=== PATIENT | female | born 1945 | race Caucasian/White ===

== ENCOUNTER 2018-01-26 13:28 | Inpatient (IN) | payer MEDICARE ==
--- NOTE | 2018-01-26 13:49 | ED ---
Fall HPI - General Chief Complaint: Fall Stated Complaint: Fall Time Seen by Provider: 01/26/18 13:46 Source: patient, EMS Mode of arrival: EMS - History of Present Illness Initial Comments: This is a 72-year-old female the ER for evaluation she presents today for evaluation status post fall fall with inability to ambulate, fall landing on her back buttocks and complaining of severe right hip pain. Patient is able to make her way to bed with help of her . 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, recurrent falls Fall Witnessed: yes, by family Place Fall Occurred: home Loss of Consciousness: none Prolonged Down Time?: no Symptoms Prior to Fall: none Location: pelvis Severity: moderate Severity scale (1-10): 3 Quality: aching Context: tripped/slipped Associated Symptoms: denies - Related Data Home Medications Medication Instructions Recorded Confirmed ALPRAZolam [Xanax] 0.25 mg PO BID 01/26/18 01/26/18 Aspirin EC [Ecotrin] 325 mg PO DAILY 01/26/18 01/26/18 Calcium Carbonate [Calcium] 1,200 mg PO TID 01/26/18 01/26/18 Ergocalciferol [Vitamin D2] 50,000 unit PO WE 01/26/18 01/26/18 Ferrous Sulfate [Feosol] 325 mg PO DAILY 01/26/18 01/26/18 Hydroxyurea 500 mg PO DAILY 01/26/18 01/26/18 Lisinopril 40 mg PO DAILY 01/26/18 01/26/18 Metoprolol Succinate [Kapspargo 50 mg PO DAILY 01/26/18 01/26/18 Sprinkle] Omeprazole 20 mg PO BID 01/26/18 01/26/18 Phenytoin Sodium Extended 100 mg PO TID 01/26/18 01/26/18 [Dilantin] Allergies Allergy/AdvReac Type Severity Reaction Status Date / Time No Known Allergies Allergy Verified 01/26/18 14:57 Review of Systems ROS Statement: Those systems with pertinent positive or pertinent negative responses have been documented in the HPI. ROS Other: All systems not noted in ROS Statement are negative. Past Medical History Past Medical History: Hypertension History of Any Multi-Drug Resistant Organisms: None Reported Past Surgical History: No Surgical Hx Reported Past Psychological History: Anxiety Smoking Status: Never smoker Past Alcohol Use History: None Reported Past Drug Use History: None Reported General Exam Limitations: no limitations General appearance: alert, in no apparent distress Head exam: Present: atraumatic, normocephalic, normal inspection Eye exam: Present: normal appearance, PERRL, EOMI. Absent: scleral icterus, conjunctival injection, periorbital swelling ENT exam: Present: normal exam, mucous membranes moist Neck exam: Present: normal inspection. Absent: tenderness, meningismus, lymphadenopathy Respiratory exam: Present: normal lung sounds bilaterally. Absent: respiratory distress, wheezes, rales, rhonchi, stridor Cardiovascular Exam: Present: regular rate, normal rhythm, normal heart sounds. Absent: systolic murmur, diastolic murmur, rubs, gallop, clicks GI/Abdominal exam: Present: soft, normal bowel sounds. Absent: distended, tenderness, guarding, rebound, rigid Extremities exam: Present: normal inspection, full ROM, normal capillary refill , other (Severe pain upon movement and palpation of right hip). Absent: tenderness, pedal edema, joint swelling, calf tenderness Back exam: Present: normal inspection Neurological exam: Present: alert, oriented X3, CN II-XII intact Psychiatric exam: Present: normal affect, normal mood Skin exam: Present: warm, dry, intact, normal color. Absent: rash Course Vital Signs 01/26/18 13:40 Temperature 98.9 F Pulse Rate 102 H Respiratory 17 Rate Blood Pressure 170/92 O2 Sat by Pulse 98 Oximetry - Reevaluation(s) Reevaluation #1: 01/26/18 18:11 Medical record is reviewed Reevaluation #2: 01/26/18 18:11 Patient unable to actively, CT is obtained which did show positive fracture This pain is currently controlled Medical Decision Making - Medical Decision Making 72 female the ER status post fall. Patient did sustain pubic rami Fracture with severe pain and inability to ambulate. Patient be admitted for pain control - Radiology Data Radiology results: report reviewed (X-ray hip is negative, CT right hip does show positive pubic rami fractures), image reviewed Disposition Clinical Impression: Fall, Fracture of pubic ramus Disposition: ADMITTED IP TO [facility] Condition: Fair Instructions: Fall Prevention for Older Adults (ED) Is patient prescribed a controlled substance at d/c from ED?: No Referrals: Cher Todd MD [Primary Care Provider] - 1-2 days
--- NOTE | 2018-01-26 14:38 | XR ---
EXAMINATION TYPE: XR Hip RT and AP Pelvis , 3 VIEWS DATE OF EXAM ORDERED: 01/26/2018 HISTORY: Pain following trauma. COMPARISON: None. FINDINGS: The entire pelvis is not included on this study. Visualized osseous structures about the pelvis are normal. No fracture is seen. There is degenerative change in the L4-5 disc level. No hip fracture is seen. There is a slightly unusual appearance to th e inferior pubic ramus on the left. This may be due to mild angulation. IMPRESSION: 1. NO ACUTE OSSEOUS LESION. 2. A REPEAT PELVIC VIEW TO INCLUDE THE ENTIRE PELVIS AND HAVE A BETTER LOOK AT INFERIOR PUBIC RAMUS O N THE LEFT WOULD BE SUGGESTED.
[2018-01-26] MEDS ORDERED: MORPHINE SULFATE 4 MG/ML SYRINGE IVP STA (16:00)
--- NOTE | 2018-01-26 16:56 | CT ---
EXAMINATION TYPE: CT hip RT wo con DATE OF EXAM: 01/26/2018 COMPARISON: Plain film same date HISTORY: Fall last night, right hip pain. CT DLP: 469 mGycm Automated exposure control for dose reduction was used. Helical acquisition through the right hip. Co miguel and sagittal reconstructions. FINDINGS: Inferior pubic ramus fracture on the right is minimally displaced. Plain film suggests infe rior ramus fracture on the left as well. Bone mineralization is maintained. No dislocation. Osteophytic change noted, there is joint space los s, marginal spurring. Incidental note made of calcified fibroid. Degenerative disc changes are present in the visualized sp ine. 3 cm cystic right ovarian mass is present IMPRESSION: PUBIC RAMI FRACTURES DESCRIBED. Cystic right ovarian mass, follow-up recommended. Osteoarthritis r ight hip.
[2018-01-26] MEDS ORDERED: MORPHINE SULFATE 2 MG/ML SYRINGE IVP STA (18:07)
[2018-01-26] MEDS ORDERED: SODIUM CHLORIDE 0.9% 1,000 ML IV STA ×2 (18:07)
[2018-01-26 19:36] LABS: Basophils % (A) 1 %; Eosinophils # (A) 0.1 k/uL (0-0.7); Eosinophils % (A) 1 %; HGB 12.6 gm/dL (11.4-16.0); Lymphocytes # (A) 0.6 k/uL (1.0-4.8); Lymphocytes % (A) 9 %; MCH 36.6 pg (25.0-35.0); MCHC 34.1 g/dL (31.0-37.0); MCV 107.3 fL (80.0-100.0); Macrocytosis Moderate; Mean Platelet Volume 6.7; Monocytes # (A) 0.3 k/uL (0-1.0); Monocytes % (A) 4 %; Neutrophils # (A) 5.3 k/uL (1.3-7.7); Neutrophils % (A) 84 %; Platelet Count 301 k/uL (150-450); RBC 3.45 m/uL (3.80-5.40); RDW 14.1 % (11.5-15.5); WBC 6.3 k/uL (3.8-10.6)
[2018-01-26 19:46] LABS: INR 1.1 (<1.2); Partial Thromboplastin Time 26.2 sec (22.0-30.0); Prothrombin Time 11.3 sec (9.0-12.0)
[2018-01-26 19:49] LABS: Appearance,Urine Clear (Clear); Bilirubin,Urine Negative (Negative); Blood,Urine Negative (Negative); Color,Urine Light Yellow; Glucose,Urine (UA) Trace (Negative); Ketones,Urine Negative (Negative); Leukocyte Esterase,Urine Negative (Negative); Nitrite,Urine Negative (Negative); PH, Urine 6.5 (5.0-8.0); Protein,Urine Negative (Negative); Specific Gravity,Urine 1.007 (1.001-1.035); Urobilinogen,Urine <2.0 mg/dL (<2.0)
[2018-01-26 19:58] LABS: ALT 32 U/L (9-52); AST 42 U/L (14-36); Albumin 3.4 g/dL (3.5-5.0); Alkaline Phosphatase 101 U/L (38-126); Anion Gap 8 mmol/L; Blood Urea Nitrogen 7 mg/dL (7-17); Calcium 8.9 mg/dL (8.4-10.2); Carbon Dioxide 24 mmol/L (22-30); Chloride 102 mmol/L (98-107); Glucose 133 mg/dL (74-99); Magnesium 1.9 mg/dL (1.6-2.3); Phosphorus 3.1 mg/dL (2.5-4.5); Potassium 4.2 mmol/L (3.5-5.1); Sodium 134 mmol/L (137-145); Total Bilirubin 1.4 mg/dL (0.2-1.3); Total Protein 6.6 g/dL (6.3-8.2)
[2018-01-26 20:09] LABS: Creatine Kinase MB 0.6 ng/mL (0.0-2.4); Troponin I 0.023 ng/mL (0.000-0.034)
[2018-01-26] MEDS: MORPHINE SULFATE 4 MG/ML SYRINGE IV SCH (21:48)
[2018-01-27 00:10] VITALS: BMI 25.7
[2018-01-27] MEDS: MORPHINE SULFATE 4 MG/ML SYRINGE IV SCH ×6 (00:38→20:16)
[2018-01-27] MEDS: ENOXAPARIN 40 MG/0.4 ML SYRINGE SQ SCH (08:08)
[2018-01-27] MEDS ORDERED: HYDROcodone/APAP 10-325MG 1 EACH TAB PO PRN (11:16)
--- NOTE | 2018-01-27 11:30 | P.CNOR ---
History of Present Illness - [facility] Consult date: 01/27/18 Consult reason: fracture (Bilateral inferior pubic rami fractures) History of present illness: The patient is a 72-year-old female that presented to the emergency department at [facility] yesterday. The patient states that she fell on Sunday night and had continued bilateral groin pain and inability to ambulate. X-rays were taken and a CT of the right hip was also ordered. She was found to have bilateral pubic rami fractures and was admitted to the hospital for further evaluation and treatment by orthopedic surgery and for pain management. The patient does live at home with her . Her is unable to take care of the patient if she does return home due to lifting restrictions after an OH. The patient is experiencing bilateral groin pain as expected. She states that she has not been out of bed yet and that is too painful for her to get out of bed at this time. She states that she has taken Jefferson 10 in the past for low back pain and says that works well for her. Review of Systems Constitutional: Denies chills, Denies fatigue, Denies fever Cardiovascular: Denies chest pain, Denies shortness of breath Respiratory: Denies cough Gastrointestinal: Denies diarrhea, Denies nausea, Denies vomiting Musculoskeletal: bilateral: hip pain (Groin pain), hip stiffness Past Medical History Past Medical History: GERD/Reflux, Hypertension, Osteoarthritis (OA), Seizure Disorder Additional Past Medical History / Comment(s): Heart murmur, back pain, "blood clot in brain" in 1975, seizure prior to 1975 History of Any Multi-Drug Resistant Organisms: None Reported Past Surgical History: Tonsillectomy Past Anesthesia/Blood Transfusion Reactions: No Reported Reaction Smoking Status: Never smoker - Past Family History Father Family Medical History: Myocardial Infarction ([place]) Mother History Unknown: Yes Medications and Allergies Home Medications Medication Instructions Recorded Confirmed Type ALPRAZolam [Xanax] 0.25 mg PO BID 01/26/18 01/26/18 History Aspirin EC [Ecotrin] 325 mg PO DAILY 01/26/18 01/26/18 History Calcium Carbonate [Calcium] 1,200 mg PO TID 01/26/18 01/26/18 History Ergocalciferol [Vitamin D2] 50,000 unit PO WE 01/26/18 01/26/18 History Ferrous Sulfate [Feosol] 325 mg PO DAILY 01/26/18 01/26/18 History Hydroxyurea 500 mg PO DAILY 01/26/18 01/26/18 History Lisinopril 40 mg PO DAILY 01/26/18 01/26/18 History Metoprolol Succinate [Kapspargo 50 mg PO DAILY 01/26/18 01/26/18 History Sprinkle] Omeprazole 20 mg PO BID 01/26/18 01/26/18 History Phenytoin Sodium Extended 100 mg PO TID 01/26/18 01/26/18 History [Dilantin] Allergies Allergy/AdvReac Type Severity Reaction Status Date / Time No Known Allergies Allergy Verified 01/26/18 14:57 Physical Examination The patient is a 72 year old female that is no acute distress. She is alert and oriented x3. The patient's head is normocephalic and atraumatic. Exam of the cervical spine reveals no pain upon palpation or range of motion. Exam of the bilateral upper extremities reveal no obvious deformities or pain upon range of motion. Exam of the bilateral lower extremity reveals no pain upon palpation. No pain upon palpation to the lateral hips. SI joints are non- tender. There is groin pain upon logrolling and any range of motion of the legs. Bilateral calves are soft and nontender. Patient has good foot and ankle motion bilaterally. Neurological and circulatory status is intact. Results Right hip and pelvis x-rays reveal slightly unusual appearance of the inferior pubic ramus on the left. Degenerative changes to L4-L5 disc level. No acute fracture seen to the right hip. Right hip CT reveals a inferior pubic ramus fracture on the right it is minimally displaced. Cystic ovarian mass present. - Labs Labs: Abnormal Lab Results - Last 24 Hours (Table) 01/26/18 01/26/18 01/26/18 Range/Units 18:53 18:53 19:02 RBC 3.45 L (3.80-5.40) m/uL MCV 107.3 H (80.0-100.0) fL MCH 36.6 H (25.0-35.0) pg Lymphocytes # 0.6 L (1.0-4.8) k/uL Sodium 134 L (137-145) mmol/L Creatinine 0.49 L (0.52-1.04) mg/dL Glucose 133 H (74-99) mg/dL Total Bilirubin 1.4 H (0.2-1.3) mg/dL AST 42 H (14-36) U/L Albumin 3.4 L (3.5-5.0) g/dL Urine Glucose (UA) Trace H (Negative) Microbiology - Last 24 Hours (Table) 01/26/18 19:02 Urine Culture - Preliminary Urine,Catheterized H & H 01/26/18 Range/Units 18:53 Hgb 12.6 (11.4-16.0) gm/dL Hct 37.0 (34.0-46.0) % Coagulation 01/26/18 Range/Units 18:53 INR 1.1 (<1.2) Result Diagrams: 01/26/18 18:53 01/26/18 18:53 Assessment and Plan (1) Fall Current Visit: Yes Status: Acute Code(s): W19.XXXA - UNSPECIFIED FALL, INITIAL ENCOUNTER SNOMED Code(s): 4092774 (2) Fracture of pubic ramus Current Visit: Yes Status: Acute Code(s): S32.599A - OTH FRACTURE OF UNSP PUBIS, INIT ENCNTR FOR CLOSED FRACTURE SNOMED Code(s): 58270082 Plan: The clinical, x-ray and CT findings were discussed with the patient. The case was also discussed with Dr. Barry Kelley. We are recommending a CT of the entire pelvis to establish stable pelvic ring and to further evaluate the left inferior pubic ramus fracture. Continue pain control, Jefferson has been added. Physical therapy and occupational therapy has been ordered for evaluation for possible rehab placement. Case management and social work has been consulted for discharge planning as well. We will continue to follow patient closely make further recommendations as needed.
[2018-01-27] MEDS: HYDROcodone/APAP 10-325MG 1 EACH TAB PO PRN ×3 (12:05→23:32)
--- NOTE | 2018-01-27 12:06 | CT ---
EXAMINATION TYPE: CT pelvis wo con DATE OF EXAM: 01/27/2018 COMPARISON: Plain films dated earlier today. HISTORY: Pelvic ring fracture CT DLP: 458.5 mGycm Automated exposure control for dose reduction was used. FINDINGS: There is a Ellsworth catheter within the bladder. The uterus is prominent containing innumerabl e calcifications likely reflecting fibroid change. There are minimally displaced fractures of the inferior pubic rami bilaterally. There is slight corti edu irregularity of the anterior aspect of the left acetabulum. There is also a minimally displaced f racture of the superior pubic ramus on the left involving the symphysis pubis. No other definite pelv ic fracture is seen. No right-sided hip fracture is identified. There are mild degenerative changes in the lower lumbar spine. IMPRESSION: 1. MILDLY DISPLACED FRACTURES OF THE INFERIOR PUBIC RAMI BILATERALLY. 2. MINIMALLY DISPLACED FRACTURE OF THE SUPERIOR PUBIC RAMUS ON THE LEFT NEAR THE SYMPHYSIS PUBIS. 3. SLIGHT CORTICAL IRREGULARITY OF THE ANTERIOR ASPECT THE LEFT ACETABULUM. THIS MAY REPRESENT AN UND ISPLACED FRACTURE. 4. FIBROID UTERUS. 5. DEGENERATIVE CHANGES IN THE LUMBAR SPINE.
[2018-01-27] MEDS: PANTOPRAZOLE 40 MG TABLET PO SCH (17:36)
[2018-01-27] MEDS: LISINOPRIL 20 MG TAB PO SCH (17:36)
[2018-01-27] MEDS: METOPROLOL SUCCINATE (ER) 50 MG TAB.ER.24H PO SCH (17:36)
[2018-01-27] MEDS: SODIUM CHLORIDE 0.9% 1,000 ML IV SCH (17:36)
--- NOTE | 2018-01-27 18:12 | P.HPIM ---
History of Present Illness This is a pleasant 72 years old female with past medical history of GERD, hypertension, gastroenteritis, seizure disorder. Patient presents because of fall. Patient states that she slipped in her crest from and fell on the floor when she fell in her bouts. Her came to help her but she couldn't stand up area was scanned to the emergency room patient was found to have pelvic fracture. And now she has fever perianal area and bilateral hip areas more than the right. In the emergency room patient has CT of the pelvis without contrast showing mildly displaced fractures of the anterior pubic rami bilaterally. CBC and BMP were noted. Mildly elevated bilirubin and liver enzymes. Patient has Ellsworth catheter Patient was on hydroxyurea and she was not sure if she is supposed to continue on it. She states that it was originally given to her by her water chaser for high platelets. However her platelets are within normal limits. She has an appointment with Dr. gill this coming Sunday. However now she is presented to the hospital. Review of Systems CONSTITUTIONAL: No fever, no malaise, no fatigue. HEENT: No recent visual problems or hearing problems. Denied any sore throat. CARDIOVASCULAR: No orthopnea, PND, no palpitations, no syncope. PULMONARY: No shortness of breath, no cough, no hemoptysis. GASTROINTESTINAL: No diarrhea, no nausea, no vomiting, no abdominal pain. Normoactive bowel sounds. NEUROLOGICAL: No headaches, no weakness, no numbness. HEMATOLOGICAL: Denies any bleeding or petechiae. GENITOURINARY: Denies any burning micturition, frequency, or urgency. MUSCULOSKELETAL/RHEUMATOLOGICAL: Denies any joint pain, swelling, or any muscle pain. ENDOCRINE: Denies any polyuria or polydipsia. Past Medical History Past Medical History: GERD/Reflux, Hypertension, Osteoarthritis (OA), Seizure Disorder Additional Past Medical History / Comment(s): Heart murmur, back pain, "blood clot in brain" in 1975, seizure prior to 1975 History of Any Multi-Drug Resistant Organisms: None Reported Past Surgical History: Tonsillectomy Past Anesthesia/Blood Transfusion Reactions: No Reported Reaction Smoking Status: Never smoker - Past Family History Father Family Medical History: Myocardial Infarction ([place]) Mother History Unknown: Yes Medications and Allergies Home Medications Medication Instructions Recorded Confirmed Type ALPRAZolam [Xanax] 0.25 mg PO BID 01/26/18 01/26/18 History Aspirin EC [Ecotrin] 325 mg PO DAILY 01/26/18 01/26/18 History Calcium Carbonate [Calcium] 1,200 mg PO TID 01/26/18 01/26/18 History Ergocalciferol [Vitamin D2] 50,000 unit PO WE 01/26/18 01/26/18 History Ferrous Sulfate [Feosol] 325 mg PO DAILY 01/26/18 01/26/18 History Hydroxyurea 500 mg PO DAILY 01/26/18 01/26/18 History Lisinopril 40 mg PO DAILY 01/26/18 01/26/18 History Metoprolol Succinate [Kapspargo 50 mg PO DAILY 01/26/18 01/26/18 History Sprinkle] Omeprazole 20 mg PO BID 01/26/18 01/26/18 History Phenytoin Sodium Extended 100 mg PO TID 01/26/18 01/26/18 History [Dilantin] Allergies Allergy/AdvReac Type Severity Reaction Status Date / Time No Known Allergies Allergy Verified 01/26/18 14:57 Physical Exam Vitals: Vital Signs Temp Pulse Pulse Pulse Resp BP BP 01/27/18 12:06 99.3 F 107 H 18 160/81 01/27/18 05:00 98.7 F 91 16 133/71 01/27/18 00:00 100 18 01/26/18 23:52 98.7 F 102 H 18 162/91 01/26/18 21:53 98.7 F 102 H 18 162/91 01/26/18 20:56 96 16 149/90 01/26/18 19:34 95 16 147/92 Pulse Ox 01/27/18 12:06 96 01/27/18 05:00 93 L 01/27/18 00:00 01/26/18 23:52 97 01/26/18 21:53 97 01/26/18 20:56 97 01/26/18 19:34 94 L Intake and Output 01/27/18 01/27/18 01/27/18 06:59 14:59 22:59 Intake Total 800 Output Total 400 200 Balance 400 -200 Intake: Intake, IV Titration 800 Amount Sodium Chloride 0.9% 1, 800 000 ml @ 100 mls/hr IV . Q10H [facility] Rx#:[id number] Output: Urine 400 200 Other: Voiding Method Indwelling Catheter Indwelling Catheter Indwelling Catheter Weight 70.3 kg GENERAL: The patient is alert and oriented x3, not in any acute distress. Well developed, well nourished. HEENT: Pupils are round and equally reacting to light. EOMI. No scleral icterus. No conjunctival pallor. Normocephalic, atraumatic. No pharyngeal erythema. No thyromegaly. CARDIOVASCULAR: S1 and S2 present. No murmurs, rubs, or gallops. PULMONARY: Chest is clear to auscultation, no wheezing or crackles. ABDOMEN: Soft, nontender, nondistended, normoactive bowel sounds. No palpable organomegaly. -MUSCULOSKELETAL: No joint swelling or deformity. Tenderness in both hip areas more on the right side EXTREMITIES: No cyanosis, clubbing, or pedal edema. NEUROLOGICAL: Gross neurological examination did not reveal any focal deficits. SKIN: No rashes. Results CBC & Chem 7: 01/26/18 18:53 01/26/18 18:53 Labs: Abnormal Lab Results - Last 24 Hours (Table) 01/26/18 01/26/18 01/26/18 Range/Units 18:53 18:53 19:02 RBC 3.45 L (3.80-5.40) m/uL MCV 107.3 H (80.0-100.0) fL MCH 36.6 H (25.0-35.0) pg Lymphocytes # 0.6 L (1.0-4.8) k/uL Sodium 134 L (137-145) mmol/L Creatinine 0.49 L (0.52-1.04) mg/dL Glucose 133 H (74-99) mg/dL Total Bilirubin 1.4 H (0.2-1.3) mg/dL AST 42 H (14-36) U/L Albumin 3.4 L (3.5-5.0) g/dL Urine Glucose (UA) Trace H (Negative) Microbiology - Last 24 Hours (Table) 01/26/18 19:02 Urine Culture - Preliminary Urine,Catheterized Thrombosis Risk Factor Assmnt - Choose All That Apply Any of the Below Risk Factors Present?: Yes Each Factor Represents 1 point: Medical pt on bed rest Other Risk Factors: Yes Each Risk Factor Represents 2 Points: Age 61-74 years Each Risk Factor Represents 5 Points: Hip, pelvis, or leg fracture (< 1 month) Thrombosis Risk Factor Assessment Total Risk Factor Score: 8 Thrombosis Risk Factor Assessment Level: High Risk Assessment and Plan Assessment: Keith Bilateral pelvic rami fracture History of GERD Essential hypertension History of seizure disorder Possible history of blood diseases on hydroxyurea. Plan: This is a pleasant 72 years old female who presents because of fall and pubic ramus fracture. Continue with IV fluids. Orthopedic evaluation in the patient.Labs and medication were reviewed.. Continue same treatment. Continue with symptomatic treatment. Resume home medication. Monitor lytes and vitals. DVT and GI prophylaxis. Further recommendations of the clinical course of the patient DVT prophylaxis: Subcutaneous Lovenox GI Prophylaxis: Pepcid PT/OT: Pending Prognosis is guarded
[2018-01-27] MEDS: ALPRAZolam 0.25 MG TAB PO SCH (21:33)
[2018-01-27] MEDS: PHENYTOIN SODIUM EXTENDED 100 MG CAP PO SCH (21:33)
[2018-01-27] MEDS: CALCIUM CARBONATE 500 MG CHEWABLE PO SCH (21:33)
[2018-01-28] MEDS: SODIUM CHLORIDE 0.9% 1,000 ML IV SCH ×2 (02:22→15:55)
[2018-01-28] MEDS: MORPHINE SULFATE 4 MG/ML SYRINGE IV SCH ×6 (02:22→21:08)
[2018-01-28] MEDS: HYDROcodone/APAP 10-325MG 1 EACH TAB PO PRN ×4 (05:44→23:47)
[2018-01-28] MEDS ORDERED: SENNOSIDES 8.6 MG TAB PO PRN (06:58)
[2018-01-28 07:44] LABS: Basophils % (A) 0 %; Eosinophils # (A) 0.4 k/uL (0-0.7); Eosinophils % (A) 5 %; HCT 38.3 % (34.0-46.0); HGB 12.1 gm/dL (11.4-16.0); Lymphocytes # (A) 0.7 k/uL (1.0-4.8); Lymphocytes % (A) 9 %; MCH 35.4 pg (25.0-35.0); MCHC 31.8 g/dL (31.0-37.0); MCV 111.6 fL (80.0-100.0); Macrocytosis Marked; Mean Platelet Volume 7.5; Monocytes # (A) 0.3 k/uL (0-1.0); Monocytes % (A) 5 %; Neutrophils # (A) 5.7 k/uL (1.3-7.7); Neutrophils % (A) 80 %; Platelet Count 218 k/uL (150-450); RBC 3.43 m/uL (3.80-5.40); WBC 7.2 k/uL (3.8-10.6)
[2018-01-28] MEDS: ENOXAPARIN 40 MG/0.4 ML SYRINGE SQ SCH (07:45)
[2018-01-28] MEDS: CALCIUM CARBONATE 500 MG CHEWABLE PO SCH ×3 (07:45→21:07)
[2018-01-28 07:46] LABS: ALT 20 U/L (9-52); AST 25 U/L (14-36); Albumin 2.9 g/dL (3.5-5.0); Alkaline Phosphatase 79 U/L (38-126); Anion Gap 5 mmol/L; Blood Urea Nitrogen 6 mg/dL (7-17); Calcium 8.4 mg/dL (8.4-10.2); Carbon Dioxide 21 mmol/L (22-30); Chloride 106 mmol/L (98-107); Glucose 89 mg/dL (74-99); Sodium 132 mmol/L (137-145); Total Bilirubin 1.1 mg/dL (0.2-1.3); Total Protein 5.9 g/dL (6.3-8.2)
[2018-01-28] MEDS: PANTOPRAZOLE 40 MG TABLET PO SCH ×2 (07:46→17:06)
[2018-01-28] MEDS: DOCUSATE 100 MG CAP PO SCH ×2 (07:49→21:08)
[2018-01-28] MEDS: ALPRAZolam 0.25 MG TAB PO SCH ×2 (07:49→21:08)
[2018-01-28] MEDS: METOPROLOL SUCCINATE (ER) 50 MG TAB.ER.24H PO SCH (07:50)
[2018-01-28] MEDS: LISINOPRIL 20 MG TAB PO SCH (07:50)
--- NOTE | 2018-01-28 08:44 | P.PN ---
Subjective Progress Note Date: 01/28/18 Principal diagnosis: Bilateral pubic rami fractures This is a 72 year-old female who we've been following for bilateral pubic rami fractures. The patient was evaluated at the bedside today. The patient denies nausea, vomiting, abdominal pain, shortness of breath, and chest pain this morning. She states her pain is not controlled at this time. A CT of the pelvis was ordered yesterday that revealed the known inferior pubic rami fractures bilaterally, a superior pubic ramus fracture on the left and a possible left acetabulum fracture that is nondisplaced. Physical and occupational therapy was ordered yesterday for evaluations today. No new complaints today. Objective - Vital Signs Vital signs: Vital Signs Temp 98 F 01/28/18 05:00 Pulse 95 01/28/18 05:00 Resp 16 01/28/18 05:00 BP 147/80 01/28/18 05:00 Pulse Ox 96 01/28/18 05:00 Intake & Output 01/27/18 01/28/18 01/28/18 18:59 06:59 18:59 Intake Total 1580 Output Total 200 250 Balance -200 1330 Intake: Intake, IV Titration 640 Amount Sodium Chloride 0.9% 1, 640 000 ml @ 75 mls/hr IV . [id number] [facility] Rx#:[id number] Oral 940 Output: Urine 200 250 Uretheral (Ellsworth) 250 Other: Voiding Method Indwelling Catheter Indwelling Catheter - Exam The patient is a 72-year-old female in no acute distress. She is alert and oriented 3. Exam of the bilateral lower extremities reveals no pain upon palpation. No pain to palpation to the lateral hips. SI joints are nontender. There is groin pain upon logrolling in any range of motion of the legs. Bilateral calves are soft and nontender. Patient has good foot and ankle motion bilaterally. Neurological and circulatory status is intact. - Labs CBC & Chem 7: 01/28/18 07:22 01/28/18 07:22 Labs: Abnormal Lab Results - Last 24 Hours (Table) 01/28/18 01/28/18 Range/Units 07:22 07:22 RBC 3.43 L (3.80-5.40) m/uL MCV 111.6 H (80.0-100.0) fL MCH 35.4 H (25.0-35.0) pg Sodium 132 L (137-145) mmol/L Carbon Dioxide 21 L (22-30) mmol/L BUN 6 L (7-17) mg/dL Creatinine 0.49 L (0.52-1.04) mg/dL Total Protein 5.9 L (6.3-8.2) g/dL Albumin 2.9 L (3.5-5.0) g/dL Microbiology - Last 24 Hours (Table) 01/26/18 19:02 Urine Culture - Final Urine,Catheterized Assessment and Plan (1) Fall Current Visit: Yes Status: Acute Code(s): W19.XXXA - UNSPECIFIED FALL, INITIAL ENCOUNTER SNOMED Code(s): 5969314 (2) Fracture of pubic ramus Current Visit: Yes Status: Acute Code(s): S32.599A - OTH FRACTURE OF UNSP PUBIS, INIT ENCNTR FOR CLOSED FRACTURE SNOMED Code(s): 32741300 Plan: The clinical, x-ray and CT findings were discussed with the patient. The case was also discussed with Dr. Barry Kelley. The patient may remain weight- bear as tolerated to the bilateral legs. Continue pain control. Physical therapy and occupational therapy has been ordered for evaluation for possible rehab placement. I encouraged patient to really sit on the side of the bed or in a bedside chair today. The Ellsworth should be removed once patient is more ambulatory. Case management and social work has been consulted for discharge planning as well. We will continue to follow patient closely make further recommendations as needed.
[2018-01-28] MEDS ORDERED: HYDROXYUREA 500 MG CAP PO SCH (09:00)
[2018-01-28 09:28] LABS: Poikilocytosis (M) Present
[2018-01-28] MEDS: PHENYTOIN SODIUM EXTENDED 100 MG CAP PO SCH ×3 (10:19→21:08)
[2018-01-28] MEDS: FERROUS SULFATE 325 MG TAB PO SCH (11:21)
--- NOTE | 2018-01-28 13:47 | P.CONS ---
History of Present Illness - Reason for Consult Consult date: 01/28/18 on hydrea for ET Requesting physician: Paddy E Madelyn - Chief Complaint fall with pain - History of Present Illness Mrs. Sousa is a very pleasant female pt of Dr. Arce 1st seen in July 2017. In 01/05 she was noted, on routine blood draw, to have an elevated platelet count of 855. Hemoglobin, WBC and other CBC indices were normal, chem panel was WNL. On 05/24/17 labs showed a plt count of 683 so, she was referred for further hematological evaluation and recommendations. Additional labs reveled that she was positive for a JAK2 [id number] mutation, confirming Essential Thrombocytosis. She was started on hydrea 500 mg daily in 09/05 with a good response. Dose was decreased to 500 mg 5 days/wk, due to fatigue in 10/06. She was also placed on 325mg/day ASA. She has followed up monthly with good tolerance and no intolerable side effects reported. Pt states she was at home and fell, her legs suddenly became weak, she denies hitting her head, she has had leg pain ever since, denies numbness or tingling in the pelvis or legs, no BM x 3 days, denies blood in the urine, current analgesics are providing fair pain control. No other c/o on a 14 point ROS. Review of Systems 14 point ROS is a stated in HPI Past Medical History Past Medical History: Blood Disorder, GERD/Reflux, Hypertension, Osteoarthritis (OA), Seizure Disorder Additional Past Medical History / Comment(s): Heart murmur, back pain, "blood clot in brain" in 1975, seizure prior to 1975 History of Any Multi-Drug Resistant Organisms: None Reported Past Surgical History: Tonsillectomy Past Anesthesia/Blood Transfusion Reactions: No Reported Reaction Past Psychological History: No Psychological Hx Reported Smoking Status: Never smoker Past Alcohol Use History: None Reported Past Drug Use History: None Reported - Past Family History Father Family Medical History: Myocardial Infarction ([place]) Mother History Unknown: Yes Medications and Allergies Home Medications Medication Instructions Recorded Confirmed Type ALPRAZolam [Xanax] 0.25 mg PO BID 01/26/18 01/26/18 History Aspirin EC [Ecotrin] 325 mg PO DAILY 01/26/18 01/26/18 History Calcium Carbonate [Calcium] 1,200 mg PO TID 01/26/18 01/26/18 History Ergocalciferol [Vitamin D2] 50,000 unit PO WE 01/26/18 01/26/18 History Ferrous Sulfate [Feosol] 325 mg PO DAILY 01/26/18 01/26/18 History Hydroxyurea 500 mg PO DAILY 01/26/18 01/26/18 History Lisinopril 40 mg PO DAILY 01/26/18 01/26/18 History Metoprolol Succinate [[place] 50 mg PO DAILY 01/26/18 01/26/18 History Sprinkle] Omeprazole 20 mg PO BID 01/26/18 01/26/18 History Phenytoin Sodium Extended 100 mg PO TID 01/26/18 01/26/18 History [Dilantin] Allergies Allergy/AdvReac Type Severity Reaction Status Date / Time No Known Allergies Allergy Verified 01/26/18 14:57 Physical Exam Vitals: Vital Signs Temp Pulse Resp BP Pulse Ox 01/28/18 05:00 98 F 95 16 147/80 96 01/27/18 21:00 98.4 F 97 16 127/78 92 L 01/27/18 12:06 99.3 F 107 H 18 160/81 96 Intake and Output 01/27/18 01/28/18 01/28/18 22:59 06:59 14:59 Intake Total 1040 540 Output Total 250 Balance 1040 290 Intake: Intake, IV Titration 640 Amount Sodium Chloride 0.9% 1, 640 000 ml @ 75 mls/hr IV . [id number] [facility] Rx#:[id number] Oral 400 540 Output: Urine 250 Uretheral ([place]) 250 Other: Voiding Method Indwelling Catheter Indwelling Catheter Indwelling Catheter Weight 70.3 kg - Constitutional General appearance: average body habitus, cooperative, no acute distress - EENT Eyes: anicteric sclerae, EOMI, normal appearance ENT: hearing grossly normal - Neck Neck: no lymphadenopathy - Respiratory Respiratory: bilateral: CTA - Cardiovascular Heart sounds: normal: S1, S2 leg Peripheral Edema: bilateral: None - Gastrointestinal General gastrointestinal: no absent bowel sounds, no decreased bowel sounds, no distended, no hepatomegaly, no hyperactive bowel sounds, normal bowel sounds, no organomegaly, no rigid, no scaphoid, soft, no splenomegaly, no tenderness, no umbilical hernia, no ventral hernia - Integumentary Integumentary: normal - Neurologic Neurologic: CNII-XII intact - Musculoskeletal BLE weakness secondary to pain, no sensation deficit in the legs, extremities are warm Musculoskeletal: strength equal bilaterally - Psychiatric Psychiatric: A&O x's 3, appropriate affect, intact judgment & insight Results CBC & Chem 7: 01/28/18 07:22 12 07:22 Labs: Abnormal Lab Results - Last 24 Hours (Table) 01/28/18 01/28/18 Range/Units 07:22 07:22 RBC 3.43 L (3.80-5.40) m/uL MCV 111.6 H (80.0-100.0) fL MCH 35.4 H (25.0-35.0) pg Lymphocytes # 0.7 L (1.0-4.8) k/uL Sodium 132 L (137-145) mmol/L Carbon Dioxide 21 L (22-30) mmol/L BUN 6 L (7-17) mg/dL Creatinine 0.49 L (0.52-1.04) mg/dL Total Protein 5.9 L (6.3-8.2) g/dL Albumin 2.9 L (3.5-5.0) g/dL Microbiology - Last 24 Hours (Table) 01/26/18 19:02 Urine Culture - Final Urine,Catheterized Comments: Orthopedic notes reviewed for surgical plan Assessment and Plan (1) Essential thrombocythemia Narrative/Plan: Pt diagnosed with ET about July of 2017, been treated with hydrea M-F and a full dose aspirin. If no plans for surgery then recommendation is to continue hydrea and asa as prescribed. Rehab at the direction of Orthopedics. If surgical intervention required then recommendation would be to hold hydrea until tigist are removed. Cont full dose aspirin and start orthopedic prophylaxis dose of anticoagulation-xarelto or eliquis. Current Visit: Yes Status: Chronic Priority: Medium Code(s): D47.3 - ESSENTIAL (HEMORRHAGIC) THROMBOCYTHEMIA SNOMED Code(s): 287494448 Plan: F/U Dr. Arce 1 month attests: I have performed H&P and developed impression and plan of patient with dictator. I agree with dictated note, documented as a scribe.
[2018-01-28] MEDS: CYCLOBENZAPRINE 5 MG TAB PO PRN ×2 (17:06→21:07)
--- NOTE | 2018-01-28 21:37 | P.PN ---
Subjective This is a pleasant 72 years old female with past medical history of GERD, hypertension, gastroenteritis, seizure disorder. Patient presents because of fall. Patient states that she slipped in her crest from and fell on the floor when she fell in her bouts. Her came to help her but she couldn't stand up area was scanned to the emergency room patient was found to have pelvic fracture. And now she has fever perianal area and bilateral hip areas more than the right. In the emergency room patient has CT of the pelvis without contrast showing mildly displaced fractures of the anterior pubic rami bilaterally. CBC and BMP were noted. Mildly elevated bilirubin and liver enzymes. Patient has Ellsworth catheter Patient was on hydroxyurea and she was not sure if she is supposed to continue on it. She states that it was originally given to her by her assembly lead person for high platelets. However her platelets are within normal limits. She has an appointment with Dr. gill this coming Sunday. However now she is presented to the hospital. 01/28/2018 pt is still in significant pain , at the fracture site and she is needing both po norco 10 and iv morphine , orthopedic evaluation is appreiciated and recommended subacute rehab, no surgery is indicated for her no, physical therapy to evaluate pt for possible rehab. hematology consult is appreciated , pt to continue with hydroxyureea due to her essential thrombocythemia. Objective - Vital Signs Vital signs: Vital Signs Temp 97.9 F 01/28/18 12:27 Pulse 101 H 01/28/18 15:41 Resp 20 01/28/18 15:41 BP 161/82 01/28/18 12:27 Pulse Ox 97 01/28/18 12:27 Intake & Output 01/28/18 01/28/18 01/29/18 06:59 18:59 06:59 Intake Total 1580 1720 Output Total 250 450 Balance 1330 1270 Weight 70.3 kg Intake: Intake, IV Titration 640 900 Amount Sodium Chloride 0.9% 1, 640 900 000 ml @ 75 mls/hr IV . [id number] [facility] Rx#:[id number] Oral 940 820 Output: Urine 250 450 Uretheral ([place]) 250 Other: Voiding Method Indwelling Catheter Indwelling Catheter # Voids 1 - Exam GENERAL: The patient is alert and oriented x3, not in any acute distress. Well developed, well nourished. HEENT: Pupils are round and equally reacting to light. EOMI. No scleral icterus. No conjunctival pallor. Normocephalic, atraumatic. No pharyngeal erythema. No thyromegaly. CARDIOVASCULAR: S1 and S2 present. No murmurs, rubs, or gallops. PULMONARY: Chest is clear to auscultation, no wheezing or crackles. ABDOMEN: Soft, nontender, nondistended, normoactive bowel sounds. No palpable organomegaly. -MUSCULOSKELETAL: No joint swelling or deformity. Tenderness in both hip areas more on the right side EXTREMITIES: No cyanosis, clubbing, or pedal edema. NEUROLOGICAL: Gross neurological examination did not reveal any focal deficits. SKIN: No rashes. - Labs CBC & Chem 7: 01/28/18 07:22 01/28/18 07:22 Labs: Abnormal Lab Results - Last 24 Hours (Table) 01/28/18 01/28/18 Range/Units 07:22 07:22 RBC 3.43 L (3.80-5.40) m/uL MCV 111.6 H (80.0-100.0) fL MCH 35.4 H (25.0-35.0) pg Lymphocytes # 0.7 L (1.0-4.8) k/uL Sodium 132 L (137-145) mmol/L Carbon Dioxide 21 L (22-30) mmol/L BUN 6 L (7-17) mg/dL Creatinine 0.49 L (0.52-1.04) mg/dL Total Protein 5.9 L (6.3-8.2) g/dL Albumin 2.9 L (3.5-5.0) g/dL Microbiology - Last 24 Hours (Table) 01/26/18 19:02 Urine Culture - Final Urine,Catheterized Assessment and Plan Assessment: Keith Bilateral pelvic rami fracture History of GERD Essential hypertension History of seizure disorder Possible history of blood diseases on hydroxyurea. Plan: This is a pleasant 72 years old female who presents because of fall and pubic ramus fracture. Continue with IV fluids. Orthopedic evaluation in the patient.Labs and medication were reviewed.. Continue same treatment. Continue with symptomatic treatment. Resume home medication. Monitor lytes and vitals. DVT and GI prophylaxis. Further recommendations of the clinical course of the patient DVT prophylaxis: Subcutaneous Lovenox GI Prophylaxis: Pepcid PT/OT: Pending Prognosis is guarded
[2018-01-29] MEDS: MORPHINE SULFATE 4 MG/ML SYRINGE IV SCH ×3 (00:39→06:59)
[2018-01-29] MEDS: HYDROcodone/APAP 10-325MG 1 EACH TAB PO PRN ×3 (05:43→18:22)
[2018-01-29] MEDS: SODIUM CHLORIDE 0.9% 1,000 ML IV SCH ×2 (06:58→17:09)
[2018-01-29 07:57] LABS: Anion Gap 4 mmol/L; Blood Urea Nitrogen 5 mg/dL (7-17); Calcium 8.5 mg/dL (8.4-10.2); Carbon Dioxide 21 mmol/L (22-30); Chloride 109 mmol/L (98-107); Glucose 83 mg/dL (74-99); Sodium 134 mmol/L (137-145)
[2018-01-29 08:32] LABS: Potassium 4.8 mmol/L (3.5-5.1)
[2018-01-29] MEDS ORDERED: MORPHINE SULFATE 4 MG/ML SYRINGE IV PRN (08:39)
--- NOTE | 2018-01-29 08:56 | P.PN ---
Subjective Progress Note Date: 01/29/18 Principal diagnosis: Bilateral pubic rami fractures This is a 72 year-old female who we've been following for bilateral pubic rami fractures. The patient was evaluated at the bedside today. The patient denies nausea, vomiting, abdominal pain, shortness of breath, and chest pain this morning. She states her pain is still controlled at this time. A CT of the pelvis that revealed the known inferior pubic rami fractures bilaterally, a superior pubic ramus fracture on the left and a possible left acetabulum fracture that is nondisplaced. Physical and occupational therapy evaluated the patient yesterday. No new complaints today. Her IV infiltrated last night and now her right elbow is swollen but not painful. Objective - Vital Signs Vital signs: Vital Signs Temp 98.1 F 01/29/18 04:54 Pulse 86 01/29/18 04:54 Resp 16 01/29/18 04:54 BP 138/79 01/29/18 04:54 Pulse Ox 98 01/29/18 08:13 Intake & Output 01/28/18 01/29/18 01/29/18 18:59 06:59 18:59 Intake Total 1720 1830 Output Total 450 1000 Balance 1270 830 Weight 70.3 kg Intake: Intake, IV Titration 900 640 Amount Sodium Chloride 0.9% 1, 900 640 000 ml @ 75 mls/hr IV . [id number] [facility] Rx#:[id number] Oral 820 1190 Output: Urine 450 1000 Other: Voiding Method Indwelling Catheter Indwelling Catheter # Voids 1 - Exam The patient is a 72-year-old female in no acute distress. She is alert and oriented 3. Exam of the bilateral lower extremities reveals no pain upon palpation. No pain to palpation to the lateral hips. SI joints are nontender. There is groin pain upon logrolling in any range of motion of the legs. Bilateral calves are soft and nontender. Patient has good foot and ankle motion bilaterally. Neurological and circulatory status is intact. - Labs CBC & Chem 7: 01/28/18 07:22 01/29/18 06:28 Labs: Abnormal Lab Results - Last 24 Hours (Table) 01/28/18 01/29/18 Range/Units 07:22 06:28 RBC 3.43 L (3.80-5.40) m/uL MCV 111.6 H (80.0-100.0) fL MCH 35.4 H (25.0-35.0) pg Lymphocytes # 0.7 L (1.0-4.8) k/uL Sodium 134 L (137-145) mmol/L Chloride 109 H (98-107) mmol/L Carbon Dioxide 21 L (22-30) mmol/L BUN 5 L (7-17) mg/dL Creatinine 0.49 L (0.52-1.04) mg/dL Assessment and Plan (1) Fall Current Visit: Yes Status: Acute Code(s): W19.XXXA - UNSPECIFIED FALL, INITIAL ENCOUNTER SNOMED Code(s): 9956226 (2) Fracture of pubic ramus Current Visit: Yes Status: Acute Code(s): S32.599A - OTH FRACTURE OF UNSP PUBIS, INIT ENCNTR FOR CLOSED FRACTURE SNOMED Code(s): 79259146 Plan: The clinical, x-ray and CT findings were discussed with the patient. The case was also discussed with Dr. Barry Kelley. The patient may remain weight- bear as tolerated to the bilateral legs. Continue pain control, I have added Ultram to alternate with the [place] and to decrease Morphine use. Physical therapy and occupational therapy has been ordered for evaluation for possible rehab placement. I encouraged patient to really sit on the side of the bed or in a bedside chair today. The Ellsworth should be removed once patient is more ambulatory. Case management and social work has been consulted for discharge planning as well. We will continue to follow patient closely make further recommendations as needed.
[2018-01-29] MEDS ORDERED: MORPHINE SULFATE 2 MG/ML SYRINGE IM STA (09:18)
[2018-01-29] MEDS: ENOXAPARIN 40 MG/0.4 ML SYRINGE SQ SCH (09:19)
[2018-01-29] MEDS: LISINOPRIL 20 MG TAB PO SCH (09:20)
[2018-01-29] MEDS: CALCIUM CARBONATE 500 MG CHEWABLE PO SCH ×3 (09:20→22:12)
[2018-01-29] MEDS: DOCUSATE 100 MG CAP PO SCH ×2 (09:21→22:13)
[2018-01-29] MEDS: FERROUS SULFATE 325 MG TAB PO SCH (09:21)
[2018-01-29] MEDS: ALPRAZolam 0.25 MG TAB PO SCH ×2 (09:21→22:12)
[2018-01-29] MEDS: PANTOPRAZOLE 40 MG TABLET PO SCH ×2 (09:21→17:15)
[2018-01-29] MEDS: PHENYTOIN SODIUM EXTENDED 100 MG CAP PO SCH ×2 (09:22→17:16)
[2018-01-29] MEDS: HYDROXYUREA 500 MG CAP PO SCH (09:23)
[2018-01-29] MEDS: METOPROLOL SUCCINATE (ER) 50 MG TAB.ER.24H PO SCH (09:23)
[2018-01-29] MEDS: CYCLOBENZAPRINE 5 MG TAB PO PRN (12:14)
[2018-01-29 12:57] VITALS: RESP 18
[2018-01-29] MEDS: traMADol 50 MG TAB PO PRN ×2 (17:15→22:12)
--- NOTE | 2018-01-29 17:34 | P.PN ---
Subjective This is a pleasant 72 years old female with past medical history of GERD, hypertension, gastroenteritis, seizure disorder. Patient presents because of fall. Patient states that she slipped in her crest from and fell on the floor when she fell in her bouts. Her came to help her but she couldn't stand up area was scanned to the emergency room patient was found to have pelvic fracture. And now she has fever perianal area and bilateral hip areas more than the right. In the emergency room patient has CT of the pelvis without contrast showing mildly displaced fractures of the anterior pubic rami bilaterally. CBC and BMP were noted. Mildly elevated bilirubin and liver enzymes. Patient has Ellsworth catheter Patient was on hydroxyurea and she was not sure if she is supposed to continue on it. She states that it was originally given to her by her wool hat sanding machine operator for high platelets. However her platelets are within normal limits. She has an appointment with Dr. gill this coming Sunday. However now she is presented to the hospital. 01/28/2018 pt is still in significant pain , at the fracture site and she is needing both po norco 10 and iv morphine , orthopedic evaluation is appreiciated and recommended subacute rehab, no surgery is indicated for her no, physical therapy to evaluate pt for possible rehab. hematology consult is appreciated , pt to continue with hydroxyureea due to her essential thrombocythemia. 01/29/2018 pt is still needing pain medication , parental morphine is provided for the pt today. orthopedic f/u is appreciated . DVT prophylaxis is aspirin 325 mg bid as per ortho team. possible discharge in 24/48 hrs Objective - Vital Signs Vital signs: Vital Signs Temp 97.4 F L 01/29/18 12:29 Pulse 90 01/29/18 12:29 Resp 18 01/29/18 12:29 BP 151/83 01/29/18 12:29 Pulse Ox 99 01/29/18 12:29 Intake & Output 01/28/18 01/29/18 01/29/18 18:59 06:59 18:59 Intake Total 1720 1830 Output Total 450 1000 600 Balance 1270 830 -600 Weight 70.3 kg Intake: Intake, IV Titration 900 640 Amount Sodium Chloride 0.9% 1, 900 640 000 ml @ 75 mls/hr IV . [id number] [facility] Rx#:[id number] Oral 820 1190 Output: Urine 450 1000 600 Other: Voiding Method Indwelling Catheter Indwelling Catheter Indwelling Catheter # Voids 1 - Exam GENERAL: The patient is alert and oriented x3, not in any acute distress. Well developed, well nourished. HEENT: Pupils are round and equally reacting to light. EOMI. No scleral icterus. No conjunctival pallor. Normocephalic, atraumatic. No pharyngeal erythema. No thyromegaly. CARDIOVASCULAR: S1 and S2 present. No murmurs, rubs, or gallops. PULMONARY: Chest is clear to auscultation, no wheezing or crackles. ABDOMEN: Soft, nontender, nondistended, normoactive bowel sounds. No palpable organomegaly. -MUSCULOSKELETAL: No joint swelling or deformity. Tenderness in both hip areas more on the right side EXTREMITIES: No cyanosis, clubbing, or pedal edema. NEUROLOGICAL: Gross neurological examination did not reveal any focal deficits. SKIN: No rashes. - Labs CBC & Chem 7: 01/28/18 07:22 01/29/18 06:28 Labs: Abnormal Lab Results - Last 24 Hours (Table) 01/29/18 Range/Units 06:28 Sodium 134 L (137-145) mmol/L Chloride 109 H (98-107) mmol/L Carbon Dioxide 21 L (22-30) mmol/L BUN 5 L (7-17) mg/dL Creatinine 0.49 L (0.52-1.04) mg/dL Assessment and Plan Assessment: Keith Bilateral pelvic rami fracture History of GERD Essential hypertension History of seizure disorder Possible history of blood diseases on hydroxyurea. Plan: This is a pleasant 72 years old female who presents because of fall and pubic ramus fracture. Continue with IV fluids. Orthopedic evaluation in the patient.Labs and medication were reviewed.. Continue same treatment. Continue with symptomatic treatment. Resume home medication. Monitor lytes and vitals. DVT and GI prophylaxis. Further recommendations of the clinical course of the patient DVT prophylaxis: Subcutaneous Lovenox GI Prophylaxis: Pepcid PT/OT: Pending Prognosis is guarded
[2018-01-29] MEDS ORDERED: ASPIRIN 325 MG TAB PO SCH (21:00)
[2018-01-30] MEDS: HYDROcodone/APAP 10-325MG 1 EACH TAB PO PRN ×3 (00:20→12:16)
[2018-01-30] MEDS: PHENYTOIN SODIUM EXTENDED 100 MG CAP PO SCH ×2 (00:21→09:09)
[2018-01-30] MEDS: CYCLOBENZAPRINE 5 MG TAB PO PRN ×2 (00:21→09:27)
[2018-01-30] MEDS: traMADol 50 MG TAB PO PRN ×2 (02:45→06:34)
[2018-01-30 05:45] VITALS: BP 161/79; PULSE 96; TEMP 97.8
[2018-01-30] MEDS ORDERED: ASPIRIN 325 MG TAB PO SCH ×2 (09:00)
[2018-01-30] MEDS ORDERED: MORPHINE SULFATE 4 MG/ML SYRINGE IM STA (09:01)
[2018-01-30] MEDS: LISINOPRIL 20 MG TAB PO SCH (09:04)
[2018-01-30] MEDS: CALCIUM CARBONATE 500 MG CHEWABLE PO SCH (09:04)
[2018-01-30] MEDS: PANTOPRAZOLE 40 MG TABLET PO SCH (09:05)
[2018-01-30] MEDS: SODIUM CHLORIDE 0.9% 1,000 ML IV SCH (09:05)
[2018-01-30] MEDS: ALPRAZolam 0.25 MG TAB PO SCH (09:05)
[2018-01-30] MEDS: DOCUSATE 100 MG CAP PO SCH (09:05)
[2018-01-30] MEDS: METOPROLOL SUCCINATE (ER) 50 MG TAB.ER.24H PO SCH (09:09)
[2018-01-30] MEDS: HYDROXYUREA 500 MG CAP PO SCH (09:09)
--- NOTE | 2018-01-30 11:47 | P.DS ---
Providers Date of admission: 01/26/18 18:07 Attending physician: Jane Copeland Consults: 01/26/18 18:07 Consult Physician Routine Consulting Provider: Walter Kelley Consult Reason/Comments: pubicRamiFx Do you want consulting provider notified?: Yes 01/27/18 18:12 Consult Physician Routine Consulting Provider: Floyd Arce Consult Reason/Comments: ? blood disorder on hydroxyurea Do you want consulting provider notified?: Yes Primary care physician: Cher Lopez [facility] Course: Diagnoses Bilateral pelvic rami fracture Fall Essential thrombocythemia, on hydroxyurea History of GERD Essential hypertension History of seizure disorder This is a pleasant 72 years old female with past medical history of GERD, hypertension, gastroenteritis, seizure disorder. Patient presents because of fall. Patient states that she slipped in her restroom and fell on the floor on her buttocks. Her came to help her but she couldn't stand up , in the emergency room patient was found to have pelvic fracture. Computed tomography scan of the pelvis showing mildly displaced fractures of the inferior pubic rami bilaterally. Patient has been evaluated by our orthopedic team without the patient is weight-bear as tolerated to bilateral legs. Physical and occupational therapy and rehab placement. Pain management continue with [place] as directed by orthopedic team. As well as aspirin for DVT prophylaxis per their recommendations. Hematology team recommended other oral anticoagulants, however they interact with her Dilantin and they found to be more risks than benefits. Also patient evaluated by hematology team for essential thrombocythemia . Patient is still have some pain at the fracture site, better controlled with pain medication. Lidocaine patch has been added. No chest pain or dyspnea. No abdominal pain or nausea vomiting. No fever. Patient was cleared for discharge by hematology and orthopedic team Problems and management plan discussed with the patient Patient verbalized understanding and acceptance, however she needs follow-up as an outpatient. physical exam Gen.: Patient alert awake and oriented X 3, NOT IN DISTRESS CVS: s1-s2, RRR, no murmur CHEST:bilateral CTA, no wheezing or crepitation Abdomen: Soft, no tenderness, no distention, positive bowel sounds Extremities: No leg edema or induration. Tenderness and both hip areas Time spent more than 35 minutes Patient Condition at Discharge: Fair Plan - Discharge Summary Discharge Rx Participant: No New Discharge Prescriptions: New RX: Cyclobenzaprine [Flexeril] 5 mg PO TID PRN #0 tab PRN Reason: Muscle Spasm RX: Docusate [Colace] 100 mg PO BID cap RX: Pantoprazole [Protonix] 40 mg PO AC-BID #0 tablet.dr RX: Sennosides [Senokot] 8.6 mg PO HS PRN tab PRN Reason: Constipation RX: Aspirin 325 mg PO BID #60 tab HYDROcodone/APAP 10-325MG [[place] 10-325] 1 - 2 tab PO Q4-6H PRN #60 tab PRN Reason: Pain RX: Lidocaine 5% Patch [Lidoderm 5% Patch] 1 patch TOPICAL DAILY #30 patch Continue RX: Omeprazole 20 mg PO BID RX: Lisinopril 40 mg PO DAILY RX: Hydroxyurea 500 mg PO DAILY RX: Ferrous Sulfate [Iron (65 MG Elemental)] 325 mg PO DAILY RX: Aspirin EC [Ecotrin] 325 mg PO DAILY RX: ALPRAZolam [Xanax] 0.25 mg PO BID RX: Phenytoin Sodium Extended [Dilantin] 100 mg PO TID RX: Metoprolol Succinate [[place] Sprinkle] 50 mg PO DAILY RX: Ergocalciferol [Vitamin D2 (DRISDOL)] 50,000 unit PO WE RX: Calcium Carbonate [Calcium] 1,200 mg PO TID Discharge Medication List RX: ALPRAZolam [Xanax] 0.25 mg PO BID 01/26/18 [History] RX: Aspirin EC [Ecotrin] 325 mg PO DAILY 01/26/18 [History] RX: Calcium Carbonate [Calcium] 1,200 mg PO TID 01/26/18 [History] RX: Ergocalciferol [Vitamin D2 (DRISDOL)] 50,000 unit PO WE 01/26/18 [History] RX: Ferrous Sulfate [Iron (65 MG Elemental)] 325 mg PO DAILY 01/26/18 [History] RX: Hydroxyurea 500 mg PO DAILY 01/26/18 [History] RX: Lisinopril 40 mg PO DAILY 01/26/18 [History] RX: Metoprolol Succinate [[place] Sprinkle] 50 mg PO DAILY 01/26/18 [History] RX: Omeprazole 20 mg PO BID 01/26/18 [History] RX: Phenytoin Sodium Extended [Dilantin] 100 mg PO TID 01/26/18 [History] HYDROcodone/APAP 10-325MG [[place] 10-325] 1 - 2 tab PO Q4-6H PRN #60 tab [Rx] RX: Aspirin 325 mg PO BID #60 tab 01/29/18 [Rx] RX: Cyclobenzaprine [Flexeril] 5 mg PO TID PRN #0 tab 01/29/18 [Rx] RX: Docusate [Colace] 100 mg PO BID cap 01/29/18 [Rx] RX: Pantoprazole [Protonix] 40 mg PO AC-BID #0 tablet.dr 01/29/18 [Rx] RX: Sennosides [Senokot] 8.6 mg PO HS PRN tab 01/29/18 [Rx] RX: Lidocaine 5% Patch [Lidoderm 5% Patch] 1 patch TOPICAL DAILY #30 patch 01/30 [Rx] Follow up Appointment(s)/Referral(s): Floyd Arce MD [STAFF PHYSICIAN] - 02/26/18 2:45 pm Cher Todd MD [Primary Care Provider] - 1-2 days (office will call patient to schedule appt.) Barry Kelley DO [Doctor of Osteopathic Medicine] - 02/14/18 1:00 pm Patient Instructions/Handouts: Fall Prevention for Older Adults (ED) Activity/Diet/Wound Care/Special Instructions: [place] Weightbearing as tolerated to the bilateral lower extremities. HYDREA IS TO BE GIVEN SUNDAY-SUNDAY ONLY. NO DOSE ON SAT OR SUN Discharge Disposition: TRANSFER TO SNF/ECF
[2018-01-30] MEDS ORDERED: ERGOCALCIFEROL 50,000 UNIT CAP PO SCH (12:00)
[2018-01-30] MEDS: FERROUS SULFATE 325 MG TAB PO SCH (12:16)
== END 2018-01-30 13:40 | DRG 536 ==
LOC: EC 13:28 → 3NMEDONC 18:07
PROVIDERS: ADMIT Hospitalist; ATTEND Hospitalist
DX: S32.591A Other specified fracture of right pubis, initial encounter for closed fracture (principal); D69.3 Immune thrombocytopenic purpura; S32.592A Other specified fracture of left pubis, initial encounter for closed fracture; W01.0XXA Fall on same level from slipping, tripping and stumbling without subsequent striking against object, initial encounter; K21.9 Gastro-esophageal reflux disease without esophagitis; I10 Essential (primary) hypertension; M19.90 Unspecified osteoarthritis, unspecified site; G40.909 Epilepsy, unspecified, not intractable, without status epilepticus; Y92.009 Unspecified place in unspecified non-institutional (private) residence as the place of occurrence of the external cause; Z82.49 Family history of ischemic heart disease and other diseases of the circulatory system; Z79.82 Long term (current) use of aspirin; Z79.899 Other long term (current) drug therapy; Y92.002 Bathroom of unspecified non-institutional (private) residence as the place of occurrence of the external cause
CPT/HCPCS: 36415; 72192; 73502; 80048; 80053; 81003; 82550; 82553; 83735; 84100; 84484; 85025; 85610; 85730; 87086; 93005; 94760; 96361; 96374; 96376; 99285

== ENCOUNTER 2018-07-20 17:48 | Inpatient (IN) | payer MEDICARE ==
[2018-07-20] MEDS ORDERED: SODIUM CHLORIDE 0.9% 1,000 ML IV STA (17:54)
--- NOTE | 2018-07-20 17:55 | ED ---
Syncope HPI - General Stated Complaint: syncope Source: RN notes reviewed, old records reviewed - History of Present Illness Initial Comments: This is a 73-year-old female the ER for evaluation. This patient presents today for evaluation regarding likely syncopal event by history is poor. Patient presents today by EMS patient states she woke on the ground last and she remembers was around 1 PM. Patient has no headache chest pain shortness breath or abdominal pain. Patient admits remote history of seizures last seizure being in the . I'm no seizure medications currently. She did hit her head but denies headache. Patient is recent medication changes. Denies any pain MD Complaint: loss of consciousness, collapsed -: hour(s) Prodromal Symptoms: none -: minutes(s) Witnessed: no Current Symptoms: back to baseline History: seizure disorder, previous syncopal episode Context: standing up Treatments Prior to Arrival: none - Related Data Home Medications Medication Instructions Recorded Confirmed Aspirin EC [Ecotrin] 325 mg PO DAILY 01/26/18 07/20/18 Ergocalciferol [Vitamin D2 50,000 unit PO WE 01/26/18 07/20/18 (DRISDOL)] Ferrous Sulfate [Iron (65 MG 325 mg PO DAILY 01/26/18 07/20/18 Elemental)] Hydroxyurea 500 mg PO MOTUWETHFR 01/26/18 07/20/18 Lisinopril 40 mg PO DAILY 01/26/18 07/20/18 Metoprolol Succinate [Kapspargo 50 mg PO DAILY 01/26/18 07/20/18 Sprinkle] Omeprazole 20 mg PO BID 01/26/18 07/20/18 Phenytoin Sodium Extended 100 mg PO TID 01/26/18 07/20/18 [Dilantin] Calcium Carbonate/Vitamin D3 1 tab PO DAILY 07/20/18 07/20/18 [Calcium 600-Vit D3 200 Tablet] Cyanocobalamin (Vitamin B-12) 1,000 mcg PO DAILY 07/20/18 07/20/18 [Vitamin B-12] Allergies Allergy/AdvReac Type Severity Reaction Status Date / Time No Known Allergies Allergy Verified 07/20/18 18:25 Review of Systems ROS Statement: Those systems with pertinent positive or pertinent negative responses have been documented in the HPI. ROS Other: All systems not noted in ROS Statement are negative. Past Medical History Past Medical History: Blood Disorder, GERD/Reflux, Hypertension, Osteoarthritis (OA), Seizure Disorder Additional Past Medical History / Comment(s): Heart murmur, back pain, "blood clot in brain" in 1975, seizure prior to 1975 History of Any Multi-Drug Resistant Organisms: None Reported Past Surgical History: Tonsillectomy Past Anesthesia/Blood Transfusion Reactions: No Reported Reaction Past Psychological History: No Psychological Hx Reported Smoking Status: Never smoker Past Alcohol Use History: None Reported Past Drug Use History: None Reported - Past Family History Father Family Medical History: Myocardial Infarction ([place]) Mother History Unknown: Yes General Exam General appearance: alert, in no apparent distress Head exam: Present: normocephalic, normal inspection. Absent: atraumatic (Abrasion to left above left eye) Eye exam: Present: normal appearance, PERRL, EOMI. Absent: scleral icterus, co njunctival injection, periorbital swelling ENT exam: Present: normal exam, mucous membranes moist Neck exam: Present: normal inspection. Absent: tenderness, meningismus, lymphadenopathy Respiratory exam: Present: normal lung sounds bilaterally. Absent: respiratory distress, wheezes, rales, rhonchi, stridor Cardiovascular Exam: Present: regular rate, normal rhythm, normal heart sounds. Absent: systolic murmur, diastolic murmur, rubs, gallop, clicks GI/Abdominal exam: Present: soft, normal bowel sounds. Absent: distended, tenderness, guarding, rebound, rigid Extremities exam: Present: normal inspection, full ROM, normal capillary refill. Absent: tenderness, pedal edema, joint swelling, calf tenderness Back exam: Present: normal inspection Neurological exam: Present: alert, oriented X3, CN II-XII intact Psychiatric exam: Present: normal affect, normal mood Skin exam: Present: warm, dry, intact, normal color. Absent: rash Course Vital Signs 07/20/18 07/20/18 07/20/18 17:49 17:58 19:00 Temperature 98.0 F Pulse Rate 103 H 107 H Pulse Rate [ Pulse Oximetery ] Respiratory 22 Rate Blood Pressure 147/89 161/87 Blood Pressure [Left Arm] O2 Sat by Pulse 94 L 93 L 100 Oximetry 07/20/18 07/20/18 07/20/18 19:30 20:14 20:30 Temperature 98 F Pulse Rate 108 H 101 H Pulse Rate [ 93 Pulse Oximetery ] Respiratory 20 Rate Blood Pressure 163/96 150/88 Blood Pressure 154/85 [Left Arm] O2 Sat by Pulse 100 99 100 Oximetry - Reevaluation(s) Reevaluation #1: 07/20/18 18:15 Medical records reviewed Reevaluation #2: 07/20/18 18:15 Patient is having seizure-like activity. Patient has remote history of seizure greater than 20 years ago, patient was alert and oriented prior to arrival, that had active seizure activity, patient was placed on oxygen oxygen pulse ox remains normal, patient severely postictal. Seizure abated by itself EKG Findings - EKG Comments: EKG Findings:: EKG shows sinus tachycardia rate of 107, CO 176, QRS 88, QTc 474 Medical Decision Making - Medical Decision Making 73 female the ER for evaluation. Patient syncopal event with prolonged downtime. No significant injury sustained. Patient has recurrent seizure here in the ER, suggestion that the patient did have seizure earlier as well. Patient be admitted for neurology evaluation Antiepileptic medication - Lab Data Result diagrams: 07/21/18 05:58 07/21/18 05:58 Lab Results 07/20/18 07/20/18 07/20/18 Range/Units 18:06 18:23 18:23 WBC 11.1 H (3.8-10.6) k/uL RBC 3.53 L (3.80-5.40) m/uL Hgb 12.2 (11.4-16.0) gm/dL Hct 36.9 (34.0-46.0) % MCV 104.7 H (80.0-100.0) fL MCH 34.5 (25.0-35.0) pg MCHC 33.0 (31.0-37.0) g/dL RDW 15.7 H (11.5-15.5) % Plt Count 427 (150-450) k/uL Neutrophils % 81 % Lymphocytes % 9 % Monocytes % 7 % Eosinophils % 1 % Basophils % 0 % Neutrophils # 9.0 H (1.3-7.7) k/uL Lymphocytes # 0.9 L (1.0-4.8) k/uL Monocytes # 0.7 (0-1.0) k/uL Eosinophils # 0.1 (0-0.7) k/uL Basophils # 0.0 (0-0.2) k/uL Macrocytosis Moderate PT (9.0-12.0) sec INR (<1.2) APTT (22.0-30.0) sec D-Dimer (<0.60) mg/L FEU Sodium 128 L (137-145) mmol/L Potassium 4.7 (3.5-5.1) mmol/L Chloride 94 L (98-107) mmol/L Carbon Dioxide 19 L (22-30) mmol/L Anion Gap 15 mmol/L BUN 8 (7-17) mg/dL Creatinine 0.58 (0.52-1.04) mg/dL Est GFR (CKD-EPI)AfAm >90 (>60 ml/min/1.73 sqM) Est GFR (CKD-EPI)NonAf >90 (>60 ml/min/1.73 sqM) Glucose 139 H (74-99) mg/dL POC Glucose (mg/dL) 132 H (75-99) mg/dL POC Glu Distributor Publications ID Rodriguez, Dylan Lactic Ac Sepsis Rflx Plasma Lactic Acid Corona (0.7-2.0) mmol/L Calcium 9.1 (8.4-10.2) mg/dL Phosphorus 3.1 (2.5-4.5) mg/dL Magnesium 2.0 (1.6-2.3) mg/dL Total Bilirubin 0.8 (0.2-1.3) mg/dL AST 38 H (14-36) U/L ALT 10 (9-52) U/L Alkaline Phosphatase 110 (38-126) U/L Creatine Kinase 128 (30-135) U/L Troponin I (0.000-0.034) ng/mL NT-Pro-B Natriuret Pep pg/mL Total Protein 7.9 (6.3-8.2) g/dL Albumin 4.4 (3.5-5.0) g/dL 07/20/18 07/20/18 07/20/18 Range/Units 18:23 18:23 18:23 WBC (3.8-10.6) k/uL RBC (3.80-5.40) m/uL Hgb (11.4-16.0) gm/dL Hct (34.0-46.0) % MCV (80.0-100.0) fL MCH (25.0-35.0) pg MCHC (31.0-37.0) g/dL RDW (11.5-15.5) % Plt Count (150-450) k/uL Neutrophils % % Lymphocytes % % Monocytes % % Eosinophils % % Basophils % % Neutrophils # (1.3-7.7) k/uL Lymphocytes # (1.0-4.8) k/uL Monocytes # (0-1.0) k/uL Eosinophils # (0-0.7) k/uL Basophils # (0-0.2) k/uL Macrocytosis PT 10.1 (9.0-12.0) sec INR 0.9 (<1.2) APTT 21.5 L (22.0-30.0) sec D-Dimer 5.32 H (<0.60) mg/L FEU Sodium (137-145) mmol/L Potassium (3.5-5.1) mmol/L Chloride (98-107) mmol/L Carbon Dioxide (22-30) mmol/L Anion Gap mmol/L BUN (7-17) mg/dL Creatinine (0.52-1.04) mg/dL Est GFR (CKD-EPI)AfAm (>60 ml/min/1.73 sqM) Est GFR (CKD-EPI)NonAf (>60 ml/min/1.73 sqM) Glucose (74-99) mg/dL POC Glucose (mg/dL) (75-99) mg/dL POC Glu Distributor Publications ID Lactic Ac Sepsis Rflx Plasma Lactic Acid Corona 5.5 H* (0.7-2.0) mmol/L Calcium (8.4-10.2) mg/dL Phosphorus (2.5-4.5) mg/dL Magnesium (1.6-2.3) mg/dL Total Bilirubin (0.2-1.3) mg/dL AST (14-36) U/L ALT (9-52) U/L Alkaline Phosphatase (38-126) U/L Creatine Kinase (30-135) U/L Troponin I (0.000-0.034) ng/mL NT-Pro-B Natriuret Pep 791 pg/mL Total Protein (6.3-8.2) g/dL Albumin (3.5-5.0) g/dL 07/20/18 07/20/18 Range/Units 18:23 18:55 WBC (3.8-10.6) k/uL RBC (3.80-5.40) m/uL Hgb (11.4-16.0) gm/dL Hct (34.0-46.0) % MCV (80.0-100.0) fL MCH (25.0-35.0) pg MCHC (31.0-37.0) g/dL RDW (11.5-15.5) % Plt Count (150-450) k/uL Neutrophils % % Lymphocytes % % Monocytes % % Eosinophils % % Basophils % % Neutrophils # (1.3-7.7) k/uL Lymphocytes # (1.0-4.8) k/uL Monocytes # (0-1.0) k/uL Eosinophils # (0-0.7) k/uL Basophils # (0-0.2) k/uL Macrocytosis PT (9.0-12.0) sec INR (<1.2) APTT (22.0-30.0) sec D-Dimer (<0.60) mg/L FEU Sodium (137-145) mmol/L Potassium (3.5-5.1) mmol/L Chloride (98-107) mmol/L Carbon Dioxide (22-30) mmol/L Anion Gap mmol/L BUN (7-17) mg/dL Creatinine (0.52-1.04) mg/dL Est GFR (CKD-EPI)AfAm (>60 ml/min/1.73 sqM) Est GFR (CKD-EPI)NonAf (>60 ml/min/1.73 sqM) Glucose (74-99) mg/dL POC Glucose (mg/dL) (75-99) mg/dL POC Glu Distributor Publications ID Lactic Ac Sepsis Rflx Y Plasma Lactic Acid Corona (0.7-2.0) mmol/L Calcium (8.4-10.2) mg/dL Phosphorus (2.5-4.5) mg/dL Magnesium (1.6-2.3) mg/dL Total Bilirubin (0.2-1.3) mg/dL AST (14-36) U/L ALT (9-52) U/L Alkaline Phosphatase (38-126) U/L Creatine Kinase (30-135) U/L Troponin I <0.012 (0.000-0.034) ng/mL NT-Pro-B Natriuret Pep pg/mL Total Protein (6.3-8.2) g/dL Albumin (3.5-5.0) g/dL - Radiology Data Radiology results: report reviewed (CT brain C-spine x-ray chest and pelvis negative for traumatic injury), image reviewed Critical Care Time Critical Care Time: Yes Total Critical Care Time: 31 Disposition Clinical Impression: Vasovagal syncope, Seizure, Status epilepticus Disposition: ADMITTED IP TO THIS [facility] Condition: Fair Is patient prescribed a controlled substance at d/c from ED?: No
[2018-07-20] MEDS ORDERED: levETIRAcetam IV 1,500 MG in SALINE 1 100ML.BAG IVPB STA (18:12)
[2018-07-20 18:27] LABS: Glucose,Whole Blood 132 mg/dL (75-99)
[2018-07-20 18:37] LABS: Basophils % (A) 0 %; Eosinophils # (A) 0.1 k/uL (0-0.7); Eosinophils % (A) 1 %; HCT 36.9 % (34.0-46.0); HGB 12.2 gm/dL (11.4-16.0); Lymphocytes # (A) 0.9 k/uL (1.0-4.8); Lymphocytes % (A) 9 %; MCH 34.5 pg (25.0-35.0); MCV 104.7 fL (80.0-100.0); Macrocytosis Moderate; Mean Platelet Volume 7.5; Monocytes # (A) 0.7 k/uL (0-1.0); Monocytes % (A) 7 %; Neutrophils % (A) 81 %; Platelet Count 427 k/uL (150-450); RBC 3.53 m/uL (3.80-5.40); RDW 15.7 % (11.5-15.5); WBC 11.1 k/uL (3.8-10.6)
[2018-07-20 18:41] LABS: ALT 10 U/L (9-52); AST 38 U/L (14-36); African American GFR (CKD) >90 (>60 ml/min/1.73 sqM); Albumin 4.4 g/dL (3.5-5.0); Alkaline Phosphatase 110 U/L (38-126); Anion Gap 15 mmol/L; Blood Urea Nitrogen 8 mg/dL (7-17); Calcium 9.1 mg/dL (8.4-10.2); Carbon Dioxide 19 mmol/L (22-30); Chloride 94 mmol/L (98-107); Creatine Kinase 128 U/L (30-135); Glucose 139 mg/dL (74-99); Phosphorus 3.1 mg/dL (2.5-4.5); Sodium 128 mmol/L (137-145); Total Bilirubin 0.8 mg/dL (0.2-1.3); Total Protein 7.9 g/dL (6.3-8.2)
[2018-07-20 18:51] LABS: Potassium 4.7 mmol/L (3.5-5.1)
[2018-07-20 18:56] LABS: INR 0.9 (<1.2); Prothrombin Time 10.1 sec (9.0-12.0)
[2018-07-20 18:59] LABS: D-Dimer 5.32 mg/L FEU (<0.60); Partial Thromboplastin Time 21.5 sec (22.0-30.0)
--- NOTE | 2018-07-20 19:06 | CT ---
EXAMINATION TYPE: CT brain wo con, CT facial bones wo con DATE OF EXAM: 07/20/2018 HISTORY: seizure with fall injury causing headache and facial pain. CT DLP: combined DLP 687 mGycm. Automated Exposure Control for Dose Reduction was Utilized. TECHNIQUE: CT scan of the head and facial bones are performed without contrast. COMPARISON: CT brain 2011.. FINDINGS: Right parietal craniotomy changes are redemonstrated. There is no acute intracranial hemor rhage or midline shift identified. There is diffuse ventricular and sulcal prominence consistent with diffuse age-related cerebral atrophy. There is low-attenuation in the periventricular white matter consistent with chronic small vessel ischemic change. There is small left frontal acute scalp hematom a near axial image 37. Artifact degradation from motion noted, mandible is likely intact. Temporomandibular joints are maint ained. Nasal bones are intact. Orbital floors and mills are intact. Zygomatic arches are intact. Pter ygoid plates are intact. There is absent dentition in the maxilla. Visualized paranasal sinuses are c lear. Nasal septum is redemonstrated deviated to right of midline. Incidental vascular calcification distal internal carotid arteries bilaterally. IMPRESSION: 1. No acute intracranial hemorrhage or midline shift. There is moderate diffuse age-related cerebral atrophy and mild to moderate chronic small vessel ischemic change redemonstrated. Right-sided surgi edu changes again seen. New small left acute frontal scalp hematoma. 2. No acute displaced facial bone fracture.
--- NOTE | 2018-07-20 19:30 | XR ---
EXAMINATION TYPE: XR chest 2V DATE OF EXAM: 07/20/2018 COMPARISON: Chest x-ray June 30, 2011. HISTORY: Weakness. TECHNIQUE: Frontal and lateral views of the chest are obtained. FINDINGS: There is chronic signal changes with diminished inspiration and new bibasilar opacities. The cardiac silhouette size is enlarged and more prominent with atherosclerotic aorta. The osseous structures are demineralized. IMPRESSION: Suspect CHF exacerbation on background chronic parenchymal change as there is increasing cardiomegaly with small bilateral pleural effusions felt present. Correlate clinically.
[2018-07-20 20:02] LABS: Appearance,Urine Cloudy (Clear); Bacteria,Urine Many /hpf; Bilirubin,Urine Negative (Negative); Blood,Urine Small (Negative); Color,Urine Yellow; Glucose,Urine (UA) Negative (Negative); Hyaline Casts,Urine 12 /lpf (0-2); Ketones,Urine Trace (Negative); Leukocyte Esterase,Urine Large (Negative); Mucus,Urine Rare /hpf; Nitrite,Urine Positive (Negative); PH, Urine 5.5 (5.0-8.0); Protein,Urine 1+ (Negative); RBC,Urine 3 /hpf (0-5); Specific Gravity,Urine 1.017 (1.001-1.035); Squamous Epithelial Cell,Urine 21 /hpf (0-4); Urobilinogen,Urine <2.0 mg/dL (<2.0); WBC,Urine 31 /hpf (0-5)
--- NOTE | 2018-07-20 20:33 | CT ---
EXAMINATION TYPE: CT angio chest DATE OF EXAM: 07/20/2018 COMPARISON: NONE HISTORY: posterior chest pain CT DLP: 325.8 mGycm. Automated Exposure Control for Dose Reduction was Utilized. CONTRAST: CTA scan of the thorax is performed with IV Contrast, patient injected with 70cc mL of Isovue 370, pu lmonary embolism protocol. MIP Images are created on CT scanner and reviewed. FINDINGS: Exam noticed suboptimal secondary to patient's large body habitus. LUNGS: Exam noted suboptimal and there is respiratory motion artifact degradation which limits evalua tion particularly for subcentimeter nodules. There is bibasilar consolidation and/or atelectasis. No pleural effusion or pneumothorax is seen. MEDIASTINUM: There is suboptimal bolus with near equal contrast in right and left heart systems but n o convincing CT evidence for acute pulmonary embolism. There are no greater than 1 cm hilar or media stinal lymph nodes. No cardiomegaly or pericardial effusion is seen. Prominence of the intra-arteri al fat consistent with lipomatous hypertrophy is present. OTHER: Liver is low dense relative to spleen consistent with diffuse fatty infiltration. There is mod erate chronic compression fracture at L1 level. There is moderate to advanced chronic compression fra cture at T8 level. There is mild height loss or superior compression fractures involving the superior T4 and T6 endplates. No lucency is present to suggest acute fractures. IMPRESSION: No CT evidence for acute pulmonary embolism. Bibasilar atelectasis and/or consolidation i s present. Note is made of multiple compression type fractures most severe at T8 and L1 levels strong ly favored chronic in age.
[2018-07-20] MEDS: SODIUM CHLORIDE 0.9% 1,000 ML IV SCH (21:06)
[2018-07-20] MEDS ORDERED: KETOROLAC 30 MG/ML 1 ML VIAL IVP STA (21:25)
[2018-07-20 21:27] VITALS: BMI 23.2
--- NOTE | 2018-07-20 22:21 | P.HPIM ---
History of Present Illness H&P Date: 07/20/18 Chief Complaint: Seizure 73-year-old female with remote history of seizure over 20 years ago. Patient brought into the hospital after having a seizure attack. Patient unable to provide any meaningful history she seems to be slightly confused at this time. Family was not available at bedside. History was obtained by reviewing medical records and discussing the case with the ER physician. Seems like patient had a seizure attack at home at 1 PM after she woke up was described as tonic-clonic seizure she is not on any seizure medications but she has remote history of seizures over 20 years ago. In the emergency department she had another witnessed seizure that resolved on its own without any medications. Also was described as tonic-clonic seizure. Patient has brief postictal status however at time of my evaluation patient still seems to be disoriented unable to provide any meaningful history. Seems like when the patient had a seizure home she sustained a fall and hurt her head as she fell on her face. No report of loss of bladder or bowel control Reviewing medical records seems like she was discharged from the Hospital 5 months ago after sustaining a fall resulting in pelvic rami fracture. Patient reports occasional drinking of alcohol yesterday she had 2 beers. She denies any smoking she denies any drugs. She denies any changes in her medications. She has history of hypertension and thrombocythemia. In the ED extensive workup was performed showed mild hyponatremia at 128, lactic acidosis of 5.5, slightly elevated white count 11. Brain CAT scan showed only small left acute frontal scalp hematoma no fractures. EKG showed sinus tachycardia. D-dimer came back elevated for which CT angios the chest performed showed no acute PE, however suggested chronic in nature compression fractures of T8 to L1. Review of Systems ROS unobtainable: due to mental status Past Medical History Past Medical History: Blood Disorder, GERD/Reflux, Hypertension, Osteoarthritis (OA), Seizure Disorder Additional Past Medical History / Comment(s): Heart murmur, back pain, "blood clot in brain" in 1975, seizure prior to 1975 History of Any Multi-Drug Resistant Organisms: None Reported Past Surgical History: Tonsillectomy Past Anesthesia/Blood Transfusion Reactions: No Reported Reaction Past Psychological History: No Psychological Hx Reported Smoking Status: Never smoker Past Alcohol Use History: None Reported Past Drug Use History: None Reported - Past Family History Father Family Medical History: Myocardial Infarction ([place]) Mother History Unknown: Yes Medications and Allergies Home Medications Medication Instructions Recorded Confirmed Type Aspirin EC [Ecotrin] 325 mg PO DAILY 01/26/18 07/20/18 History Ergocalciferol [Vitamin D2 50,000 unit PO WE 01/26/18 07/20/18 History (DRISDOL)] Ferrous Sulfate [Iron (65 MG 325 mg PO DAILY 01/26/18 07/20/18 History Elemental)] Hydroxyurea 500 mg PO MOTUWETHFR 01/26/18 07/20/18 History Lisinopril 40 mg PO DAILY 01/26/18 07/20/18 History Metoprolol Succinate [Kapspargo 50 mg PO DAILY 01/26/18 07/20/18 History Sprinkle] Omeprazole 20 mg PO BID 01/26/18 07/20/18 History Phenytoin Sodium Extended 100 mg PO TID 01/26/18 07/20/18 History [Dilantin] Calcium Carbonate/Vitamin D3 1 tab PO DAILY 07/20/18 07/20/18 History [Calcium 600-Vit D3 200 Tablet] Cyanocobalamin (Vitamin B-12) 1,000 mcg PO DAILY 07/20/18 07/20/18 History [Vitamin B-12] Allergies Allergy/AdvReac Type Severity Reaction Status Date / Time No Known Allergies Allergy Verified 07/20/18 18:25 Physical Exam Vitals: Vital Signs Temp Pulse Resp BP Pulse Ox 07/20/18 17:49 98.0 F 103 H 22 147/89 94 L Intake and Output 07/20/18 07/20/18 07/20/18 06:59 14:59 22:59 Other: Weight 64.864 kg Constitutional: No acute distress, alert, awake and cooperative with exam seems to be slightly confused about what's happening currently on nonrebreather satting at 100% Eyes: Anicteric sclerae, moist conjunctiva, no lid-lag Pupils equal round reactive to light ENMT: NC/patient has hematoma over the left eyebrow no active bleeding Oropharynx clear, no erythema, or exudates Neck: Supple, FROM, no masses, or JVD No carotid bruits No thyromegaly Lungs: Clear to auscultation Clear to percussion Normal respiratory effort, no accessory muscle use Tenderness to palpation of the back over the mid to lower thoracic spine no visible skin changes Cardiovascular: Heart regular in rate and rhythm, No murmurs, gallops, or rubs No peripheral edema Abdominal: Soft Nontender, no guarding, rebound or rigidity Abdomen moving with respiration Normoactive bowel sounds No hepatomegaly, No splenomegaly No palpable mass No abdominal wall hernia noted Skin: Hematoma over the left eyebrow as described above otherwise Normal temperature, tone, texture, turgor No induration No subcutaneous nodules No rash, lesions No ulcers Extremities: No digital cyanosis No clubbing Pedal pulses intact and symmetrical Radial pulses intact and symmetrical No calf tenderness Psychiatric: Alert and oriented to person, place not oriented to time Appropriate affect Neuro Muscles Strength 4/5 in all 4 extremities Sensation to light touch grossly present throughout Cranial nerves II-XII grossly intact No focal sensory deficits Lymphatics: no palpable cervical or supraclavicular , or inguinal lymph nodes Results CBC & Chem 7: 07/20/18 18:23 07/20/18 18:23 Labs: Abnormal Lab Results - Last 24 Hours (Table) 07/20/18 07/20/18 07/20/18 Range/Units 18:06 18:23 18:23 WBC 11.1 H (3.8-10.6) k/uL RBC 3.53 L (3.80-5.40) m/uL MCV 104.7 H (80.0-100.0) fL RDW 15.7 H (11.5-15.5) % Neutrophils # 9.0 H (1.3-7.7) k/uL Lymphocytes # 0.9 L (1.0-4.8) k/uL APTT (22.0-30.0) sec D-Dimer (<0.60) mg/L FEU Sodium 128 L (137-145) mmol/L Chloride 94 L (98-107) mmol/L Carbon Dioxide 19 L (22-30) mmol/L Glucose 139 H (74-99) mg/dL POC Glucose (mg/dL) 132 H (75-99) mg/dL Plasma Lactic Acid Corona (0.7-2.0) mmol/L AST 38 H (14-36) U/L 07/20/18 07/20/18 Range/Units 18:23 18:23 WBC (3.8-10.6) k/uL RBC (3.80-5.40) m/uL MCV (80.0-100.0) fL RDW (11.5-15.5) % Neutrophils # (1.3-7.7) k/uL Lymphocytes # (1.0-4.8) k/uL APTT 21.5 L (22.0-30.0) sec D-Dimer 5.32 H (<0.60) mg/L FEU Sodium (137-145) mmol/L Chloride (98-107) mmol/L Carbon Dioxide (22-30) mmol/L Glucose (74-99) mg/dL POC Glucose (mg/dL) (75-99) mg/dL Plasma Lactic Acid Corona 5.5 H* (0.7-2.0) mmol/L AST (14-36) U/L Assessment and Plan Assessment: 73-year-old female with a month's history of seizures over 20 years ago, hypertension. Patient is an inpatient with anticipated length of stay more than 48 hours for breakthrough seizure she had 2 attacks on at home and one in the ED. Patient was found to have mild hyponatremia, lactic acidosis, positive d-dimer CT angios the chest is pending. Admitted for further evaluation by neurology Plan: Breakthrough seizure with remote history of seizures over 30 years ago Patient loaded with Keppra in the ED Continue with Keppra twice a day Check EEG Neurology consult Seizure precautions Fall precautions Mild hyponatremia Continue patient on normal saline infusion Patient was not given 3% saline in the ED for seizures Lactic acidosis secondary to underlying seizure attack Continue IV fluid hydration Follow-up lactic acid level Left forehead hematoma Local care Continue to monitor Hypertension currently controlled continue home meds Compression 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
[2018-07-20] MEDS ORDERED: ONDANSETRON 4 MG/2 ML VIAL IVP PRN (22:30)
[2018-07-20] MEDS: MORPHINE SULFATE 4 MG/ML SYRINGE IVP PRN (22:45)
[2018-07-20] MEDS: PHENYTOIN SODIUM EXTENDED 100 MG CAP PO SCH (22:54)
[2018-07-20] MEDS: PANTOPRAZOLE 40 MG TABLET PO SCH (22:54)
[2018-07-20] MEDS: METOPROLOL SUCCINATE (ER) 50 MG TAB.ER.24H PO SCH (22:55)
[2018-07-20] MEDS: LIDOCAINE 5% PATCH TOPICAL SCH (23:15)
[2018-07-21] MEDS: KETOROLAC 30 MG/ML 1 ML VIAL IVP SCH ×5 (00:46→23:19)
[2018-07-21] MEDS: MORPHINE SULFATE 4 MG/ML SYRINGE IVP PRN ×2 (02:12→06:50)
[2018-07-21] MEDS: SODIUM CHLORIDE 0.9% 1,000 ML IV SCH ×3 (04:53→18:03)
[2018-07-21] MEDS: levETIRAcetam IV 1,000 MG in SALINE 1 100ML.BAG IVPB SCH ×2 (05:20→17:59)
[2018-07-21 06:22] LABS: Basophils % (A) 1 %; Eosinophils # (A) 0.1 k/uL (0-0.7); Eosinophils % (A) 1 %; HGB 11.1 gm/dL (11.4-16.0); Lymphocytes # (A) 0.6 k/uL (1.0-4.8); Lymphocytes % (A) 13 %; MCH 34.6 pg (25.0-35.0); MCHC 32.7 g/dL (31.0-37.0); Macrocytosis Moderate; Mean Platelet Volume 7.3; Monocytes # (A) 0.4 k/uL (0-1.0); Monocytes % (A) 7 %; Neutrophils # (A) 3.6 k/uL (1.3-7.7); Neutrophils % (A) 76 %; Platelet Count 318 k/uL (150-450); RBC 3.21 m/uL (3.80-5.40); RDW 15.5 % (11.5-15.5); WBC 4.7 k/uL (3.8-10.6)
[2018-07-21 06:41] LABS: ALT 12 U/L (9-52); AST 19 U/L (14-36); African American GFR (CKD) >90 (>60 ml/min/1.73 sqM); Albumin 3.7 g/dL (3.5-5.0); Alkaline Phosphatase 93 U/L (38-126); Anion Gap 7 mmol/L; Blood Urea Nitrogen 7 mg/dL (7-17); Calcium 8.9 mg/dL (8.4-10.2); Carbon Dioxide 26 mmol/L (22-30); Chloride 97 mmol/L (98-107); Cholesterol 153 mg/dL (<200); Glucose 101 mg/dL (74-99); HDL Cholesterol 92 mg/dL (40-60); LDL Cholesterol,Calculated 50 mg/dL (0-99); Potassium 3.4 mmol/L (3.5-5.1); Sodium 130 mmol/L (137-145); Total Bilirubin 0.6 mg/dL (0.2-1.3); Total Protein 6.6 g/dL (6.3-8.2); Triglycerides 55 mg/dL (<150)
[2018-07-21] MEDS ORDERED: Potassium Replacement Protocol 1 EACH MISC MISCELLANE PRN (08:21)
--- NOTE | 2018-07-21 09:06 | P.PN ---
Subjective Progress Note Date: 07/21/18 Principal diagnosis: Breakthrough seizure Patient was seen and examined. No acute events overnight. Patient reports 10 out of 10 bilateral back pain without any radiating features. No bladder or bowel incontinence. No saddle anesthesia. Patient denies any signs or symptoms of UTI. She denies any chest pain, shortness of breath or palpitations. States that she might have had a seizure, does not recall events of her syncope. Objective - Vital Signs Vital signs: Vital Signs Temp 98.2 F 07/21/18 03:53 Pulse 97 07/21/18 03:53 Resp 20 07/21/18 03:53 BP 139/75 07/21/18 06:07 Pulse Ox 98 07/21/18 03:53 Intake & Output 07/20/18 07/21/18 07/21/18 18:59 06:59 18:59 Weight 64.864 kg 65.3 kg Other: # Voids 1 - Exam General: [non toxic], [no distress], [appears at stated age] Derm: [warm], [dry] Head: [atraumatic], [normocephalic], [symmetric] Eyes: [EOMI], [no lid lag], [anicteric sclera] Mouth: [no lip lesion], [mucus membranes moist] Cardiovascular: [S1S2 reg], [no murmur], [positive DP pulse bilateral] Lungs: [CTA bilateral], [no rhonchi, no rales] , [no accessory muscle use] Abdominal: [soft], [ nontender to palpation], [no guarding], [no appreciable organomegaly] Ext: [no gross muscle atrophy], [no edema], [tenderness to palpation over the thoracic back bilaterally] Neuro: [no focal neuro deficits] Psych: [Alert], [oriented], [appropriate affect] - Labs CBC & Chem 7: 07/21/18 05:58 07/21/18 05:58 Labs: Abnormal Lab Results - Last 24 Hours (Table) 07/20/18 07/20/18 07/20/18 Range/Units 18:06 18:23 18:23 WBC 11.1 H (3.8-10.6) k/uL RBC 3.53 L (3.80-5.40) m/uL Hgb (11.4-16.0) gm/dL MCV 104.7 H (80.0-100.0) fL RDW 15.7 H (11.5-15.5) % Neutrophils # 9.0 H (1.3-7.7) k/uL Lymphocytes # 0.9 L (1.0-4.8) k/uL APTT (22.0-30.0) sec D-Dimer (<0.60) mg/L FEU Sodium 128 L (137-145) mmol/L Potassium (3.5-5.1) mmol/L Chloride 94 L (98-107) mmol/L Carbon Dioxide 19 L (22-30) mmol/L Glucose 139 H (74-99) mg/dL POC Glucose (mg/dL) 132 H (75-99) mg/dL Plasma Lactic Acid Corona (0.7-2.0) mmol/L AST 38 H (14-36) U/L HDL Cholesterol (40-60) mg/dL Urine Appearance (Clear) Urine Protein (Negative) Urine Ketones (Negative) Urine Blood (Negative) Urine Nitrite (Negative) Ur Leukocyte Esterase (Negative) Urine WBC (0-5) /hpf Urine WBC Clumps (None) /hpf Ur Squamous Epith Cells (0-4) /hpf Urine Bacteria (None) /hpf Hyaline Casts (0-2) /lpf Urine Mucus (None) /hpf 07/20/18 07/20/18 07/20/18 Range/Units 18:23 18:23 19:34 WBC (3.8-10.6) k/uL RBC (3.80-5.40) m/uL Hgb (11.4-16.0) gm/dL MCV (80.0-100.0) fL RDW (11.5-15.5) % Neutrophils # (1.3-7.7) k/uL Lymphocytes # (1.0-4.8) k/uL APTT 21.5 L (22.0-30.0) sec D-Dimer 5.32 H (<0.60) mg/L FEU Sodium (137-145) mmol/L Potassium (3.5-5.1) mmol/L Chloride (98-107) mmol/L Carbon Dioxide (22-30) mmol/L Glucose (74-99) mg/dL POC Glucose (mg/dL) (75-99) mg/dL Plasma Lactic Acid Corona 5.5 H* (0.7-2.0) mmol/L AST (14-36) U/L HDL Cholesterol (40-60) mg/dL Urine Appearance Cloudy H (Clear) Urine Protein 1+ H (Negative) Urine Ketones Trace H (Negative) Urine Blood Small H (Negative) Urine Nitrite Positive H (Negative) Ur Leukocyte Esterase Large H (Negative) Urine WBC 31 H (0-5) /hpf Urine WBC Clumps Few H (None) /hpf Ur Squamous Epith Cells 21 H (0-4) /hpf Urine Bacteria Many H (None) /hpf Hyaline Casts 12 H (0-2) /lpf Urine Mucus Rare H (None) /hpf 07/20/18 07/21/18 07/21/18 Range/Units 22:25 05:58 05:58 WBC (3.8-10.6) k/uL RBC 3.21 L (3.80-5.40) m/uL Hgb 11.1 L (11.4-16.0) gm/dL MCV 106.0 H (80.0-100.0) fL RDW (11.5-15.5) % Neutrophils # (1.3-7.7) k/uL Lymphocytes # 0.6 L (1.0-4.8) k/uL APTT (22.0-30.0) sec D-Dimer (<0.60) mg/L FEU Sodium 130 L (137-145) mmol/L Potassium 3.4 L (3.5-5.1) mmol/L Chloride 97 L (98-107) mmol/L Carbon Dioxide (22-30) mmol/L Glucose 101 H (74-99) mg/dL POC Glucose (mg/dL) (75-99) mg/dL Plasma Lactic Acid Corona 0.6 L (0.7-2.0) mmol/L AST (14-36) U/L HDL Cholesterol 92 H (40-60) mg/dL Urine Appearance (Clear) Urine Protein (Negative) Urine Ketones (Negative) Urine Blood (Negative) Urine Nitrite (Negative) Ur Leukocyte Esterase (Negative) Urine WBC (0-5) /hpf Urine WBC Clumps (None) /hpf Ur Squamous Epith Cells (0-4) /hpf Urine Bacteria (None) /hpf Hyaline Casts (0-2) /lpf Urine Mucus (None) /hpf Microbiology - Last 24 Hours (Table) 07/20/18 19:34 Urine Culture - Preliminary Urine,Catheterized Assessment and Plan Assessment: Assessment and Plan 1. Breakthrough seizure 2. Hyponatremia 3. Hypokalemia 4. Non-anion gap metabolic acidosis due to Lactic acidosis 5. Abnormal UA 6. Left forehead hematoma 7. Elevated d-dimer 8. Hypertension 9. Compression fracture T8 to L1, chronic 10. Essential thrombocythemia 1. Reports of last seizure greater than 20 years ago. Patient is on Dilantin at home. CT head negative for acute intracranial abnormality. Plans: Loaded with Keppra IV and ED. Continue Keppra 1000 mg IV twice a day. Restart Dilantin. Advanced neurochecks. Telemetry monitoring. Fall and seizure precautions. Follow swallow eval, PT and OT. Follow Dilantin level. Repeat UA with reflex to urine culture. Follow EEG. Follow neurology consultation. 2. Sodium 128 to 130, improving. Possibly related to dehydration. Plans: Continue normal saline at 100 mL per hour. Daily BMP. 3. Potassium 3.4. Plans: Replaced via protocol. 4. Lactic acid 5.5-0.6. Possibly related to seizure. Plans: Resolved. Continue IVF. 5. UA shows positive nitrite and large leukocyte esterase but dirty. Plans: Repeat UA with reflex to culture. 6. As seen on face CT. CT rules out acute intracranial hemorrhage or midline shift. Plans: Adequate pain control. Cold compresses. 7. D-dimer elevated at 5.32. CTA of the chest rules out PE. 8. BP 139/75. Plans: Continue lisinopril. Monitor vitals, adjust medications as necessary. 9. As seen on CTA of the chest. Appears chronic in nature. Plans: Adequate pain control, lidocaine patch, change morphine to Dilaudid. Follow orthopedic consultation. Follow PT and OT recommendations. 10. Review of records show that the patient was diagnosed with essential thrombocythemia in July 2017. Plans: Continue hydroxyurea and aspirin. Follow hematology in the outpatient setting. Patient admitted for possible breakthrough seizure. Loaded with Keppra, continued on Dilantin. EEG ordered. Neurology consultation pending.
[2018-07-21] MEDS: PHENYTOIN SODIUM EXTENDED 100 MG CAP PO SCH ×4 (09:25→21:15)
[2018-07-21] MEDS: PANTOPRAZOLE 40 MG TABLET PO SCH ×2 (09:25→20:26)
[2018-07-21] MEDS: ASPIRIN 325 MG TAB PO SCH (09:25)
[2018-07-21] MEDS: LISINOPRIL 20 MG TAB PO SCH (09:25)
[2018-07-21] MEDS: METOPROLOL SUCCINATE (ER) 50 MG TAB.ER.24H PO SCH (09:25)
[2018-07-21] MEDS: HYDROmorphone 1 MG/ML 1 ML SYRINGE IVP PRN ×2 (09:26→20:26)
[2018-07-21] MEDS: ENOXAPARIN 40 MG/0.4 ML SYRINGE SQ SCH (09:26)
[2018-07-21] MEDS ORDERED: DIAZEPAM 5 MG TAB PO PRN (13:47)
[2018-07-21] MEDS ORDERED: CYCLOBENZAPRINE 10 MG TAB PO PRN (13:47)
[2018-07-21] MEDS: POTASSIUM CHLORIDE ER 20 MEQ TAB.ER PO SCH ×2 (13:57→17:58)
--- NOTE | 2018-07-21 15:42 | P.CNNES ---
History of Present Illness Consult date: 07/21/18 Reason for Consult: Seizure History of Present Illness: Patient is a 73-year-old female, who has history of a solitary seizure about 15 years ago, maintained on Dilantin 100 mg 3 times a day since then, compliant with medication, came to the hospital with a breakthrough seizure. Patient lives with her , but her was in the hospital. Patient states that she woke up in the morning, does not remember what time. She then does not remember what happened, then she remembers making a phone call to her that she probably had a seizure. Patient did not lose control of urine, no tongue bite, although had a left black eye and some frontal scalp hematoma. Patient's was getting ready for discharge from the hospital. When he came home, he called 911 and patient was brought to the hospital. Patient arrived here at 5:48 PM yesterday. Patient's blood pressure was 147/89, pulse rate 103 temperature 90.8 saturation 94% on room air. Computed tomography scan of head showed no acute intracranial hemorrhage or midline shift. There is moderate diffuse age-related cerebral atrophy and mild to moderate chronic small vessel ischemic change or he demonstrated. Right-sided surgical changes again seen. New small left acute frontal scalp hematoma. No acute displaced facial bone fracture. Chest x-ray showed suspected CHF exacerbation on background chronic. Grimace changes. There is increasing cardiomegaly with small bilateral pleural effusion. EKG showed sinus tachycardia with premature atrial complexes. Patient's blood tests showed a BBC 11.1, which has now come down to 4.7. Hemoglobin 12.2 with elevated MCV. PT/PTT is normal. Sodium was 128, potassium 4.7, lactic acid was 5.5. AST mildly elevated 38 but now has come down to 19. Troponin negative. Total cholesterol 153, LDL 92. UA showed nidia udy urine, positive nitrite, large leukocyte Estrace. Few WBCs, many bacteria. Urine cultures negative so far. Her Dilantin level has come back<3.0. Patient denies tobacco use. She says that she drinks alcohol about couple times a week. She drinks 2-3 beers. Denies any drugs. Review of Systems Denies headache, problem with the vision. Denies focal numbness tingling weakness. Denies chest pain, shortness of breath. Past Medical History Past Medical History: Blood Disorder, GERD/Reflux, Hypertension, Osteoarthritis (OA), Seizure Disorder Additional Past Medical History / Comment(s): Heart murmur, back pain, "blood clot in brain" in 1975, seizure prior to 1975 History of Any Multi-Drug Resistant Organisms: None Reported Past Surgical History: Tonsillectomy Past Anesthesia/Blood Transfusion Reactions: No Reported Reaction Past Psychological History: No Psychological Hx Reported Smoking Status: Never smoker Past Alcohol Use History: None Reported Past Drug Use History: None Reported - Past Family History Father Family Medical History: Myocardial Infarction (CO) Mother History Unknown: Yes Medications and Allergies Home Medications Medication Instructions Recorded Confirmed Type Aspirin EC [Ecotrin] 325 mg PO DAILY 01/26/18 07/20/18 History Ergocalciferol [Vitamin D2 50,000 unit PO WE 01/26/18 07/20/18 History (DRISDOL)] Ferrous Sulfate [Iron (65 MG 325 mg PO DAILY 01/26/18 07/20/18 History Elemental)] Hydroxyurea 500 mg PO MOTUWETHFR 01/26/18 07/20/18 History Lisinopril 40 mg PO DAILY 01/26/18 07/20/18 History Metoprolol Succinate [Kapspargo 50 mg PO DAILY 01/26/18 07/20/18 History Sprinkle] Omeprazole 20 mg PO BID 01/26/18 07/20/18 History Phenytoin Sodium Extended 100 mg PO TID 01/26/18 07/20/18 History [Dilantin] Calcium Carbonate/Vitamin D3 1 tab PO DAILY 07/20/18 07/20/18 History [Calcium 600-Vit D3 200 Tablet] Cyanocobalamin (Vitamin B-12) 1,000 mcg PO DAILY 07/20/18 07/20/18 History [Vitamin B-12] Allergies Allergy/AdvReac Type Severity Reaction Status Date / Time No Known Allergies Allergy Verified 07/20/18 18:25 Physical Examination - Vital Signs Vital Signs: Vital Signs Temp Pulse Pulse Resp BP BP Pulse Ox 07/21/18 12:00 97.7 F 80 16 129/77 99 07/21/18 08:00 97.5 F L 82 18 120/63 100 07/21/18 06:07 139/75 07/21/18 04:07 132/72 07/21/18 03:53 98.2 F 97 20 130/72 98 07/21/18 02:07 140/78 07/21/18 00:07 138/80 07/21/18 00:00 93 18 142/80 97 07/20/18 22:07 145/82 07/20/18 20:30 101 H 150/88 100 07/20/18 20:14 98 F 93 20 154/85 99 07/20/18 19:30 108 H 163/96 100 07/20/18 19:00 107 H 161/87 100 07/20/18 17:58 93 L 07/20/18 17:49 98.0 F 103 H 22 147/89 94 L Intake and Output 07/21/18 07/21/18 07/21/18 06:59 14:59 22:59 Other: Voiding Method Bedside Commode # Voids 1 Weight 65.3 kg On examination patient is a elderly female, laying comfortably in the bed. Patient is awake, but has slow mentation. Her memory functions are not the best, possibly from post ictal state. Speech and language functions are normal. On cranial nerve examination pupils are round and reactive to light, visual mullen are full, except muscles are intact with no nystagmus. Face is symmetric, tongue protrudes the midline. Palatal elevation sensation normal. On muscle strength testing there is no pronator drift and the strength is normal in arms and distally and proximally. Results - Laboratory Findings CBC and BMP: 07/21/18 05:58 07/21/18 05:58 Abnormal Lab Findings: Abnormal Labs 07/20/18 07/20/18 07/20/18 18:06 18:23 18:23 WBC 11.1 H RBC 3.53 L Hgb MCV 104.7 H RDW 15.7 H Neutrophils # 9.0 H Lymphocytes # 0.9 L APTT D-Dimer Sodium 128 L Potassium Chloride 94 L Carbon Dioxide 19 L Glucose 139 H POC Glucose (mg/dL) 132 H Plasma Lactic Acid Corona AST 38 H HDL Cholesterol Urine Appearance Urine Protein Urine Ketones Urine Blood Urine Nitrite Ur Leukocyte Esterase Urine WBC Urine WBC Clumps Ur Squamous Epith Cells Urine Bacteria Hyaline Casts Urine Mucus 07/20/18 07/20/18 07/20/18 18:23 18:23 19:34 WBC RBC Hgb MCV RDW Neutrophils # Lymphocytes # APTT 21.5 L D-Dimer 5.32 H Sodium Potassium Chloride Carbon Dioxide Glucose POC Glucose (mg/dL) Plasma Lactic Acid Corona 5.5 H* AST HDL Cholesterol Urine Appearance Cloudy H Urine Protein 1+ H Urine Ketones Trace H Urine Blood Small H Urine Nitrite Positive H Ur Leukocyte Esterase Large H Urine WBC 31 H Urine WBC Clumps Few H Ur Squamous Epith Cells 21 H Urine Bacteria Many H Hyaline Casts 12 H Urine Mucus Rare H 07/20/18 07/21/18 07/21/18 22:25 05:58 05:58 WBC RBC 3.21 L Hgb 11.1 L MCV 106.0 H RDW Neutrophils # Lymphocytes # 0.6 L APTT D-Dimer Sodium 130 L Potassium 3.4 L Chloride 97 L Carbon Dioxide Glucose 101 H POC Glucose (mg/dL) Plasma Lactic Acid Corona 0.6 L AST HDL Cholesterol 92 H Urine Appearance Urine Protein Urine Ketones Urine Blood Urine Nitrite Ur Leukocyte Esterase Urine WBC Urine WBC Clumps Ur Squamous Epith Cells Urine Bacteria Hyaline Casts Urine Mucus Assessment and Plan Assessment: * History of a solitary seizure 15 years ago, maintained on Dilantin therapy since then, came with breakthrough seizure. Patient's Dilantin level was very subtherapeutic. She was also hyponatremic, which could be contributing to the seizure. Plan: * EEG was performed today, which revealed mildly abnormal EEG due to background slowing and some disorganization. This can be seen in relation to various causes of encephalopathy. Focal slowing may suggest a focal cortical neuronal dysfunction. No clearcut epileptiform activity was seen. Suggest a prolonged or a sleep deprived EEG if suspicion for seizures is high. * Patient's Dilantin level is <0.3, although patient states she is compliant with medication. We will wean her off Dilantin. Patient will take Dilantin 100 mg twice a day for 2 weeks, then 100 mg once daily for next 2 weeks and then stop. Patient has been started on Keppra 1000 mg twice a day, which can be continued. Patient has been on Dilantin for a number of years, which can affect bone health. Patient was also recommended to have bone density checked, and if evidence of osteoporosis, should start treatment for it. * We will switch Keppra from IV to oral form. * Treatment of hyponatremia as per internal medicine. * Patient was informed of [place] state law of no driving unless seizure free for 6 months. She should not climb ladders, operate dangerous machineries or unsupervised swimming. * Patient should obtain a neurologist as an outpatient and follow up within 1-2 weeks after discharge.
--- NOTE | 2018-07-21 19:51 | EEG ---
ELECTROENCEPHALOGRAM REPORT DATE OF SERVICE: 07/21/2018. PREAMBLE: This is a 73-year-old female who has past history of seizures 15-20 years ago, has been on Dilantin, was stable, had a breakthrough seizure. This study is performed to assess for any epileptiform activity. CURRENT MEDICATIONS: Dilantin, potassium, Protonix, Zofran, Toprol, lisinopril, Hydrea, Lovenox, aspirin. EEG FINDINGS: A routine 21 channel awake digital EEG recording was accomplished utilizing the 10/20 with bipolar and referential montages. The background consists of well-developed, moderately well regulated, mixed frequencies of alpha and some 7 hertz theta activity seen in the posterior head region. Background seems to be slightly reactive to eye opening and closing. Some movement and myogenic activity was seen frequently through the study. Some dysrhythmic activity was seen in the frontal his temporal region. Photic driving response was not seen. Stage 2 sleep was seen with presence of vertex waves and sleep spindles. No definitive focal or generalized epileptiform activity was seen. IMPRESSION: This is a mildly abnormal EEG due to background slowing and some disorganization. This can be seen in relation to various causes of encephalopathy. Focal slowing may suggest a focal cortical neural dysfunction. No clear-cut epileptiform activity was seen. Suggest a prolonged or sleep-deprived EEG if suspicion for seizures is high. MMODL / IJN: [id number] /
[2018-07-21] MEDS: LIDOCAINE 5% PATCH TOPICAL SCH (20:25)
[2018-07-22] MEDS: HYDROmorphone 1 MG/ML 1 ML SYRINGE IVP PRN ×2 (03:59→15:11)
[2018-07-22] MEDS: SODIUM CHLORIDE 0.9% 1,000 ML IV SCH ×2 (04:01→22:44)
[2018-07-22] MEDS: KETOROLAC 30 MG/ML 1 ML VIAL IVP SCH ×4 (07:16→23:40)
[2018-07-22] MEDS: ENOXAPARIN 40 MG/0.4 ML SYRINGE SQ SCH (07:16)
[2018-07-22] MEDS: ASPIRIN 325 MG TAB PO SCH (07:18)
[2018-07-22] MEDS: HYDROXYUREA 500 MG CAP PO SCH (07:18)
[2018-07-22] MEDS: LISINOPRIL 20 MG TAB PO SCH (07:18)
[2018-07-22] MEDS: PHENYTOIN SODIUM EXTENDED 100 MG CAP PO SCH ×2 (07:18→20:52)
[2018-07-22] MEDS: levETIRAcetam 500 MG TAB PO SCH ×2 (07:18→20:51)
[2018-07-22] MEDS: METOPROLOL SUCCINATE (ER) 50 MG TAB.ER.24H PO SCH (07:19)
[2018-07-22] MEDS: PANTOPRAZOLE 40 MG TABLET PO SCH ×2 (07:19→20:52)
--- NOTE | 2018-07-22 10:21 | P.PN ---
Subjective Progress Note Date: 07/22/18 Principal diagnosis: back pain Patient was seen and examined. No acute events overnight. Patient reports improvement in her bilateral back pain since starting Flexeril and Valium. Denies any dysuria or abdominal pain but states that her urine looks very yellow and thought she had a UTI when she was at home. Objective - Vital Signs Vital signs: Vital Signs Temp 98.4 F 07/22/18 07:00 Pulse 92 07/22/18 07:00 Resp 16 07/22/18 07:00 BP 131/73 07/22/18 07:00 Pulse Ox 97 07/22/18 07:00 Intake & Output 07/21/18 07/22/18 07/22/18 18:59 06:59 18:59 Intake Total 830 Balance 830 Intake: Intake, IV Titration 650 Amount Sodium Chloride 0.9% 1, 600 000 ml @ 100 mls/hr IV . Q10H DAVID Rx#:[id number] cefTRIAXone 1 gm In 50 Sodium Chloride 0.9% 50 ml @ 100 mls/hr IVPB Q24HR DAVID Rx#:[id number] Oral 180 Other: Voiding Method Bedside Commode Toilet Toilet # Voids 1 1 - Exam General: [non toxic], [no distress], [appears at stated age] Derm: [warm], [dry] Head: [atraumatic], [normocephalic], [symmetric] Eyes: [EOMI], [no lid lag], [anicteric sclera] Mouth: [no lip lesion], [mucus membranes moist] Cardiovascular: [S1S2 reg], [no murmur], [positive DP pulse bilateral] Lungs: [CTA bilateral], [no rhonchi, no rales] , [no accessory muscle use] Abdominal: [soft], [ nontender to palpation], [no guarding], [no appreciable organomegaly] Ext: [no gross muscle atrophy], [no edema], [tenderness to palpation over the thoracic back bilaterally] Neuro: [no focal neuro deficits] Psych: [Alert], [oriented], [appropriate affect] - Labs CBC & Chem 7: 07/21/18 05:58 07/22/18 07:25 Labs: Abnormal Lab Results - Last 24 Hours (Table) 07/21/18 Range/Units 05:58 Free Phenytoin <0.8 L (0.8-2.0) ug/mL Microbiology - Last 24 Hours (Table) 07/20/18 19:34 Urine Culture - Preliminary Urine,Catheterized Gram Neg Bacilli Assessment and Plan Assessment: Assessment and Plan 1. Breakthrough seizure 2. Hyponatremia 3. Hypokalemia 4. Non-anion gap metabolic acidosis due to Lactic acidosis 5. UTI 6. Left forehead hematoma 7. Elevated d-dimer 8. Hypertension 9. Compression fracture T8 to L1, chronic 10. Essential thrombocythemia 1. Reports of last seizure greater than 20 years ago. Patient is on Dilantin at home. CT head negative for acute intracranial abnormality. Dilantin level subtherapeutic. EEG shows no epileptic discharges. Plans: Loaded with Keppra IV and ED. Change Keppra 1000 mg IV twice a day to PO. Wean Dilantin as per Neurology recommendations. Advanced neurochecks. Telemetry monitoring. Fall and seizure precautions. Follow swallow eval, PT and OT. Follow neurology consultation. 2. Sodium 128 to 130, improving. Possibly related to dehydration. Plans: Continue normal saline at 100 mL per hour. Daily BMP. 3. Potassium 3.-4.0. Plans: Replaced via protocol. 4. Lactic acid 5.5-0.6. Possibly related to seizure. Plans: Resolved. Continue IVF. 5. UA shows positive nitrite and large leukocyte esterase but dirty. Urine culture shows GNB Plans: Continue Rocephin. Follow urine culture. 6. As seen on face CT. CT rules out acute intracranial hemorrhage or midline shift. Plans: Adequate pain control. Cold compresses. 7. D-dimer elevated at 5.32. CTA of the chest rules out PE. 8. BP 131/73. Plans: Continue lisinopril. Monitor vitals, adjust medications as necessary. 9. As seen on CTA of the chest. Appears chronic in nature. Plans: Adequate pain control, lidocaine patch, change morphine to Dilaudid. Follow orthopedic consultation. Follow PT and OT recommendations. 10. Review of records show that the patient was diagnosed with essential thrombocythemia in July 2017. Plans: Continue hydroxyurea and aspirin. Follow hematology in the outpatient setting. Patient admitted for possible breakthrough seizure. Loaded with Keppra, weaning Dilantin. Pending Orthopedic and PT evaluation for compression fracture. Likely DC today or tomorrow.
[2018-07-22 11:28] LABS: African American GFR (CKD) >90 (>60 ml/min/1.73 sqM); Anion Gap 8 mmol/L; Blood Urea Nitrogen 5 mg/dL (7-17); Calcium 8.6 mg/dL (8.4-10.2); Carbon Dioxide 21 mmol/L (22-30); Chloride 105 mmol/L (98-107); Glucose 89 mg/dL (74-99); Sodium 134 mmol/L (137-145)
[2018-07-22] MEDS: LIDOCAINE 5% PATCH TOPICAL SCH (20:51)
--- NOTE | 2018-07-22 23:15 | P.CNOR ---
History of Present Illness - [facility] Consult date: 07/22/18 Requesting physician: Deepak Orellana Consult reason: fracture, back pain, other History of present illness: Patient is a 73-year-old female who is seen exam of the bedside for further evaluation after consultation was placed in regards to treatment for chronic thoracic compression fracture deformities. Patient sustained an unwitnessed fall at home. She was brought to the emergency department for further evaluation. She had a seizure in the emergency department. They are suspecting she may had a seizure at home as well. She has a history of falls with previous thoracic and lumbar injuries. She does have bruising around her left eye and hematoma following her fall. Patient has a history of seizure disorder which has been well controlled over the past 20-30 years with medication. She is currently on Keppra. She denies any specific lower extremity weakness or radiculopathy bilaterally. She states she is known to have a fracture of her thoracic spine and was treated last year with bracing. She describes a TLSO brace. She is not currently experiencing any significant acute thoracic or lumbar back pain. She does have some pain over the right lateral ribs and currently has a pain patch in place. She is moving comfortably in bed without significant difficulty. She feels her fractures are chronic in nature and does not feel she has a new fracture. Past Medical History Past Medical History: Blood Disorder, GERD/Reflux, Hypertension, Osteoarthritis (OA), Seizure Disorder Additional Past Medical History / Comment(s): Heart murmur, back pain, "blood clot in brain" in 1975, seizure prior to 1975 History of Any Multi-Drug Resistant Organisms: None Reported Past Surgical History: Tonsillectomy Past Anesthesia/Blood Transfusion Reactions: No Reported Reaction Past Psychological History: No Psychological Hx Reported Smoking Status: Never smoker Past Alcohol Use History: None Reported Past Drug Use History: None Reported - Past Family History Father Family Medical History: Myocardial Infarction ([place]) Mother History Unknown: Yes Medications and Allergies Home Medications Medication Instructions Recorded Confirmed Type Aspirin EC [Ecotrin] 325 mg PO DAILY 01/26/18 07/20/18 History Ergocalciferol [Vitamin D2 50,000 unit PO WE 01/26/18 07/20/18 History (DRISDOL)] Ferrous Sulfate [Iron (65 MG 325 mg PO DAILY 01/26/18 07/20/18 History Elemental)] Hydroxyurea 500 mg PO MOTUWETHFR 01/26/18 07/20/18 History Lisinopril 40 mg PO DAILY 01/26/18 07/20/18 History Metoprolol Succinate [Kapspargo 50 mg PO DAILY 01/26/18 07/20/18 History Sprinkle] Omeprazole 20 mg PO BID 01/26/18 07/20/18 History Phenytoin Sodium Extended 100 mg PO TID 01/26/18 07/20/18 History [Dilantin] Calcium Carbonate/Vitamin D3 1 tab PO DAILY 07/20/18 07/20/18 History [Calcium 600-Vit D3 200 Tablet] Cyanocobalamin (Vitamin B-12) 1,000 mcg PO DAILY 07/20/18 07/20/18 History [Vitamin B-12] Allergies Allergy/AdvReac Type Severity Reaction Status Date / Time No Known Allergies Allergy Verified 07/20/18 18:25 Physical Examination Physical exam: Patient is awake, alert, and oriented 3 Vital signs stable Good chest excursion with deep inspiration and expiration Examination of thoracic and lumbar spine reveals skin is intact with no abrasions, lacerations, or bruises; no erythema, purulence or signs of infection Evidence of a pain patch over the right lateral lower thoracic spine No significant pain with palpation of the thoracic spine or lumbar spine along the midline Patient changes postions well in bed Dorsiflexion, plantarflexion, and extensor hallucis longus positive sustained bilaterally Lower extremity strength 5/5 bilaterally No lower extremity hyperreflexia bilaterally No signs or symptoms of DVT; no calf pain No pain with internal and external rotation of the hips bilaterally Neurovascularly intact Results Pertinent studies: CTA of the chest taken on 07/20/2018: Multiple thoracic and lumbar compression fracture deformities; T2 superior endplate compression fracture deformity with approximately 5% height loss; T4 superior endplate compression fracture de formity with approximately 10% height loss; T6 superior endplate compression fracture deformity with approximately 10% height loss; T8 severe wedging compression fracture deformity with approximately 90% height loss; L1 wedging compression fracture deformity with approximately 80% height loss; L2 superior endplate compression fracture deformity with approximately 5% height loss; compression fracture deformities are strongly felt to be chronic in nature - Labs Labs: Abnormal Lab Results - Last 24 Hours (Table) 07/21/18 Range/Units 05:58 Free Phenytoin <0.8 L (0.8-2.0) ug/mL Microbiology - Last 24 Hours (Table) 07/20/18 19:34 Urine Culture - Preliminary Urine,Catheterized Gram Neg Bacilli H & H 07/20/18 07/21/18 Range/Units 18:23 05:58 Hgb 12.2 11.1 L (11.4-16.0) gm/dL Hct 36.9 34.0 (34.0-46.0) % Coagulation 07/20/18 Range/Units 18:23 INR 0.9 (<1.2) Result Diagrams: 07/21/18 05:58 07/22/18 07:25 Assessment and Plan Assessment: Assessment: Chronic thoracic and lumbar compression fracture deformities Multiple compression fracture deformities at T2, T4, T6, T8, L1, and L2 of indeterminate age Status post fall Status post seizure (1) Status post fall Current Visit: Yes Status: Acute Code(s): Z91.81 - HISTORY OF FALLING SNOMED Code(s): 860448420 (2) Status post seizure Current Visit: Yes Status: Acute Code(s): Z86.69 - PERSONAL HISTORY OF DIS OF THE NERVOUS SYS AND SENSE ORGANS SNOMED Code(s): 62077223 (3) T6 vertebral fracture Current Visit: Yes Status: Acute Code(s): S22.059A - UNSP FRACTURE OF T5-T6 VERTEBRA, INIT FOR CLOS FX SNOMED Code(s): 261599474 (4) T4 vertebral fracture Current Visit: Yes Status: Acute Code(s): S22.049A - UNSP FRACTURE OF FOURTH THORACIC VERTEBRA, INIT FOR CLOS FX SNOMED Code(s): 405925215 (5) T2 vertebral fracture Current Visit: Yes Status: Acute Code(s): S22.029A - UNSP FRACTURE OF SECOND THORACIC VERTEBRA, INIT FOR CLOS FX SNOMED Code(s): 567538826 (6) L1 vertebral fracture Current Visit: Yes Status: Acute Code(s): S32.019A - UNSP FRACTURE OF FIRST LUMBAR VERTEBRA, INIT FOR CLOS FX SNOMED Code(s): 443192873 (7) L2 vertebral fracture Current Visit: Yes Status: Acute Code(s): S32.029A - UNSP FRACTURE OF SECOND LUMBAR VERTEBRA, INIT FOR CLOS FX SNOMED Code(s): 192819847 (8) Chronic low back pain Current Visit: Yes Status: Acute Code(s): M54.5 - LOW BACK PAIN; G89.29 - OTHER CHRONIC PAIN SNOMED Code(s): 056747112 Plan: Plan: 1. After further discussion with the patient, physical examination of the patient, and reviewing of imaging, we'll currently plan to continue conservative treatment at this time. Patient does have evidence of multiple thoracic and lumbar compression fracture deformities. She does not appear to have any acute pain at these fracture sites. She does not have increased pain with any palpation of her thoracic or lumbar spine. She is able to move comfortably in bed without significant difficulty. She denies any lower extremity weakness or radiculopathy bilaterally. At this time, we will not plan for bracing or further imaging. We will plan to have her follow-up in the outpatient setting in approximately 2 weeks for further evaluation. If she has an exacerbation of pain at that time, we discussed we may plan for further imaging and the possibility of bracing at that time. She does have a previously prescribed TLSO brace at home. We discussed she may bring this brace to her next appointment and we may adjust this brace accordingly if there are indications for her to resume wearing this brace. At this time, patient is clear for discharge from an orthopedic spine standpoint. Patient may follow up with Brett Nava PA-C or Dr. Stephane Bowman at [facility] in approximately 2 weeks for further evaluation. 2. Patient will continue to be seen and examined by medicine for her other medical diagnoses Time with Patient: Greater than 30 (Including physical exam, reviewing of imaging, dictation, and obtaining history)
[2018-07-23] MEDS: HYDROmorphone 1 MG/ML 1 ML SYRINGE IVP PRN ×3 (03:48→13:10)
[2018-07-23] MEDS: KETOROLAC 30 MG/ML 1 ML VIAL IVP SCH ×2 (05:37→11:08)
[2018-07-23] MEDS: PANTOPRAZOLE 40 MG TABLET PO SCH (06:50)
[2018-07-23] MEDS: ENOXAPARIN 40 MG/0.4 ML SYRINGE SQ SCH (06:50)
[2018-07-23] MEDS: levETIRAcetam 500 MG TAB PO SCH (06:50)
[2018-07-23] MEDS: HYDROXYUREA 500 MG CAP PO SCH (06:50)
[2018-07-23] MEDS: LISINOPRIL 20 MG TAB PO SCH (06:51)
[2018-07-23] MEDS: PHENYTOIN SODIUM EXTENDED 100 MG CAP PO SCH (06:51)
[2018-07-23] MEDS: METOPROLOL SUCCINATE (ER) 50 MG TAB.ER.24H PO SCH (06:51)
[2018-07-23] MEDS: ASPIRIN 325 MG TAB PO SCH (06:51)
[2018-07-23] MEDS: SODIUM CHLORIDE 0.9% 1,000 ML IV SCH ×2 (06:59→09:21)
[2018-07-23 07:30] VITALS: BP 150/79; PULSE 86; RESP 16; TEMP 97.7
--- NOTE | 2018-07-23 11:17 | P.DS ---
Providers Date of admission: 07/20/18 19:07 Expected date of discharge: 07/23/18 Attending physician: Deepak Orellana MD Consults: 07/20/18 19:08 Consult Physician Routine Consulting Provider: Angeli Yuen Consult Reason/Comments: sz Do you want consulting provider notified?: Yes 07/20/18 22:21 Consult Physician Routine Consulting Provider: Lisa Bowman Consult Reason/Comments: compression fracture of thoracic vertebrae, pain Do you want consulting provider notified?: Yes, Notify in am Primary care physician: Cher Lopez [facility] Course: 73-year-old female with remote history of seizure over 20 years ago. Patient brought into the hospital after having a seizure attack. Patient unable to provide any meaningful history she seems to be slightly confused at this time. Family was not available at bedside. History was obtained by reviewing medical records and discussing the case with the ER physician. Seems like patient had a seizure attack at home at 1 PM after she woke up was described as tonic-clonic seizure she is not on any seizure medications but she has remote history of seizures over 20 years ago. In the emergency department she had another witnessed seizure that resolved on its own without any medications. Also was described as tonic-clonic seizure. Patient has brief postictal status however at time of my evaluation patient still seems to be disoriented unable to provide any meaningful history. Seems like when the patient had a seizure home she sustained a fall and hurt her head as she fell on her face. No report of loss of bladder or bowel control Reviewing medical records seems like she was discharged from the Hospital 5 months ago after sustaining a fall resulting in pelvic rami fracture. Patient reports occasional drinking of alcohol yesterday she had 2 beers. She denies any smoking she denies any drugs. She denies any changes in her medications. Regard to her seizure, CT head was negative for acute intracranial abnormality. Dilantin level was subtherapeutic. EEG was performed which showed no epileptic discharges. Patient was loaded with Keppra in the ED and continue on Keppra 1000 mg IV twice a day. Neurology was consulted and recommended weaning Dilantin over the next 2 weeks and continuing Keppra. Patient was placed under advanced neurochecks, fall and seizure precautions. She was evaluated by physi edu therapy who recommended home with home PT. Patient was noted to have hyponatremia on admission. Her sodium was 128 on admission and improved to 130 on discharge. This is thought to be secondary to dehydration. Patient was hypokalemic on admission. Her potassium was 3.5. This was replaced via protocol. Her potassium was within normal limits on discharge. Patient's lactic acid was 5.5 on admission and within normal limits on recheck. This is likely secondary to her seizure episode. Patient was noted to have a urinalysis which showed positive nitrite and large leukocyte esterase. Urine culture grew out E. coli that was sensitive to ciprofloxacin. She was initially on Rocephin IV and was transitioned to ciprofloxacin on discharge. Patient had an elevated d-dimer 5.32 on admission. CTA of the chest ruled out PE. There are some compression fractures of the T8 to L1 which appeared chronic in nature that was seen on CTA of the chest. Orthopedic surgery was consulted and recommended no patient follow-up with TLSO brace. Patient was seen and examined prior to discharge. No acute events overnight. Patient reports improvement in her back pain with current pain medications. General: [non toxic], [no distress], [appears at stated age] Derm: [warm], [dry] Head: [atraumatic], [normocephalic], [symmetric] Eyes: [EOMI], [no lid lag], [anicteric sclera] Mouth: [no lip lesion], [mucus membranes moist] Cardiovascular: [S1S2 reg], [no murmur], [positive DP pulse bilateral] Lungs: [CTA bilateral], [no rhonchi, no rales] , [no accessory muscle use] Abdominal: [soft], [ nontender to palpation], [no guarding], [no appreciable organomegaly] Ext: [no gross muscle atrophy], [no edema], [tenderness to palpation over the thoracic back bilaterally] Neuro: [no focal neuro deficits] Psych: [Alert], [oriented], [appropriate affect] Assessment and Plan 1. Breakthrough seizure 2. Hyponatremia 3. Hypokalemia 4. Non-anion gap metabolic acidosis due to Lactic acidosis 5. UTI 6. Left forehead hematoma 7. Elevated d-dimer 8. Hypertension 9. Compression fracture T8 to L1, chronic 10. Essential thrombocythemia 1. Reports of last seizure greater than 20 years ago. Patient is on Dilantin at home. CT head negative for acute intracranial abnormality. Dilantin level subtherapeutic. EEG shows no epileptic discharges. Plans: Loaded with Keppra IV and ED. Change Keppra 1000 mg IV twice a day to PO. Wean Dilantin as per Neurology recommendations. Advanced neurochecks. Telemetry monitoring. Fall and seizure precautions. PT recommends home with home PT. Follow neurology consultation. 2. Sodium 128 to 130 to 134, improving. Possibly related to dehydration. Plans: Continue normal saline at 100 mL per hour. Daily BMP. 3. Potassium 3.4-4.0. Plans: Replaced via protocol. 4. Lactic acid 5.5-0.6. Possibly related to seizure. Plans: Resolved. Continue IVF. 5. UA shows positive nitrite and large leukocyte esterase but dirty. Urine culture shows E. coli sensitive to ciprofloxacin. Plans: Continue Rocephin. Switch Rocephin to ciprofloxacin on discharge. 6. As seen on face CT. CT rules out acute intracranial hemorrhage or midline shift. Plans: Adequate pain control. Cold compresses. 7. D-dimer elevated at 5.32. CTA of the chest rules out PE. 8. BP 150/79. Plans: Continue lisinopril. Monitor vitals, adjust medications as necessary. 9. As seen on CTA of the chest. Appears chronic in nature. Plans: Adequate pain control, lidocaine patch, change morphine to Dilaudid. Orthopedic surgery recommends follow-up with TLSO brace. PT and OT cleared with home PT. 10. Review of records show that the patient was diagnosed with essential thrombocythemia in July 2017. Plans: Continue hydroxyurea and aspirin. Follow hematology in the outpatient setting. Patient admitted for possible breakthrough seizure. Loaded with Keppra, weaning Dilantin. Pending Orthopedic and PT evaluation for compression fracture. Likely DC today. This complex discharge took greater than 30 minutes. Pertinent Studies: CT brain, chest x-ray, face CT, chest CTA, EEG Patient Condition at Discharge: Fair Plan - Discharge Summary Discharge Rx Participant: No New Discharge Prescriptions: New Phenytoin Sodium Extended [Dilantin] 100 mg PO BID #42 cap Cyclobenzaprine [Flexeril] 10 mg PO TID PRN #14 tab PRN Reason: Muscle Spasm levETIRAcetam [Keppra] 1,000 mg PO Q12HR #60 tab Continue Omeprazole 20 mg PO BID Lisinopril 40 mg PO DAILY Hydroxyurea 500 mg PO MOTUWETHFR Ferrous Sulfate [Iron (65 MG Elemental)] 325 mg PO DAILY Aspirin EC [Ecotrin] 325 mg PO DAILY Metoprolol Succinate [Kapspargo Sprinkle] 50 mg PO DAILY Ergocalciferol [Vitamin D2 (DRISDOL)] 50,000 unit PO WE Cyanocobalamin (Vitamin B-12) [Vitamin B-12] 1,000 mcg PO DAILY Calcium Carbonate/Vitamin D3 [Calcium 600-Vit D3 200 Tablet] 1 tab PO DAILY Discontinued Phenytoin Sodium Extended [Dilantin] 100 mg PO TID Discharge Medication List Aspirin EC [Ecotrin] 325 mg PO DAILY 01/26/18 [History] Ergocalciferol [Vitamin D2 (DRISDOL)] 50,000 unit PO WE 01/26/18 [History] Ferrous Sulfate [Iron (65 MG Elemental)] 325 mg PO DAILY 01/26/18 [History] Hydroxyurea 500 mg PO MOTUWETHFR 01/26/18 [History] Lisinopril 40 mg PO DAILY 01/26/18 [History] Metoprolol Succinate [Kapspargo Sprinkle] 50 mg PO DAILY 01/26/18 [History] Omeprazole 20 mg PO BID 01/26/18 [History] Calcium Carbonate/Vitamin D3 [Calcium 600-Vit D3 200 Tablet] 1 tab PO DAILY 07/20/18 [History] Cyanocobalamin (Vitamin B-12) [Vitamin B-12] 1,000 mcg PO DAILY 07/20/18 [History] Cyclobenzaprine [Flexeril] 10 mg PO TID PRN #14 tab 07/23/18 [Rx] Phenytoin Sodium Extended [Dilantin] 100 mg PO BID #42 cap 07/23/18 [Rx] levETIRAcetam [Keppra] 1,000 mg PO Q12HR #60 tab 07/23/18 [Rx] Follow up Appointment(s)/Referral(s): Brett Nava PAC [PHYSICIAN P[employer]ING [employer] [facility]LOOR[facility]] - 2 Weeks (Patient may follow-up with Brett Nava PA-C or Dr. Stephane Bowman at [facility] in 2 weeks following discharge. ) Cher Todd MD [Primary Care Provider] - 1-2 days Jacqueline Hendrickson MD [Medical Doctor] - 1 Week Activity/Diet/Wound Care/Special Instructions: Diet: Heart healthy Follow-up with PCP within 1-2 days of discharge. Follow-up with orthopedic surgery within 1 week of discharge. Follow-up with neurology within 1 week of discharge. We are weaning off her Dilantin. Please take one tablet twice a day for the next 2 weeks. After that, please take 1 tablet daily for the next 2 weeks. After that, please stop Dilantin. Please do not drive for the next 6 months. Discharge Disposition: HOME SELF-CARE
--- NOTE | 2018-07-25 01:12 | CDI ---
Documentation Clarification Form Date: 07/25/18 From: Clinton Hernandez Phone: call [phone] Admit Date: 07/20/2018 7:07:00 PM Patient Name: Kellen Sousa Visit Number: [id number] Discharge Date: 07/23/2018 2:09:00 PM ATTENTION: The Clinical Documentation Specialists (CDI) and [facility] Coding Staff appreciate your assistance in clarifying documentation. Please respond to the clarification below the line at the bottom and electronically sign. The CDI & [facility] Coding staff will review the response and follow-up if needed. Please note: Queries are made part of the Legal Health Record. If you have any questions, please contact the author of this message via ITS. Dr. Trenton Rosas, Encephalopathy is documented in the 07/21 Consult note "This is a mildly abnormal EEG due to background slowing and some disorganization.This can be seen in relation to various causes of encephalopathy". History/Risk Factors: Seizures Clinical Indicators: Hyponatremia,hypokalemia,acidosis,dehydration. Labs: sodium 134 EEG: This is a mildly abnormal EEG due to background slowing and some disorganization.This can be seen in relation to various causes of encephalopathy. Treatment: IV fluids In your professional opinion, can you please clarify the specific type of Encephalopathy, if known? Metabolic Encephalopathy Encephalopathy, unsepcified. Other, please specify Unable to determine MTDD
== END 2018-07-23 14:09 | disposition home or self-care (01) | DRG 101 ==
LOC: EC 17:48 → 3SCARD 19:07 → 1SOBS 19:19 → UNDOADMOB 19:19 → 3SCARD 20:42 → 4SSUR 07-21 22:43
PROVIDERS: ADMIT Internal Medicine; ATTEND Internal Medicine
DX: G40.901 Epilepsy, unspecified, not intractable, with status epilepticus (principal); E87.1 Hypo-osmolality and hyponatremia; M48.54XA Collapsed vertebra, not elsewhere classified, thoracic region, initial encounter for fracture; E87.2 Acidosis; N39.0 Urinary tract infection, site not specified; M48.56XA Collapsed vertebra, not elsewhere classified, lumbar region, initial encounter for fracture; E87.6 Hypokalemia; S00.03XA Contusion of scalp, initial encounter; E86.0 Dehydration; W18.30XA Fall on same level, unspecified, initial encounter; Y92.019 Unspecified place in single-family (private) house as the place of occurrence of the external cause; I11.9 Hypertensive heart disease without heart failure; G89.29 Other chronic pain; D47.3 Essential (hemorrhagic) thrombocythemia; B96.20 Unspecified Escherichia coli [E. coli] as the cause of diseases classified elsewhere; K21.9 Gastro-esophageal reflux disease without esophagitis; M19.90 Unspecified osteoarthritis, unspecified site; Z79.82 Long term (current) use of aspirin; Z79.899 Other long term (current) drug therapy; Z82.49 Family history of ischemic heart disease and other diseases of the circulatory system; Z91.81 History of falling; Z90.89 Acquired absence of other organs
CPT/HCPCS: 36415; 70450; 70486; 71046; 71275; 80048; 80053; 80061; 80185; 80186; 81001; 82550; 83605; 83735; 83880; 84100; 84484; 85025; 85379; 85610; 85730; 87077; 87086; 87186; 93005; 95819; 96365; 96366; 99291

== ENCOUNTER 2018-09-22 12:26 | Emergency (ER) | payer MEDICARE ==
[2018-09-22] MEDS ORDERED: ONDANSETRON 4 MG/2 ML VIAL IVP STA (12:38)
[2018-09-22] MEDS ORDERED: HYDROmorphone 0.5 MG/0.5 ML SYRINGE IVP STA (12:38)
[2018-09-22 12:39] VITALS: BP 122/84; PULSE 103; RESP 18; TEMP 97.9
--- NOTE | 2018-09-22 12:40 | ED ---
Upper Extremity HPI - General Chief Complaint: Extremity Injury, Upper Stated Complaint: fall Time Seen by Provider: 09/22/18 12:29 Source: patient, RN notes reviewed Mode of arrival: EMS Limitations: no limitations - History of Present Illness Initial Comments: This a 73-year-old female presents emergency department via EMS chief complaint of left shoulder pain. Patient had a trip and fall accident pain on her left shoulder no head injury no loss conscious. Patient states that she has severe pain to left shoulder she was given 75 mcgs of fentanyl with minimal relief of pain. Denies any paresthesias no hip pain. Patient has no other complaints other than her left shoulder pain. - Related Data Home Medications Medication Instructions Recorded Confirmed Aspirin EC [Ecotrin] 325 mg PO DAILY 01/26/18 07/20/18 Ergocalciferol [Vitamin D2 50,000 unit PO WE 01/26/18 07/20/18 (DRISDOL)] Ferrous Sulfate [Iron (65 MG 325 mg PO DAILY 01/26/18 07/20/18 Elemental)] Hydroxyurea 500 mg PO MOTUWETHFR 01/26/18 07/20/18 Lisinopril 40 mg PO DAILY 01/26/18 07/20/18 Metoprolol Succinate [Kapspargo 50 mg PO DAILY 01/26/18 07/20/18 Sprinkle] Omeprazole 20 mg PO BID 01/26/18 07/20/18 Calcium Carbonate/Vitamin D3 1 tab PO DAILY 07/20/18 07/20/18 [Calcium 600-Vit D3 200 Tablet] Cyanocobalamin (Vitamin B-12) 1,000 mcg PO DAILY 07/20/18 07/20/18 [Vitamin B-12] Previous Rx's Medication Instructions Recorded Cyclobenzaprine [Flexeril] 10 mg PO TID PRN #14 tab 07/23/18 Phenytoin Sodium Extended 100 mg PO BID #42 cap 07/23/18 [Dilantin] levETIRAcetam [Keppra] 1,000 mg PO Q12HR #60 tab 07/23/18 Hydrocodone/Acetaminophen [Dakota 1 tab PO Q6HR PRN #12 tab 09/22/18 5-325] Allergies Allergy/AdvReac Type Severity Reaction Status Date / Time No Known Allergies Allergy Verified 09/22/18 12:38 Review of Systems ROS Statement: Those systems with pertinent positive or pertinent negative responses have been documented in the HPI. ROS Other: All systems not noted in ROS Statement are negative. Past Medical History Past Medical History: Blood Disorder, GERD/Reflux, Hypertension, Osteoarthritis (OA), Seizure Disorder Additional Past Medical History / Comment(s): Heart murmur, back pain, "blood clot in brain" in 1975, seizure prior to 1975 History of Any Multi-Drug Resistant Organisms: None Reported Past Surgical History: Tonsillectomy Past Anesthesia/Blood Transfusion Reactions: No Reported Reaction Past Psychological History: No Psychological Hx Reported Smoking Status: Never smoker Past Alcohol Use History: None Reported Past Drug Use History: None Reported - Past Family History Father Family Medical History: Myocardial Infarction ([place]) Mother History Unknown: Yes General Exam Limitations: no limitations General appearance: alert, in no apparent distress Head exam: Present: atraumatic, normocephalic, normal inspection Neck exam: Present: normal inspection, full ROM. Absent: tenderness, meningismus, lymphadenopathy Respiratory exam: Present: normal lung sounds bilaterally. Absent: respiratory distress, wheezes, rales, rhonchi, stridor Cardiovascular Exam: Present: regular rate, normal rhythm, normal heart sounds. Absent: systolic murmur, diastolic murmur, rubs, gallop, clicks Extremities exam: Present: other (Left shoulder there is obvious deformity, swelling, tenderness with palpation neurovascular intact left upper extremity there is no tenderness below her left shoulder there is no clavicle tenderness) Back exam: Present: full ROM. Absent: tenderness, paraspinal tenderness, vertebral tenderness Neurological exam: Present: alert, oriented X3, CN II-XII intact, reflexes normal. Absent: motor sensory deficit Course Vital Signs 09/22/18 12:34 Temperature 97.9 F Pulse Rate 103 H Respiratory 18 Rate Blood Pressure 122/84 O2 Sat by Pulse 100 Oximetry Medical Decision Making - Medical Decision Making 73-year-old female presented emergency from with chief complaint of left shoulder pain after a fall. X-rays shows impacted fracture. Patient will be placed in a sling will follow-up with orthopedics. Patient we discharged with pain meds. Disposition Clinical Impression: Fall, Left humeral fracture Disposition: HOME SELF-CARE Condition: Stable Instructions (If sedation given, give patient instructions): Proximal Humerus Fracture (ED) Additional Instructions: Please return to the Emergency Department if symptoms worsen or any other concerns. Prescriptions: Hydrocodone/Acetaminophen [Dakota 5-325] 1 tab PO Q6HR PRN #12 tab PRN Reason: Pain Is patient prescribed a controlled substance at d/c from ED?: Yes When asked, does pt state using other controlled substances?: No If prescribed controlled substance>3 days was MAPS reviewed?: Prescribed <3 Days If opioid is for acute pain is fill amount 7 days or less?: Yes If Rx opioid, was Start Talking consent form obtained?: Yes Referrals: Cher Todd MD [Primary Care Provider] - 1-2 days Walter Kelley DO [Doctor of Osteopathic Medicine] - 1-2 days Time of Disposition: 13:03
--- NOTE | 2018-09-22 14:29 | XR ---
EXAMINATION TYPE: XR shoulder complete LT , 3 VIEWS DATE OF EXAM ORDERED: 09/22/2018 HISTORY: Pain. COMPARISON: None. FINDINGS: Nonstandard views abdomen submitted. There is a fracture of the lateral aspect of the juany ral head, likely the greater tuberosity. No dislocation is seen. IMPRESSION: NONSTANDARD VIEWS DEMONSTRATE A FRACTURE OF WHAT IS PROBABLY GREATER TUBEROSITY. CODE A: INITIAL ENCOUNTER FOR CLOSED FRACTURE.
== END 2018-09-22 13:25 | disposition home or self-care (01) ==
LOC: EC 12:26
DX: S42.302A Unspecified fracture of shaft of humerus, left arm, initial encounter for closed fracture (principal); K21.9 Gastro-esophageal reflux disease without esophagitis; I10 Essential (primary) hypertension; Z79.82 Long term (current) use of aspirin; Z79.899 Other long term (current) drug therapy; W01.0XXA Fall on same level from slipping, tripping and stumbling without subsequent striking against object, initial encounter; Y93.01 Activity, walking, marching and hiking
CPT/HCPCS: 73030; 99284; 96374; 96375; J2405; J1170

== ENCOUNTER 2019-02-20 08:27 | Observation (INO) | payer MEDICARE ==
[2019-02-20] MEDS ORDERED: SODIUM CHLORIDE 0.9% 1,000 ML IV STA (09:25)
--- NOTE | 2019-02-20 09:29 | ED ---
General Adult HPI - General Chief complaint: Fall Stated complaint: FALL Time Seen by Provider: 02/20/19 08:37 Source: patient, EMS Mode of arrival: EMS Limitations: no limitations - History of Present Illness Initial comments: Dictation was produced using [employer] dictation software. please excuse any grammatical, word or spelling errors. Chief Complaint: 73-year-old feel presents as episode of syncope. History of Present Illness: 73-year-old female she has past medical history of hypertension, chronic back pain seizure disorder. She was at home at approximately 3 AM when she was walking to get herself one of her nutrition supplements drinks with she became unsteady on her feet and fell to the ground. Patient states she is unsure whether she lost consciousness. She has no pain complaints after the fall. She was very weak and needed a crawl back to her bedroom into bed. She called family members at approximately 5:30 AM. She was then brought into the emergency department by ambulance. Patient is a pain complaints at this time. She denies any urinary symptoms. Cough but she has had mild runny nose. The ROS documented in this emergency department record has been reviewed and confirmed by me. Those systems with pertinent positive or negative responses have been documented in the HPI. All other systems are other negative and/or noncontributory. PHYSICAL EXAM: General Impression: Alert and oriented x3, not in acute distress HEENT: Normocephalic atraumatic, extra-ocular movements intact, pupils equal and reactive to light bilaterally, dry mucous membranes Cardiovascular: Tachycardia Chest: Lungs clear to auscultation bilaterally, no rhonchi, no wheeze, no rales Abdomen: Bowel sounds present, abdomen soft, non-tender, non-distended, no organomegaly Musculoskeletal: Pulses present and equal in all extremities, no peripheral edema Motor: no focal deficits noted Neurological: CN II-XII grossly intact, no focal motor or sensory deficits noted Skin: Intact with no visualized rashes Psych: Normal affect and mood ED course: 73-year-old female presents after episode of syncope. Patient does not give history to suggest mechanical fall. Patient tolerated his high upon arrival with a rate of 121, respiratory signs within acceptable limits. Laboratory evaluation obtained. CBC unremarkable., Coag panel unremarkable. Metabolic panel shows sodium 131. No gap acidosis. Glucose 123. Rest of labs are unremarkable. Chest x-ray shows no acute processes. Computed tomography scan of the head and C-spine also does not reveal any acute processes. Patient denies any back pain at this time. Patient's tachycardia improved however still elevated. We will plan to have patient admitted for tachycardia. Consultation made to cardiology. This point highly doubt pulmonary emboli at this time given that patient not complaining of any shortness of breath. She is evaluated in July 2018 without any evidence of PE on CT angios the chest. Patient has no history of blood clots and no symptoms to suggest DVT. Patient understandable and agreeable to plan. Discussed patient case with Dr. Kelly who is willing to accept patients care. EKG interpretation: Ventricular rate 118, sinus tachycardia,. 142 cultures 82, QTc 454. No CA prolongation, no QTC prolongation, no ST or T-wave changes noted. EKG compared to 07/20/2018 showing no changes. Overall, this EKG is unremarkable - Related Data Home Medications Medication Instructions Recorded Confirmed Ergocalciferol [Vitamin D2 50,000 unit PO WE 01/26/18 02/20/19 (DRISDOL)] Ferrous Sulfate [Iron (65 MG 325 mg PO DAILY 01/26/18 02/20/19 Elemental)] Hydroxyurea 500 mg PO MOTUWETHFR 01/26/18 02/20/19 Lisinopril 40 mg PO DAILY 01/26/18 02/20/19 ALPRAZolam [Xanax] 0.25 mg PO BID 02/20/19 02/20/19 Aspirin 81 mg PO DAILY 02/20/19 02/20/19 Cyclobenzaprine [Flexeril] 10 mg PO DAILY 02/20/19 02/20/19 Esomeprazole Magnesium [NexIUM] 20 mg PO DAILY 02/20/19 02/20/19 Previous Rx's Medication Instructions Recorded levETIRAcetam [Keppra] 1,000 mg PO Q12HR #60 tab 07/23/18 Allergies Allergy/AdvReac Type Severity Reaction Status Date / Time No Known Allergies Allergy Verified 02/20/19 09:43 Review of Systems ROS Statement: Those systems with pertinent positive or pertinent negative responses have been documented in the HPI. ROS Other: All systems not noted in ROS Statement are negative. Past Medical History Past Medical History: Blood Disorder, GERD/Reflux, Hypertension, Osteoarthritis (OA), Seizure Disorder Additional Past Medical History / Comment(s): Heart murmur, back pain, "blood clot in brain" in 1975, seizure prior to 1975 History of Any Multi-Drug Resistant Organisms: None Reported Past Surgical History: Tonsillectomy Past Anesthesia/Blood Transfusion Reactions: No Reported Reaction Past Psychological History: No Psychological Hx Reported Smoking Status: Never smoker Past Alcohol Use History: None Reported Past Drug Use History: None Reported - Past Family History Father Family Medical History: Myocardial Infarction ([place]) Mother History Unknown: Yes General Exam Limitations: no limitations Course Vital Signs 02/20/19 08:29 Temperature 98.1 F Pulse Rate 121 H Respiratory 20 Rate Blood Pressure 159/95 O2 Sat by Pulse 96 Oximetry Medical Decision Making - Lab Data Result diagrams: 02/20/19 08:50 02/20/19 08:50 Lab Results 02/20/19 02/20/19 02/20/19 Range/Units 08:50 08:50 08:50 WBC 7.8 (3.8-10.6) k/uL RBC 4.06 (3.80-5.40) m/uL Hgb 13.6 (11.4-16.0) gm/dL Hct 39.2 (34.0-46.0) % MCV 96.5 (80.0-100.0) fL MCH 33.4 (25.0-35.0) pg MCHC 34.6 (31.0-37.0) g/dL RDW 12.7 (11.5-15.5) % Plt Count 551 H (150-450) k/uL Neutrophils % 84 % Lymphocytes % 7 % Monocytes % 6 % Eosinophils % 1 % Basophils % 1 % Neutrophils # 6.5 (1.3-7.7) k/uL Lymphocytes # 0.5 L (1.0-4.8) k/uL Monocytes # 0.5 (0-1.0) k/uL Eosinophils # 0.1 (0-0.7) k/uL Basophils # 0.0 (0-0.2) k/uL PT (9.0-12.0) sec INR (<1.2) APTT (22.0-30.0) sec Sodium 131 L (137-145) mmol/L Potassium 4.7 (3.5-5.1) mmol/L Chloride 91 L (98-107) mmol/L Carbon Dioxide 28 (22-30) mmol/L Anion Gap 12 mmol/L BUN 14 (7-17) mg/dL Creatinine 0.60 (0.52-1.04) mg/dL Est GFR (CKD-EPI)AfAm >90 (>60 ml/min/1.73 sqM) Est GFR (CKD-EPI)NonAf >90 (>60 ml/min/1.73 sqM) Glucose 123 H (74-99) mg/dL POC Glucose (mg/dL) (75-99) mg/dL POC Glu Reimbursement Rep ID Plasma Lactic Acid Corona 1.0 (0.7-2.0) mmol/L Calcium 10.0 (8.4-10.2) mg/dL Magnesium 1.7 (1.6-2.3) mg/dL Total Bilirubin 0.8 (0.2-1.3) mg/dL AST 28 (14-36) U/L ALT 14 (4-34) U/L Alkaline Phosphatase 105 (38-126) U/L Troponin I (0.000-0.034) ng/mL Total Protein 7.9 (6.3-8.2) g/dL Albumin 4.6 (3.5-5.0) g/dL Serum Alcohol <10 mg/dL 02/20/19 02/20/19 02/20/19 Range/Units 08:50 08:50 09:48 WBC (3.8-10.6) k/uL RBC (3.80-5.40) m/uL Hgb (11.4-16.0) gm/dL Hct (34.0-46.0) % MCV (80.0-100.0) fL MCH (25.0-35.0) pg MCHC (31.0-37.0) g/dL RDW (11.5-15.5) % Plt Count (150-450) k/uL Neutrophils % % Lymphocytes % % Monocytes % % Eosinophils % % Basophils % % Neutrophils # (1.3-7.7) k/uL Lymphocytes # (1.0-4.8) k/uL Monocytes # (0-1.0) k/uL Eosinophils # (0-0.7) k/uL Basophils # (0-0.2) k/uL PT 10.2 (9.0-12.0) sec INR 0.9 (<1.2) APTT 26.1 (22.0-30.0) sec Sodium (137-145) mmol/L Potassium (3.5-5.1) mmol/L Chloride (98-107) mmol/L Carbon Dioxide (22-30) mmol/L Anion Gap mmol/L BUN (7-17) mg/dL Creatinine (0.52-1.04) mg/dL Est GFR (CKD-EPI)AfAm (>60 ml/min/1.73 sqM) Est GFR (CKD-EPI)NonAf (>60 ml/min/1.73 sqM) Glucose (74-99) mg/dL POC Glucose (mg/dL) 133 H (75-99) mg/dL POC Glu Reimbursement Rep ID Jinny Sorenson Plasma Lactic Acid Corona (0.7-2.0) mmol/L Calcium (8.4-10.2) mg/dL Magnesium (1.6-2.3) mg/dL Total Bilirubin (0.2-1.3) mg/dL AST (14-36) U/L ALT (4-34) U/L Alkaline Phosphatase (38-126) U/L Troponin I <0.012 (0.000-0.034) ng/mL Total Protein (6.3-8.2) g/dL Albumin (3.5-5.0) g/dL Serum Alcohol mg/dL Disposition Clinical Impression: Syncope, Tachycardia Disposition: ADMITTED IP TO THIS [facility] Condition: Fair Referrals: Cher Todd MD [Primary Care Provider] - 1-2 days Decision Time: 10:42
[2019-02-20 09:48] LABS: Basophils % (A) 1 %; Eosinophils # (A) 0.1 k/uL (0-0.7); Eosinophils % (A) 1 %; HCT 39.2 % (34.0-46.0); HGB 13.6 gm/dL (11.4-16.0); Lymphocytes # (A) 0.5 k/uL (1.0-4.8); Lymphocytes % (A) 7 %; MCH 33.4 pg (25.0-35.0); MCHC 34.6 g/dL (31.0-37.0); MCV 96.5 fL (80.0-100.0); Mean Platelet Volume 7.1; Monocytes # (A) 0.5 k/uL (0-1.0); Monocytes % (A) 6 %; Neutrophils # (A) 6.5 k/uL (1.3-7.7); Neutrophils % (A) 84 %; Platelet Count 551 k/uL (150-450); RBC 4.06 m/uL (3.80-5.40); RDW 12.7 % (11.5-15.5); WBC 7.8 k/uL (3.8-10.6)
[2019-02-20 09:50] LABS: Glucose,Whole Blood 133 mg/dL (75-99)
[2019-02-20 09:56] LABS: INR 0.9 (<1.2); Partial Thromboplastin Time 26.1 sec (22.0-30.0); Prothrombin Time 10.2 sec (9.0-12.0)
[2019-02-20 09:57] LABS: ALT 14 U/L (4-34); AST 28 U/L (14-36); African American GFR (CKD) >90 (>60 ml/min/1.73 sqM); Albumin 4.6 g/dL (3.5-5.0); Alcohol <10 mg/dL; Alkaline Phosphatase 105 U/L (38-126); Anion Gap 12 mmol/L; Blood Urea Nitrogen 14 mg/dL (7-17); Carbon Dioxide 28 mmol/L (22-30); Chloride 91 mmol/L (98-107); Glucose 123 mg/dL (74-99); Magnesium 1.7 mg/dL (1.6-2.3); Non-African American GFR(CKD) >90 (>60 ml/min/1.73 sqM); Potassium 4.7 mmol/L (3.5-5.1); Sodium 131 mmol/L (137-145); Total Bilirubin 0.8 mg/dL (0.2-1.3); Total Protein 7.9 g/dL (6.3-8.2)
--- NOTE | 2019-02-20 10:10 | XR ---
EXAMINATION TYPE: XR chest 2V DATE OF EXAM: 02/20/2019 COMPARISON: 07/20/2018 HISTORY: Syncope and tachycardia. Chest pain. TECHNIQUE: Frontal and lateral views of the chest are obtained. FINDINGS: Multifocal bibasilar subsegmental linear atelectasis. Slightly low lung volumes as seen on the prior. Cardiomediastinal silhouette is stable and upper limits normal size. Diffuse osseous cristela neralization is seen. Upper thoracic compression deformity appears stable. IMPRESSION: Chronic bibasilar subsegmental atelectasis. Chronic upper thoracic compression deformity and diffuse osseous demineralization.
--- NOTE | 2019-02-20 10:19 | CT ---
EXAMINATION TYPE: CT brain cspine wo con DATE OF EXAM: 02/20/2019 COMPARISON: Brain 07/20/2018. Cervical spine 06/30/2011 HISTORY: 73-year-old female syncope, tachycardia with fall CT DLP: 1211.5 mGycm Automated exposure control for dose reduction was used. Technique: Examination of the head was done in axial plane without intravenous contrast. Coronal and sagittal reconstructions performed. CT of the cervical spine was obtained in axial plane without intravenous injection of contrast mater ial. Coronal and sagittal reformatted images were obtained from the axial views for evaluation of f ractures, spinal alignment and canal. FINDINGS: Head: There is no evidence of acute intracranial hemorrhage, acute ischemic changes, mass, mass-effect, or extra-axial fluid collection. There is no effacement of cerebral sulci or basal subarachnoid cister ns. There is no hydrocephalus. There is no midline shift. [place]-white matter distinction is preserv ed. Craniotomy flap along the right lateral convexity. Surgical clips underlying the flap. Moderate bifrontal atrophy. Old basal ganglionic lacunar infarcts. At the scattered calcifications wi thin the carotid siphons. Rightward nasal septal deviation. Left mastoid air cells hypoplastic. Right mastoid air cells are ashlyn ar. Mild to moderate mucosal thickening floor of the left maxillary sinus. Orbits and globes appear i ntact. Cervical spine: This is to be a 1.1 cm exophytic nodule posteriorly from the left lobe of thyroid gland. Dedicated th yroid ultrasound could further evaluate. No craniocervical junction of the body, predental space widening, or prevertebral soft tissue swellin g. Reversal of the normal cervical lordosis. There is trace grade 1 retrolisthesis at C4-C5 and grade 1 anterolisthesis at C7-T1. Minimal superior endplate deformity of T2 appears new from 2011 but is susp ected chronic as no acute fracture line or surrounding paravertebral soft tissue abnormality is seen. Old healed right posterior rib fracture deformity. Moderate multilevel degenerative disc disease. Disc osteophyte complex at C3-C4 mildly narrows the sp inal canal. Facet and uncovertebral joint arthropathy changes result in very minimal moderate foraminal stenoses particularly at C4-C5 and C5-C6. Sagittal and coronal reformatted images confirm above findings. COMBINED IMPRESSION: 1. Redemonstrated moderate atrophy and prior craniotomy flap along the right lateral convexity. No ac [place] intracranial abnormality seen. 2. Mild superior endplate deformity of T2 is new from 06/30/2011 but still suspected chronic as no acu te fracture line is seen and there is no surrounding paravertebral swelling. Correlate for any point tenderness at this level. Otherwise, no acute fracture. Stable degenerative grade 1 spondylolistheses at C4-C5 and C7-T1.
[2019-02-20] MEDS ORDERED: NALOXONE 0.4 MG/ML 1 ML VIAL IV PRN (10:38)
[2019-02-20] MEDS ORDERED: INFLUENZA VACCINE (6 MOS+) 60 MCG/0.5 ML SYRINGE IM ONE (12:03)
[2019-02-20 12:56] LABS: Appearance,Urine Clear (Clear); Bilirubin,Urine Negative (Negative); Blood,Urine Negative (Negative); Color,Urine Light Yellow; Glucose,Urine (UA) Negative (Negative); Ketones,Urine Negative (Negative); Leukocyte Esterase,Urine Negative (Negative); Nitrite,Urine Negative (Negative); Protein,Urine Negative (Negative); Specific Gravity,Urine 1.007 (1.001-1.035); Urobilinogen,Urine <2.0 mg/dL (<2.0)
--- NOTE | 2019-02-20 13:11 | P.CRDCN ---
History of Present Illness History of present illness: HISTORY OF PRESENTING ILLNESS This is a pleasant 73-year-old female past medical history significant for hypertension, CVA, brain hemorrhage s/p craniotomy, seizure disorder and da tyra alcohol use. She denies prior history of coronary artery disease, diabetes mellitus or dyslpidemia. She does not follow in the office with a table filler. We have been asked to see in consultation for near syncope. She states she woke up in the middle of the night to get something to drink. When she was walking back to her bed she fell. She doesn't entirely recall the events leading up to her falling however she is quite sure that she did not pass out. She does not recall feeling dizzy or light headed. She had no chest pain, shortness of breath, nausea, vomiting, palpitations or diaphoresis. She is seen and examined laying flat resting comfortably on the stretcher in the ED with family at the bedside. DIAGNOSTICS EKG reveals sinus tachycardia heart rate 118, no ST or T-wave changes. Chest xray chronic basilar atelectasis and upper thoracic deformity and osseous demineralization. CT head and spine negative for acute process, prior craniotomy flap along right lateral convexity. Laboratory reviewed, platelets 551, hgb 13.6, sodium 131, potassium 4.7, creatinine 0.6, troponin negative x1, TSH 0.561. Current cardiac medications include lisinopril 40 mg daily and aspirin 81 mg daily. REVIEW OF SYSTEMS At the time of my exam: CONSTITUTIONAL: Denies fever or chills. CARDIOVASCULAR: Denies chest pain, shortness of breath, orthopnea, PND or palpitations. RESPIRATORY: Denies cough. GASTROINTESTINAL: Denies abdominal pain, diarrhea, constipation, nausea or vomiting. MUSCULOSKELETAL: Denies myalgias. NEUROLOGIC: Denies numbness, tingling or weakness. ENDOCRINE: Denies fatigue, weight change, polydipsia or polyurina. GENITOURINARY: Denies burning, hematuria or urgency with micturation. HEMATOLOGIC: Denies history of anemia or bleeding. PHYSICAL EXAMINATION Blood pressure 178/98 heart rate 118 afebrile and maintaining oxygen saturation on room air. CONSTITUTIONAL: No apparent distress. HEENT: Head is normocephalic. Pupils are equal, round. Sclerae anicteric. Mucous membranes of the mouth are moist. No JVD. No carotid bruit. CHEST EXAMINATION: Lungs are clear to auscultation. No chest wall tenderness is noted on palpation or with deep breathing. HEART EXAMINATION: Regular rate and rhythm, tachycardic. S1, S2 heard. Faint systolic ejection murmur at the left sternal border, no gallops or rub. ABDOMEN: Soft, nontender. Positive bowel sounds. EXTREMITIES: 2+ peripheral pulses, no lower extremity edema and no calf tenderness. NEUROLOGIC EXAMINATION: Patient is awake, alert and oriented x3. ASSESSMENT Fall, likely mechanical. No LOC, dizziness or shortness of breath associated with fall. Sinus tachycardia Hyponatremia Hypertension Seizure disorder. Denies loss of bowel or bladder control, no convulsions that she can recall. History of brain hemorrhage s/p craniotomy Daily alcohol intake, admits to drinking 2 beer yesterday PLAN Obtain 2D echocardiogram and doppler study to assess cardiac structure and function. TSH checked and unremarkable. Monitor on telemetry for arrhythmia. Resume lisinopril 40 mg daily, first dose now. Ongoing medical management and evaluation. Thank you kindly for this consultation. Nurse Practitioner note has been reviewed, I agree with a documented findings and plan of care. Patient was seen and examined. Past Medical History Past Medical History: Blood Disorder, CVA/TIA, GERD/Reflux, Hypertension, Osteoarthritis (OA), Seizure Disorder Additional Past Medical History / Comment(s): "Blood clot in the brain" in 1975, last seizure 07/20/18, back pain, falls, compression fracture T8-S1, L shoulder injury/pain and limited ROM, past pelvic rami fracture, cardiac murmur, UTI, elevated platelets History of Any Multi-Drug Resistant Organisms: None Reported Past Surgical History: Tonsillectomy Additional Past Surgical History / Comment(s): Colonoscopy Past Anesthesia/Blood Transfusion Reactions: No Reported Reaction Smoking Status: Never smoker - Past Family History Father Family Medical History: Myocardial Infarction ([place]) Additional Family Medical History / Comment(s): Father of a OK at the age of 73 yrs. Mother History Unknown: Yes Additional Family Medical History / Comment(s): Mother at the age of 84 yrs. She had a murmur and her heart would "skip a beat". Medications and Allergies Home Medications Medication Instructions Recorded Confirmed Type Ergocalciferol [Vitamin D2 50,000 unit PO WE 01/26/18 02/20/19 History (DRISDOL)] Ferrous Sulfate [Iron (65 MG 325 mg PO DAILY 01/26/18 02/20/19 History Elemental)] Hydroxyurea 500 mg PO MOTUWETHFR 01/26/18 02/20/19 History Lisinopril 40 mg PO DAILY 01/26/18 02/20/19 History levETIRAcetam [Keppra] 1,000 mg PO Q12HR #60 tab 07/23/18 02/20/19 Rx ALPRAZolam [Xanax] 0.25 mg PO BID 02/20/19 02/20/19 History Aspirin 81 mg PO DAILY 02/20/19 02/20/19 History Cyclobenzaprine [Flexeril] 10 mg PO DAILY 02/20/19 02/20/19 History Esomeprazole Magnesium [NexIUM] 20 mg PO DAILY 02/20/19 02/20/19 History Allergies Allergy/AdvReac Type Severity Reaction Status Date / Time No Known Allergies Allergy Verified 02/20/19 09:43 Physical Exam Vitals: Vital Signs Temp Pulse Pulse Resp BP BP Pulse Ox 02/20/19 12:39 98.1 F 118 H 17 178/98 96 02/20/19 11:51 147/88 02/20/19 11:10 98.1 F 116 H 18 166/96 96 02/20/19 08:29 98.1 F 121 H 20 159/95 96 Intake and Output 02/19/19 02/20/19 02/20/19 22:59 06:59 14:59 Other: Weight 65.771 kg Results 02/20/19 08:50 02/20/19 08:50 Cardiac Enzymes 02/20/19 02/20/19 Range/Units 08:50 08:50 AST 28 (14-36) U/L Troponin I <0.012 (0.000-0.034) ng/mL Coagulation 02/20/19 Range/Units 08:50 PT 10.2 (9.0-12.0) sec APTT 26.1 (22.0-30.0) sec CBC 02/20/19 Range/Units 08:50 WBC 7.8 (3.8-10.6) k/uL RBC 4.06 (3.80-5.40) m/uL Hgb 13.6 (11.4-16.0) gm/dL Hct 39.2 (34.0-46.0) % Plt Count 551 H (150-450) k/uL Comprehensive Metabolic Panel 02/20/19 Range/Units 08:50 Sodium 131 L (137-145) mmol/L Potassium 4.7 (3.5-5.1) mmol/L Chloride 91 L (98-107) mmol/L Carbon Dioxide 28 (22-30) mmol/L BUN 14 (7-17) mg/dL Creatinine 0.60 (0.52-1.04) mg/dL Glucose 123 H (74-99) mg/dL Calcium 10.0 (8.4-10.2) mg/dL AST 28 (14-36) U/L ALT 14 (4-34) U/L Alkaline Phosphatase 105 (38-126) U/L Total Protein 7.9 (6.3-8.2) g/dL Albumin 4.6 (3.5-5.0) g/dL Current Medications Generic Name Dose Route Start Last Admin Trade Name Freq PRN Reason Stop Dose Admin Sodium Chloride 1,000 mls @ 20 mls/hr 02/20/19 10:45 Saline 0.9% IV .Q24H DAVID Levetiracetam 1,000 mg 02/20/19 21:00 Keppra PO Q12HR [facility] Lisinopril 40 mg 02/20/19 11:15 Zestril PO DAILY DAVID Naloxone HCl 0.2 mg 02/20/19 10:38 Narcan IV Q2M PRN Opioid Reversal Pantoprazole Sodium 40 mg 02/20/19 12:30 Protonix PO -BRKFST DAVID Intake and Output 02/19/19 02/20/19 02/20/19 22:59 06:59 14:59 Other: Weight 65.771 kg Patient Weight 02/21/19 06:59 Weight 65.771 kg 02/20/19 08:50 02/20/19 08:50
[2019-02-20] MEDS: LISINOPRIL 20 MG TAB PO SCH (13:12)
[2019-02-20] MEDS: HYDROcodone/APAP 5-325MG 1 EACH TAB PO PRN ×3 (13:12→23:56)
[2019-02-20] MEDS: SODIUM CHLORIDE 0.9% 1,000 ML IV SCH (13:13)
[2019-02-20] MEDS: PANTOPRAZOLE 40 MG TABLET PO SCH (13:14)
--- NOTE | 2019-02-20 16:44 | CT ---
EXAMINATION TYPE: CT angio chest DATE OF EXAM: 02/20/2019 COMPARISON: 07/20/2018 HISTORY: 73-year-old female shortness of breath, increased d-dimer TECHNIQUE: Contiguous axial scanning of the chest performed with IV Contrast, patient injected with 1 00 mL of Isovue 370. Coronal/sagittal MIP reconstructions performed. CT DLP: 446.9 mGycm Automated exposure control for dose reduction was used. FINDINGS: The heart is mildly enlarged with prominent epicardial fat pad. Coronary vessel calcifications are pr esent. Aorta normal caliber with mild atherosclerotic arch calcifications and conventional arch vessel branc ady anatomy. Satisfactory opacification of the pulmonary arterial system. Mild motion artifacts are present partic ularly at the lung bases. No definite pulmonary embolus. No thoracic lymphadenopathy by CT size criteria. Evaluation of the lungs shows prominent bands of atelectasis and/or scarring particularly in the lung bases the previous partial left lower lobe collapse shows improvement from prior exam. Area of possi ble 1.5 cm nodularity medial left lower lobe, axial image 80. Tiny hiatal hernia. Visualized upper abdomen shows a couple tiny hilar splenule is. Bones: Chronic T8 vertebral compression collapse with mild retropulsion into the ventral spinal canal , unchanged from 07/20/2018. Interval progressive superior endplate height loss of T6 now with 60% over all anterior height loss. No significant retropulsion into the spinal canal. IMPRESSION: 1. SOME MILD BREATHING MOTION AT THE LUNG BASES. NO DEFINITE PULMONARY EMBOLUS. 2. PROMINENT BANDS OF ATELECTASIS AND SCARRING THROUGHOUT THE LUNGS ESPECIALLY AT THE LUNG BASES. THE RE HAS BEEN SOME IMPROVEMENT IN AERATION AT THE LEFT BASE. HOWEVER, THERE IS A POSSIBLE 1.5 CM NODULE MEDIAL LEFT LOWER LOBE VERSUS ATELECTASIS. [address] MONTH FOLLOW-UP CT RECOMMENDED TO REASSESS. 3. STABLE APPEARANCE TO THE CHRONIC T8 VERTEBRAL COMPRESSION COLLAPSE. MILD RETROPULSION INTO THE JACY TRAL SPINAL CANAL AT THIS LEVEL IS UNCHANGED. 4. PROGRESSIVE COLLAPSE OF THE T6 VERTEBRAL BODY COMPARED TO 07/20/2018, NOW WITH 60% OVERALL ANTERI OR HEIGHT LOSS.
[2019-02-20] MEDS: DILTIAZEM ORAL 30 MG TAB PO SCH ×2 (18:20→21:52)
[2019-02-20 19:23] VITALS: RESP 18
[2019-02-20] MEDS: levETIRAcetam 500 MG TAB PO SCH (21:53)
--- NOTE | 2019-02-20 23:06 | P.HPIM ---
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 Patient says that he fell down and her head and back. Patient says that she was walking and turning to get something and lost balance and fell on the kitchen floor. Denied any complaints of dizziness or lightheadedness. Patient says that her passed about 4 months ago and has been doing depressive since then. Patient did have last seizure episode in July. She denied any complaints of chest pain or shortness of breath. No palpitations. No headache or dizziness or lightheadedness yessica phoresis. Patient says that she has been having leg swelling about a week ago on and off. Currently denied any leg swelling or pain. EKG showed sinus tachycardia. No ST-T elevation. Chest x-ray showed chronic bibasilar atelectasis and upper thoracic deformity and osseous demineralization. CT head and C-spine negative for an acute process. Prior craniotomy flap along the right lateral convexity. TSH within normal limits. D-dimer is 2.28. CT angiogram is negative for any pulmonary embolism. Troponin 1 negative. Patient's blood pressure is elevated with SBP greater than 180s. Review of Systems Constitutional: Patient denies any fever or chills . No generalized weakness or weight loss. Abdomen: Patient denied nausea vomiting and diarrhea and abdominal pain. Cardiovascular: Patient denies any chest pain or short of breath no palpitation s. Respiratory: patient denied any cough is from production. No shortness of breath Neurologic: Patient denied any numbness or tingling headache. Musculoskeletal: Patient denies any complaints of joint swelling or deformity. Skin: Negative Psychiatric: Negative Endocrine: No heat or cold intolerance. No recent weight gain. Genitourinary: No dysuria or hematuria. All other 14 point ROS negative except the above Past Medical History Past Medical History: Blood Disorder, CVA/TIA, GERD/Reflux, Hypertension, Osteoarthritis (OA), Seizure Disorder Additional Past Medical History / Comment(s): "Blood clot in the brain" in 1975, last seizure 07/20/18, back pain, falls, compression fracture T8-S1, L shoulder injury/pain and limited ROM, past pelvic rami fracture, cardiac murmur, UTI, elevated platelets History of Any Multi-Drug Resistant Organisms: None Reported Past Surgical History: Tonsillectomy Additional Past Surgical History / Comment(s): Colonoscopy Past Anesthesia/Blood Transfusion Reactions: No Reported Reaction Smoking Status: Never smoker - Past Family History Father Family Medical History: Myocardial Infarction (NC) Additional Family Medical History / Comment(s): Father of a NC at the age of 73 yrs. Mother History Unknown: Yes Additional Family Medical History / Comment(s): Mother at the age of 84 yrs. She had a murmur and her heart would "skip a beat". Medications and Allergies Home Medications Medication Instructions Recorded Confirmed Type Ergocalciferol [Vitamin D2 50,000 unit PO WE 01/26/18 02/20/19 History (DRISDOL)] Ferrous Sulfate [Iron (65 MG 325 mg PO DAILY 01/26/18 02/20/19 History Elemental)] Hydroxyurea 500 mg PO MOTUWETHFR 01/26/18 02/20/19 History Lisinopril 40 mg PO DAILY 01/26/18 02/20/19 History levETIRAcetam [Keppra] 1,000 mg PO Q12HR #60 tab 07/23/18 02/20/19 Rx ALPRAZolam [Xanax] 0.25 mg PO BID 02/20/19 02/20/19 History Aspirin 81 mg PO DAILY 02/20/19 02/20/19 History Cyclobenzaprine [Flexeril] 10 mg PO DAILY 02/20/19 02/20/19 History Esomeprazole Magnesium [NexIUM] 20 mg PO DAILY 02/20/19 02/20/19 History Allergies Allergy/AdvReac Type Severity Reaction Status Date / Time No Known Allergies Allergy Verified 02/20/19 09:43 Physical Exam Vitals: Vital Signs Temp Pulse Resp BP Pulse Ox 02/20/19 11:51 147/88 02/20/19 11:10 98.1 F 116 H 18 166/96 96 02/20/19 08:29 98.1 F 121 H 20 159/95 96 Intake and Output 02/19/19 02/20/19 02/20/19 22:59 06:59 14:59 Other: Weight 65.771 kg PHYSICAL EXAMINATION: Patient is lying in the bed comfortably, no acute distress, awake alert and oriented.. HEENT: Normocephalic. Neck is supple. Pupils reactive. Nostrils clear. Oral cavity is moist. Ears reveal no drainage. Neck reveals no JVD, carotid bruits, or thyromegaly. CHEST EXAMINATION: Trachea is central. Symmetrical expansion. Bibasilar diminished air entry. Lung mullen clear to auscultation and percussion. CARDIAC: Normal S1, S2 with no gallops. No murmurs ABDOMEN: Soft. Bowel sounds normal. No organomegaly. No abdominal bruits. Extremities: reveal no edema. No clubbing or cyanosis Neurologically awake, alert, oriented x3 with well-coordinated movements. No focal deficits noted Skin: No rash or skin lesions. Psychiatric: Coperative. Nonsuicidal Musculoskeletal: No joint swelling or deformity. Normal range of motion. Results CBC & Chem 7: 02/20/19 08:50 02/20/19 08:50 Labs: Abnormal Lab Results - Last 24 Hours (Table) 02/20/19 02/20/19 02/20/19 Range/Units 08:50 08:50 09:48 Plt Count 551 H (150-450) k/uL Lymphocytes # 0.5 L (1.0-4.8) k/uL Sodium 131 L (137-145) mmol/L Chloride 91 L (98-107) mmol/L Glucose 123 H (74-99) mg/dL POC Glucose (mg/dL) 133 H (75-99) mg/dL Thrombosis Risk Factor Assmnt - DVT/VTE Prophylaxis DVT/VTE Prophylaxis: Pharmacologic Prophylaxis ordered - Choose All That Apply Any of the Below Risk Factors Present?: Yes Each Risk Factor Represents 2 Points: Age 61-74 years Other congenital or acquired thrombophilia - If yes, enter type in comment: No Thrombosis Risk Factor Assessment Total Risk Factor Score: 2 Thrombosis Risk Factor Assessment Level: Low Risk Assessment and Plan Assessment: Possible mechanical fall. Patient was turning to get something and fell on the kitchen floor. CT head and neck showed no acute process. Sinus tachycardia Uncontrolled hypertension Hyponatremia possible hypovolemic Elevated d-dimer. CT angiogram is negative for pulmonary embolism. Daily alcohol use History of seizure disorder Osteoarthritis neck history of CVA/TIA with no residual weakness History of craniotomy due to blood clot in the brain. In 1975 Compression fracture T8 to S1 History of cardiac murmur Thrombocytosis DVT prophylaxis with heparin subcu Plan: Patient will be continued on telemetry monitoring. Monitor for alcohol w ithdrawal symptoms. Continue with lisinopril 40 mg daily and added Cardizem by mouth. Blood pressure is uncontrolled currently. Cardiology was consulted. Continue with home medications and further recommendations based on the clinical course. Gentle hydration. Monitor BMP tomorrow. Time with Patient: Greater than 30
[2019-02-21] MEDS: HYDROcodone/APAP 5-325MG 1 EACH TAB PO PRN ×2 (04:56→11:18)
[2019-02-21 06:41] LABS: African American GFR (CKD) >90 (>60 ml/min/1.73 sqM); Anion Gap 6 mmol/L; Blood Urea Nitrogen 6 mg/dL (7-17); Calcium 9.3 mg/dL (8.4-10.2); Carbon Dioxide 23 mmol/L (22-30); Chloride 100 mmol/L (98-107); Glucose 106 mg/dL (74-99); Non-African American GFR(CKD) >90 (>60 ml/min/1.73 sqM); Potassium 4.4 mmol/L (3.5-5.1); Sodium 129 mmol/L (137-145)
--- NOTE | 2019-02-21 08:21 | P.PN ---
Subjective HISTORY OF PRESENTING ILLNESS This is a pleasant 73-year-old female past medical history significant for hypertension, CVA, brain hemorrhage s/p craniotomy, seizure disorder and daily alcohol use. She denies prior history of coronary artery disease, diabetes mellitus or dyslpidemia. She does not follow in the office with a guest services attendant. She is seen and examined resting comfortably in bed in no acute distress. She has had no further falls. She denies chest pain, shortness of breath, dizziness or palpitations. Telemetry tracings have been unremarkable. Primary team initiated diltiazem yesterday. Blood pressure this morning 110/68 heart rate 93 afebrile and maintaining oxygen saturation on room air. Laboratory data reviewed, d-dimer 2.28, sodium 129, potassium 4.4, creatinine 0.49. CTA negative for PE. PHYSICAL EXAMINATION CONSTITUTIONAL: No apparent distress. HEENT: Head is normocephalic. Pupils are equal, round. Sclerae anicteric. Mucous membranes of the mouth are moist. No JVD. No carotid bruit. CHEST EXAMINATION: Lungs are clear to auscultation. No chest wall tenderness is noted on palpation or with deep breathing. HEART EXAMINATION: Regular rate and rhythm, tachycardic. S1, S2 heard. Faint systolic ejection murmur at the left sternal border, no gallops or rub. EXTREMITIES: 2+ peripheral pulses, no lower extremity edema and no calf tenderness. ASSESSMENT Fall, likely mechanical. No LOC, dizziness or shortness of breath associated with fall. Sinus tachycardia Hyponatremia Hypertension Seizure disorder. Denies loss of bowel or bladder control, no convulsions that she can recall. History of brain hemorrhage s/p craniotomy Daily alcohol intake, admits to drinking 2 beer yesterday PLAN Recommend discontinuation of diltiazem as her blood pressure is low this morning before medications. Echo has been obtained and will be reviewed. Complete alcohol cessation recommended, this will likely improve her sodium level as well as her sinus tachycardia. Stable for discharge from a cardiac perspective. Follow up with Dr. Zuleta in 2 weeks. Nurse Practitioner note has been reviewed, I agree with a documented findings and plan of care. Patient was seen and examined. Objective - Vital Signs Vital signs: Vital Signs Temp 97.6 F 02/21/19 07:10 Pulse 93 02/21/19 07:10 Resp 18 02/21/19 07:10 BP 110/68 02/21/19 07:10 Pulse Ox 92 L 02/21/19 07:10 Intake & Output 02/20/19 02/21/19 02/21/19 18:59 06:59 18:59 Weight 65.771 kg Other: Voiding Method Toilet Toilet # Voids 2 - Labs CBC & Chem 7: 02/20/19 08:50 02/21/19 05:51 Labs: Abnormal Lab Results - Last 24 Hours (Table) 02/20/19 02/20/19 02/20/19 Range/Units 08:50 08:50 09:48 Plt Count 551 H (150-450) k/uL Lymphocytes # 0.5 L (1.0-4.8) k/uL D-Dimer (<0.60) mg/L FEU Sodium 131 L (137-145) mmol/L Chloride 91 L (98-107) mmol/L BUN (7-17) mg/dL Creatinine (0.52-1.04) mg/dL Glucose 123 H (74-99) mg/dL POC Glucose (mg/dL) 133 H (75-99) mg/dL 02/20/19 02/21/19 Range/Units 13:52 05:51 Plt Count (150-450) k/uL Lymphocytes # (1.0-4.8) k/uL D-Dimer 2.28 H (<0.60) mg/L FEU Sodium 129 L (137-145) mmol/L Chloride (98-107) mmol/L BUN 6 L (7-17) mg/dL Creatinine 0.49 L (0.52-1.04) mg/dL Glucose 106 H (74-99) mg/dL POC Glucose (mg/dL) (75-99) mg/dL
[2019-02-21] MEDS: PANTOPRAZOLE 40 MG TABLET PO SCH (08:47)
[2019-02-21] MEDS: LISINOPRIL 20 MG TAB PO SCH (08:47)
[2019-02-21] MEDS: levETIRAcetam 500 MG TAB PO SCH (08:47)
[2019-02-21] MEDS: DILTIAZEM ORAL 30 MG TAB PO SCH ×2 (09:44→15:15)
--- NOTE | 2019-02-21 10:28 | ECHOF ---
Referral Reason:near syncope MEASUREMENTS -------- HEIGHT: 165.1 cm WEIGHT: 65.8 kg BP: 147/88 RVIDd: 3.0 cm (< 3.3) IVSd: 1.2 cm (0.6 - 1.1) LVIDd: 3.9 cm (3.9 - 5.3) LVPWd: 1.1 cm (0.6 - 1.1) IVSs: 1.5 cm LVIDs: 2.5 cm LVPWs: 1.5 cm LA Diam: 3.3 cm (2.7 - 3.8) LAESV Index (A-L): 19.00 ml/m Ao Diam: 2.5 cm (2.0 - 3.7) AV Cusp: 1.9 cm (1.5 - 2.6) MV EXCURSION: 18.270 mm (> 18.000) MV EF SLOPE: 197 mm/s (70 - 150) EPSS: 0.5 cm MV E Gabriel: 0.59 m/s MV DecT: 97 ms MV A Gabriel: 0.95 m/s MV E/A Ratio: 0.62 RAP: 5.00 mmHg RVSP: 41.10 mmHg FINDINGS -------- Sinus rhythm. Resting tachycardia (HR>100bpm). This was a technically adequate study. The left ventricular size is normal. There is borderline concentric left ventricular hypertrophy. Overall left ventricular systolic function is normal with, an EF between 55 - 60 %. The diastolic filling pattern is normal for the age of the patient 7.91. The right ventricle is normal in size. Normal LA size by volume 22+/-6 ml/m2. The right atrial size is normal. Interatrial and interventricular septum intact. There is mild aortic valve sclerosis. The mitral valve leaflets are mildly thickened. Moderate mitral regurgitation is present. Mild tricuspid regurgitation present. There is mild pulmonary hypertension. The right ventricular systolic pressure, as measured by Doppler, is 41.10mmHg. The pulmonic valve was not well visualized. There is no pulmonic regurgitation present. The aortic root size is normal. IVC Not well visulized. There is no pericardial effusion. CONCLUSIONS -------- 1. Sinus rhythm. 2. Resting tachycardia (HR>100bpm). 3. The left ventricular size is normal. 4. There is borderline concentric left ventricular hypertrophy. 5. Overall left ventricular systolic function is normal with, an EF between 55 - 60 %. 6. The diastolic filling pattern is normal for the age of the patient 7.91 7. Normal LA size by volume 22+/-6 ml/m2. 8. There is mild aortic valve sclerosis. 9. The mitral valve leaflets are mildly thickened. 10. Moderate mitral regurgitation is present. 11. Mild tricuspid regurgitation present. 12. There is mild pulmonary hypertension. 13. The pulmonic valve was not well visualized. 14. There is no pericardial effusion. ISSUE CLERK: BJ Nolasco
[2019-02-21] MEDS ORDERED: METOPROLOL TARTRATE 25 MG TAB PO SCH (14:50)
[2019-02-21] MEDS: SODIUM CHLORIDE 0.9% 1,000 ML IV SCH (15:15)
[2019-02-21 16:28] VITALS: BP 145/85; TEMP 98.1
[2019-02-21 18:53] VITALS: PULSE 100
--- NOTE | 2019-03-09 21:27 | P.DS ---
Providers Date of admission: 02/20/19 10:40 Expected date of discharge: 02/21/19 Attending physician: Braulio Kelly Consults: 02/20/19 10:39 Consult Physician Routine Consulting Provider: Deana Zuleta Consult Reason/Comments: tachycardia Do you want consulting provider notified?: Yes Primary care physician: Cher Lopez [facility] Course: Discharge diagnosis Possible mechanical fall. Patient was turning to get something and fell on the kitchen floor. CT head and neck showed no acute process. Sinus tachycardia Uncontrolled hypertension Hyponatremia possible hypovolemic Elevated d-dimer. CT angiogram is negative for pulmonary embolism. Daily alcohol use History of seizure disorder Osteoarthritis neck history of CVA/TIA with no residual weakness History of craniotomy due to blood clot in the brain. In 1975 Compression fracture T8 to S1 History of cardiac murmur Thrombocytosis DVT prophylaxis with heparin subcu Hospital course Patient is a 73-year-old female with a known history of hypertension, osteoarthritis, seizure disorder, GERD, history of CVA/TIA and history of blood clot in the brain 1975, compression fractures at T8 S1 and history of pelvic ramus fracture and thrombocytosis and other multiple medical problems came to ER with the complaints of fall in the kitchen. Patient says that he fell down and her head and back. Patient says that she was walking and turning to get something and lost balance and fell on the kitchen floor. Denied any complaints of dizziness or lightheadedness. Patient says that her passed about 4 months ago and has been doing depressive since then. Patient did have last seizure episode in July. She denied any complaints of chest pain or shortness of breath. No palpitations. No headache or dizziness or lightheadedness diaphoresis. Patient says that she has been having leg swelling about a week ago on and off. Currently denied any leg swelling or pain. EKG showed sinus tachycardia. No ST-T elevation. Chest x-ray showed chronic bibasilar atelectasis and upper thoracic deformity and osseous demineralization. CT head and C-spine negative for an acute process. Prior craniotomy flap along the right lateral convexity. TSH within normal limits. D-dimer is 2.28. CT angiogram is negative for any pulmonary embolism. Troponin 1 negative. Patient's blood pressure is elevated with SBP greater than 180s. PHYSICAL EXAMINATION: Patient is lying in the bed comfortably, no acute distress, awake alert and oriented.. HEENT: Normocephalic. Neck is supple. Pupils reactive. Nostrils clear. Oral cavity is moist. Ears reveal no drainage. Neck reveals no JVD, carotid bruits, or thyromegaly. CHEST EXAMINATION: Trachea is central. Symmetrical expansion. Bibasilar diminished air entry. Lung mullen clear to auscultation and percussion. CARDIAC: Normal S1, S2 with no gallops. No murmurs ABDOMEN: Soft. Bowel sounds normal. No organomegaly. No abdominal bruits. Extremities: reveal no edema. No clubbing or cyanosis Neurologically awake, alert, oriented x3 with well-coordinated movements. No focal deficits noted Skin: No rash or skin lesions. Psychiatric: Coperative. Nonsuicidal Musculoskeletal: No joint swelling or deformity. Normal range of motion. Vital Signs Temp 97.6 F 02/21/19 07:10 Pulse 93 02/21/19 07:10 Resp 18 02/21/19 07:10 BP 110/68 02/21/19 07:10 Pulse Ox 92 L 02/21/19 07:10 Intake & Output 02/20/19 02/21/19 02/21/19 18:59 06:59 18:59 Weight 65.771 kg Other: Voiding Method Toilet Toilet # Voids 2 Patient Condition at Discharge: Fair Plan - Discharge Summary Discharge Rx Participant: No New Discharge Prescriptions: New HYDROcodone/APAP 5-325MG [Ophiem 5-325] 1 each PO Q6HR PRN 3 Days #12 tab PRN Reason: Pain Metoprolol Tartrate [Lopressor] 25 mg PO BID #60 tab Continue Lisinopril 40 mg PO DAILY Hydroxyurea 500 mg PO MOTUWETHFR Ferrous Sulfate [Iron (65 MG Elemental)] 325 mg PO DAILY Ergocalciferol [Vitamin D2 (DRISDOL)] 50,000 unit PO WE levETIRAcetam [Keppra] 1,000 mg PO Q12HR #60 tab Esomeprazole Magnesium [NexIUM] 20 mg PO DAILY Aspirin 81 mg PO DAILY ALPRAZolam [Xanax] 0.25 mg PO BID Cyclobenzaprine [Flexeril] 10 mg PO DAILY Discharge Medication List Ergocalciferol [Vitamin D2 (DRISDOL)] 50,000 unit PO WE 01/26/18 [History] Ferrous Sulfate [Iron (65 MG Elemental)] 325 mg PO DAILY 01/26/18 [History] Hydroxyurea 500 mg PO MOTUWETHFR 01/26/18 [History] Lisinopril 40 mg PO DAILY 01/26/18 [History] levETIRAcetam [Keppra] 1,000 mg PO Q12HR #60 tab 07/23/18 [Rx] ALPRAZolam [Xanax] 0.25 mg PO BID 02/20/19 [History] Aspirin 81 mg PO DAILY 02/20/19 [History] Cyclobenzaprine [Flexeril] 10 mg PO DAILY 02/20/19 [History] Esomeprazole Magnesium [NexIUM] 20 mg PO DAILY 02/20/19 [History] HYDROcodone/APAP 5-325MG [Ophiem 5-325] 1 each PO Q6HR PRN 3 Days #12 tab 02/21/19 [Rx] Metoprolol Tartrate [Lopressor] 25 mg PO BID #60 tab 02/21/19 [Rx] Follow up Appointment(s)/Referral(s): Deana Zuleta MD [STAFF PHYSICIAN] - 03/07/19 9:00 am Cher Todd MD [Primary Care Provider] - 1-2 days Patient Instructions/Handouts: Chest Pain (DC) Activity/Diet/Wound Care/Special Instructions[facility]. They can be contacted at [phone]. Patient is to take Metoprolol 25 PO twice daily, for controlling the heart rate. Patient needs to follow up with Dr. Zuleta, with cardiology associates, to further assess medications. Discharge Disposition: HOME SELF-CARE
== END 2019-02-21 19:55 | disposition home or self-care (01) ==
LOC: EC 08:27 → 1SOBS 10:40
PROVIDERS: ADMIT Internal Medicine; ATTEND Internal Medicine
DX: R55 Syncope and collapse (principal); R00.0 Tachycardia, unspecified; I10 Essential (primary) hypertension; M54.9 Dorsalgia, unspecified; G40.909 Epilepsy, unspecified, not intractable, without status epilepticus; K21.9 Gastro-esophageal reflux disease without esophagitis; M19.90 Unspecified osteoarthritis, unspecified site; E87.1 Hypo-osmolality and hyponatremia; D47.3 Essential (hemorrhagic) thrombocythemia; R77.8 Other specified abnormalities of plasma proteins; Z79.82 Long term (current) use of aspirin; Z79.899 Other long term (current) drug therapy; Z82.49 Family history of ischemic heart disease and other diseases of the circulatory system; Z86.73 Personal history of transient ischemic attack (TIA), and cerebral infarction without residual deficits; Z91.81 History of falling; Z87.440 Personal history of urinary (tract) infections; W18.30XA Fall on same level, unspecified, initial encounter; Y92.010 Kitchen of single-family (private) house as the place of occurrence of the external cause; Z23 Encounter for immunization
CPT/HCPCS: 99285; 36415; 93005; 93306; 85379; 80053; 80048; 80177; 84443; 83605; 83735; 84484; 85025; 85610; 85730; 81003; 71046; 72125; 70450; 71275; 90686; G0378 ×2; G0480; G0008; Q9967; 80320

== ENCOUNTER → 2019-04-29 | Day surgery (SDC) | payer MEDICARE ==
[2019-04-23 15:13] VITALS: BMI 24.1
[~2019-04-29] MED LIST: ALPRAZolam 0.25 MG TAB PO PRN; ALPRAZolam 0.25 MG TAB PO SCH; ALPRAZolam 0.5 MG TAB PO PRN; ASPIRIN 325 MG TAB PO STA; ASPIRIN 81 MG PO SCH; ATORVASTATIN 40 MG TAB PO SCH; Acetaminophen-Codeine 300-30mg TAB PO PRN; CYCLOBENZAPRINE 10 MG TAB PO SCH; ERGOCALCIFEROL 50,000 UNIT CAP PO SCH; FERROUS SULFATE 325 MG TAB PO SCH; HEPARIN SODIUM 1,000 UN/ML (10ML VL) ONE; HYDROXYUREA 500 MG CAP PO SCH; IOPAMIDOL-370 125ML BTL INJ ONE; LIDOCAINE 1% INJ 10MG/ML (20 ML MDV) ONE; LIDOCAINE 1% INJ 10MG/ML (20 ML MDV) SQ ONE; LISINOPRIL 20 MG TAB PO SCH; METOPROLOL SUCCINATE (ER) 25 MG TAB.ER.24H PO SCH; NITROGLYCERIN SL TABS 0.4 MG TAB SUBLINGUAL PRN; NON FORMULARY DRUG (Omeprazole [Omeprazole] 20 MG) PO SCH; RX INFO: IV CONTRAST WAS GIVEN 1 EACH MISC MISCELLANE PRN; SODIUM CHLORIDE 0.9% 1,000 ML IV SCH; SODIUM CHLORIDE 0.9% 1,000 ML in EMPTY BAG 1 BAG IV ONE; VERAPAMIL 2.5 MG/ML 2 ML AMP ONE; VERAPAMIL SYRINGE (5 MG/10 ML) INTRAARTER ONE; fentaNYL (PF) 50 MCG/ML 2 ML AMP IV ONE; fentaNYL (PF) 50 MCG/ML 2 ML AMP ONE; levETIRAcetam 500 MG TAB PO SCH
[2019-04-29 07:06] VITALS: RESP 18; TEMP 98.2
--- NOTE | 2019-04-29 08:53 | CC ---
CARDIAC CATHETERIZATION REPORT Mrs. Sousa is a 73-year-old female with known history of hypertension, hyperlipidemia, who recently underwent a myocardial perfusion imaging that revealed evidence of inducible ischemia involving the inferior wall. In view of that, recommendation made regarding cardiac catheterization the procedures risks and complications were discussed with the patient who is in full understanding and agreement. PROCEDURE: Patient was brought to computer laboratory technician in a fasting state after receiving fentanyl and Benadryl and achieving moderate conscious sedated state. Using Xylocaine anesthesia and Seldinger technique, a 6-Tanzanian sheath was introduced in the right radial artery. Selective right and left coronary angiography performed using 5-Tanzanian, 3.5 right and left Sharon catheter, multiple views of the coronary artery including hemiaxial views were obtained. Following that 5-Tanzanian tight pigtail catheter was introduced in the left ventricle and a 30-degree DAVEY view of the left ventricle was obtained. Following that, catheter and sheath were removed. Hemostasis was obtained with deployment of a TR band. There was no immediate complication. Patient is returned to her room in stable condition. Of note, the patient received 3500 units of intravenous heparin as well as intra-arterial verapamil. FINDINGS: FLUOROSCOPY: There was calcification involving the coronary arteries, predominantly the LAD. LEFT MAIN: This is a short size vessel bifurcating into left circumflex, left anterior descending artery, left main coronary artery has no evidence of high-grade stenosis. LEFT ANTERIOR DESCENDING ARTERY: This is a large-sized vessel reaching toward the apex, giving rise to a very proximal large diagonal branch and in the proximal mid segment of the LAD, there is an eccentric 30%-40% plaque. The rest of the vessel has no high-grade stenosis. LEFT CIRCUMFLEX: This is a nondominant vessel, large in caliber, giving rise to 2 large obtuse marginal branch. The left circumflex as well as branches have no evidence of obstructive coronary artery disease. RIGHT CORONARY ARTERY: This is a moderately dominant vessel, bifurcating distally into PDA and posterolateral segment and branches. The right coronary artery as well as branches have no evidence of obstructive coronary artery disease. LEFT VENTRICULOGRAM: Left ventriculogram is performed in 30-degree DAVEY view and revealed normal left ventricular size and systolic function, ejection fraction is 60%. There was no significant mitral regurgitation. HEMODYNAMICS: There was no gradient across the aortic valve the left ventricle end- diastolic pressure was 8-12 mmHg. CONCLUSION: 1. Calcified LAD. 2. Mild disease in the proximal to mid LAD. 3. Normal left ventricular size and systolic function. RECOMMENDATION: 1. In view of finding anatomy, recommend continue medical therapy with aggressive risk modifications being initiated. Those findings and recommendation were discussed with the patient and her family who are in full understanding and agreement. 2. Duration of the procedure is 17 minutes. BETTIE / GRISEL: [id number] /
--- NOTE | 2019-04-29 08:53 | LTR ---
DATE OF SERVICE: 04/29/2019 RE: Hesham Sousaen Dear Dr. Todd; I had the pleasure to perform cardiac catheterization on Mrs. Sousa at [facility] on April 29, 2019 and a full copy of the procedure note will be forwarded to you. In brief, she was found to have calcified left anterior descending artery with mild disease in the proximal to mid segment of the LAD and based on those findings, I recommend continue medical therapy with aggressive risk modification being initiated and thank you again for allowing me to participate in this patient's personal care. Please feel free to call for any questions. Sincerely yours, MD BETTIE Mike / KEEGANN: [id number] /
[2019-04-29 13:12] VITALS: BP 133/66; PULSE 105
== END | disposition home or self-care (01) ==
LOC: CATHCVL 06:10
PROVIDERS: ATTEND Internal Medicine Interventional Cardiology
DX: I25.10 Atherosclerotic heart disease of native coronary artery without angina pectoris (principal); I34.0 Nonrheumatic mitral (valve) insufficiency; I10 Essential (primary) hypertension; R55 Syncope and collapse; E78.2 Mixed hyperlipidemia; Z79.82 Long term (current) use of aspirin; Z79.899 Other long term (current) drug therapy
CPT/HCPCS: 93458; C1769; C1894; J2001; J3010; J1644; Q9967

== ENCOUNTER 2020-02-20 10:25 | Inpatient (IN) | payer MEDICARE ==
[2020-02-20 11:01] LABS: Anisocytosis Slight; Basophils % (A) 0 %; Eosinophils % (A) 1 %; HCT 27.8 % (34.0-46.0); HGB 9.5 gm/dL (11.4-16.0); Lymphocytes # (A) 0.4 k/uL (1.0-4.8); Lymphocytes % (A) 14 %; MCH 39.1 pg (25.0-35.0); MCHC 34.2 g/dL (31.0-37.0); MCV 114.4 fL (80.0-100.0); Macrocytosis Marked; Monocytes # (A) 0.1 k/uL (0-1.0); Monocytes % (A) 5 %; Neutrophils % (A) 77 %; RBC 2.43 m/uL (3.80-5.40); RDW 17.2 % (11.5-15.5); WBC 2.6 k/uL (3.8-10.6)
[2020-02-20 11:05] LABS: INR 1.3 (<1.2); Partial Thromboplastin Time 22.7 sec (22.0-30.0); Prothrombin Time 12.7 sec (9.0-12.0)
[2020-02-20 11:22] LABS: Platelet Count 80 k/uL (150-450)
[2020-02-20 11:23] LABS: Poikilocytosis (M) Present
--- NOTE | 2020-02-20 11:37 | XR ---
EXAMINATION TYPE: XR chest 2V DATE OF EXAM: 02/20/2020 COMPARISON: Chest x-ray CTA chest February 20, 2019 HISTORY: Weakness. TECHNIQUE: Frontal and lateral views of the chest are obtained. FINDINGS: There is chronic emphysematous change with new small right pleural effusion. The cardiac silhouette size remains enlarged with atherosclerotic and ectatic aorta. The osseous structures are demineralized. Degenerative change bilateral shoulders redemonstrated. IMPRESSION: Chronic changes and cardiomegaly with new small to moderate-sized right pleural effusion .
[2020-02-20 11:50] LABS: ALT 13 U/L (4-34); AST 40 U/L (14-36); African American GFR (CKD) >90 (>60 ml/min/1.73 sqM); Albumin 3.1 g/dL (3.5-5.0); Alcohol 35 mg/dL; Alkaline Phosphatase 161 U/L (38-126); Anion Gap 11 mmol/L; Blood Urea Nitrogen 6 mg/dL (7-17); Calcium 8.5 mg/dL (8.4-10.2); Carbon Dioxide 16 mmol/L (22-30); Chloride 100 mmol/L (98-107); Creatine Kinase 40 U/L (30-135); Glucose 99 mg/dL (74-99); Non-African American GFR(CKD) 86 (>60 ml/min/1.73 sqM); Potassium 4.8 mmol/L (3.5-5.1); Sodium 127 mmol/L (137-145); Total Bilirubin 0.9 mg/dL (0.2-1.3); Total Protein 6.3 g/dL (6.3-8.2)
[2020-02-20] MEDS ORDERED: SODIUM CHLORIDE 0.9% 1,000 ML IV STA ×2 (12:04)
--- NOTE | 2020-02-20 12:10 | ED ---
Weakness HPI - General Chief complaint: Weakness Stated complaint: Neck and back pain Time Seen by Provider: 02/20/20 10:25 Source: patient Mode of arrival: ambulatory Limitations: no limitations - History of Present Illness Initial comments: Patient is a 74-year-old female with past history of seizure disorder, daily alcohol abuse, CVA who presents to the emergency department with reported weakness. EMS states that the patient had been on the toilet for a prolonged period of time. EMS is the nephew of the patient states that she has a history of daily alcohol abuse and will occasionally become so intoxicated that she will follow sleep on the toilet. Patient is unsure how long she was on the toilet that the state that it was greater than 30 minutes. She attempted to get up but was too weak. She was found in a slumped over position, unable to peanut picker her head and was complaining of neck pain. As soon as EMS got to the house and was able to move her to the stretcher, she reports that her neck pain improved. She denies any recent falls. She does live alone. Uses a wheelchair for mobility. She has a history of chronic back pain. Nephew was concerned about the patient's living status. States that she called EMS 3 times per week for lift assist. Patients brother is her DPOA and was not present during initial evaluation. Patient denies history of recent seizure. No fevers or chills. Denies chest pain or shortness of breath. Denies abdominal pain. Reports a good by mouth intake. No alleviating, precipitating or modifying factors - Related Data Home Medications Medication Instructions Recorded Confirmed Ergocalciferol [Vitamin D2 50,000 unit PO WE 01/26/18 02/20/20 (DRISDOL)] Hydroxyurea 500 mg PO MOTUWETH 01/26/18 02/20/20 Cyclobenzaprine [Flexeril] 5 mg PO DAILY PRN 02/20/19 02/20/20 Atorvastatin [Lipitor] 40 mg PO DAILY 04/23/19 02/20/20 Metoprolol Succinate (ER) [Toprol 25 mg PO BID 04/23/19 02/20/20 Xl] levETIRAcetam [Keppra] 1,000 mg PO Q12HR 02/20/20 02/20/20 lisinopriL 40 mg PO DAILY 02/20/20 02/20/20 Allergies Allergy/AdvReac Type Severity Reaction Status Date / Time No Known Allergies Allergy Verified 02/20/20 11:47 Review of Systems ROS Statement: Those systems with pertinent positive or pertinent negative responses have been documented in the HPI. ROS Other: All systems not noted in ROS Statement are negative. Past Medical History Past Medical History: Blood Disorder, CVA/TIA, GERD/Reflux, Hyperlipidemia, Hypertension, Osteoarthritis (OA), Seizure Disorder Additional Past Medical History / Comment(s): "Blood clot in the brain" in 1975, last seizure 07/20/18, back pain, falls, compression fracture T8-S1, L shoulder injury/pain and limited ROM, past pelvic rami fracture, cardiac murmur, elevated platelets. , See Cardiology H & P. History of Any Multi-Drug Resistant Organisms: None Reported Past Surgical History: Tonsillectomy Additional Past Surgical History / Comment(s): Colonoscopy, EGD WITH DILATION, SURGERY FOR BLOOD CLOT IN BRAIN. Past Anesthesia/Blood Transfusion Reactions: No Reported Reaction Past Psychological History: Anxiety Smoking Status: Never smoker Past Alcohol Use History: Daily Past Drug Use History: None Reported - Past Family History Father Family Medical History: Myocardial Infarction (VA) Additional Family Medical History / Comment(s): Father of a VA at the age of 73 yrs. Mother History Unknown: Yes Additional Family Medical History / Comment(s): Mother at the age of 84 yrs. She had a murmur and her heart would "skip a beat". General Exam Limitations: no limitations General appearance: alert, in no apparent distress Head exam: Present: atraumatic, normocephalic, normal inspection ENT exam: Present: mucous membranes dry Neck exam: Present: tenderness Respiratory exam: Present: rales (r>l). Absent: respiratory distress, wheezes, rhonchi, stridor Cardiovascular Exam: Present: regular rate, normal rhythm, normal heart sounds. Absent: systolic murmur, diastolic murmur, rubs, gallop, clicks GI/Abdominal exam: Present: soft, normal bowel sounds. Absent: distended, tenderness, guarding, rebound, rigid Back exam: Present: tenderness (lumbar) Neurological exam: Present: alert, oriented X3, CN II-XII intact Psychiatric exam: Present: normal affect, normal mood Skin exam: Present: pallor Course Vital Signs 02/20/20 02/20/20 02/20/20 10:26 12:02 13:10 Temperature 97.8 F 97.7 F 98.1 F Pulse Rate 94 98 104 H Respiratory 18 16 16 Rate Blood Pressure 110/66 97/74 126/74 O2 Sat by Pulse 98 99 97 Oximetry 02/20/20 13:14 Temperature 98.1 F Pulse Rate 104 H Respiratory 16 Rate Blood Pressure 126/74 O2 Sat by Pulse 97 Oximetry EKG Findings - EKG Comments: EKG Findings:: EKG demonstrates normal sinus rhythm with a ventricular rate of 98. VA interval 146. QRS 66. QTC 426. ST depression V2 through V6. No acute ST segment elevations. EKG changes appear new Procedures - [facility] Protocol (Time Out) Nurse: Ariella Fajardo Medical Decision Making - Medical Decision Making Upon arrival patient is placed in room 10. A thorough history and physical exam is performed. Peripheral IV was established the patient is given a liter bolus of normal saline. Blood pressures are marginal. Laboratory studies were conducted which demonstrated pancytopenia worsened from previous lab values. Sodium low at 127, likely secondary to beer potomania. Lactic acid 2.7. Serum alcohol is 35. Patient sent over for a chest x-ray which demonstrates a moderate sized right pleural effusion. Results are discussed the patient. Her DPOA is now present in the room. States that he felt the patient was doing well over the patient 2 weeks until today. I did recommend hospitalization for which the patient and DPOA agreed. Spoke with Dr. Copleand who agreed to admit the patient. Patient may require rehab placement. Will consult hematology. - Lab Data Result diagrams: 02/21/20 05:55 02/21/20 10:34 Lab Results 02/20/20 02/20/20 02/20/20 Range/Units 10:47 10:47 10:47 WBC 2.6 L (3.8-10.6) k/uL RBC 2.43 L (3.80-5.40) m/uL Hgb 9.5 L (11.4-16.0) gm/dL Hct 27.8 L (34.0-46.0) % MCV 114.4 H (80.0-100.0) fL MCH 39.1 H (25.0-35.0) pg MCHC 34.2 (31.0-37.0) g/dL RDW 17.2 H (11.5-15.5) % Plt Count 80 L (150-450) k/uL MPV 8.0 Neutrophils % 77 % Lymphocytes % 14 % Monocytes % 5 % Eosinophils % 1 % Basophils % 0 % Neutrophils # 2.0 (1.3-7.7) k/uL Lymphocytes # 0.4 L (1.0-4.8) k/uL Monocytes # 0.1 (0-1.0) k/uL Eosinophils # 0.0 (0-0.7) k/uL Basophils # 0.0 (0-0.2) k/uL Manual Slide Review Performed Poikilocytosis (manual Present Anisocytosis Slight Macrocytosis Marked A PT 12.7 H (9.0-12.0) sec INR 1.3 H (<1.2) APTT 22.7 (22.0-30.0) sec D-Dimer (<0.60) mg/L FEU Sodium 127 L (137-145) mmol/L Potassium 4.8 (3.5-5.1) mmol/L Chloride 100 (98-107) mmol/L Carbon Dioxide 16 L (22-30) mmol/L Anion Gap 11 mmol/L BUN 6 L (7-17) mg/dL Creatinine 0.68 (0.52-1.04) mg/dL Est GFR (CKD-EPI)AfAm >90 (>60 ml/min/1.73 sqM) Est GFR (CKD-EPI)NonAf 86 (>60 ml/min/1.73 sqM) Glucose 99 (74-99) mg/dL Lactic Ac Sepsis Rflx Plasma Lactic Acid Corona (0.7-2.0) mmol/L Calcium 8.5 (8.4-10.2) mg/dL Total Bilirubin 0.9 (0.2-1.3) mg/dL AST 40 H (14-36) U/L ALT 13 (4-34) U/L Alkaline Phosphatase 161 H (38-126) U/L Lactate Dehydrogenase (313-618) U/L Creatine Kinase 40 (30-135) U/L Troponin I (0.000-0.034) ng/mL Total Protein 6.3 (6.3-8.2) g/dL Albumin 3.1 L (3.5-5.0) g/dL TSH 1.310 (0.465-4.680) mIU/L Serum Alcohol 35 mg/dL 02/20/20 02/20/20 02/20/20 Range/Units 10:47 10:47 10:47 WBC (3.8-10.6) k/uL RBC (3.80-5.40) m/uL Hgb (11.4-16.0) gm/dL Hct (34.0-46.0) % MCV (80.0-100.0) fL MCH (25.0-35.0) pg MCHC (31.0-37.0) g/dL RDW (11.5-15.5) % Plt Count (150-450) k/uL MPV Neutrophils % % Lymphocytes % % Monocytes % % Eosinophils % % Basophils % % Neutrophils # (1.3-7.7) k/uL Lymphocytes # (1.0-4.8) k/uL Monocytes # (0-1.0) k/uL Eosinophils # (0-0.7) k/uL Basophils # (0-0.2) k/uL Manual Slide Review Poikilocytosis (manual Anisocytosis Macrocytosis PT (9.0-12.0) sec INR (<1.2) APTT (22.0-30.0) sec D-Dimer (<0.60) mg/L FEU Sodium (137-145) mmol/L Potassium (3.5-5.1) mmol/L Chloride (98-107) mmol/L Carbon Dioxide (22-30) mmol/L Anion Gap mmol/L BUN (7-17) mg/dL Creatinine (0.52-1.04) mg/dL Est GFR (CKD-EPI)AfAm (>60 ml/min/1.73 sqM) Est GFR (CKD-EPI)NonAf (>60 ml/min/1.73 sqM) Glucose (74-99) mg/dL Lactic Ac Sepsis Rflx Plasma Lactic Acid Corona 2.7 H* (0.7-2.0) mmol/L Calcium (8.4-10.2) mg/dL Total Bilirubin (0.2-1.3) mg/dL AST (14-36) U/L ALT (4-34) U/L Alkaline Phosphatase (38-126) U/L Lactate Dehydrogenase 704 H (313-618) U/L Creatine Kinase (30-135) U/L Troponin I <0.012 (0.000-0.034) ng/mL Total Protein (6.3-8.2) g/dL Albumin (3.5-5.0) g/dL TSH (0.465-4.680) mIU/L Serum Alcohol mg/dL 02/20/20 02/20/20 Range/Units 11:20 12:00 WBC (3.8-10.6) k/uL RBC (3.80-5.40) m/uL Hgb (11.4-16.0) gm/dL Hct (34.0-46.0) % MCV (80.0-100.0) fL MCH (25.0-35.0) pg MCHC (31.0-37.0) g/dL RDW (11.5-15.5) % Plt Count (150-450) k/uL MPV Neutrophils % % Lymphocytes % % Monocytes % % Eosinophils % % Basophils % % Neutrophils # (1.3-7.7) k/uL Lymphocytes # (1.0-4.8) k/uL Monocytes # (0-1.0) k/uL Eosinophils # (0-0.7) k/uL Basophils # (0-0.2) k/uL Manual Slide Review Poikilocytosis (manual Anisocytosis Macrocytosis PT (9.0-12.0) sec INR (<1.2) APTT (22.0-30.0) sec D-Dimer 0.82 H (<0.60) mg/L FEU Sodium (137-145) mmol/L Potassium (3.5-5.1) mmol/L Chloride (98-107) mmol/L Carbon Dioxide (22-30) mmol/L Anion Gap mmol/L BUN (7-17) mg/dL Creatinine (0.52-1.04) mg/dL Est GFR (CKD-EPI)AfAm (>60 ml/min/1.73 sqM) Est GFR (CKD-EPI)NonAf (>60 ml/min/1.73 sqM) Glucose (74-99) mg/dL Lactic Ac Sepsis Rflx Y Plasma Lactic Acid Corona (0.7-2.0) mmol/L Calcium (8.4-10.2) mg/dL Total Bilirubin (0.2-1.3) mg/dL AST (14-36) U/L ALT (4-34) U/L Alkaline Phosphatase (38-126) U/L Lactate Dehydrogenase (313-618) U/L Creatine Kinase (30-135) U/L Troponin I (0.000-0.034) ng/mL Total Protein (6.3-8.2) g/dL Albumin (3.5-5.0) g/dL TSH (0.465-4.680) mIU/L Serum Alcohol mg/dL Disposition Clinical Impression: Hyponatremia, Alcohol abuse, Pancytopenia Disposition: ADMITTED IP TO THIS HOSP Condition: Stable Is patient prescribed a controlled substance at d/c from ED?: No Decision to Admit Reason: Admit from EC Decision Date: 02/20/20 Decision Time: 12:12
[2020-02-20] MEDS ORDERED: NALOXONE 0.4 MG/ML 1 ML VIAL IV PRN (12:12)
[2020-02-20] MEDS: SODIUM CHLORIDE 0.9% 1,000 ML IV SCH (12:18)
[2020-02-20] MEDS ORDERED: LORazepam 2 MG/ML INJ IV PRN ×2 (14:34)
[2020-02-20] MEDS ORDERED: THIAMINE 100 MG/ML 2 ML VIAL IM STA (14:34)
[2020-02-20] MEDS ORDERED: HYDROmorphone 0.5 MG/0.5 ML SYRINGE IVP PRN (14:34)
[2020-02-20] MEDS: PANTOPRAZOLE 40 MG/10 ML VIAL IVP SCH (15:07)
[2020-02-20] MEDS: AZITHROMYCIN 500 MG in SODIUM CHLORIDE 0.9% 250 ML IVPB SCH (15:07)
[2020-02-20] MEDS: THIAMINE 100 MG TAB PO SCH (15:57)
--- NOTE | 2020-02-20 16:15 | HP ---
HISTORY AND PHYSICAL DATE OF SERVICE: 02/20/2020. CHIEF COMPLAINTS: Weakness and as well as neck and back pain. HISTORY OF PRESENT ILLNESS: This 74-year-old woman with a past medical history of multiple medical problems including history of essential thrombocythemia, history of CVA, TIA, history of GERD, hypertension, hyperlipidemia, history of DJD, history of seizure disorder, history of blood clot in brain, history of compression fracture, history of shoulder injury, history of tonsillectomy, history of anxiety, being followed by Dr. Cher Todd in the outpatient setting was living by herself. The patient apparently was drinking alcohol in significant amounts. The patient was drinking actually more than 6 beers according to her. This morning, the patient is complaining of neck and back pain and shoulder pain. The patient was taken by the EMS to the [facility] and was admitted for evaluation and treatment. On evaluation, the patient's lab showed several abnormalities including apparent pancytopenia with platelets now 80. Sodium was 126, indicating hyponatremia and some acidosis with CO2 16, lactic acid was 2.7, and chest x- ray showed possible infiltrates in both lobes, the right more than the left. The patient admitted for further evaluation and treatment. There is no history of any fever, rigors or chills. No history of headache, loss of consciousness, seizures. The patient is complaining of a chilly feeling at this time. PAST MEDICAL HISTORY: History of essential thrombocythemia, history of CVA, TIA, GERD, hypertension, hyperlipidemia, DJD, seizure disorder, blood clot in the brain, anxiety. MEDICATIONS: Prior to admission home medications are: 1. Lisinopril 40 mg p.o. daily. 2. Keppra 1000 mg p.o. b.i.d. 3. Toprol-XL 25 mg b.i.d. 4. Hydroxyurea 500 mg Sunday, Sunday, . 5. Drisdol [id number] p.o. Sunday. 6. Flexeril 5 mg daily p.r.n. 7. Lipitor 40 mg p.o. daily. ALLERGIES: None. FAMILY HISTORY: History of myocardial infarction in the family. SOCIAL HISTORY: 1. Alcohol intake as mentioned earlier. 2. No history of smoking. REVIEW OF SYSTEMS: ENT diminished vision. Diminished hearing. CARDIOVASCULAR: As mentioned earlier. GI: As mentioned earlier. no dysuria. Nervous System as mentioned earlier. ALLERGY/IMMUNOLOGY: No asthma or hayfever. MUSCULOSKELETAL as mentioned earlier. HEMATOLOGY/ONCOLOGY: As mentioned earlier. ENDOCRINE mentioned earlier. CONSTITUTIONAL: As mentioned earlier. DERMATOLOGY: Negative. RHEUMATOLOGY: Negative. PSYCHIATRY as mentioned earlier. PHYSICAL EXAMINATION: Alert and oriented x3. Pulse is 104. Blood pressure 126/74, respiration 16, temperature 98.1, pulse ox 97% on room air. HEENT: Conjunctivae normal. NECK: No JVD. CARDIOVASCULAR: S1, S2 muffled. RESPIRATORY: Breath sounds diminished in the bases. A few scattered rhonchi and crackles. ABDOMEN: Soft, nontender. No mass palpable. LEGS no edema. No swelling. Nervous system: Higher functions as mentioned earlier. Moves all 4 limbs. No focal motor or sensory deficits. Lymphatics: No lymph nodes palpable in the neck, axillae or groin. SKIN: No ulcer, rashes or bleeding. JOINTS: No active deforming arthropathy. LABS: At this time shows WBC 2.2, hemoglobin 9.5, platelets 80. INR 1.3. Sodium 127. Other labs are reviewed. Chest x-ray reviewed personally. ASSESSMENT: 1. Possible bilateral pneumonia right on the left possibly aspiration with sepsis present on admission. 2. Possible alcohol withdrawal syndrome. 3. Acute DTs early. 4. History of alcohol dependence. 5. Hyponatremia, hypovolemic. 6. Metabolic acidosis. 7. Elevated lactic acid and possible lactic acidosis, multifactorial. 8. Pancytopenia, undetermined etiology. 9. History of essential thrombocythemia. 10.Mild coagulopathy possibly secondary to liver disease. 11.History of cerebrovascular accident, transient ischemic attack. 12.Gastroesophageal reflux disease. 13.Hypertension. 14.Hyperlipidemia. 15.History of degenerative joint disease. 16.History of seizure disorder. 17.Blood clot in the brain. 18.History of compression fracture of T8-S1. 19.History of degenerative joint disease. 20.History of tonsillectomy. 21.History of anxiety. 22.FULL CODE. RECOMMENDATIONS AND DISCUSSION: In this 74-year-old woman who presented with multiple complex medical issues, we will monitor the patient closely. Continue the current medications, management and symptomatic treatment. We will initiate broad-spectrum IV antibiotics. Obtain cultures. I would also recommend pulmonary and infectious disease consultation. Otherwise, I would also recommend Covid-19 testing and testing for inflammatory markers for Covid 19. The patient is apparently being quarantined at home according to the family. However, we will obtain a D-dimer and if the D-dimer is high, obtain a CT angio to rule out the possibility of pulmonary embolism. Otherwise, [facility] protocol. Supplement vitamins. Resume the home medications. Empiric antibiotics. Prognosis guarded because of multiple complex medical issues. I would also recommend the serum mycoplasma as well as urine Legionella antigen testing also to complete the workup. Overall prognosis guarded and alcohol cessation and rehab is also recommended. A copy of this forwarded to Dr. Cher Todd who is the primary physician. MMODL / IJN: [id number] /
[2020-02-20] MEDS: levETIRAcetam 500 MG TAB PO SCH ×2 (16:19→21:15)
[2020-02-20 16:30] LABS: Appearance,Urine Cloudy (Clear); Bacteria,Urine Few /hpf; Bilirubin,Urine Negative (Negative); Blood,Urine Trace (Negative); Color,Urine Light Yellow; Glucose,Urine (UA) Negative (Negative); Ketones,Urine Negative (Negative); Leukocyte Esterase,Urine Large (Negative); Nitrite,Urine Negative (Negative); Protein,Urine Negative (Negative); RBC,Urine 25 /hpf (0-5); Specific Gravity,Urine 1.005 (1.001-1.035); Squamous Epithelial Cell,Urine <1 /hpf (0-4); Urobilinogen,Urine <2.0 mg/dL (<2.0); WBC,Urine >182 /hpf (0-5)
--- NOTE | 2020-02-20 17:48 | CT ---
EXAMINATION TYPE: CT angio chest DATE OF EXAM: 02/20/2020 COMPARISON: February 20, 2019 HISTORY: Elevated d-dimer. CT DLP: 341.2 mGycm Automated exposure control for dose reduction was used. CONTRAST: Performed with IV Contrast, patient injected with 51ml mL of Isovue 370. Images were obtained from the thoracic inlet to the diaphragm with IV contrast and 3-D post processed images. There is moderate-sized right pleural effusion. There is small left pleural effusion. Heart is border line enlarged. There is no pericardial effusion. There is some consolidation and atelectasis in the r ight lower lobe adjacent to the pleural fluid. Heart is enlarged. Thoracic aorta is intact. There is no aneurysm or dissection. The ascending aorta measures 3 cm. There is normal contrast opacification of the pulmonary arteries. There are no filling defects. There is mild thoracic kyphosis with T8 and T6 and T5 compression fractures that are probably old. Th ere is compression deformity up to 60%. IMPRESSION: No evidence of pulmonary embolism. Pleural effusions with right lower lobe atelectasis and infiltrate . This could relate to congestive heart failure. There is progression of the T5 compression fracture compared to old exam. Pleural effusions significantly increased compared to old exam.
[2020-02-20] MEDS: HYDROcodone/APAP 5-325MG 1 EACH TAB PO PRN (18:08)
[2020-02-20] MEDS: TEMAZEPAM 15 MG CAP PO PRN (21:15)
[2020-02-20] MEDS: METOPROLOL SUCCINATE (ER) 25 MG TAB.ER.24H PO SCH (21:15)
[2020-02-20 23:06] LABS: Folate, Serum 3.8 ng/mL
[2020-02-20 23:10] LABS: % Iron Saturation 32.39 (12.00-45.00); Ferritin 1147.3 ng/mL (10.0-291.0)
--- NOTE | 2020-02-21 00:27 | CONS ---
CONSULTATION DATE OF SERVICE: 02/20/2020. REASON FOR CONSULTATION: Sepsis. HISTORY OF PRESENT ILLNESS: The patient is a 74 -year-old female with a past medical history significant for seizure disorder in this patient who did have a history of CVA also with alcohol abuse. The patient has been brought into the ER by EMS for evaluation of weakness. EMS was called to the home by the nephew in this patient who apparently was noticed to be sitting on the toilet and was not sure for how long she was sitting there. Patient said she was trying to get up, but she was too weak to get up off the toilet and slumped over the position, unable to scrap picker. Had been complaining of leg pain. EMS was called in who subsequently brought the patient to [facility] ER for further evaluation. On arrival to the ER, the patient was afebrile. The patient did have a mild leukopenia and lymphopenia. She did have elevated D-dimer and elevated lactic acid. Creatinine was normal. AST was 40. Urine has been positive. Alcohol level was 35. Gagnon PCR came back negative. Patient did have a chest x-ray which shows bilateral pleural effusion with chronic changes. Subsequently the patient did have a CT angiogram that was negative for PE and did show evidence of bilateral pleural effusion and some evidence of consolidation right lower lobe. The patient has been admitted to the hospital. Infectious Disease was consulted with concern for possible sepsis. At the time of my evaluation, the patient denies having any fever or any chills. The patient denies having any chest pain. She did have very minimal cough. No sputum production. No nausea, vomiting or diarrhea. REVIEW OF SYSTEMS: Positive points have been mentioned in HPI. Rest of systems are negative. PAST MEDICAL HISTORY: Her past medical history significant for seizure disorder, CVA, alcoholism, hypertension, hyperlipidemia, osteoarthritis. PAST SURGICAL HISTORY: Colonoscopy, EGD with dilatation and the patient did have a surgery for blood clot in the brain. SOCIAL HISTORY: History of smoking. Daily drinks. No drug use. FAMILY HISTORY: Father history of [place]. ALLERGIES: No known drug allergies. MEDICATIONS: Were the patient is currently on [place], clindamycin, Rocephin, Dilaudid, lisinopril, Ativan Toprol-XL, Narcan, Protonix, IV fluids, Restoril and vitamin B1. EXAMINATION: Blood pressure 103/71 with a pulse of 114. Temperature is 97.6. She is 93% on room air. General description is an elderly female lying in bed in no distress. No tachypnea or accessory muscles of respiration use. HEENT: Shows slight pallor. No scleral icterus. Oral mucous membranes dry. No pharyngeal erythema or thrush. Neck: Trachea central. No thyromegaly. Lungs unlabored breathing, decreased breath sounds in the base, with no wheeze or crackles. Heart S1, S2. Regular rate and rhythm. ABDOMEN: Soft, no tenderness. No guarding or rigidity. Extremities: No edema of the feet. Skin examination: No rash or mass palpable. Neurological: Patient is awake, alert, oriented. Mood and affect normal. LABS: Hemoglobin 9.5, white count 1.6. D-dimer was elevated. BUN of 7. Creatinine 0.8. Electrolytes: Sodium 127. Lactic acid 2.7. AST was 40. Urine is positive. CT report mentioned above. DIAGNOSTIC IMPRESSION AND PLAN: Patient admitted to hospital with generalized weakness which is likely multifactorial in this patient with possible component of urinary tract infection. Underlying pneumonia less likely but not entirely excluded. Possible community-acquired. The patient did have negative Covid test. PLAN: 1. We will try to obtain sputum for Gram stain and culture. 2. Check a CRP and procalcitonin level. 3. Continue the patient on Rocephin 1 g daily and Zithromax. 4. We will follow on clinical condition and culture to further adjust medication if needed. Thank you for this consultation. We will follow this patient along with you. MMODL / IJN: [id number] /
[2020-02-21] MEDS: HYDROcodone/APAP 5-325MG 1 EACH TAB PO PRN ×3 (01:15→17:49)
[2020-02-21 06:36] LABS: INR 1.5 (<1.2); Partial Thromboplastin Time 30.9 sec (22.0-30.0); Prothrombin Time 14.6 sec (9.0-12.0)
[2020-02-21 06:55] LABS: Anisocytosis Slight; Basophils % (A) 0 %; Eosinophils % (A) 0 %; Lymphocytes # (A) 0.4 k/uL (1.0-4.8); Lymphocytes % (A) 23 %; MCH 37.8 pg (25.0-35.0); MCHC 31.8 g/dL (31.0-37.0); MCV 118.6 fL (80.0-100.0); Macrocytosis Marked; Mean Platelet Volume 9.7; Monocytes # (A) 0.1 k/uL (0-1.0); Monocytes % (A) 8 %; RBC 1.53 m/uL (3.80-5.40); RDW 17.7 % (11.5-15.5); Reticulocyte % 1.2 % (0.5-2.0); WBC 1.5 k/uL (3.8-10.6)
[2020-02-21 07:15] LABS: HCT 18.2 % (34.0-46.0); HGB 5.8 gm/dL (11.4-16.0)
[2020-02-21 07:19] LABS: Platelet Count 59 k/uL (150-450)
[2020-02-21] MEDS: SODIUM CHLORIDE 0.9% 1,000 ML IV SCH ×3 (07:30→16:36)
[2020-02-21 07:55] LABS: Poikilocytosis (M) Present
[2020-02-21 09:25] LABS: Procalcitonin 17.59 ng/mL (0.02-0.09)
[2020-02-21 09:30] LABS: Protein, Total 4.2 g/dL (6.2-8.2)
[2020-02-21] MEDS: lisinopriL 20 MG TAB PO SCH (09:43)
[2020-02-21] MEDS: THIAMINE 100 MG TAB PO SCH ×2 (09:43→16:35)
[2020-02-21] MEDS: levETIRAcetam 500 MG TAB PO SCH ×2 (09:43→20:09)
[2020-02-21] MEDS: METOPROLOL SUCCINATE (ER) 25 MG TAB.ER.24H PO SCH ×2 (09:43→20:09)
[2020-02-21] MEDS: PANTOPRAZOLE 40 MG/10 ML VIAL IVP SCH (09:48)
[2020-02-21 09:57] LABS: African American GFR (CKD) 104.1 (60.0-200.0); Albumin 2.3 g/dL (3.80-4.90); Albumin/Globulin Ratio 1.15 (1.60-3.17); Anion Gap 7.5 mmol/L (4.00-12.00); BUN/Creat Ratio 11.67 Ratio (12.00-20.00); Bilirubin, Conjugated 0.3 mg/dL (0.20-0.40); C Reactive Protein 2.2 mg/dL (0.0-0.8); Calcium 6.8 mg/dL (8.7-10.3); Carbon Dioxide 22.5 mmol/L (21.6-31.8); Non-African American GFR(CKD) 89.8 (60.0-200.0); Potassium 4.3 mmol/L (3.5-5.5); Total Bilirubin 0.3 mg/dL (0.3-1.2); Total Protein 4.3 g/dL (6.2-8.2)
[2020-02-21] MEDS: AZITHROMYCIN 500 MG in SODIUM CHLORIDE 0.9% 250 ML IVPB SCH (10:24)
[2020-02-21 11:02] LABS: African American GFR (CKD) >90 (>60 ml/min/1.73 sqM); Anion Gap 5 mmol/L; Blood Urea Nitrogen 6 mg/dL (7-17); Calcium 7.2 mg/dL (8.4-10.2); Carbon Dioxide 20 mmol/L (22-30); Chloride 106 mmol/L (98-107); Glucose 119 mg/dL (74-99); Non-African American GFR(CKD) >90 (>60 ml/min/1.73 sqM); Potassium 3.9 mmol/L (3.5-5.1); Sodium 131 mmol/L (137-145)
--- NOTE | 2020-02-21 11:22 | US ---
EXAMINATION TYPE: US chest DATE OF EXAM: 02/21/2020 COMPARISON: CTA chest from yesterday CLINICAL HISTORY: Right side effusion. Shortness of breath. TECHNIQUE: Targeted ultrasound of the posterior right EXAM MEASUREMENTS: Right Pleural Effusion pocket size: 8.4 cm A/P with lung floating within fluid pocket Right skin surface to fluid distance: 1.9 cm A/P Left Pleural Effusion pocket size: 0.5cm A/P longitudinal view and was assessed for comparison. Right side was marked for possible thoracentesis outside the dept. Pulmonologists are able to review the images in the patient?s EMR. [id number] size right pleural effusion on images saved correlates with CTA chest from yesterda y. No significant left-sided effusion. IMPRESSIONS: As above.
[2020-02-21] MEDS ORDERED: LIDOCAINE 1% INJ 10MG/ML (20 ML MDV) ONE (12:26)
--- NOTE | 2020-02-21 12:56 | P.CNPUL ---
History of Present Illness Consult date: 02/21/20 Requesting physician: Jane Copeland Reason for consult: pleural effusion, abnormal CXR/CT Chief complaint: Generalized weakness History of present illness: This is a 74-year-old female patient who follows with Dr. Todd as her primary care provider. She has a history of seizure disorder, chronic back pain due to compression fractures, hyperlipidemia, hypertension, CVA/TIA, anxiety. She also admits to drinking 6-7 beers a day for approximately 54 years. She is and has been drinking a bit more she states. Yesterday she denied having been drinking but was sitting in the bathroom and on oral to get herself up off the toilet. She is not sure as to how long she had been sitting there prior to activating her [facility] to call for EMS. Chest x-ray revealed chronic changes and cardiomegaly along with a new small to moderate-sized right pleural effusion. We are consulted for the same. She is seen today on the regular medical floor. She is presently resting in bed. Awake and alert in no acute distress. On room air and maintaining O2 saturation in the 90s. CT angiogram revealed no evidence of pulmonary embolism. There is pleural effusions with right lower lobe atelectasis and infiltrate. There is noted progression of the T5 compression fracture. She was found to be quite anemic today initial hemoglobin 9.5 currently 5.8. No active GI bleeding noted. White count 1.5. Platelet count 59,000. INR 1.5. D-dimer 0.82. Sodium 131. Potassium 3.9. BUN 6. Creatinine 0.56. Glucose 119. Troponins are negative. LDH 704. AST 21. ALT 9. ProBNP 5620. Urinalysis is cloudy with trace blood and large nuchal sites and many WBCs in clumps. Few bacteria. Gagnon virus not detected. Serum alcohol 35. She has been initiated on ceftriaxone and azithromycin. 0.9, satting at 100 ML's per hour. IV Protonix. Thiamine. CIWA protocol in place. Review of Systems REVIEW OF SYSTEMS: CONSTITUTIONAL: Positive for generalized weakness, fatigue. Denies any recent significant weight loss or weight gain. EYES: Denies change in vision. EARS, NOSE, MOUTH, THROAT: Denies headaches, denies sore throat. CARDIOVASCULAR: Denies chest pain, palpitations or syncopal episodes. RESPIRATORY: Denies shortness of breath, cough, congestion or hemoptysis. GASTROINTESTINAL: Denies change in appetite, denies abdominal pain GENITOURINARY: Denies hematuria, denies infections. MUSKULOSKELETAL: Denies pain, denies swelling. INTEGUMENTARY: Denies rash, denies eczema. NEUROLOGICAL: Denies recent memory loss, no recent seizure activity. PSYCHIATRIC: Denies anxiety, denies depression. HEMATOLOGIC/LYMPHATIC: Denies anemia, denies enlarged lymph nodes. 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 History of Any Multi-Drug Resistant Organisms: None Reported Past Surgical History: Tonsillectomy Additional Past Surgical History / Comment(s): Colonoscopy, EGD WITH DILATION, SURGERY FOR BLOOD CLOT IN BRAIN. Past Anesthesia/Blood Transfusion Reactions: No Reported Reaction Past Psychological History: Anxiety Additional Psychological History / Comment(s): STATES HER SPOUSE PASSED 1 YEAR AGO Smoking Status: Never smoker Past Alcohol Use History: Daily Additional Past Alcohol Use History / Comment(s): STATES 6 BEERS DAILY Past Drug Use History: None Reported - Past Family History Father Family Medical History: Myocardial Infarction (MO) Additional Family Medical History / Comment(s): Father of a MO at the age of 73 yrs. Mother History Unknown: Yes Additional Family Medical History / Comment(s): Mother at the age of 84 yrs. She had a murmur and her heart would "skip a beat". Medications and Allergies Home Medications Medication Instructions Recorded Confirmed Type Ergocalciferol [Vitamin D2 50,000 unit PO WE 01/26/18 02/20/20 History (DRISDOL)] Hydroxyurea 500 mg PO MOTUWETH 01/26/18 02/20/20 History Cyclobenzaprine [Flexeril] 5 mg PO DAILY PRN 02/20/19 02/20/20 History Atorvastatin [Lipitor] 40 mg PO DAILY 04/23/19 02/20/20 History Metoprolol Succinate (ER) [Toprol 25 mg PO BID 04/23/19 02/20/20 History Xl] levETIRAcetam [Keppra] 1,000 mg PO Q12HR 02/20/20 02/20/20 History lisinopriL 40 mg PO DAILY 02/20/20 02/20/20 History Allergies Allergy/AdvReac Type Severity Reaction Status Date / Time No Known Allergies Allergy Verified 02/20/20 11:47 Physical Exam Vitals: Vital Signs Temp Pulse Pulse Resp BP BP Pulse Ox 02/21/20 08:00 98.0 F 97 18 112/75 97 02/21/20 01:30 97.6 F 101 H 20 103/68 95 02/20/20 19:50 16 02/20/20 19:45 97.6 F 114 H 20 103/71 96 02/20/20 14:00 97.6 F 109 H 16 118/79 100 02/20/20 13:14 98.1 F 104 H 16 126/74 97 02/20/20 13:10 98.1 F 104 H 16 126/74 97 Intake and Output 02/20/20 02/21/20 02/21/20 22:59 06:59 14:59 Intake Total 100 100 Output Total 1700 Balance -1600 100 Intake: Oral 100 100 Output: Urine 1700 Straight 850 Other: # Voids 0 GENERAL EXAM: Alert, pleasant 74-year-old female patient, on room air comfortable in no apparent distress. HEAD: Normocephalic. EYES: Normal reaction of pupils, equal size. NOSE: Clear with pink turbinates. THROAT: No erythema or exudates. NECK: No masses, no JVD. CHEST: No chest wall deformity. LUNGS: Equal air entry with basilar crackles right greater than left, diminished in the right base CVS: S1 and S2 normal with no audible murmur, regular rhythm. ABDOMEN: No hepatosplenomegaly, normal bowel sounds, no guarding or rigidity. SPINE: No scoliosis or deformity SKIN: No rashes CENTRAL NERVOUS SYSTEM: No focal deficits, tone is normal in all 4 extremities. EXTREMITIES: There is no peripheral edema. No clubbing, no cyanosis. Peripheral pulses are intact. Results - Laboratory Findings CBC and BMP: 02/21/20 05:55 02/21/20 10:34 PT/INR, D-dimer PT 14.6 sec (9.0-12.0) H 02/21/20 05:55 INR 1.5 (<1.2) H 02/21/20 05:55 D-Dimer 0.82 mg/L FEU (<0.60) H 02/20/20 12:00 Abnormal lab findings: Abnormal Labs 02/20/20 02/20/20 02/20/20 10:47 10:47 10:47 WBC 2.6 L RBC 2.43 L Hgb 9.5 L Hct 27.8 L MCV 114.4 H MCH 39.1 H RDW 17.2 H Plt Count 80 L Neutrophils # Lymphocytes # 0.4 L Macrocytosis Marked A PT 12.7 H INR 1.3 H APTT D-Dimer Sodium 127 L Carbon Dioxide 16 L BUN 6 L BUN/Creatinine Ratio Glucose Plasma Lactic Acid Corona Calcium Iron TIBC Ferritin AST 40 H Alkaline Phosphatase 161 H Lactate Dehydrogenase C-Reactive Protein Total Protein Total Protein (PEP) Albumin 3.1 L Albumin/Globulin Ratio Procalcitonin Urine Appearance Urine Blood Ur Leukocyte Esterase Urine RBC Urine WBC Urine WBC Clumps Urine Bacteria Crossmatch 02/20/20 02/20/20 02/20/20 10:47 10:47 12:00 WBC RBC Hgb Hct MCV MCH RDW Plt Count Neutrophils # Lymphocytes # Macrocytosis PT INR APTT D-Dimer 0.82 H Sodium Carbon Dioxide BUN BUN/Creatinine Ratio Glucose Plasma Lactic Acid [place]ona 2.7 H* Calcium Iron TIBC Ferritin AST Alkaline Phosphatase Lactate Dehydrogenase 704 H C-Reactive Protein Total Protein Total Protein (PEP) Albumin Albumin/Globulin Ratio Procalcitonin Urine Appearance Urine Blood Ur Leukocyte Esterase Urine RBC Urine WBC Urine WBC Clumps Urine Bacteria Crossmatch 02/20/20 02/20/20 02/21/20 16:13 18:15 05:55 WBC 1.5 L RBC 1.53 L Hgb 5.8 L* D Hct 18.2 L* MCV 118.6 H MCH 37.8 H RDW 17.7 H Plt Count 59 L Neutrophils # 1.0 L Lymphocytes # 0.4 L Macrocytosis Marked A PT INR APTT D-Dimer Sodium Carbon Dioxide BUN BUN/Creatinine Ratio Glucose Plasma Lactic Acid Corona Calcium Iron 46 L TIBC 142 L Ferritin 1147.3 H AST Alkaline Phosphatase Lactate Dehydrogenase C-Reactive Protein Total Protein Total Protein (PEP) Albumin Albumin/Globulin Ratio Procalcitonin Urine Appearance Cloudy H Urine Blood Trace H Ur Leukocyte Esterase Large H Urine RBC 25 H Urine WBC >182 H Urine WBC Clumps Many H Urine Bacteria Few H Crossmatch 02/21/20 02/21/20 02/21/20 05:55 05:55 05:55 WBC RBC Hgb Hct MCV MCH RDW Plt Count Neutrophils # Lymphocytes # Macrocytosis PT 14.6 H INR 1.5 H APTT 30.9 H D-Dimer Sodium 134 L Carbon Dioxide BUN 7.0 L BUN/Creatinine Ratio 11.67 L Glucose Plasma Lactic Acid Corona Calcium 6.8 L Iron TIBC Ferritin AST Alkaline Phosphatase Lactate Dehydrogenase C-Reactive Protein 2.2 H Total Protein 4.3 L Total Protein (PEP) 4.2 L Albumin 2.30 L Albumin/Globulin Ratio 1.15 L Procalcitonin 17.59 H Urine Appearance Urine Blood Ur Leukocyte Esterase Urine RBC Urine WBC Urine WBC Clumps Urine Bacteria Crossmatch 02/21/20 02/21/20 09:19 10:34 WBC RBC Hgb Hct MCV MCH RDW Plt Count Neutrophils # Lymphocytes # Macrocytosis PT INR APTT D-Dimer Sodium 131 L Carbon Dioxide 20 L BUN 6 L BUN/Creatinine Ratio Glucose 119 H Plasma Lactic Acid Corona Calcium 7.2 L Iron TIBC Ferritin AST Alkaline Phosphatase Lactate Dehydrogenase C-Reactive Protein Total Protein Total Protein (PEP) Albumin Albumin/Globulin Ratio Procalcitonin Urine Appearance Urine Blood Ur Leukocyte Esterase Urine RBC Urine WBC Urine WBC Clumps Urine Bacteria Crossmatch See Detail - Diagnostic Findings Chest x-ray: image reviewed CT scan - chest: image reviewed Assessment and Plan Assessment: 1 Generalized weakness and fatigue suspect secondary to hyponatremia, anemia with a drop in hemoglobin to 5.8 today 2 Chronic alcoholism 3 Pancytopenia secondary to above, 2 units of packed red blood cells in order 4 Coagulopathy secondary to above 5 Wrxrl-uj-xnsffema size right pleural effusion, measuring 8.4 cm however there is lung floating within the fluid pocket 6 Urinary tract infection 7 Chronic back pain secondary to compression fractures Plan: The patient was seen and evaluated by Dr. Steinberg Chest x-ray, CAT scan and ultrasound of the chest reviewed No plans for thoracentesis at this time as there is lung tissue noted within the pocket Maintaining good O2 saturations in the 90s on room air Continue antibiotics in the form of ceftriaxone and azithromycin To be transfused with 2 units of packed red blood cells Continue to monitor hemoglobin Remains in the CINY protocol Educated regarding the importance of alcohol cessation We'll continue to follow and make further recommendations based on her clinical status I, the cosigning physician, performed a history & physical examination of the patient. Lungs sounds is crackles right greater than left, diminished in the right base. Maintaining good O2 saturations in the 90s on room air. I discussed the assessment and plan of care with my nurse practitioner, Carolina Smith. I attest to the above consultation as dictated by her. Time with Patient: Greater than 30
[2020-02-21] MEDS: LORazepam 1 MG TAB PO PRN (14:23)
[2020-02-21] MEDS ORDERED: IOPAMIDOL CONTRAST (ORAL USE) VIAL PO PRN (14:45)
--- NOTE | 2020-02-21 16:06 | CT ---
EXAMINATION TYPE: CT abdomen pelvis w con DATE OF EXAM: 02/21/2020 COMPARISON: None HISTORY: Abdominal pain CT DLP: 706 mGycm Automated exposure control for dose reduction was used. CONTRAST: Performed with IV Contrast, patient injected with 100 mL of Isovue 300. Images were obtained from the diaphragm to the floor the pelvis with IV contrast. FINDINGS: There is moderate size right pleural effusion. Heart is slightly enlarged. There is no pericardial ef fusion. There is some infiltrate and atelectasis at both lung bases and more on the right side. The s tomach is intact. Spleen is intact. I see no discrete liver mass. Gallbladder is large and measures 3 .7 cm in diameter. The bile ducts are not dilated. There is no sign of pancreatic mass. Liver is rela tively small and measures 12 cm in length. There is no adrenal mass. Kidneys show satisfactory contrast opacification. There is no hydronephrosi s. Delayed images show normal renal excretion. There is no retroperitoneal adenopathy. Bladder disten ds smoothly with contrast. There is 7 cm calcified uterine fibroid in the lower uterine segment. Ther e is no inguinal hernia. There is no free fluid in the pelvis. There is 3.3 cm right adnexal cyst con sistent with ovarian cyst. Appendix is small and appears normal. The lumbar vertebra have normal alignment. There is osteopenia with compression deformity seen at L1 and L2 and L3 up to 50% loss of height. The bony pelvis is intact. IMPRESSION: Right ovarian cyst slightly increased in size compared to pelvis CT scan of 01/27/2018. Previous exam measures 2.8 cm. Cyst now measures 3.3 cm. Small liver that could relate to cirrhosis. Pleural effusions and basilar pulmonary infiltrate and atelectasis. There is significant progression of the lumbar compression fractures compared to old CT scan of 012.
--- NOTE | 2020-02-21 16:10 | PN ---
PROGRESS NOTE DATE OF SERVICE: 02/21/2020 INTERVAL HISTORY: This is a 74-year-old woman with a past history of multiple medical problems being followed by Dr. Cher Todd in the outpatient setting who was admitted with possible bilateral pneumonia, extensive pleural effusion on the right side. The patient also had anemia which has been also evaluated in the outpatient setting, but currently the hemoglobin has fallen to 5.8. No active bleeding was noted. The patient also has some pancytopenia as well and 2 units transfusion has been arranged. Dr. Mcdaniel is following the patient. Patient on empiric antibiotics. Possible UTI was also suspected. Dr. Steinberg is following the patient closely. Ultrasound has been done. The patient is slated for ultrasound-guided aspiration also. INR is 1.5. A CT scan of the abdomen and pelvis was ordered to rule out the possibly of intraabdominal pathology. PAST MEDICAL HISTORY: Reviewed. REVIEW OF SYSTEMS: CARDIOVASCULAR: No angina or palpitations. RESPIRATORY: As mentioned earlier. GI: As mentioned earlier. : No dysuria. NERVOUS SYSTEM: No numbness or weakness. CURRENT MEDICATIONS: Reviewed and include [place], Zithromax, Rocephin, Ativan, Narcan Protonix. Doses reviewed. PHYSICAL EXAM: GENERAL: Patient is alert and oriented times three. VITAL SIGNS: Pulse 102, blood pressure 120/72, respirations 16, temperature 97.5, pulse ox 97% on room air. HEENT: Conjunctivae pale. NECK: No jugular venous distention. No carotid bruits. No lymph node enlargement. RESPIRATORY: Breath sounds diminished at the bases. A few scattered rhonchi. HEART: S1 and S2, muffled. ABDOMEN: Soft. Mild diffuse distention. No masses palpable. EXTREMITIES: No edema. NERVOUS: No focal deficits. LAB STUDIES: WBC 1.4, hemoglobin 5.8, platelets of . Other labs are noted. ASSESSMENT: 1. Possible bilateral pneumonia, right more the left with possibly aspiration with sepsis present on admission. 2. Large right pleural effusion. 3. Anemia, rule out acute blood loss anemia. 4. Possible alcohol withdrawal syndrome. 5. Acute DTs, early. 6. History of alcohol dependence. 7. Hyponatremia. 8. Hypovolemic. 9. Metabolic acidosis. 10.Elevated lactic acid, possible lactic acidosis, multifactorial. 11.Pancytopenia, undetermined etiology. 12.History of essential thrombocythemia. 13.History of mild coagulopathy possibly secondary to liver disease. 14.History of cerebrovascular accident, transient ischemic attack. 15.Gastroesophageal reflux disease. 16.Hypertension. 17.Hyperlipidemia. 18.History of degenerative joint disease. 19.History of seizure disorder. 20.History of blood clot in the brain. 21.History of compression fractures of T8-S1. 22.History of tonsillectomy. 23.History of anxiety. 24.FULL CODE. RECOMMENDATIONS AND DISCUSSION: In this 74-year-old woman who presented with multiple complex medical issues, we will monitor the patient closely. Continue the current management,continue symptomatic treatment. I recommend to continue the broad-spectrum IV antibiotics and follow the cultures, which are negative so far. Otherwise, I would also recommend a pleural fluid aspiration per Dr. Steinberg and the fluid studies including cultures. CT scan of the abdomen pelvis ordered to rule out the possibility of any intraabdominal pathology including cirrhosis of the liver. Otherwise infectious Disease input appreciated. Prognosis guarded because of multiple complex medical issues. Further recommendations to follow. MMODL / IJN: [id number] / MTDD
[2020-02-21] MEDS ORDERED: Magnesium Replacement Protocol 1 EACH MISC MISCELLANE PRN (16:51)
[2020-02-21] MEDS: MAGNESIUM SULFATE-D5W PMX 1 GM in DEXTROSE/WATER 1 100ML.BAG IVPB SCH ×3 (19:25→22:06)
[2020-02-21] MEDS: TEMAZEPAM 15 MG CAP PO PRN (20:09)
[2020-02-21] MEDS: LORazepam 2 MG/ML INJ IV PRN ×2 (22:06→23:47)
--- NOTE | 2020-02-21 23:26 | PN ---
PROGRESS NOTE DATE OF SERVICE: 02/21/2020 REASON FOR FOLLOWUP: Urinary tract infection and question of pneumonia. INTERVAL HISTORY: The patient is currently afebrile. Patient is breathing comfortably. Complaining of feeling weak and tired. Denies any chest pain. Minimal cough. No abdominal pain. No diarrhea. PHYSICAL EXAMINATION: Blood pressure 146/88, pulse of 115. Temperature is 97.4. She is 93% on 2 L nasal cannula. General description is an elderly female in the bed in no distress. Respiratory system: Unlabored breathing, decreased breath sounds in the bases. No wheeze. Heart S1, S2. Regular rate and rhythm. ABDOMEN: Soft. No tenderness. LABS: BUN of 6, creatinine 0.56, hemoglobin is 10. DIAGNOSTIC IMPRESSION AND PLAN: Patient admitted to the hospital with generalized weakness, which is multifactorial in this patient with possible complete UTI. Urine showing gram-negative and a question of pneumonia. The patient is currently covered with Rocephin and Zithromax to continue and monitor clinical course closely while waiting for the culture to finalize. MMODL / IJN: [id number] / MTDD
--- NOTE | 2020-02-22 01:28 | P.CONS ---
History of Present Illness - Reason for Consult Consult date: 02/20/20 Pancytopenia Requesting physician: Cira Martinez - History of Present Illness Ms Sousa is a pleasant white female with overall well-controlled and minor medical problems. She was originally seen in 2016 and was confirmed with a diagnosis of essential thrombocytosis, in which her bloodwork remained stable on hydrea 3x a week. Hematological History: positive for a JAK2 V617F mutation, confirming Essential Thrombocytosis. She was started on hydrea 500 mg Po/d in 09/05 with a good response. Dose was decreased to 500 mg 5 days/wk, due to fatigue in 10/06. She did not f/u in the office from 05/07 to 08/08 . She has known history of ETOH abuse and non-adherence. Last follow-up was October of this year and her platelet count at that time was over 400K. She now presents with severe pancytopenia, hydrea has been held. Review of Systems All systems: negative Constitutional: Reports as per HPI Past Medical History Past Medical History: Blood Disorder, CVA/TIA, GERD/Reflux, Hyperlipidemia, Hypertension, Osteoarthritis (OA), Seizure Disorder Additional Past Medical History / Comment(s): "Blood clot in the brain" in 1975, last seizure 07/20/2018, back pain, falls, compression fracture T8-S1, L shoulder injury/pain and limited ROM, past pelvic rami fracture, cardiac murmur, elevated platelets. History of Any Multi-Drug Resistant Organisms: None Reported Past Surgical History: Tonsillectomy Additional Past Surgical History / Comment(s): Colonoscopy, EGD WITH DILATION, SURGERY FOR BLOOD CLOT IN BRAIN. Past Anesthesia/Blood Transfusion Reactions: No Reported Reaction Past Psychological History: Anxiety Additional Psychological History / Comment(s): STATES HER SPOUSE PASSED 1 YEAR AGO Smoking Status: Never smoker Past Alcohol Use History: Daily Additional Past Alcohol Use History / Comment(s): STATES 6 BEERS DAILY Past Drug Use History: None Reported - Past Family History Father Family Medical History: Myocardial Infarction (SC) Additional Family Medical History / Comment(s): Father of a SC at the age of 73 yrs. Mother History Unknown: Yes Additional Family Medical History / Comment(s): Mother at the age of 84 yrs. She had a murmur and her heart would "skip a beat". Medications and Allergies Home Medications Medication Instructions Recorded Confirmed Type Ergocalciferol [Vitamin D2 50,000 unit PO WE 01/26/18 02/20/20 History (DRISDOL)] Hydroxyurea 500 mg PO MOTUWETH 01/26/18 02/20/20 History Cyclobenzaprine [Flexeril] 5 mg PO DAILY PRN 02/20/19 02/20/20 History Atorvastatin [Lipitor] 40 mg PO DAILY 04/23/19 02/20/20 History Metoprolol Succinate (ER) [Toprol 25 mg PO BID 04/23/19 02/20/20 History Xl] levETIRAcetam [Keppra] 1,000 mg PO Q12HR 02/20/20 02/20/20 History lisinopriL 40 mg PO DAILY 02/20/20 02/20/20 History Allergies Allergy/AdvReac Type Severity Reaction Status Date / Time No Known Allergies Allergy Verified 02/20/20 11:47 Physical Exam Vitals: Vital Signs Temp Pulse Pulse Resp BP BP Pulse Ox 02/20/20 14:00 97.6 F 109 H 16 118/79 100 02/20/20 13:14 98.1 F 104 H 16 126/74 97 02/20/20 13:10 98.1 F 104 H 16 126/74 97 02/20/20 12:02 97.7 F 98 16 97/74 99 02/20/20 10:26 97.8 F 94 18 110/66 98 Intake and Output 02/20/20 02/20/20 02/20/20 06:59 14:59 22:59 Output Total 1700 Balance -1700 Output: Urine 1700 Straight 850 Other: Weight 68.039 kg - Constitutional General appearance: cooperative, mild distress - EENT Eyes: EOMI ENT: NA/AT - Respiratory Respiratory: bilateral: diminished (increased effort (also anxious)) - Cardiovascular Abnormal Heart Sounds: click - Gastrointestinal General gastrointestinal: soft, tenderness - Integumentary Integumentary: pale - Neurologic non focal - Musculoskeletal Musculoskeletal: generalized weakness - Psychiatric Anxious Psychiatric: A&O x's 3 Results CBC & Chem 7: 02/21/20 05:55 02/21/20 10:34 Labs: Abnormal Lab Results - Last 24 Hours (Table) 02/20/20 02/20/20 02/20/20 Range/Units 10:47 10:47 10:47 WBC 2.6 L (3.8-10.6) k/uL RBC 2.43 L (3.80-5.40) m/uL Hgb 9.5 L (11.4-16.0) gm/dL Hct 27.8 L (34.0-46.0) % MCV 114.4 H (80.0-100.0) fL MCH 39.1 H (25.0-35.0) pg RDW 17.2 H (11.5-15.5) % Plt Count 80 L (150-450) k/uL Lymphocytes # 0.4 L (1.0-4.8) k/uL Macrocytosis Marked A PT 12.7 H (9.0-12.0) sec INR 1.3 H (<1.2) D-Dimer (<0.60) mg/L FEU Sodium 127 L (137-145) mmol/L Carbon Dioxide 16 L (22-30) mmol/L BUN 6 L (7-17) mg/dL Plasma Lactic Acid Corona (0.7-2.0) mmol/L AST 40 H (14-36) U/L Alkaline Phosphatase 161 H (38-126) U/L Lactate Dehydrogenase (313-618) U/L Albumin 3.1 L (3.5-5.0) g/dL Urine Appearance (Clear) Urine Blood (Negative) Ur Leukocyte Esterase (Negative) Urine RBC (0-5) /hpf Urine WBC (0-5) /hpf Urine WBC Clumps (None) /hpf Urine Bacteria (None) /hpf 02/20/20 02/20/20 02/20/20 Range/Units 10:47 10:47 12:00 WBC (3.8-10.6) k/uL RBC (3.80-5.40) m/uL Hgb (11.4-16.0) gm/dL Hct (34.0-46.0) % MCV (80.0-100.0) fL MCH (25.0-35.0) pg RDW (11.5-15.5) % Plt Count (150-450) k/uL Lymphocytes # (1.0-4.8) k/uL Macrocytosis PT (9.0-12.0) sec INR (<1.2) D-Dimer 0.82 H (<0.60) mg/L FEU Sodium (137-145) mmol/L Carbon Dioxide (22-30) mmol/L BUN (7-17) mg/dL Plasma Lactic Acid [place]ona 2.7 H* (0.7-2.0) mmol/L AST (14-36) U/L Alkaline Phosphatase (38-126) U/L Lactate Dehydrogenase 704 H (313-618) U/L Albumin (3.5-5.0) g/dL Urine Appearance (Clear) Urine Blood (Negative) Ur Leukocyte Esterase (Negative) Urine RBC (0-5) /hpf Urine WBC (0-5) /hpf Urine WBC Clumps (None) /hpf Urine Bacteria (None) /hpf 02/20/20 Range/Units 16:13 WBC (3.8-10.6) k/uL RBC (3.80-5.40) m/uL Hgb (11.4-16.0) gm/dL Hct (34.0-46.0) % MCV (80.0-100.0) fL MCH (25.0-35.0) pg RDW (11.5-15.5) % Plt Count (150-450) k/uL Lymphocytes # (1.0-4.8) k/uL Macrocytosis PT (9.0-12.0) sec INR (<1.2) D-Dimer (<0.60) mg/L FEU Sodium (137-145) mmol/L Carbon Dioxide (22-30) mmol/L BUN (7-17) mg/dL Plasma Lactic Acid Corona (0.7-2.0) mmol/L AST (14-36) U/L Alkaline Phosphatase (38-126) U/L Lactate Dehydrogenase (313-618) U/L Albumin (3.5-5.0) g/dL Urine Appearance Cloudy H (Clear) Urine Blood Trace H (Negative) Ur Leukocyte Esterase Large H (Negative) Urine RBC 25 H (0-5) /hpf Urine WBC >182 H (0-5) /hpf Urine WBC Clumps Many H (None) /hpf Urine Bacteria Few H (None) /hpf CT scan - chest: report reviewed Assessment and Plan (1) Alcohol abuse Current Visit: Yes Status: Acute Code(s): F10.10 - ALCOHOL ABUSE, UNCOMPLICATED SNOMED Code(s): 71631476 (2) Pancytopenia Current Visit: Yes Status: Acute Code(s): D61.818 - OTHER PANCYTOPENIA SNOMED Code(s): 711163743 (3) Fall Current Visit: No Status: Acute Code(s): W19.XXXA - UNSPECIFIED FALL, INITIAL ENCOUNTER SNOMED Code(s): 0411538 Plan: Further work up is needed given her new presentation of Pancytopenia. Hydrea to remain on hold. Await further work-up, but will likely need a bone marrow biopsy to further evaluate bone marrow function this week. Transfuse Hemoglobin les than 7, platelet less than 10K. Hold NSAIDS, ASA, Anti-coagulation for platelet count less than 50K CT abdomen assess spleen/liver
--- NOTE | 2020-02-22 01:30 | P.PN ---
Subjective Progress Note Date: 02/21/20 Principal diagnosis: Pancytopenia Hemoglobin 5.8 today, awaiting pancytopenia work-up Objective - Vital Signs Vital signs: Vital Signs Temp 97.4 F L 02/21/20 19:16 Pulse 115 H 02/21/20 20:00 Resp 18 02/21/20 20:00 BP 133/82 02/21/20 19:16 Pulse Ox 97 02/21/20 19:16 Intake & Output 02/21/20 02/21/20 02/22/20 06:59 18:59 06:59 Intake Total 200 310 310 Output Total 800 Balance 200 -490 310 Intake: Oral 200 Blood Product 310 310 Rc As-1 Unit 0 310 [id number] Rc Irr As1 Unit 310 [id number] Output: Urine 800 Straight 800 Other: # Voids 0 0 - Exam - Constitutional General appearance: cooperative, mild distress - EENT Eyes: EOMI ENT: NA/AT - Respiratory Respiratory: bilateral: diminished (increased effort (also anxious)) - Cardiovascular Abnormal Heart Sounds: click - Gastrointestinal General gastrointestinal: soft, tenderness - Integumentary Integumentary: pale - Neurologic non focal - Musculoskeletal Musculoskeletal: generalized weakness - Psychiatric Anxious Psychiatric: A&O x's 3 - Labs CBC & Chem 7: 02/23/20 06:18 02/22/20 05:36 Labs: Abnormal Lab Results - Last 24 Hours (Table) 02/21/20 02/21/20 02/21/20 Range/Units 05:55 05:55 05:55 WBC 1.5 L (3.8-10.6) k/uL RBC 1.53 L (3.80-5.40) m/uL Hgb 5.8 L* D (11.4-16.0) gm/dL Hct 18.2 L* (34.0-46.0) % MCV 118.6 H (80.0-100.0) fL MCH 37.8 H (25.0-35.0) pg RDW 17.7 H (11.5-15.5) % Plt Count 59 L (150-450) k/uL Neutrophils # 1.0 L (1.3-7.7) k/uL Lymphocytes # 0.4 L (1.0-4.8) k/uL Macrocytosis Marked A PT (9.0-12.0) sec INR (<1.2) APTT (22.0-30.0) sec Sodium 134 L (135-145) mmol/L Carbon Dioxide (22-30) mmol/L BUN 7.0 L (9.0-27.0) mg/dL BUN/Creatinine Ratio 11.67 L (12.00-20.00) Ratio Glucose (74-99) mg/dL Calcium 6.8 L (8.7-10.3) mg/dL Magnesium (1.6-2.3) mg/dL C-Reactive Protein 2.2 H (0.0-0.8) mg/dL Total Protein 4.3 L (6.2-8.2) g/dL Total Protein (PEP) 4.2 L (6.2-8.2) g/dL Albumin 2.30 L (3.80-4.90) g/dL Albumin/Globulin Ratio 1.15 L (1.60-3.17) g/dL Procalcitonin 17.59 H (0.02-0.09) ng/mL Crossmatch 02/21/20 02/21/20 02/21/20 Range/Units 05:55 09:19 10:34 WBC (3.8-10.6) k/uL RBC (3.80-5.40) m/uL Hgb (11.4-16.0) gm/dL Hct (34.0-46.0) % MCV (80.0-100.0) fL MCH (25.0-35.0) pg RDW (11.5-15.5) % Plt Count (150-450) k/uL Neutrophils # (1.3-7.7) k/uL Lymphocytes # (1.0-4.8) k/uL Macrocytosis PT 14.6 H (9.0-12.0) sec INR 1.5 H (<1.2) APTT 30.9 H (22.0-30.0) sec Sodium 131 L (135-145) mmol/L Carbon Dioxide 20 L (22-30) mmol/L BUN 6 L (9.0-27.0) mg/dL BUN/Creatinine Ratio (12.00-20.00) Ratio Glucose 119 H (74-99) mg/dL Calcium 7.2 L (8.7-10.3) mg/dL Magnesium (1.6-2.3) mg/dL C-Reactive Protein (0.0-0.8) mg/dL Total Protein (6.2-8.2) g/dL Total Protein (PEP) (6.2-8.2) g/dL Albumin (3.80-4.90) g/dL Albumin/Globulin Ratio (1.60-3.17) g/dL Procalcitonin (0.02-0.09) ng/mL Crossmatch See Detail 02/21/20 Range/Units 10:34 WBC (3.8-10.6) k/uL RBC (3.80-5.40) m/uL Hgb (11.4-16.0) gm/dL Hct (34.0-46.0) % MCV (80.0-100.0) fL MCH (25.0-35.0) pg RDW (11.5-15.5) % Plt Count (150-450) k/uL Neutrophils # (1.3-7.7) k/uL Lymphocytes # (1.0-4.8) k/uL Macrocytosis PT (9.0-12.0) sec INR (<1.2) APTT (22.0-30.0) sec Sodium (135-145) mmol/L Carbon Dioxide (22-30) mmol/L BUN (9.0-27.0) mg/dL BUN/Creatinine Ratio (12.00-20.00) Ratio Glucose (74-99) mg/dL Calcium (8.7-10.3) mg/dL Magnesium 1.3 L (1.6-2.3) mg/dL C-Reactive Protein (0.0-0.8) mg/dL Total Protein (6.2-8.2) g/dL Total Protein (PEP) (6.2-8.2) g/dL Albumin (3.80-4.90) g/dL Albumin/Globulin Ratio (1.60-3.17) g/dL Procalcitonin (0.02-0.09) ng/mL Crossmatch Microbiology - Last 24 Hours (Table) 02/20/20 16:13 Urine Culture - Preliminary Urine,Voided Gram Neg Bacilli 02/20/20 14:37 Blood Culture - Preliminary Blood No Growth after 24 hours Assessment and Plan (1) Alcohol abuse Current Visit: Yes Status: Acute Code(s): F10.10 - ALCOHOL ABUSE, UNCOMPLICATED SNOMED Code(s): 65367555 (2) Pancytopenia Current Visit: Yes Status: Acute Code(s): D61.818 - OTHER PANCYTOPENIA SNOMED Code(s): 798082331 (3) Fall Current Visit: No Status: Acute Code(s): W19.XXXA - UNSPECIFIED FALL, INITIAL ENCOUNTER SNOMED Code(s): 1582739 Plan: Transfuse one unit PRBC today Hydrea to remain on hold. Await further work-up, but will likely need a bone marrow biopsy to further evaluate bone marrow function this week. Transfuse Hemoglobin les than 7, platelet less than 10K. Hold NSAIDS, ASA, Anti-coagulation for platelet count less than 50K Pulm following.
[2020-02-22 06:29] LABS: Anisocytosis Moderate; Basophils % (A) 0 %; Eosinophils % (A) 0 %; Lymphocytes # (A) 0.2 k/uL (1.0-4.8); Lymphocytes % (A) 4 %; MCH 34.3 pg (25.0-35.0); MCHC 32.5 g/dL (31.0-37.0); Macrocytosis Marked; Mean Platelet Volume 8.3; Monocytes # (A) 0.2 k/uL (0-1.0); Monocytes % (A) 3 %; Neutrophils # (A) 5.7 k/uL (1.3-7.7); Neutrophils % (A) 93 %; Poikilocytosis Slight; RBC 2.94 m/uL (3.80-5.40); RDW 21.8 % (11.5-15.5); WBC 6.1 k/uL (3.8-10.6)
[2020-02-22 06:36] LABS: HGB 10.1 gm/dL (11.4-16.0); MCV 105.4 fL (80.0-100.0); Platelet Count 71 k/uL (150-450)
--- NOTE | 2020-02-22 06:57 | XR ---
EXAMINATION TYPE: XR chest 1V portable DATE OF EXAM: 02/22/2020 CLINICAL HISTORY: Difficulty breathing and right-sided pleural effusion progress study. TECHNIQUE: Single AP portable upright view of the chest is obtained. COMPARISON: Chest x-ray and CTA chest from 2 days earlier FINDINGS: There is chronic emphysematous change with small to moderate-sized right pleural effusion increased in size from prior. The cardiac silhouette size remains enlarged with atherosclerotic and ectatic aorta. New left basilar opacity. The osseous structures are demineralized. Old displaced fr acture left proximal humerus is noted. IMPRESSION: Chronic changes and cardiomegaly with fairly moderate-sized right pleural effusion incre ased in size from prior studies. Associated right basilar atelectasis is present. New left basilar ac [place] atelectasis and/or infiltrate is seen.
[2020-02-22] MEDS: levETIRAcetam 500 MG TAB PO SCH ×2 (07:44→19:54)
[2020-02-22] MEDS: METOPROLOL SUCCINATE (ER) 25 MG TAB.ER.24H PO SCH ×2 (07:44→19:55)
[2020-02-22] MEDS: lisinopriL 20 MG TAB PO SCH (07:44)
[2020-02-22] MEDS: THIAMINE 100 MG TAB PO SCH ×2 (07:44→16:40)
[2020-02-22] MEDS: PANTOPRAZOLE 40 MG/10 ML VIAL IVP SCH (07:45)
[2020-02-22] MEDS: SODIUM CHLORIDE 0.9% 1,000 ML IV SCH ×2 (08:00→16:40)
[2020-02-22] MEDS: AZITHROMYCIN 500 MG in SODIUM CHLORIDE 0.9% 250 ML IVPB SCH (08:47)
[2020-02-22 09:10] LABS: Free Kappa Lt Chain Qnt, Serum 2.52 mg/dL (0.33-1.94)
[2020-02-22] MEDS ORDERED: FUROSEMIDE 10 MG/ML 4 ML VIAL IV STA (10:02)
[2020-02-22 10:21] LABS: African American GFR (CKD) 104.1 (60.0-200.0); Anion Gap 8.9 mmol/L (4.00-12.00); Calcium 7.8 mg/dL (8.7-10.3); Carbon Dioxide 23.1 mmol/L (21.6-31.8); Magnesium 2.2 mg/dL (1.5-2.4); Non-African American GFR(CKD) 89.8 (60.0-200.0); Potassium 3.6 mmol/L (3.5-5.5)
--- NOTE | 2020-02-22 12:04 | P.PN ---
Subjective Progress Note Date: 02/22/20 Principal diagnosis: Generalized weakness and fatigue, hyponatremia This is a 74-year-old female patient who follows with Dr. Todd as her primary care provider. She has a history of seizure disorder, chronic back pain due to compression fractures, hyperlipidemia, hypertension, CVA/TIA, anxiety. She also admits to drinking 6-7 beers a day for approximately 54 years. She is and has been drinking a bit more she states. Yesterday she denied having been drinking but was sitting in the bathroom and on oral to get herself up off the toilet. She is not sure as to how long she had been sitting there prior to activating her [facility] to call for EMS. Chest x-ray revealed chronic changes and cardiomegaly along with a new small to moderate-sized right pleural effusio n. We are consulted for the same. She is seen today on the regular medical floor. She is presently resting in bed. Awake and alert in no acute distress. On room air and maintaining O2 saturation in the 90s. CT angiogram revealed no evidence of pulmonary embolism. There is pleural effusions with right lower lobe atelectasis and infiltrate. There is noted progression of the T5 compression fracture. She was found to be quite anemic today initial hemoglobin 9.5 currently 5.8. No active GI bleeding noted. White count 1.5. Platelet count 59,000. INR 1.5. D-dimer 0.82. Sodium 131. Potassium 3.9. BUN 6. Creatinine 0.56. Glucose 119. Troponins are negative. LDH 704. AST 21. ALT 9. ProBNP 5620. Urinalysis is cloudy with trace blood and large nuchal sites and many WBCs in clumps. Few bacteria. Gagnon virus not detected. Serum alcohol 35. She has been initiated on ceftriaxone and azithromycin. 0.9, satting at 100 ML's per hour. IV Protonix. Thiamine. CIWA protocol in place. The patient is seen today 02/22/2020 in follow-up on the regular medical floor. She is awake and alert. Her speech is still somewhat garbled. Slow to respond. He is maintaining good O2 saturations in the mid 90s on room air. She's afebrile. Hemodynamically stable. Chest x-ray continues to show chronic changes and cardiomegaly with fairly moderate right-sided neural effusion. Asso ciated right basilar atelectasis. Basilar atelectasis/infiltrate is noted. She did receive 2 units of packed red blood cells yesterday. Today's hemoglobin is 10.1. Urine culture positive for gram-negative bacilli. Blood culture revealing no growth to date. White count 6.1. Platelet count 71,000. Sodium 136. Potassium 3.6. Creatinine 0.6. She is continued on ceftriaxone and azithromycin. See well protocol is in place. She did receive Ativan last evening. 0.9 normal saline at 100 ML's per hour. Objective - Vital Signs Vital signs: Vital Signs Temp 97.4 F L 02/22/20 08:00 Pulse 81 02/22/20 08:00 Resp 20 02/22/20 08:00 BP 134/88 02/22/20 08:00 Pulse Ox 95 02/22/20 08:00 Intake & Output 02/21/20 02/22/20 02/22/20 18:59 06:59 18:59 Intake Total 310 310 Output Total 800 Balance -490 310 Intake: Blood Product 310 310 Rc As-1 Unit 0 310 [id number] Rc Irr As1 Unit 310 [id number] Output: Urine 800 Straight 800 Other: # Voids 0 0 - Exam GENERAL EXAM: Alert, pleasant 74-year-old female patient, on room air comfortable in no apparent distress. HEAD: Normocephalic. EYES: Normal reaction of pupils, equal size. NOSE: Clear with pink turbinates. THROAT: No erythema or exudates. NECK: No masses, no JVD. CHEST: No chest wall deformity. LUNGS: Equal air entry with basilar crackles right greater than left, diminished in the right base CVS: S1 and S2 normal with no audible murmur, regular rhythm. ABDOMEN: No hepatosplenomegaly, normal bowel sounds, no guarding or rigidity. SPINE: No scoliosis or deformity SKIN: No rashes CENTRAL NERVOUS SYSTEM: No focal deficits, tone is normal in all 4 extremities. EXTREMITIES: There is no peripheral edema. No clubbing, no cyanosis. Peripheral pulses are intact. - Labs CBC & Chem 7: 02/22/20 05:36 02/22/20 05:36 Labs: Abnormal Lab Results - Last 24 Hours (Table) 02/21/20 02/21/20 02/21/20 Range/Units 05:55 09:19 10:34 RBC (3.80-5.40) m/uL Hgb (11.4-16.0) gm/dL Hct (34.0-46.0) % MCV (80.0-100.0) fL RDW (11.5-15.5) % Plt Count (150-450) k/uL Lymphocytes # (1.0-4.8) k/uL Macrocytosis BUN (9.0-27.0) mg/dL BUN/Creatinine Ratio (12.00-20.00) Ratio Glucose (70-110) mg/dL Calcium (8.7-10.3) mg/dL Magnesium 1.3 L (1.6-2.3) mg/dL Free [place] LC, Quant 2.52 H (0.33-1.94) mg/dL Free [place] LC, Quant 3.72 H (0.57-2.63) mg/dL Crossmatch See Detail 02/22/20 02/22/20 Range/Units 05:36 05:36 RBC 2.94 L (3.80-5.40) m/uL Hgb 10.1 L D (11.4-16.0) gm/dL Hct 31.0 L (34.0-46.0) % MCV 105.4 H D (80.0-100.0) fL RDW 21.8 H (11.5-15.5) % Plt Count 71 L (150-450) k/uL Lymphocytes # 0.2 L (1.0-4.8) k/uL Macrocytosis Marked A BUN 6.0 L (9.0-27.0) mg/dL BUN/Creatinine Ratio 10.00 L (12.00-20.00) Ratio Glucose 133 H (70-110) mg/dL Calcium 7.8 L (8.7-10.3) mg/dL Magnesium (1.6-2.3) mg/dL Free [place] LC, Quant (0.33-1.94) mg/dL Free [place] LC, Quant (0.57-2.63) mg/dL Crossmatch Microbiology - Last 24 Hours (Table) 02/20/20 16:13 Urine Culture - Preliminary Urine,Voided Gram Neg Bacilli 02/20/20 14:37 Blood Culture - Preliminary Blood No Growth after 24 hours Assessment and Plan Assessment: 1 Generalized weakness and fatigue suspect secondary to hyponatremia, anemia with a drop in hemoglobin to 5.8 today 2 Chronic alcoholism 3 Pancytopenia secondary to above, 2 units of packed red blood cells in order 4 Coagulopathy secondary to above 5 [id number] size right pleural effusion, measuring 8.4 cm however there is lung floating within the fluid pocket 6 Urinary tract infection secondary to gram-negative bacilli 7 Chronic back pain secondary to compression fractures Plan: The patient was seen and evaluated by Dr. Steinberg Chest x-ray and labs reviewed Lasix 40 mg IVP 1, IV fluids to KVO No plans for thoracentesis at this time as there is lung tissue noted within the pocket Maintaining good O2 saturations in the 90s on room air Continue antibiotics in the form of ceftriaxone and azithromycin Received 2 units of packed red blood cells Continue to monitor hemoglobin Remains in the CIIA protocol Educated regarding the importance of alcohol cessation We'll continue to follow and make further recommendations based on her clinical status I, the cosigning physician, performed a history & physical examination of the patient. Lungs sounds is crackles right greater than left, diminished in the right base. Maintaining good O2 saturations in the 90s on room air. I discussed the assessment and plan of care with my nurse practitioner, Carolina Smith. I attest to the above note as dictated by her.
--- NOTE | 2020-02-22 17:08 | PN ---
PROGRESS NOTE DATE OF SERVICE: 02/22/2020 This 74-year-old woman was admitted with bilateral pneumonia also had significant large pleural effusion. Dr. Steinberg is following the patient closely. Lasix has been given. Thoracocentesis has been on hold because the lung tissue has been noted in the pocket. The patient is confused, continued to be confused at this time. The urine culture showed gram-negative bacilli. Past medical history reviewed. REVIEW OF SYSTEMS: Review of systems could not be taken. The patient is confused. CURRENT MEDICATIONS: Reviewed and include: current medications are [place],.Zithromax Rocephin. Dilaudid, Keppra, Zestril, Ativan, Narcan, Restoril, vitamin B1. PHYSICAL EXAM: Patient is conscious confused. Pulse 81, blood pressure is 130/80, respirations 20. Temperature 97.4, pulse ox 94% on room air. HEENT: Conjunctivae normal. NECK: No JVD. CARDIOVASCULAR: S1, S2 muffled. RESPIRATORY: Breath sounds diminished in the bases. Bilateral scattered rhonchi and crackles. ABDOMEN: Soft. Nontender. NERVOUS SYSTEM: No focal deficits. LABS: WBC 6.2, hemoglobin 10.1. Covid 19 is negative. ASSESSMENT: 1. Bilateral pneumonia, right more the left with possibly aspiration with sepsis present on admission. 2. Right pleural effusion, possibly parapneumonic. 3. Anemia, rule out acute blood loss anemia. 4. Possible alcohol withdrawal syndrome. 5. Acute DTs early. 6. History of alcohol dependence. 7. Hyponatremia. 8. Hypovolemia. 9. Metabolic acidosis, elevated lactic acid, possible lactic acidosis, multifactorial. 10.Pancytopenia, undetermined etiology. 11.History of essential thrombocythemia previously. 12.Acute urinary tract infection with gram-negative bacilli, present on admission. 13.History of mild coagulopathy possibly secondary to liver disease. 14.History of cerebrovascular accident, transient ischemic attack. 15.Gastroesophageal reflux disease. 16.Hypertension. 17.Hyperlipidemia. 18.History of degenerative joint disease. 19.History of seizure disorder. 20.History of blood clot in the brain. 21.History of compression fractures of T8-S1. 22.History of tonsillectomy. 23.History of anxiety. 24.FULL CODE. RECOMMENDATIONS AND DISCUSSION: Recommend to continue current medications, management and continue with broad-spectrum IV antibiotics. Follow the cultures. Otherwise Lasix 40 mg IV has been given today. Continue to monitor. Prognosis guarded. Multivitamin supplements. Protonix. DVT prophylaxis. Guarded prognosis. Further recommendations to follow. MMODL / IJN: [id number] /
[2020-02-22] MEDS: LORazepam 1 MG TAB PO PRN (19:55)
[2020-02-22] MEDS: TEMAZEPAM 15 MG CAP PO PRN (22:10)
--- NOTE | 2020-02-22 22:41 | PN ---
PROGRESS NOTE DATE OF SERVICE: 02/22/2020 REASON FOR FOLLOWUP: UTI and pneumonia. INTERVAL HISTORY: Patient is currently afebrile. The patient has been slightly more awake and alert. She is breathing comfortably. Denies having any chest pain. Minimal cough. No abdominal pain or diarrhea. PHYSICAL EXAMINATION: Blood pressure 131/83 with a pulse of 110. Temperature 97.5. She is 94% on 2 L nasal cannula. General description is an elderly female lying in bed in no distress. Respiratory system: Unlabored breathing, decreased breath sounds in the base. No wheeze. Heart S1, S2. Regular rate and rhythm. ABDOMEN: Soft. EXTREMITIES: No edema of the feet. LABS: Hemoglobin is 10.1, hematocrit 6.1. BUN of 6, creatinine 0.7. DIAGNOSTIC IMPRESSION AND PLAN: Patient with weakness, multifactorial with a component of Klebsiella urinary tract infection plus-minus pneumonia. Patient is covered with Rocephin and Zithromax to continue and monitor clinical course closely. MMODL / IJN: [id number] /
[2020-02-22] MEDS: LORazepam 2 MG/ML INJ IV PRN (23:56)
[2020-02-23] MEDS: LORazepam 2 MG/ML INJ IV PRN ×2 (02:20→05:59)
[2020-02-23 06:37] LABS: Anisocytosis Moderate; Basophils % (A) 0 %; Eosinophils % (A) 1 %; HCT 26.5 % (34.0-46.0); HGB 9.5 gm/dL (11.4-16.0); Lymphocytes # (A) 0.4 k/uL (1.0-4.8); Lymphocytes % (A) 9 %; MCH 36.5 pg (25.0-35.0); MCHC 35.6 g/dL (31.0-37.0); MCV 102.6 fL (80.0-100.0); Mean Platelet Volume 8.3; Monocytes # (A) 0.4 k/uL (0-1.0); Monocytes % (A) 8 %; Neutrophils # (A) 4.1 k/uL (1.3-7.7); Neutrophils % (A) 81 %; Poikilocytosis Slight; RBC 2.59 m/uL (3.80-5.40); RDW 20.9 % (11.5-15.5); WBC 5.1 k/uL (3.8-10.6)
[2020-02-23 06:38] LABS: Platelet Count 75 k/uL (150-450)
[2020-02-23 06:39] LABS: Macrocytosis Marked
[2020-02-23] MEDS: POTASSIUM CHLORIDE ER 20 MEQ TAB.ER PO STA ×2 (08:58→09:00)
[2020-02-23] MEDS: AZITHROMYCIN 500 MG in SODIUM CHLORIDE 0.9% 250 ML IVPB SCH (08:58)
[2020-02-23] MEDS: lisinopriL 20 MG TAB PO SCH (09:00)
[2020-02-23] MEDS: METOPROLOL SUCCINATE (ER) 25 MG TAB.ER.24H PO SCH (09:00)
[2020-02-23] MEDS: levETIRAcetam 500 MG TAB PO SCH ×2 (09:00→22:15)
[2020-02-23] MEDS: THIAMINE 100 MG TAB PO SCH ×2 (09:00→17:16)
[2020-02-23] MEDS: MULTIVITAMINS, THERA 1 EACH TAB PO SCH (09:01)
[2020-02-23] MEDS: PANTOPRAZOLE 40 MG/10 ML VIAL IVP SCH (09:01)
[2020-02-23] MEDS: FOLIC ACID 1 MG TAB PO SCH (09:01)
--- NOTE | 2020-02-23 09:48 | P.CRDCN ---
History of Present Illness Consult date: 02/23/20 History of present illness: CHIEF COMPLAINT: V. tach HISTORY OF PRESENT ILLNESS: This is a 74-year-old female with a past medical history significant for hypertension, hemorrhagic CVA with craniotomy, seizure disorder, and alcoholism. Patient follows in the office with Dr. Zuleta. We have been asked to see the patient in consultation for v-tach. Patient is admitted to the hospital due to weakness, fatigue, hyponatremia, and urinary tract infection. Patient is currently going through alcohol withdrawal per the nurse and is receiving Ativan as needed. Patient is confused and unable to provide any history. Patient had a run of nonsustained ventricular tachycardia on 02/21/2020 hence cardiology was consulted for further evaluation. Patients magnesium was found to be 1.3 at that time. She received supplementation and most recent magnesium level is 2.2. Patient denies any chest pain or pressure. Denies shortness of breath. Echocardiogram completed on 02/20/2019 revealed ejection fraction 55-60% with moderate mitral regurgitation. Patient underwent cardiac catheterization with Dr. Zuleta in April 2019 revealing mild disease in the proximal to mid LAD. Medical management was advised. DIAGNOSTICS: EKG reveals sinus tachycardia with diffuse T-wave inversions Chest xray chronic changes and cardiomegaly with fairly moderate size right pleural effusion. New left basilar acute atelectasis and/or infiltrate is seen. Laboratory data: WBC 5.1. Hemoglobin 9.5. Platelet count 75. Sodium 136. Potassium 3.6. BUN 6. Creatinine 0.6. Magnesium 2.2. Current home cardiac medications include lisinopril 40 mg daily, Lipitor 40 mg daily, and Toprol-XL 25 mg twice a day REVIEW OF SYSTEMS: Unable to obtain thorough review of systems secondary to altered mental status PHYSICAL EXAM: VITAL SIGNS: Reviewed. GENERAL: Well-developed in no acute distress. HEENT: Head is normocephalic. Pupils are equal, round. Sclerae anicteric. Mucous membranes of the mouth are moist. Neck supple. No JVD or thyromegaly LUNGS: Respirations even and unlabored. Lungs diminished bilaterally. HEART: Regular rate and rhythm. S1 and S2 heard. Systolic murmur noted. ABDOMEN: Soft. Nondistended. Nontender. EXTREMITIES: Normal range of motion. No clubbing or cyanosis. Peripheral pulses intact. No lower extremity edema NEUROLOGIC: Awake. Oriented 1. ASSESSMENT: Weakness and fatigue Hyponatremia Nonsustained ventricular tachycardia Hypomagnesemia Right-sided pleural effusion, pulmonary following, no plans for thoracentesis at this time Pancytopenia Urinary tract infection Alcohol withdrawal Anemia, s/p RBC transfusion PLAN: Obtain 2D echo to assess cardiac structure and function Continue current cardiac medications Increase Metoprolol Continue to monitor electrolytes and supplement as needed Pulmonary following for right sided pleural effusion Oncology following for anemia Further recommendations pending patient course Nurse practitioner note has been reviewed by physician. Signing provider agrees with the documented findings, assessment, and plan of care. 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 History of Any Multi-Drug Resistant Organisms: None Reported Past Surgical History: Tonsillectomy Additional Past Surgical History / Comment(s): Colonoscopy, EGD WITH DILATION, SURGERY FOR BLOOD CLOT IN BRAIN. Past Anesthesia/Blood Transfusion Reactions: No Reported Reaction Past Psychological History: Anxiety Additional Psychological History / Comment(s): STATES HER SPOUSE PASSED 1 YEAR AGO Smoking Status: Never smoker Past Alcohol Use History: Daily Additional Past Alcohol Use History / Comment(s): STATES 6 BEERS DAILY Past Drug Use History: None Reported - Past Family History Father Family Medical History: Myocardial Infarction (CO) Additional Family Medical History / Comment(s): Father of a CO at the age of 73 yrs. Mother History Unknown: Yes Additional Family Medical History / Comment(s): Mother at the age of 84 yrs. She had a murmur and her heart would "skip a beat". Medications and Allergies Home Medications Medication Instructions Recorded Confirmed Type Ergocalciferol [Vitamin D2 50,000 unit PO WE 01/26/18 02/20/20 History (DRISDOL)] Hydroxyurea 500 mg PO MOTUWETH 01/26/18 02/20/20 History Cyclobenzaprine [Flexeril] 5 mg PO DAILY PRN 02/20/19 02/20/20 History Atorvastatin [Lipitor] 40 mg PO DAILY 04/23/19 02/20/20 History Metoprolol Succinate (ER) [Toprol 25 mg PO BID 04/23/19 02/20/20 History Xl] levETIRAcetam [Keppra] 1,000 mg PO Q12HR 02/20/20 02/20/20 History lisinopriL 40 mg PO DAILY 02/20/20 02/20/20 History Allergies Allergy/AdvReac Type Severity Reaction Status Date / Time No Known Allergies Allergy Verified 02/20/20 11:47 Physical Exam Vitals: Vital Signs Temp Pulse Resp BP Pulse Ox 02/23/20 07:37 98.6 F 117 H 20 138/93 93 L 02/23/20 01:51 97.5 F L 102 H 19 110/77 95 02/22/20 20:00 110 H 18 02/22/20 19:01 97.5 F L 110 H 18 131/83 94 L 02/22/20 14:00 97.3 F L 98 18 122/83 94 L Intake and Output 02/22/20 02/23/20 02/23/20 22:59 06:59 14:59 Intake Total 20 Output Total 700 250 Balance -680 -250 Intake: Intake, IV Titration 20 Amount Sodium Chloride 0.9% 1, 20 000 ml @ 20 mls/hr IV . Q24H [facility] Rx#:[id number] Output: Urine 700 250 Other: Voiding Method Bedside Commode Results 02/23/20 06:18 02/22/20 05:36 CBC 02/23/20 Range/Units 06:18 WBC 5.1 (3.8-10.6) k/uL RBC 2.59 L (3.80-5.40) m/uL Hgb 9.5 L (11.4-16.0) gm/dL Hct 26.5 L (34.0-46.0) % Plt Count 75 L (150-450) k/uL Comprehensive Metabolic Panel 02/22/20 Range/Units 05:36 Sodium 136 (135-145) mmol/L Potassium 3.6 (3.5-5.5) mmol/L Chloride 104 (96-109) mmol/L Carbon Dioxide 23.1 (21.6-31.8) mmol/L BUN 6.0 L (9.0-27.0) mg/dL Creatinine 0.6 (0.6-1.5) mg/dL Glucose 133 H (70-110) mg/dL Calcium 7.8 L (8.7-10.3) mg/dL Current Medications Generic Name Dose Route Start Last Admin Trade Name Freq PRN Reason Stop Dose Admin Hydrocodone Bitart/Acetaminophen 1 each 02/20/20 14:34 02/21/20 17:49 Hydrocodone/Apap 5-325mg 1 Each Tab PO 1 each Q6HR PRN Administration Pain Folic Acid 1 mg 02/23/20 12:00 02/23/20 09:01 Folic Acid 1 Mg Tab PO 1 mg DAILY@1200 [facility] Administration Hydromorphone HCl 0.5 mg 02/20/20 14:34 Hydromorphone 0.5 Mg/0.5 Ml Syringe IVP Q6HR PRN Severe Pain Sodium Chloride 1,000 mls @ 20 mls/hr 02/20/20 12:15 02/22/20 16:40 Saline 0.9% IV 20 mls/hr .Q24H [facility] Administration Azithromycin 500 mg/ Sodium 250 mls @ 250 mls/hr 02/20/20 13:15 02/23/20 08:58 Chloride IVPB 250 mls/hr DAILY [facility]ID Administration Ceftriaxone Sodium 1 gm/ 50 mls @ 100 mls/hr 02/21/20 09:00 02/23/20 08:59 Sodium Chloride IVPB 100 mls/hr Q24HR [facility] Administration Levetiracetam 1,000 mg 02/20/20 15:00 02/23/20 09:00 Levetiracetam 500 Mg Tab PO 1,000 mg Q12HR [facility] Administration Lisinopril 40 mg 02/21/20 09:00 02/23/20 09:00 Lisinopril 20 Mg Tab PO 40 mg DAILY [facility] Administration Lorazepam 1 mg 02/20/20 14:34 02/23/20 05:59 Lorazepam 2 Mg/Ml Inj IV 1 mg Q2HR PRN Administration CIWA 8 or 9 Lorazepam 1 mg 02/20/20 14:34 Lorazepam 2 Mg/Ml Inj IV Q1HR PRN CIWA 10 to 15 Lorazepam 1 mg 02/21/20 14:02 02/22/20 19:55 Lorazepam 1 Mg Tab PO 1 mg Q4HR PRN Administration Anxiety Metoprolol Succinate 25 mg 02/20/20 21:00 02/23/20 09:00 Metoprolol Succinate (Er) 25 Mg Tab.Er.24h PO 25 mg BID DAVID Administration Miscellaneous Information 1 each 02/21/20 16:51 Magnesium Replacement Protocol 1 Each Misc MISCELLANE DAILY PRN Per Protocol Protocol Multivitamins 1 each 02/23/20 12:00 02/23/20 09:01 Multivitamins, Thera 1 Each Tab PO 1 each DAILY@1200 [facility] Administration Naloxone HCl 0.2 mg 02/20/20 12:12 Naloxone 0.4 Mg/Ml 1 Ml Vial IV Q2M PRN Opioid Reversal Pantoprazole Sodium 40 mg 02/20/20 14:45 02/23/20 09:01 Pantoprazole 40 Mg/10 Ml Vial IVP 40 mg DAILY DAVID Administration Temazepam 15 mg 02/20/20 14:34 02/22/20 22:10 Temazepam 15 Mg Cap PO 15 mg HS PRN Administration Insomnia Thiamine HCl 100 mg 02/20/20 17:30 02/23/20 09:00 Thiamine 100 Mg Tab PO 100 mg BID-W/MEALS DAVID Administration Intake and Output 02/22/20 02/23/20 02/23/20 22:59 06:59 14:59 Intake Total 20 Output Total 700 250 Balance -680 -250 Intake: Intake, IV Titration 20 Amount Sodium Chloride 0.9% 1, 20 000 ml @ 20 mls/hr IV . Q24H [facility] Rx#:[id number] Output: Urine 700 250 Other: Voiding Method Bedside Commode 02/23/20 06:18 02/22/20 05:36
[2020-02-23 10:07] LABS: African American GFR (CKD) 110.5 (60.0-200.0); Anion Gap 9.2 mmol/L (4.00-12.00); Calcium 7.7 mg/dL (8.7-10.3); Carbon Dioxide 24.8 mmol/L (21.6-31.8); Non-African American GFR(CKD) 95.3 (60.0-200.0); Potassium 3.4 mmol/L (3.5-5.5)
--- NOTE | 2020-02-23 11:13 | US ---
EXAMINATION TYPE: US chest DATE OF EXAM: 02/23/2020 COMPARISON: US 2 days ago. Chest x-ray one day ago. CLINICAL HISTORY: effusion. TECHNIQUE: Targeted ultrasound of the posterior lower bilateral hemithoraces EXAM MEASUREMENTS: Right Pleural Effusion pocket size: 9.1 cm Right skin surface to fluid distance: 1.9 cm Left Pleural Effusion pocket size: 2.2 cm Left skin surface to fluid distance: 2.8 cm Right side marked for possible thoracentesis outside the dept. Left side not marked for possible thoracentesis outside the dept. Pulmonologists are able to review the images in the patient?s EMR. Stable tiny left pleural effusion. Small to moderate-sized right pleural effusion slightly larger fro m recent ultrasound. Findings correlate with x-ray one day earlier. IMPRESSIONS: As above.
[2020-02-23 11:46] LABS: ABG Base Excess 1.2 mmol/L; ABG HCO3 24 mmol/L (21-25); ABG PCO2 30 mmHg (35-45); ABG PH 7.51 (7.35-7.45); ABG PO2 142 mmHg (83-108); ABG TCO2 25 mmol/L (19-24); Allen Test Performed? Yes
--- NOTE | 2020-02-23 12:41 | P.PN ---
Subjective Progress Note Date: 02/23/20 Principal diagnosis: Pancytopenia No transfusion support needed today Objective - Vital Signs Vital signs: Vital Signs Temp 98.6 F 02/23/20 07:37 Pulse 117 H 02/23/20 07:37 Resp 20 02/23/20 08:00 BP 138/93 02/23/20 07:37 Pulse Ox 93 L 02/23/20 07:37 Intake & Output 02/22/20 02/23/20 02/23/20 18:59 06:59 18:59 Intake Total 20 Output Total 1600 250 Balance -1580 -250 Intake: Intake, IV Titration 20 Amount Sodium Chloride 0.9% 1, 20 000 ml @ 20 mls/hr IV . Q24H [facility] Rx#:[id number] Output: Urine 1600 250 Other: Voiding Method Bedside Commode Bedside Commode - Exam - Constitutional General appearance: cooperative, mild distress - EENT Eyes: EOMI ENT: NA/AT - Respiratory Respiratory: bilateral: diminished (increased effort (also anxious)) - Cardiovascular Abnormal Heart Sounds: click - Gastrointestinal General gastrointestinal: soft, tenderness - Integumentary Integumentary: pale - Neurologic non focal - Musculoskeletal Musculoskeletal: generalized weakness - Psychiatric Anxious Psychiatric: A&O x's 3 - Labs CBC & Chem 7: 02/23/20 06:18 02/23/20 06:18 Labs: Abnormal Lab Results - Last 24 Hours (Table) 02/23/20 02/23/20 02/23/20 Range/Units 06:18 06:18 06:18 RBC 2.59 L (3.80-5.40) m/uL Hgb 9.5 L (11.4-16.0) gm/dL Hct 26.5 L (34.0-46.0) % MCV 102.6 H (80.0-100.0) fL MCH 36.5 H (25.0-35.0) pg RDW 20.9 H (11.5-15.5) % Plt Count 75 L (150-450) k/uL Lymphocytes # 0.4 L (1.0-4.8) k/uL Macrocytosis Marked A ABG pH (7.35-7.45) ABG pCO2 (35-45) mmHg ABG pO2 (83-108) mmHg ABG Total CO2 (19-24) mmol/L ABG O2 Saturation (94-97) % Potassium 3.4 L (3.5-5.5) mmol/L BUN 5.0 L (9.0-27.0) mg/dL Creatinine 0.5 L (0.6-1.5) mg/dL BUN/Creatinine Ratio 10.00 L (12.00-20.00) Ratio Calcium 7.7 L (8.7-10.3) mg/dL Procalcitonin 5.02 H (0.02-0.09) ng/mL 02/23/20 Range/Units 11:36 RBC (3.80-5.40) m/uL Hgb (11.4-16.0) gm/dL Hct (34.0-46.0) % MCV (80.0-100.0) fL MCH (25.0-35.0) pg RDW (11.5-15.5) % Plt Count (150-450) k/uL Lymphocytes # (1.0-4.8) k/uL Macrocytosis ABG pH 7.51 H (7.35-7.45) ABG pCO2 30 L (35-45) mmHg ABG pO2 142 H (83-108) mmHg ABG Total CO2 25 H (19-24) mmol/L ABG O2 Saturation 100.0 H (94-97) % Potassium (3.5-5.5) mmol/L BUN (9.0-27.0) mg/dL Creatinine (0.6-1.5) mg/dL BUN/Creatinine Ratio (12.00-20.00) Ratio Calcium (8.7-10.3) mg/dL Procalcitonin (0.02-0.09) ng/mL Microbiology - Last 24 Hours (Table) 02/20/20 14:37 Blood Culture - Preliminary Blood No Growth after 48 hours 02/20/20 16:13 Urine Culture - Final Urine,Voided Klebsiella pneumoniae 02/21/20 12:49 Blood Culture - Preliminary Blood No Growth after 24 hours Assessment and Plan (1) Alcohol abuse Current Visit: Yes Status: Acute Code(s): F10.10 - ALCOHOL ABUSE, UNCOMPLICATED SNOMED Code(s): 66757449 (2) Pancytopenia Current Visit: Yes Status: Acute Code(s): D61.818 - OTHER PANCYTOPENIA SNOMED Code(s): 710181439 (3) Fall Current Visit: No Status: Acute Code(s): W19.XXXA - UNSPECIFIED FALL, INITIAL ENCOUNTER SNOMED Code(s): 3530524 Plan: Transfuse one unit PRBC today Hydrea to remain on hold. worsening CBC although stable. will hold off on further testing, such as bone marrow biopsy Transfuse Hemoglobin les than 7, platelet less than 10K. Hold NSAIDS, ASA, Anti-coagulation for platelet count less than 50K Pulm following.
[2020-02-23] MEDS: PIPERACILLIN-TAZOBACTAM 3.375 GM in SODIUM CHLORIDE 0.9% 100 ML IVPB SCH (12:57)
[2020-02-23] MEDS: SODIUM CHLORIDE 0.9% 1,000 ML IV SCH (12:57)
--- NOTE | 2020-02-23 13:27 | P.PN ---
Subjective Progress Note Date: 02/23/20 HISTORY OF PRESENT ILLNESS This is a 74-year-old female undergoing treatment for UTI and pneumon ia with Rocephin and Zithromax. Patient denies having any chest pain, no shortness of breath she denies any cough. No abdominal pain or diarrhea. She has been afebrile, heart rate 117, blood pressure 138/93, pulse ox 93% on room air. WBC 5.1, hemoglobin 9.5, platelet count 75. Pro-calcitonin 5.02. Creatinine 0.5. Urine culture finalized with Klebsiella pneumoniae. Blood cultures are showing no growth. PHYSICAL EXAMINATION Gen: This is a 74-year-old female. Patient is resting in bed and appears to be comfortable and in no acute distress. HEENT: Head is atraumatic, normocephalic. Pupils equal, round. Sclerae is anicteric. NECK: Supple. No JVD. No lymphadenopathy. LUNGS: Clear to auscultation. No wheezes or rhonchi. No intercostal retractions. HEART: Regular rate and rhythm. No murmur. ABDOMEN: Soft. Bowel sounds are present. No masses. No tenderness. EXTREMITIES: No pedal edema. No calf tenderness. NEUROLOGICAL: Patient is awake, alert and oriented x3. ASSESSMENT UTI Pneumonia Klebsiella PLAN Continue ceftriaxone and azithromycin Sputum cultures uncollected Further recommendations based upon clinical course. The above dictated assessment and findings were discussed with Dr. Mcdaniel. The impression and plan of care have been directed as dictated. Indigo Rajput nurse practitioner acting as scribe for Dr. Mcdaniel. Objective - Vital Signs Vital signs: Vital Signs Temp 98.6 F 02/23/20 07:37 Pulse 117 H 02/23/20 07:37 Resp 20 02/23/20 07:37 BP 138/93 02/23/20 07:37 Pulse Ox 93 L 02/23/20 07:37 Intake & Output 02/22/20 02/23/20 02/23/20 18:59 06:59 18:59 Intake Total 20 Output Total 1600 250 Balance -1580 -250 Intake: Intake, IV Titration 20 Amount Sodium Chloride 0.9% 1, 20 000 ml @ 20 mls/hr IV . Q24H [facility] Rx#:[id number] Output: Urine 1600 250 Other: Voiding Method Bedside Commode - Labs CBC & Chem 7: 02/23/20 06:18 02/23/20 06:18 Labs: Abnormal Lab Results - Last 24 Hours (Table) 02/23/20 02/23/20 Range/Units 06:18 06:18 RBC 2.59 L (3.80-5.40) m/uL Hgb 9.5 L (11.4-16.0) gm/dL Hct 26.5 L (34.0-46.0) % MCV 102.6 H (80.0-100.0) fL MCH 36.5 H (25.0-35.0) pg RDW 20.9 H (11.5-15.5) % Plt Count 75 L (150-450) k/uL Lymphocytes # 0.4 L (1.0-4.8) k/uL Macrocytosis Marked A Potassium 3.4 L (3.5-5.5) mmol/L BUN 5.0 L (9.0-27.0) mg/dL Creatinine 0.5 L (0.6-1.5) mg/dL BUN/Creatinine Ratio 10.00 L (12.00-20.00) Ratio Calcium 7.7 L (8.7-10.3) mg/dL Microbiology - Last 24 Hours (Table) 02/20/20 14:37 Blood Culture - Preliminary Blood No Growth after 48 hours 02/20/20 16:13 Urine Culture - Final Urine,Voided Klebsiella pneumoniae 02/21/20 12:49 Blood Culture - Preliminary Blood No Growth after 24 hours
--- NOTE | 2020-02-23 14:45 | P.PN ---
Subjective Progress Note Date: 02/23/20 Principal diagnosis: Generalized weakness, fatigue, hyponatremia, altered mental status This is a 74-year-old female patient who follows with Dr. Todd as her primary care provider. She has a history of seizure disorder, chronic back pain due to compression fractures, hyperlipidemia, hypertension, CVA/TIA, anxiety. She also admits to drinking 6-7 beers a day for approximately 54 years. She is and has been drinking a bit more she states. Yesterday she denied having been drinking but was sitting in the bathroom and on oral to get herself up off the toilet. She is not sure as to how long she had been sitting there prior to activating her [facility] to call for EMS. Chest x-ray revealed chronic changes and cardiomegaly along with a new small to moderate-sized right pleural effusion. We are consulted for the same. She is seen today on the regular medical floor. She is presently resting in bed. Awake and alert in no acute distress. On room air and maintaining O2 saturation in the 90s. CT angiogram revealed no evidence of pulmonary embolism. There is pleural effusions with right lower lobe atelectasis and infiltrate. There is noted progression of the T5 compression fracture. She was found to be quite anemic today initial hemoglobin 9.5 currently 5.8. No active GI bleeding noted. White count 1.5. Platelet count 59,000. INR 1.5. D-dimer 0.82. Sodium 131. Potassium 3.9. BUN 6. Creatinine 0.56. Glucose 119. Troponins are negative. LDH 704. AST 21. ALT 9. ProBNP 5620. Urinalysis is cloudy with trace blood and large nuchal sites and many WBCs in clumps. Few bacteria. Gagnon virus not detected. Serum alcohol 35. She has been initiated on ceftriaxone and azithromycin. 0.9, satting at 100 ML's per hour. IV Protonix. Thiamine. CIWA protocol in place. The patient is seen today 02/22/2020 in follow-up on the regular medical floor. She is awake and alert. Her speech is still somewhat garbled. Slow to respond. He is maintaining good O2 saturations in the mid 90s on room air. She's afebrile. Hemodynamically stable. Chest x-ray continues to show chronic changes and cardiomegaly with fairly moderate right-sided neural effusion. Associated right basilar atelectasis. Basilar atelectasis/infiltrate is noted. She did receive 2 units of packed red blood cells yesterday. Today's hemoglobin is 10.1. Urine culture positive for gram-negative bacilli. Blood culture revealing no growth to date. White count 6.1. Platelet count 71,000. Sodium 136. Potassium 3.6. Creatinine 0.6. She is continued on ceftriaxone and azithromycin. See well protocol is in place. She did receive Ativan last evening. 0.9 normal saline at 100 ML's per hour. On 02/23/2020 patient seen in follow-up on medical floor, she is quite lethargic on today's exam, reportedly patient has received quite a few doses of Ativan through the night for possibility of acute alcohol withdrawal, however at the CIWA scale only reports a CIWA score of 9. With the vigorous tactile stimulation patient does open her eyes however she falls back asleep, she doesn't follow command, and she is restless at times. Her pulse ox currently is 85% on 4 L blood gas was obtained, however her fingers are cold, and possibly the pulse ox is not working very well on her. Patient breathing comfortably, her blood gas showed pO2 of 142, pCO2 of 30, pH of 7.51, this was done and FiO2 of 44%. Her urine culture was found to be positive for Klebsiella pneumonia, her blood cultures have shown no growth, her pro-calcitonin level is still elevated at 5.02, however is down from 17.5 on admission. She has been afebrile, and hemodynamically she is been stable. Patient's chest x-ray showed chronic changes cardiomegaly with fairly moderate size right pleural effusion which had increased in size from prior studies with associated right basilar atelectasis, and new left basilar atelectasis. Patient is on antibiotics leading azithromycin and Rocephin, he seemed a dose of IV Lasix yesterday." She appears to be dry and today's exam. Laboratory data showed a white blood cell count of 5.1, hemoglobin of 9.5, white count is 75, potassium is 3.4, the rest of electrolytes were within normal limits BUN of 5 and creatinine of 0.5. Objective - Vital Signs Vital signs: Vital Signs Temp 98.6 F 02/23/20 07:37 Pulse 117 H 02/23/20 07:37 Resp 20 02/23/20 08:00 BP 138/93 02/23/20 07:37 Pulse Ox 93 L 02/23/20 07:37 Intake & Output 02/22/20 02/23/20 02/23/20 18:59 06:59 18:59 Intake Total 20 Output Total 1600 250 Balance -1580 -250 Intake: Intake, IV Titration 20 Amount Sodium Chloride 0.9% 1, 20 000 ml @ 20 mls/hr IV . Q24H [facility] Rx#:[id number] Output: Urine 1600 250 Other: Voiding Method Bedside Commode Bedside Commode - Exam GENERAL EXAM: Very lethargic 74-year-old white female on 4 L of oxygen, with a pulse ox of 85%, pulse oximetry is 91 consistent reading, and a blood gas was obtained and reviewed comfortable in no apparent distress. HEAD: Normocephalic/atraumatic. EYES: Normal reaction of pupils, equal size. Conjunctiva pink, sclera white. NOSE: Clear with pink turbinates. THROAT: No erythema or exudates. NECK: No masses, no JVD, no thyroid enlargement, no adenopathy. CHEST: No chest wall deformity. Symmetrical expansion. LUNGS: Equal air entry with no crackles, wheeze, rhonchi or dullness. CVS: Regular rate and rhythm, normal S1 and S2, no gallops, no murmurs, no rubs ABDOMEN: Soft, nontender. No hepatosplenomegaly, normal bowel sounds, no guarding or rigidity. EXTREMITIES: No clubbing, no edema, no cyanosis, 2+ pulses and upper and lower extremities. MUSCULOSKELETAL: Muscle strength and tone normal. SPINE: No scoliosis or deformity SKIN: No rashes CENTRAL NERVOUS SYSTEM: Lethargic, arousable to touch, and vigorous stimulation No focal deficits, tone is normal in all 4 extremities. - Labs CBC & Chem 7: 02/23/20 06:18 02/23/20 06:18 Labs: Abnormal Lab Results - Last 24 Hours (Table) 02/23/20 02/23/20 02/23/20 Range/Units 06:18 06:18 06:18 RBC 2.59 L (3.80-5.40) m/uL Hgb 9.5 L (11.4-16.0) gm/dL Hct 26.5 L (34.0-46.0) % MCV 102.6 H (80.0-100.0) fL MCH 36.5 H (25.0-35.0) pg RDW 20.9 H (11.5-15.5) % Plt Count 75 L (150-450) k/uL Lymphocytes # 0.4 L (1.0-4.8) k/uL Macrocytosis Marked A ABG pH (7.35-7.45) ABG pCO2 (35-45) mmHg ABG pO2 (83-108) mmHg ABG Total CO2 (19-24) mmol/L ABG O2 Saturation (94-97) % Potassium 3.4 L (3.5-5.5) mmol/L BUN 5.0 L (9.0-27.0) mg/dL Creatinine 0.5 L (0.6-1.5) mg/dL BUN/Creatinine Ratio 10.00 L (12.00-20.00) Ratio Calcium 7.7 L (8.7-10.3) mg/dL Procalcitonin 5.02 H (0.02-0.09) ng/mL 02/23/20 Range/Units 11:36 RBC (3.80-5.40) m/uL Hgb (11.4-16.0) gm/dL Hct (34.0-46.0) % MCV (80.0-100.0) fL MCH (25.0-35.0) pg RDW (11.5-15.5) % Plt Count (150-450) k/uL Lymphocytes # (1.0-4.8) k/uL Macrocytosis ABG pH 7.51 H (7.35-7.45) ABG pCO2 30 L (35-45) mmHg ABG pO2 142 H (83-108) mmHg ABG Total CO2 25 H (19-24) mmol/L ABG O2 Saturation 100.0 H (94-97) % Potassium (3.5-5.5) mmol/L BUN (9.0-27.0) mg/dL Creatinine (0.6-1.5) mg/dL BUN/Creatinine Ratio (12.00-20.00) Ratio Calcium (8.7-10.3) mg/dL Procalcitonin (0.02-0.09) ng/mL Microbiology - Last 24 Hours (Table) 02/20/20 14:37 Blood Culture - Preliminary Blood No Growth after 48 hours 02/20/20 16:13 Urine Culture - Final Urine,Voided Klebsiella pneumoniae 02/21/20 12:49 Blood Culture - Preliminary Blood No Growth after 24 hours Assessment and Plan Plan: Assessment: #1. Srvkt-[id number] right-sided pleural effusion, slightly enlarged from previous ultrasound, we will plan on thoracentesis tomorrow on 02/24/2020 for diagnostic purposes #2. Acute urinary tract infection with urine cultures positive for Klebsiella pneumonia #3. Altered mental status, with the possibility of acute alcohol withdrawal, and possibly related to underlying urinary tract infection and possibility of right lower lobe pneumonia is not completely excluded #4. Pancytopenia related to stress of alcoholism, and acute infection and sepsis, patient is status post 2 units of pack red blood cells #5. History of chronic alcoholism #6. Seizure disorder #7. Previous history of CVA/TIA #8. Chronic back pain due to compression fractures #9. Hyperlipidemia #10. Hypertension #11. Anxiety Plan: Continue current antibiotic coverage, maintain aspiration precautions, avoid oversedation with narcotics and benzodiazepines, chest x-ray cultures on the chest has been reviewed with Dr. Jimenes, when we will plan on right-sided thoracentesis tomorrow for diagnostic purposes. Obtain consent for the same right-sided thoracentesis by Dr. Jimenes on 02/24/2020 I performed a history & physical examination of the patient and discussed their management with my nurse practitioner, Cherise Richardson. I reviewed the nurse practitioner's note and agree with the documented findings and plan of care. Lung sounds are positive for diminished breath sounds at the right lower base. The findings and the impression was discussed with the patient. I attest to the documentation by the nurse practitioner. Time with Patient: Greater than 30
[2020-02-23 15:07] LABS: Albumin 1.98 g/dL (3.80-4.90); Gamma Globulin 1.02 g/dL (0.70-1.50)
--- NOTE | 2020-02-23 17:00 | ECHOF ---
Referral Reason:had run of [place]. possible cirrohosis MEASUREMENTS -------- HEIGHT: 165.1 cm WEIGHT: 68.0 kg BP: 110/77 RVIDd: 3.0 cm (< 3.3) IVSd: 1.2 cm (0.6 - 1.1) LVIDd: 3.4 cm (3.9 - 5.3) LVPWd: 1.2 cm (0.6 - 1.1) IVSs: 1.2 cm LVIDs: 2.6 cm LVPWs: 1.7 cm LA Diam: 4.3 cm (2.7 - 3.8) LAESV Index (A-L): 29.98 ml/m Ao Diam: 2.7 cm (2.0 - 3.7) AV Cusp: 1.8 cm (1.5 - 2.6) MV EXCURSION: 18.919 mm (> 18.000) MV EF SLOPE: 83 mm/s (70 - 150) EPSS: 0.8 cm AR PHT: 341 ms RAP: 5.00 mmHg RVSP: 89.85 mmHg FINDINGS -------- This was a technically adequate study. The left ventricular size is normal. There is mild concentric left ventricular hypertrophy. There is mild global hypokinesis of LV . Overall left ventricular systolic function is mildly impaired w ith, an EF between 45 - 50 %. The right ventricle is mildly enlarged. LA is midly dilated 29-33ml/m2. The right atrial size is normal. Interatrial and interventricular septum intact. The aortic valve is trileaflet and appears structurally normal. Trace to mild aortic regurgitation. There is no evidence of aortic stenosis. Moderate mitral regurgitation is present. Moderate to severe tricuspid regurgitation present. There is severe pulmonary hypertension. The r ight ventricular systolic pressure, as measured by Doppler, is 89.85mmHg. There is no pulmonic regurgitation present. The aortic root size is normal. There is no pericardial effusion. CONCLUSIONS -------- 1. The left ventricular size is normal. 2. There is mild concentric left ventricular hypertrophy. 3. There is mild global hypokinesis of LV . 4. Overall left ventricular systolic function is mildly impaired with, an EF between 45 - 50 %. 5. The right ventricle is mildly enlarged. 6. LA is midly dilated 29-33ml/m2. 7. The right atrial size is normal. 8. Trace to mild aortic regurgitation. 9. Moderate mitral regurgitation is present. 10. Moderate to severe tricuspid regurgitation present. 11. There is severe pulmonary hypertension. 12. The right ventricular systolic pressure, as measured by Doppler, is 89.85mmHg. ARMATURE WINDER REPAIR: Olinda Cheney RDCS
--- NOTE | 2020-02-23 17:26 | PN ---
PROGRESS NOTE DATE OF SERVICE: 02/23/2020. This 74-year-old woman was admitted with bilateral pneumonia also had significant large pleural effusion on the right side. Dr. Montes is following the patient closely and planning thoracocentesis. Patient also confused at this time. The patient being closely monitored. Patient is on broad-spectrum IV antibiotics. The patient also had respiratory alkalosis. Potassium 3.5. Underlying pneumonia. Procalcitonin high. The underlying pneumonia is also not completely ruled out and COVID-19 testing with rapid testing was negative. Past medical reviewed. Urine culture showed Klebsiella pneumonia which is poly sensitive. REVIEW OF SYSTEMS: Review of systems could not be taken, the patient is confused. CURRENT MEDICATIONS: [place]. Zithromax, ceftriaxone, folic acid, Dilaudid, , Zestril. Ativan. Toprol-XL, multivitamins. PHYSICAL EXAM: Patient is conscious, confused. Pulse 96. Blood pressure 139/88, respirations 22. Temperature 97.6. Pulse ox 100 percent on 6 L. HEENT: Conjunctivae normal. Neck: No JVD. CARDIOVASCULAR: S1, S2 muffled. Respirations: Breath sounds diminished in the bases. Bilateral scattered rhonchi and crackles. ABDOMEN: Soft, nontender. LEGS are no edema. No swelling. NERVOUS SYSTEM: No focal deficits. LABS: WBC 5.2, hemoglobin 9.5, platelets 75. ABGs noted. Sodium 130, potassium 3.4. ASSESSMENT: 1. Bilateral pneumonia, right more the left with possibly aspiration with sepsis present on admission. 2. Right pleural effusion, possibly parapneumonic. 3. Anemia, rule out acute blood loss anemia. 4. Change in mental status acute metabolic encephalopathy. 5. Possible alcohol withdrawal syndrome. 6. Acute DTs. 7. History of alcohol dependence. 8. Hyponatremia. 9. Klebsiella pneumoniae, urinary tract infection. 10.Hypovolemia. 11.Metabolic acidosis and elevated lactic acid possible lactic acidosis, multifactorial, present on admission. 12.Respiratory alkalosis, currently. 13.Pancytopenia, undetermined etiology. 14.History of essential thrombocythemia previously. 15.History of mild coagulopathy, possibly secondary to chronic liver disease. 16.History of cerebrovascular accident, transient ischemic attack. 17.Gastroesophageal reflux disease. 18.Hypertension. 19.Hyperlipidemia. 20.History of degenerative joint disease. 21.History of seizure disorder. 22.History of blood clot in the brain. 23.History of compressive fractures T8-S1. 24.History of tonsillectomy. 25.History of anxiety. 26.FULL CODE. RECOMMENDATIONS AND DISCUSSION: I recommend to continue current medications, continue to monitor. Symptomatic treatment. Otherwise at this time I recommend continue the broad-spectrum IV antibiotics. Follow the cultures. Otherwise, supplement vitamins. Closely follow with Pulmonary. Thoracocenteses per Dr. Montes. Guarded prognosis because of multiple complex medical issues and further recommendations to follow. MMODL / IJN: [id number] /
[2020-02-23] MEDS: MAGNESIUM SULFATE-D5W PMX 1 GM in DEXTROSE/WATER 1 100ML.BAG IVPB SCH (18:24)
[2020-02-23] MEDS: METOPROLOL SUCCINATE (ER) 50 MG TAB.ER.24H PO SCH (22:14)
[2020-02-24] MEDS ORDERED: MAGNESIUM SULFATE-D5W PMX 1 GM in DEXTROSE/WATER 1 100ML.BAG IVPB ONE (03:10)
[2020-02-24] MEDS: MAGNESIUM SULFATE-D5W PMX 1 GM in DEXTROSE/WATER 1 100ML.BAG IVPB SCH (03:12)
[2020-02-24] MEDS: PIPERACILLIN-TAZOBACTAM 3.375 GM in SODIUM CHLORIDE 0.9% 100 ML IVPB SCH ×4 (04:21→23:03)
[2020-02-24 07:16] LABS: Anisocytosis Moderate; Basophils % (A) 0 %; Eosinophils % (A) 1 %; HCT 31.7 % (34.0-46.0); HGB 10.7 gm/dL (11.4-16.0); Lymphocytes # (A) 0.8 k/uL (1.0-4.8); Lymphocytes % (A) 18 %; MCH 36.2 pg (25.0-35.0); MCHC 33.7 g/dL (31.0-37.0); MCV 107.4 fL (80.0-100.0); Macrocytosis Marked; Mean Platelet Volume 8.2; Monocytes # (A) 0.3 k/uL (0-1.0); Monocytes % (A) 5 %; Neutrophils # (A) 3.3 k/uL (1.3-7.7); Neutrophils % (A) 73 %; Platelet Count 100 k/uL (150-450); Poikilocytosis Slight; RBC 2.95 m/uL (3.80-5.40); RDW 21.3 % (11.5-15.5); WBC 4.5 k/uL (3.8-10.6)
--- NOTE | 2020-02-24 08:16 | XR ---
EXAMINATION TYPE: XR chest 1V portable DATE OF EXAM: 02/24/2020 Comparison: 02/22/2020 Clinical History: 74-year-old female right lower lobe pneumonia Findings: Right margin partially obscured by adjacent pleural parenchymal opacity. Continued small to moderate right effusion with prominent right mid and lower lung opacity. Patchy opacity at the left base also remains. Old healed left-sided rib fracture deformities. Displaced fracture deformity at the left pro ximal humeral surgical neck. Impression: Continued small to moderate right effusion with adjacent atelectasis and/or consolidation. Additional patchy infiltrate remains at the left base as well.
[2020-02-24] MEDS: lisinopriL 20 MG TAB PO SCH (08:54)
[2020-02-24] MEDS: METOPROLOL SUCCINATE (ER) 50 MG TAB.ER.24H PO SCH ×2 (08:54→22:32)
[2020-02-24] MEDS: levETIRAcetam 500 MG TAB PO SCH ×2 (08:54→22:32)
[2020-02-24] MEDS: PANTOPRAZOLE 40 MG/10 ML VIAL IVP SCH (08:54)
[2020-02-24] MEDS: THIAMINE 100 MG TAB PO SCH ×2 (08:54→15:42)
--- NOTE | 2020-02-24 11:02 | XR ---
EXAMINATION TYPE: XR chest 1V portable DATE OF EXAM: 02/24/2020 Comparison: Earlier today Clinical History: 74-year-old female status post right thoracentesis FINDINGS: Small effusions remain with bibasilar opacities, right greater than left. Effusion on the right shows some improvement. No appreciable pneumothorax. Heart remains enlarged. Displaced surgical neck fract ure of the proximal left humerus. Impression: Small bilateral pleural effusions, improved on the right. Adjacent patchy atelectasis/infiltrates rem ain. Mild cardiomegaly unchanged.
[2020-02-24] MEDS: FOLIC ACID 1 MG TAB PO SCH (12:55)
[2020-02-24] MEDS: MULTIVITAMINS, THERA 1 EACH TAB PO SCH (12:55)
[2020-02-24] MEDS: AZITHROMYCIN 500 MG in SODIUM CHLORIDE 0.9% 250 ML IVPB SCH (12:55)
--- NOTE | 2020-02-24 12:59 | P.PN ---
Subjective Progress Note Date: 02/24/20 Principal diagnosis: Pancytopenia Blood counts continue to improve and today remain in safe range without intervention. Objective - Vital Signs Vital signs: Vital Signs Temp 98.7 F 02/24/20 07:41 Pulse 112 H 02/24/20 08:00 Resp 20 02/24/20 08:00 BP 129/86 02/24/20 07:41 Pulse Ox 91 L 02/24/20 07:41 Intake & Output 02/23/20 02/24/20 02/24/20 18:59 06:59 18:59 Intake Total 60 Output Total 0 450 Balance 60 -450 Intake: Oral 60 Output: Urine 0 450 Uretheral ([place]) 450 Other: Voiding Method Bedside Commode Indwelling Catheter # Voids 2 # Bowel Movements 0 - Exam - Constitutional General appearance: cooperative, mild distress - EENT Eyes: EOMI ENT: NA/AT - Respiratory Respiratory: bilateral: diminished (increased effort (also anxious)) - Cardiovascular Abnormal Heart Sounds: click - Gastrointestinal General gastrointestinal: soft, tenderness - Integumentary Integumentary: pale - Neurologic non focal - Musculoskeletal Musculoskeletal: generalized weakness - Psychiatric Anxious Psychiatric: A&O x's 3 - Labs CBC & Chem 7: 02/24/20 07:10 02/24/20 07:10 Labs: Abnormal Lab Results - Last 24 Hours (Table) 02/21/20 02/24/20 Range/Units 05:55 07:10 RBC 2.95 L (3.80-5.40) m/uL Hgb 10.7 L (11.4-16.0) gm/dL Hct 31.7 L (34.0-46.0) % MCV 107.4 H (80.0-100.0) fL MCH 36.2 H (25.0-35.0) pg RDW 21.3 H (11.5-15.5) % Plt Count 100 L (150-450) k/uL Lymphocytes # 0.8 L (1.0-4.8) k/uL Macrocytosis Marked A Albumin (PEP) 1.98 L (3.80-4.90) g/dL Mlucf-6-Mwszvbwnr 0.50 H (0.10-0.40) g/dL Fmnsx-0-Dgcymeebt 0.42 L (0.60-1.00) g/dL Beta Globulins 0.28 L (0.60-1.30) g/dL Microbiology - Last 24 Hours (Table) 02/20/20 14:37 Blood Culture - Preliminary Blood No Growth after 72 hours 02/21/20 12:49 Blood Culture - Preliminary Blood No Growth after 48 hours Assessment and Plan (1) Alcohol abuse Current Visit: Yes Status: Acute Code(s): F10.10 - ALCOHOL ABUSE, UNCOMPLICATED SNOMED Code(s): 85462413 (2) Pancytopenia Current Visit: Yes Status: Acute Code(s): D61.818 - OTHER PANCYTOPENIA SNOMED Code(s): 963213901 (3) Fall Current Visit: No Status: Acute Code(s): W19.XXXA - UNSPECIFIED FALL, INITIAL ENCOUNTER SNOMED Code(s): 6586425 Plan: No transfusion needed today Hydrea to remain on hold at this time as cbc is recovering although low. Transfuse Hemoglobin les than 7, platelet less than 10K. Hold NSAIDS, ASA, Anti-coagulation for platelet count less than 50K Pulm following.
[2020-02-24 13:02] LABS: African American GFR (CKD) 110.5 (60.0-200.0); Anion Gap 9.7 mmol/L (4.00-12.00); Calcium 8.4 mg/dL (8.7-10.3); Carbon Dioxide 25.3 mmol/L (21.6-31.8); Non-African American GFR(CKD) 95.3 (60.0-200.0); Potassium 3.6 mmol/L (3.5-5.5)
[2020-02-24] MEDS ORDERED: POTASSIUM CHLORIDE ER 20 MEQ TAB.ER PO STA (13:47)
--- NOTE | 2020-02-24 13:53 | P.PN ---
Subjective Progress Note Date: 02/24/20 CHIEF COMPLAINT: V. tach HISTORY OF PRESENT ILLNESS: 02/23/2020 This is a 74-year-old female with a past medical history significant for hypertension, hemorrhagic CVA with craniotomy, seizure disorder, and alcoholism. Patient follows in the office with Dr. Zuleta. We have been asked to see the patient in consultation for v-tach. Patient is admitted to the hospital due to weakness, fatigue, hyponatremia, and urinary tract infection. Patient is currently going through alcohol withdrawal per the nurse and is receiving Ativan as needed. Patient is confused and unable to provide any history. Patient had a run of nonsustained ventricular tachycardia on 02/21/2020 hence cardiology was consulted for further evaluation. Patients magnesium was found to be 1.3 at that time. She received supplementation and most recent magnesium level is 2.2. Patient denies any chest pain or pressure. Denies shortness of breath. Echocardiogram completed on 02/20/2019 revealed ejection fraction 55-60% with moderate mitral regurgitation. Patient underwent cardiac catheterization with Dr. Zuleta in April 2019 revealing mild disease in the proximal to mid LAD. Medical management was advised. EKG reveals sinus tachycardia with diffuse T- wave inversions Chest xray chronic changes and cardiomegaly with fairly moderate size right pleural effusion. New left basilar acute atelectasis and/or infiltrate is seen. Current home cardiac medications include lisinopril 40 mg daily, Lipitor 40 mg daily, and Toprol-XL 25 mg twice a day 02/24/2020 Patient examined at the bedside. She underwent right thoracentesis today with pulmonary. Patient remains lethargic. No further runs of ventricular tachycardia noted. Echocardiogram completed revealed ejection fraction 45-50%, trace to mild aortic regurgitation, moderate mitral regurgitation, moderate to severe tricuspid regurgitation, and severe pulmonary hypertension. PHYSICAL EXAM: VITAL SIGNS: Reviewed. GENERAL: Well-developed in no acute distress. HEENT: Head is normocephalic. Pupils are equal, round. Sclerae anicteric. Mucous membranes of the mouth are moist. Neck supple. No JVD or thyromegaly LUNGS: Respirations even and unlabored. Lungs diminished bilaterally. HEART: Regular rate and rhythm. S1 and S2 heard. Systolic murmur noted. ABDOMEN: Soft. Nondistended. Nontender. EXTREMITIES: Normal range of motion. No clubbing or cyanosis. Peripheral pulses intact. No lower extremity edema NEUROLOGIC: Lethargic. Oriented 1. ASSESSMENT: Weakness and fatigue Hyponatremia Nonsustained ventricular tachycardia Hypomagnesemia Right-sided pleural effusion, s/p thoracentesis Pancytopenia Urinary tract infection Alcohol withdrawal Anemia, s/p RBC transfusion Nonischemic cardiomyopathy, EF 45% PLAN: Continue current cardiac medications Continue telemetry monitoring Continue to monitor electrolytes and supplement as needed Pulmonary following Oncology following for anemia We will follow on an as-needed basis. Please call with questions or concerns. Nurse practitioner note has been reviewed by physician. Signing provider agrees with the documented findings, assessment, and plan of care. Objective - Vital Signs Vital signs: Vital Signs Temp 98.7 F 02/24/20 07:41 Pulse 112 H 02/24/20 08:00 Resp 20 02/24/20 08:00 BP 129/86 02/24/20 07:41 Pulse Ox 91 L 02/24/20 07:41 Intake & Output 02/23/20 02/24/20 02/24/20 18:59 06:59 18:59 Intake Total 60 Output Total 0 450 Balance 60 -450 Intake: Oral 60 Output: Urine 0 450 Uretheral ([place]) 450 Other: Voiding Method Bedside Commode Indwelling Catheter # Voids 2 # Bowel Movements 0 - Labs CBC & Chem 7: 02/24/20 07:10 02/24/20 07:10 Labs: Abnormal Lab Results - Last 24 Hours (Table) 02/21/20 02/24/20 02/24/20 Range/Units 05:55 07:10 07:10 RBC 2.95 L (3.80-5.40) m/uL Hgb 10.7 L (11.4-16.0) gm/dL Hct 31.7 L (34.0-46.0) % MCV 107.4 H (80.0-100.0) fL MCH 36.2 H (25.0-35.0) pg RDW 21.3 H (11.5-15.5) % Plt Count 100 L (150-450) k/uL Lymphocytes # 0.8 L (1.0-4.8) k/uL Macrocytosis Marked A BUN 5.0 L (9.0-27.0) mg/dL Creatinine 0.5 L (0.6-1.5) mg/dL BUN/Creatinine Ratio 10.00 L (12.00-20.00) Ratio Calcium 8.4 L (8.7-10.3) mg/dL Albumin (PEP) 1.98 L (3.80-4.90) g/dL Aahvm-2-Pqpbucmzm 0.50 H (0.10-0.40) g/dL Yrign-3-Ehobvhzrh 0.42 L (0.60-1.00) g/dL Beta Globulins 0.28 L (0.60-1.30) g/dL Microbiology - Last 24 Hours (Table) 02/20/20 14:37 Blood Culture - Preliminary Blood No Growth after 72 hours 02/21/20 12:49 Blood Culture - Preliminary Blood No Growth after 48 hours
[2020-02-24 14:31] LABS: Appearance,BF Bloody; Nucleated Cells, Body Fluid 1000 /uL
[2020-02-24 14:34] LABS: RBC, Body Fluid 1230000 /uL
[2020-02-24 14:44] LABS: Mononuclear WBC,Body Fluid 26 %; Polynuclear WBC,Body Fluid 72 %; Total Cells Counted,Body Fluid 100
--- NOTE | 2020-02-24 14:44 | P.PN ---
Subjective Progress Note Date: 02/24/20 Principal diagnosis: Generalized weakness, fatigue, hyponatremia, altered mental status This is a 74-year-old female patient who follows with Dr. Todd as her primary care provider. She has a history of seizure disorder, chronic back pain due to compression fractures, hyperlipidemia, hypertension, CVA/TIA, anxiety. She also admits to drinking 6-7 beers a day for approximately 54 years. She is and has been drinking a bit more she states. Yesterday she denied having been drinking but was sitting in the bathroom and on oral to get herself up off the toilet. She is not sure as to how long she had been sitting there prior to activating her [facility] to call for EMS. Chest x-ray revealed chronic changes and cardiomegaly along with a new small to moderate-sized right pleural effusion. We are consulted for the same. She is seen today on the regular medical floor. She is presently resting in bed. Awake and alert in no acute distress. On room air and maintaining O2 saturation in the 90s. CT angiogram revealed no evidence of pulmonary embolism. There is pleural effusions with right lower lobe atelectasis and infiltrate. There is noted progression of the T5 compression fracture. She was found to be quite anemic today initial hemoglobin 9.5 currently 5.8. No active GI bleeding noted. White count 1.5. Platelet count 59,000. INR 1.5. D-dimer 0.82. Sodium 131. Potassium 3.9. BUN 6. Creatinine 0.56. Glucose 119. Troponins are negative. LDH 704. AST 21. ALT 9. ProBNP 5620. Urinalysis is cloudy with trace blood and large nuchal sites and many WBCs in clumps. Few bacteria. Gagnon virus not detected. Serum alcohol 35. She has been initiated on ceftriaxone and azithromycin. 0.9, satting at 100 ML's per hour. IV Protonix. Thiamine. CIWA protocol in place. The patient is seen today 02/22/2020 in follow-up on the regular medical floor. She is awake and alert. Her speech is still somewhat garbled. Slow to respond. He is maintaining good O2 saturations in the mid 90s on room air. She's afebrile. Hemodynamically stable. Chest x-ray continues to show chronic changes and cardiomegaly with fairly moderate right-sided neural effusion. Associated right basilar atelectasis. Basilar atelectasis/infiltrate is noted. She did receive 2 units of packed red blood cells yesterday. Today's hemoglobin is 10.1. Urine culture positive for gram-negative bacilli. Blood culture revealing no growth to date. White count 6.1. Platelet count 71,000. Sodium 136. Potassium 3.6. Creatinine 0.6. She is continued on ceftriaxone and azithromycin. See well protocol is in place. She did receive Ativan last evening. 0.9 normal saline at 100 ML's per hour. On 02/23/2020 patient seen in follow-up on medical floor, she is quite lethargic on today's exam, reportedly patient has received quite a few doses of Ativan through the night for possibility of acute alcohol withdrawal, however at the CIWA scale only reports a CIWA score of 9. With the vigorous tactile stimulation patient does open her eyes however she falls back asleep, she doesn't follow command, and she is restless at times. Her pulse ox currently is 85% on 4 L blood gas was obtained, however her fingers are cold, and possibly the pulse ox is not working very well on her. Patient breathing comfortably, her blood gas showed pO2 of 142, pCO2 of 30, pH of 7.51, this was done and FiO2 of 44%. Her urine culture was found to be positive for Klebsiella pneumonia, her blood cultures have shown no growth, her pro-calcitonin level is still elevated at 5.02, however is down from 17.5 on admission. She has been afebrile, and hemodynamically she is been stable. Patient's chest x-ray showed chronic changes cardiomegaly with fairly moderate size right pleural effusion which had increased in size from prior studies with associated right basilar atelectasis, and new left basilar atelectasis. Patient is on antibiotics leading azithromycin and Rocephin, he seemed a dose of IV Lasix yesterday." She appears to be dry and today's exam. Laboratory data showed a white blood cell count of 5.1, hemoglobin of 9.5, white count is 75, potassium is 3.4, the rest of electrolytes were within normal limits BUN of 5 and creatinine of 0.5. On February 24, 2020 patient seen in follow-up on medical floor, she is more awake today, she is currently on oxygen and her pulse ox is 91-96%, hemodynamically she is stable, she's been afebrile, breathing seems to be and nonlabored, repeat chest x-ray was completed today showing continue [id number] right pleural effusion with adjacent atelectasis and/or consolidation and additional patchy infiltrate at the left base as well, ultrasound of the chest was completed and showed creasing moderately sized right-sided pleural effusion, patient had recent history of falls at home and there is a possibility that patient may have a traumatic hemothorax as the patient has been treated with antibiotics and diuretics and the appearance of the right pleural effusion has not improved in response to treatment. Mentation was patient is doing better, she is much more awake, she is answering simple questions, she is cooperative, although still somewhat disoriented, no agitation, no tremors, no hallucinations. Bedside ri ght-sided thoracentesis was performed in 950 mL of bloody effusion was evacuated, and tolerated procedure well Objective - Vital Signs Vital signs: Vital Signs Temp 98.7 F 02/24/20 07:41 Pulse 112 H 02/24/20 08:00 Resp 20 02/24/20 08:00 BP 129/86 02/24/20 07:41 Pulse Ox 91 L 02/24/20 07:41 Intake & Output 02/23/20 02/24/20 02/24/20 18:59 06:59 18:59 Intake Total 60 Output Total 0 450 Balance 60 -450 Intake: Oral 60 Output: Urine 0 450 Uretheral ([place]) 450 Other: Voiding Method Bedside Commode Indwelling Catheter # Voids 2 # Bowel Movements 0 - Exam GENERAL EXAM: Awake on today's exam, 74-year-old white female on 6 L of oxygen, follows simple commands, giving basic answers, denies any acute distress, no tremors, no hallucinations, no headaches, with a pulse ox of 85%, pulse oximetry is 91 consistent reading, and a blood gas was obtained and reviewed comfortable in no apparent distress. HEAD: Normocephalic/atraumatic. EYES: Normal reaction of pupils, equal size. Conjunctiva pink, sclera white. NOSE: Clear with pink turbinates. THROAT: No erythema or exudates. NECK: No masses, no JVD, no thyroid enlargement, no adenopathy. CHEST: No chest wall deformity. Symmetrical expansion. LUNGS: Equal air entry with no crackles, wheeze, rhonchi or dullness. CVS: Regular rate and rhythm, normal S1 and S2, no gallops, no murmurs, no rubs ABDOMEN: Soft, nontender. No hepatosplenomegaly, normal bowel sounds, no guarding or rigidity. EXTREMITIES: No clubbing, no edema, no cyanosis, 2+ pulses and upper and lower extremities. MUSCULOSKELETAL: Muscle strength and tone normal. SPINE: No scoliosis or deformity SKIN: No rashes CENTRAL NERVOUS SYSTEM: Lethargic, arousable to touch, and vigorous stimulation No focal deficits, tone is normal in all 4 extremities. - Labs CBC & Chem 7: 02/24/20 07:10 02/24/20 07:10 Labs: Abnormal Lab Results - Last 24 Hours (Table) 02/21/20 02/21/20 02/24/20 Range/Units 05:55 05:55 07:10 RBC 2.95 L (3.80-5.40) m/uL Hgb 10.7 L (11.4-16.0) gm/dL Hct 31.7 L (34.0-46.0) % MCV 107.4 H (80.0-100.0) fL MCH 36.2 H (25.0-35.0) pg RDW 21.3 H (11.5-15.5) % Plt Count 100 L (150-450) k/uL Lymphocytes # 0.8 L (1.0-4.8) k/uL Macrocytosis Marked A BUN (9.0-27.0) mg/dL Creatinine (0.6-1.5) mg/dL BUN/Creatinine Ratio (12.00-20.00) Ratio Calcium (8.7-10.3) mg/dL Albumin (PEP) 1.98 L (3.80-4.90) g/dL Unpls-1-Mjeiwdjum 0.50 H (0.10-0.40) g/dL Gamjq-7-Avfdbfibr 0.42 L (0.60-1.00) g/dL Beta Globulins 0.28 L (0.60-1.30) g/dL Vitamin B1 12 L (38-122) ug/L 02/24/20 Range/Units 07:10 RBC (3.80-5.40) m/uL Hgb (11.4-16.0) gm/dL Hct (34.0-46.0) % MCV (80.0-100.0) fL MCH (25.0-35.0) pg RDW (11.5-15.5) % Plt Count (150-450) k/uL Lymphocytes # (1.0-4.8) k/uL Macrocytosis BUN 5.0 L (9.0-27.0) mg/dL Creatinine 0.5 L (0.6-1.5) mg/dL BUN/Creatinine Ratio 10.00 L (12.00-20.00) Ratio Calcium 8.4 L (8.7-10.3) mg/dL Albumin (PEP) (3.80-4.90) g/dL Dclxo-0-Gkadvnekm (0.10-0.40) g/dL Aqtps-3-Fwzahhbpg (0.60-1.00) g/dL Beta Globulins (0.60-1.30) g/dL Vitamin B1 (38-122) ug/L Microbiology - Last 24 Hours (Table) 02/20/20 14:37 Blood Culture - Preliminary Blood No Growth after 72 hours 02/21/20 12:49 Blood Culture - Preliminary Blood No Growth after 48 hours Assessment and Plan Plan: Assessment: #1. Asisa-ef-gdbcrnub right-sided pleural effusion, slightly enlarged from previous ultrasound, we will plan on thoracentesis tomorrow on 02/24/2020 for diagnostic purposes. Patient is status post right-sided thoracentesis today on 02/24/2020 with evacuation of 950 mL of bloody pleural effusion which was sent for analysis and cytology this is possibly related to recent history of falls and possibility of traumatic hemothorax #2. Acute urinary tract infection with urine cultures positive for Klebsiella pneumonia #3. Altered mental status, with the possibility of acute alcohol withdrawal, and possibly related to underlying urinary tract infection and possibility of right lower lobe pneumonia is not completely excluded #4. Pancytopenia related to stress of alcoholism, and acute infection and sepsis, patient is status post 2 units of pack red blood cells #5. History of chronic alcoholism #6. Seizure disorder #7. Previous history of CVA/TIA #8. Chronic back pain due to compression fractures #9. Hyperlipidemia #10. Hypertension #11. Anxiety Plan: Patient tolerated right-sided thoracentesis very well, postprocedure chest x-ray has been reviewed, still showing small bilateral pleural effusions, with improvement on the right. Encourage deep breathing and coughing, incentive spirometry use, weaning FiO2, likely patient suffered traumatic hemothorax relat ed to recent history of falls and thrombocytopenia related to chronic alcoholism. Will await results of the cytology and pleural fluid analysis, but the fluid was quite bloody. Continue supportive medical treatment, continue empiric antibiotics for now I performed a history & physical examination of the patient and discussed their management with my nurse practitioner, Cherise Richardson. I reviewed the nurse practitioner's note and agree with the documented findings and plan of care. Lung sounds are positive for diminished breath sounds at the right lower base. The findings and the impression was discussed with the patient. I attest to the documentation by the nurse practitioner. Time with Patient: Less than 30
[2020-02-24] MEDS: FUROSEMIDE 10 MG/ML 2 ML VIAL IV SCH (15:42)
--- NOTE | 2020-02-24 16:09 | PN ---
PROGRESS NOTE DATE OF SERVICE: 02/24/2020 This 74-year-old woman was admitted with bilateral pneumonia also had significant pleural effusion. Patient also confused. Dr. Montes performed a pleural tap at this time, which showed almost hemorrhagic fluid. A 2D echo with Doppler read by Cardiology showed ejection fraction about 40% to 45% and LA was dilated, also moderate mitral regurgitation also noted. The patient was closely monitored. Patient continues to be confused as mentioned. PAST MEDICAL HISTORY: Reviewed. REVIEW OF SYSTEMS: CARDIOVASCULAR SYSTEM: No angina. RESPIRATORY SYSTEM: As mentioned earlier. GI: As mentioned earlier. : No dysuria. NERVOUS SYSTEM: Diffusely weak. CURRENT MEDICATIONS: Current medications are reviewed and include: Crouse, Zithromax, Rocephin, Dilaudid, Zestril, Ativan, Toprol XL, multivitamins. PHYSICAL EXAMINATION: The patient is alert and oriented x2. Pulse is 112, blood pressure 129/86, respiration 20, temperature 98.7, pulse ox 91% on 6 L. HEENT: Conjunctivae normal. NECK: No jugular venous distention. CARDIOVASCULAR: S1, S2 muffled. RESPIRATORY: Breath sounds diminished at the bases. A few scattered rhonchi and crackles. ABDOMEN: Soft, nontender. LEGS: No edema. No swelling. NERVOUS SYSTEM: No focal deficits. LABS: WBC 4.5, hemoglobin 10.7, sodium 142, potassium 3.6. Pleural fluid is noted significant RBCs. ASSESSMENT: 1. Bilateral pneumonia, right more than the left with possibly aspiration with sepsis, present on admission. 2. Right pleural effusion hemorrhagic, possibly parapneumonic, status post thoracocentesis. 3. Anemia, rule out acute blood loss anemia. 4. Change in mental status, acute metabolic encephalopathy. 5. Congestive heart failure with chronic systolic dysfunction, ejection fraction 45% to 50%. 6. Moderate mitral regurgitation and moderate severe tricuspid regurgitation and severe pulmonary hypertension. 7. Change in mental status, acute metabolic encephalopathy multifactorial. 8. Possible alcohol withdrawal syndrome. 9. Acute delirium tremens. 10.History of alcohol dependence. 11.Hyponatremia. 12.Klebsiella pneumoniae acute urinary tract infection, present on admission. 13.Hypovolemia. 14.Metabolic acidosis and elevated lactic acid with possible lactic acidosis, multifactorial, present on admission. 15.Respiratory alkalosis, currently. 16.Pancytopenia, undetermined etiology. 17.History of essential thrombocythemia previously. 18.History of mild coagulopathy possibly secondary to chronic liver disease. 19.History of cerebrovascular accident, transient ischemic attack. 20.Gastroesophageal reflux disease. 21.Hypertension. 22.Hyperlipidemia. 23.History of degenerative joint disease. 24.History of seizure disorder. 25.History of blood clot in the brain. 26.History of compression fractures of T8 to S1. 27.History of tonsillectomy. 28.History of anxiety. 29.FULL CODE. RECOMMENDATIONS AND DISCUSSION: Recommend to continue current medications, continue symptomatic treatment. Continue with antibiotics. Continue with symptomatic treatment. The patient underwent thoracocentesis. Chest x-ray post thoracocentesis showed significant improvement. I would add a small dose of Lasix to the current regimen and continue to monitor. Guarded prognosis because of multiple complex medical issues. Further recommendations to follow. Continue with empiric antibiotics. MMODL / IJN: [id number] /
[2020-02-24 20:50] LABS: Glucose, BF Source Pleural Fluid; Glucose, Body Fluid 86 mg/dL; LDH, Body Fluid Source Pleural Fluid; Total Protein, Body Fluid 2600 mg/dL
[2020-02-24] MEDS: TEMAZEPAM 15 MG CAP PO PRN (22:00)
[2020-02-24] MEDS: LORazepam 1 MG TAB PO PRN (22:00)
[2020-02-24] MEDS: SODIUM CHLORIDE 0.9% 1,000 ML IV SCH (22:44)
--- NOTE | 2020-02-24 23:18 | PN ---
PROGRESS NOTE DATE OF SERVICE: 02/24/2020 REASON FOR FOLLOWUP: UTI and question of pneumonia. INTERVAL HISTORY: The patient is currently afebrile. The patient is breathing comfortably, complaining of weakness though. No chest pain. No shortness of breath. Minimal cough. No abdominal pain or diarrhea. PHYSICAL EXAMINATION: Blood pressure 115/79 with a pulse of 90, temperature 97.4. She is 98% on room air. General description is an elderly female lying in bed in no distress. Respiratory system: Unlabored breathing, decreased breath sounds at bases. No wheeze. Heart S1, S2. Regular rate and rhythm. ABDOMEN: Soft, no tenderness. LABS: Urine with Klebsiella sensitive pathogen. Hemoglobin is 10.7, white count 4.5. Patient is status post thoracocentesis which was mostly bloody. DIAGNOSTIC IMPRESSION AND PLAN: Patient admitted to hospital with weakness, which is multifactorial in this patient who did have a component of urinary tract infection plus-minus pneumonia covered with Rocephin to continue while monitoring clinical course closely. Continue supportive care. MMODL / IJN: [id number] /
--- NOTE | 2020-02-24 23:21 | PCN ---
PROCEDURE NOTE PROCEDURE PERFORMED: Right-sided thoracentesis. PREOPERATIVE DIAGNOSIS: Right pleural effusion. POSTOPERATIVE DIAGNOSIS: Right-sided bloody pleural effusion/hemothorax. ANESTHESIA USED: 2 mL of 1% lidocaine. PROCEDURE DETAILS: The patient was placed in a sitting upright position, the area below the right scapula was prepared in a sterile fashion and drapes were applied. The area of the markings by ultrasound was noted, and the area was locally anesthetized. Then using a 26-gauge needle, the area of the needle was inserted all the way into the pleural space. The fluid was obtained and the fluid was noted to be grossly bloody. Then a small tiny incision was made, and a standard thoracentesis catheter and needle were used and vented at the same site into the pleural space. Fluid was obtained and it was grossly bloody. Roughly 900 mL of grossly bloody pleural effusion was removed from the right pleural space. The procedure was well tolerated, no evidence of any immediate complications, and the chest x-ray was adequate postoperatively. The fluid was sent for different diagnostic studies. MMODL / IJN: [id number] /
[2020-02-25] MEDS: PIPERACILLIN-TAZOBACTAM 3.375 GM in SODIUM CHLORIDE 0.9% 100 ML IVPB SCH ×3 (03:09→21:16)
[2020-02-25] MEDS: lisinopriL 20 MG TAB PO SCH (08:41)
[2020-02-25] MEDS: METOPROLOL SUCCINATE (ER) 50 MG TAB.ER.24H PO SCH ×2 (08:42→21:16)
[2020-02-25] MEDS: THIAMINE 100 MG TAB PO SCH ×2 (08:42→18:16)
[2020-02-25] MEDS: AZITHROMYCIN 500 MG TAB PO SCH (08:42)
[2020-02-25] MEDS: levETIRAcetam 500 MG TAB PO SCH ×2 (08:42→21:16)
--- NOTE | 2020-02-25 11:10 | XR ---
EXAMINATION TYPE: XR chest 1V portable DATE OF EXAM: 02/25/2020 COMPARISON: 02/24/2020 INDICATION: Short of breath TECHNIQUE: Single frontal view of the chest is obtained. FINDINGS: The heart size is probably prominent. The pulmonary vasculature is normal. There is a right upper lobe infiltrate. Some platelike atelectasis within the right midlung. Left low er lobe consolidation is present which may be worsening. Right costophrenic angle infiltrate is prese nt. Minimal effusions are not excluded. IMPRESSION: 1. Worsening right upper lobe and left lower lobe consolidations with additional scattered infiltrate s and possible small effusions.
[2020-02-25] MEDS: LORazepam 1 MG TAB PO PRN (13:46)
--- NOTE | 2020-02-25 14:15 | P.PN ---
Subjective Progress Note Date: 02/25/20 Principal diagnosis: Generalized weakness, fatigue, hyponatremia, altered mental status This is a 74-year-old female patient who follows with Dr. Todd as her primary care provider. She has a history of seizure disorder, chronic back pain due to compression fractures, hyperlipidemia, hypertension, CVA/TIA, anxiety. She also admits to drinking 6-7 beers a day for approximately 54 years. She is and has been drinking a bit more she states. Yesterday she denied having been drinking but was sitting in the bathroom and on oral to get herself up off the toilet. She is not sure as to how long she had been sitting there prior to activating her [facility] to call for EMS. Chest x-ray revealed chronic changes and cardiomegaly along with a new small to moderate-sized right pleural effusion. We are consulted for the same. She is seen today on the regular medical floor. She is presently resting in bed. Awake and alert in no acute distress. On room air and maintaining O2 saturation in the 90s. CT angiogram revealed no evidence of pulmonary embolism. There is pleural effusions with right lower lobe atelectasis and infiltrate. There is noted progression of the T5 compression fracture. She was found to be quite anemic today initial hemoglobin 9.5 currently 5.8. No active GI bleeding noted. White count 1.5. Platelet count 59,000. INR 1.5. D-dimer 0.82. Sodium 131. Potassium 3.9. BUN 6. Creatinine 0.56. Glucose 119. Troponins are negative. LDH 704. AST 21. ALT 9. ProBNP 5620. Urinalysis is cloudy with trace blood and large nuchal sites and many WBCs in clumps. Few bacteria. Gagnon virus not detected. Serum alcohol 35. She has been initiated on ceftriaxone and azithromycin. 0.9, satting at 100 ML's per hour. IV Protonix. Thiamine. CIWA protocol in place. The patient is seen today 02/22/2020 in follow-up on the regular medical floor. She is awake and alert. Her speech is still somewhat garbled. Slow to respond. He is maintaining good O2 saturations in the mid 90s on room air. She's afebrile. Hemodynamically stable. Chest x-ray continues to show chronic changes and cardiomegaly with fairly moderate right-sided neural effusion. Associated right basilar atelectasis. Basilar atelectasis/infiltrate is noted. She did receive 2 units of packed red blood cells yesterday. Today's hemoglobin is 10.1. Urine culture positive for gram-negative bacilli. Blood culture revealing no growth to date. White count 6.1. Platelet count 71,000. Sodium 136. Potassium 3.6. Creatinine 0.6. She is continued on ceftriaxone and azithromycin. See well protocol is in place. She did receive Ativan last evening. 0.9 normal saline at 100 ML's per hour. On 02/23/2020 patient seen in follow-up on medical floor, she is quite lethargic on today's exam, reportedly patient has received quite a few doses of Ativan through the night for possibility of acute alcohol withdrawal, however at the CIWA scale only reports a CIWA score of 9. With the vigorous tactile stimulation patient does open her eyes however she falls back asleep, she doesn't follow command, and she is restless at times. Her pulse ox currently is 85% on 4 L blood gas was obtained, however her fingers are cold, and possibly the pulse ox is not working very well on her. Patient breathing comfortably, her blood gas showed pO2 of 142, pCO2 of 30, pH of 7.51, this was done and FiO2 of 44%. Her urine culture was found to be positive for Klebsiella pneumonia, her blood cultures have shown no growth, her pro-calcitonin level is still elevated at 5.02, however is down from 17.5 on admission. She has been afebrile, and hemodynamically she is been stable. Patient's chest x-ray showed chronic changes cardiomegaly with fairly moderate size right pleural effusion which had increased in size from prior studies with associated right basilar atelectasis, and new left basilar atelectasis. Patient is on antibiotics leading azithromycin and Rocephin, he seemed a dose of IV Lasix yesterday." She appears to be dry and today's exam. Laboratory data showed a white blood cell count of 5.1, hemoglobin of 9.5, white count is 75, potassium is 3.4, the rest of electrolytes were within normal limits BUN of 5 and creatinine of 0.5. On February 24, 2020 patient seen in follow-up on medical floor, she is more awake today, she is currently on oxygen and her pulse ox is 91-96%, hemodynamically she is stable, she's been afebrile, breathing seems to be and nonlabored, repeat chest x-ray was completed today showing continue [id number] right pleural effusion with adjacent atelectasis and/or consolidation and additional patchy infiltrate at the left base as well, ultrasound of the chest was completed and showed creasing moderately sized right-sided pleural effusion, patient had recent history of falls at home and there is a possibility that patient may have a traumatic hemothorax as the patient has been treated with antibiotics and diuretics and the appearance of the right pleural effusion has not improved in response to treatment. Mentation was patient is doing better, she is much more awake, she is answering simple questions, she is cooperative, although still somewhat disoriented, no agitation, no tremors, no hallucinations. Bedside ri ght-sided thoracentesis was performed in 950 mL of bloody effusion was evacuated, and tolerated procedure well 02/25/2020, patient seen in follow-up on general medical floor. S/P right-sided thoracentesis yesterday with evacuation with just under a liter of bloody effusion, cytology of the fluid is pending, pleural fluid analysis showed transudative fluid although it was extremely bloody. Fluid cultures are pending. The FiO2 is down to 4 L and a pulse ox is 9200%, she is breathing comfortably, she remains on antibiotics. She is on azithromycin and Rocephin. Follow-up chest x-ray was completed and reviewed showing worsening right upper lobe and left lower lobe consolidation with additional scattered infiltrates and possible small effusions. Clinically patient is requiring FiO2, his labs have been reviewed showing white blood cell count of 4.5, platelet count of 100 Objective - Vital Signs Vital signs: Vital Signs Temp 98.2 F 02/25/20 08:00 Pulse 100 02/25/20 08:00 Resp 18 02/25/20 08:00 BP 118/79 02/25/20 08:00 Pulse Ox 98 02/25/20 08:00 Intake & Output 02/24/20 02/25/20 02/25/20 18:59 06:59 18:59 Output Total 1350 850 Balance -1350 -850 Output: Urine 1350 850 Uretheral ([place]) 450 100 Other: Voiding Method Indwelling Catheter Indwelling Catheter Indwelling Catheter - Exam GENERAL EXAM: Awake on today's exam, 74-year-old white female on 4 L of oxygen, follows simple commands, giving basic answers, denies any acute distress, no tremors, no hallucinations, no headaches, with a pulse ox of 85%, pulse oximetry is 91 consistent reading, and a blood gas was obtained and reviewed comfortable in no apparent distress. HEAD: Normocephalic/atraumatic. EYES: Normal reaction of pupils, equal size. Conjunctiva pink, sclera white. NOSE: Clear with pink turbinates. THROAT: No erythema or exudates. NECK: No masses, no JVD, no thyroid enlargement, no adenopathy. CHEST: No chest wall deformity. Symmetrical expansion. LUNGS: Equal air entry with no crackles, wheeze, rhonchi or dullness. CVS: Regular rate and rhythm, normal S1 and S2, no gallops, no murmurs, no rubs ABDOMEN: Soft, nontender. No hepatosplenomegaly, normal bowel sounds, no guarding or rigidity. EXTREMITIES: No clubbing, no edema, no cyanosis, 2+ pulses and upper and lower extremities. MUSCULOSKELETAL: Muscle strength and tone normal. SPINE: No scoliosis or deformity SKIN: No rashes CENTRAL NERVOUS SYSTEM: Lethargic, arousable to touch, and vigorous stimulation No focal deficits, tone is normal in all 4 extremities. - Labs CBC & Chem 7: 02/24/20 07:10 02/24/20 07:10 Labs: Microbiology - Last 24 Hours (Table) 02/24/20 10:30 Gram Stain - Preliminary Pleural Fluid Body Fluid Culture - Preliminary 02/24/20 10:30 Acid Fast Bacilli Smear - Final Pleural Fluid Acid Fast Bacilli Culture - Preliminary 02/24/20 10:30 Fungal Culture - Preliminary Pleural Fluid 02/24/20 10:30 Anaerobic Culture - Preliminary Pleural Fluid 02/20/20 14:37 Blood Culture - Preliminary Blood No Growth after 96 hours 02/21/20 12:49 Blood Culture - Preliminary Blood No Growth after 72 hours Assessment and Plan Plan: Assessment: #1. [id number] right-sided pleural effusion, slightly enlarged from previous ultrasound, we will plan on thoracentesis tomorrow on 02/24/2020 for diagnostic purposes. Patient is status post right-sided thoracentesis today on 02/24/2020 with evacuation of 950 mL of bloody pleural effusion which was sent for analysis and cytology this is possibly related to recent history of falls and possibility of traumatic hemothorax #2. Acute urinary tract infection with urine cultures positive for Klebsiella pneumonia #3. Altered mental status, with the possibility of acute alcohol withdrawal, and possibly related to underlying urinary tract infection and possibility of right lower lobe pneumonia is not completely excluded #4. Pancytopenia related to stress of alcoholism, and acute infection and sepsis, patient is status post 2 units of pack red blood cells #5. History of chronic alcoholism #6. Seizure disorder #7. Previous history of CVA/TIA #8. Chronic back pain due to compression fractures #9. Hyperlipidemia #10. Hypertension #11. Anxiety Plan: Continue current medical treatment, encourage incentive spirometry use, increase activity as tolerated, encourage the patient is up in the chair, pleural fluid cytology results and cultures, patient is afebrile, continue weaning FiO2. Any antibiotics per ID service recommendations. We'll follow I performed a history & physical examination of the patient and discussed their management with my nurse practitioner, Cherise Richardson. I reviewed the nurse practitioner's note and agree with the documented findings and plan of care. Lung sounds are positive for diminished breath sounds at the right lower base. The findings and the impression was discussed with the patient. I attest to the documentation by the nurse practitioner. Time with Patient: Less than 30
[2020-02-25] MEDS: MULTIVITAMINS, THERA 1 EACH TAB PO SCH (14:42)
[2020-02-25] MEDS: FUROSEMIDE 10 MG/ML 2 ML VIAL IV SCH (14:42)
[2020-02-25] MEDS: FOLIC ACID 1 MG TAB PO SCH (14:42)
[2020-02-25] MEDS: SODIUM CHLORIDE 0.9% 1,000 ML IV SCH (14:43)
[2020-02-25] MEDS: PANTOPRAZOLE 40 MG/10 ML VIAL IVP SCH (16:53)
--- NOTE | 2020-02-25 17:47 | PN ---
PROGRESS NOTE DATE OF SERVICE: 02/25/2020 This 74-year-old woman who was admitted with a significant pleural effusion had thoracocentesis. The patient had about 900 mL of grossly bloody pleural effusion from the right pleural space. The cytology is available at this time, which showed only a minimally cellular specimen. The most recent chest x-ray after the tap, which was reviewed personally by me, showed some persistent parenchymal opacities as well as some fluid. Past medical history reviewed. REVIEW OF SYSTEMS: CARDIOVASCULAR SYSTEM: No angina, palpitations. RESPIRATORY SYSTEM: As mentioned earlier. GI: No nausea, vomiting. : No dysuria or retention. NERVOUS SYSTEM: No numbness, weakness. CURRENT MEDICATIONS: Reviewed. They include [place], Zithromax, Rocephin, folic acid, Lasix, Dilaudid, Keppra. Doses are reviewed. PHYSICAL EXAMINATION: Patient is alert, oriented x3. Pulse is 75, blood pressure 130/75, respiration 22, temperature 97.6, pulse ox 100% on 4 L. HEENT: Conjunctivae normal. NECK: No jugular venous distention. CARDIOVASCULAR SYSTEM: S1, S2 muffled. RESPIRATORY SYSTEM: Breath sounds diminished at the bases. No rhonchi. No crackles. ABDOMEN: Soft, non-tender. No mass palpable. LEGS: No edema. No swelling. NERVOUS SYSTEM: No focal deficit. LABS: Labs at this time show WBC 4.2, hemoglobin 10.7. ASSESSMENT: 1. Bilateral pneumonia, right more than left, with possibly aspiration and sepsis, present on admission. 2. Right pleural effusion, possibly hemorrhagic, possibly parapneumonic, status post thoracocentesis. 3. Anemia. Rule out acute blood loss anemia. 4. Change in mental status, acute metabolic encephalopathy. 5. Congestive heart failure with chronic systolic dysfunction, ejection fraction 40% to 50%. 6. Moderate mitral regurgitation, moderate to severe tricuspid regurgitation, and severe pulmonary hypertension on the 2D echo. 7. Change in mental status, acute metabolic encephalopathy, multifactorial. 8. Possible acute alcohol withdrawal syndrome. 9. Acute delirium tremens. 10.History of alcohol dependence. 11.Hyponatremia. 12.Klebsiella pneumoniae acute urinary tract infection, present on admission. 13.Hypovolemia. 14.Metabolic acidosis and elevated lactic acid with possible lactic acidosis, multifactorial, present on admission. 15.Respiratory alkalosis currently. 16.Pancytopenia, undetermined etiology. 17.History of essential thrombocythemia previously. 18.History of mild coagulopathy, possibly secondary to chronic liver disease. 19.History of cerebrovascular accident, transient ischemic attack. 20.Gastroesophageal reflux disease. 21.Hypertension. 22.Hyperlipidemia. 23.History of degenerative joint disease. 24.Seizure disorder. 25.History of blood clot in the brain. 26.History of compression fracture, T8-S1. 27.History of tonsillectomy. 28.History of anxiety. 29.FULL CODE. RECOMMENDATIONS AND DISCUSSION: I recommend to continue current medications, continue with symptomatic treatment, continue with broad-spectrum IV antibiotics. Most recent chest x-ray was reviewed. Otherwise, cytology as noted. Closely follow with multiple consultants, including Infectious Disease and Pulmonary. PT/OT evaluation and possible ECF rehab. Alcohol cessation. Alcohol rehab as an outpatient. The etiology of hemothorax could be trauma also. The chest CTA showed no evidence of any fractures. Guarded prognosis. Further recommendations to follow. MMODL / IJN: [id number] / ISIAH
[2020-02-26] MEDS: HYDROcodone/APAP 5-325MG 1 EACH TAB PO PRN (02:56)
[2020-02-26] MEDS: PIPERACILLIN-TAZOBACTAM 3.375 GM in SODIUM CHLORIDE 0.9% 100 ML IVPB SCH ×3 (02:57→21:56)
--- NOTE | 2020-02-26 04:04 | PN ---
PROGRESS NOTE DATE OF SERVICE: 02/25/2020 REASON FOR FOLLOWUP: Question of pneumonia. INTERVAL HISTORY: Patient is currently afebrile, has been complaining of feeling weak and tired. No energy. Denies having any chest pain or shortness of breath. Did have some cough, not bringing up any sputum. No abdominal pain or diarrhea. PHYSICAL EXAMINATION: Her blood pressure is 113/74, pulse of 95, temperature of 98.6. He is 100% on 4 L nasal cannula. General description is an elderly female lying in bed in no distress. Respiratory system: Unlabored breathing. Clear to auscultation anteriorly. Heart S1, S2. Regular rate and rhythm. Abdomen soft, no tenderness. LABS: Hemoglobin is 10.3, white count 4.5, creatinine 0.5. Chest x-ray worsening right upper lobe pneumonia. DIAGNOSTIC IMPRESSION AND PLAN: Patient admitted to the hospital with weakness, multifactorial in this patient who did have Klebsiella UTI now with evidence of right upper lobe pneumonia. Antibiotic has been switched to Zosyn. Discontinue Rocephin. Swallow evaluation and aspiration precautions and try to obtain a sputum. Continue supportive care. MMODL / IJN: [id number] /
[2020-02-26 06:58] LABS: Anisocytosis Moderate; Basophils % (A) 0 %; Eosinophils # (A) 0.1 k/uL (0-0.7); Eosinophils % (A) 3 %; Lymphocytes # (A) 0.6 k/uL (1.0-4.8); Lymphocytes % (A) 25 %; MCH 36.7 pg (25.0-35.0); MCHC 34.8 g/dL (31.0-37.0); Macrocytosis Marked; Monocytes # (A) 0.4 k/uL (0-1.0); Monocytes % (A) 14 %; Neutrophils # (A) 1.4 k/uL (1.3-7.7); Neutrophils % (A) 54 %; RBC 2.37 m/uL (3.80-5.40); RDW 20.4 % (11.5-15.5); WBC 2.5 k/uL (3.8-10.6)
[2020-02-26 06:59] LABS: HGB 8.7 gm/dL (11.4-16.0); MCV 105.5 fL (80.0-100.0); Platelet Count 89 k/uL (150-450)
[2020-02-26 07:10] LABS: ALT 15 U/L (4-34); AST 25 U/L (14-36); African American GFR (CKD) >90 (>60 ml/min/1.73 sqM); Albumin 2.3 g/dL (3.5-5.0); Albumin/Globulin Ratio 0.9; Alkaline Phosphatase 77 U/L (38-126); Anion Gap 0 mmol/L; Blood Urea Nitrogen 4 mg/dL (7-17); Calcium 7.7 mg/dL (8.4-10.2); Carbon Dioxide 35 mmol/L (22-30); Chloride 102 mmol/L (98-107); Globulin 2.7 g/dL; Glucose 84 mg/dL (74-99); Non-African American GFR(CKD) >90 (>60 ml/min/1.73 sqM); Potassium 2.8 mmol/L (3.5-5.1); Sodium 137 mmol/L (137-145); Total Bilirubin 0.8 mg/dL (0.2-1.3)
[2020-02-26] MEDS: FUROSEMIDE 10 MG/ML 2 ML VIAL IV SCH (07:55)
[2020-02-26] MEDS: FOLIC ACID 1 MG TAB PO SCH (07:56)
[2020-02-26] MEDS: AZITHROMYCIN 500 MG TAB PO SCH (07:56)
[2020-02-26] MEDS: lisinopriL 20 MG TAB PO SCH (07:56)
[2020-02-26] MEDS: METOPROLOL SUCCINATE (ER) 50 MG TAB.ER.24H PO SCH ×2 (07:56→21:57)
[2020-02-26] MEDS: PANTOPRAZOLE 40 MG TABLET PO SCH (07:56)
[2020-02-26] MEDS: THIAMINE 100 MG TAB PO SCH ×2 (07:56→18:23)
[2020-02-26] MEDS: levETIRAcetam 500 MG TAB PO SCH ×2 (07:57→21:57)
[2020-02-26 12:14] LABS: Reticulocyte % 1.9 % (0.5-2.0)
--- NOTE | 2020-02-26 12:35 | XR ---
EXAMINATION TYPE: XR chest 1V portable DATE OF EXAM: 02/26/2020 COMPARISON: 02/25/2020 INDICATION: Cough short of breath TECHNIQUE: Single frontal view of the chest is obtained. FINDINGS: The heart size is dominant. The pulmonary vasculature is normal. Mild infiltrate is through the right suprahilar region. Right lower lobe and left lower lobe infiltra ruma are present. Small pleural effusions may be present. IMPRESSION: 1. Basilar infiltrates with adjacent small pleural effusions. 2. Right upper lobe infiltrate appears improved from comparison
[2020-02-26] MEDS: MULTIVITAMINS, THERA 1 EACH TAB PO SCH (13:04)
[2020-02-26] MEDS ORDERED: Potassium Replacement Protocol 1 EACH MISC MISCELLANE PRN (13:39)
[2020-02-26] MEDS ORDERED: POTASSIUM CHLORIDE ER 20 MEQ TAB.ER PO STA (13:39)
--- NOTE | 2020-02-26 14:38 | PN ---
PROGRESS NOTE DATE OF SERVICE: 02/26/2020 This 74-year-old woman was admitted with significant pleural effusion also had thoracocentesis which showed hemothorax actually mostly the patient still has shortness of breath. Sensorium has slightly improved. Patient continues to be confused. Patient has anemia. Patient was transfused. Exact etiology of anemia is unknown at this time. The most recent chest x-ray showed bilateral pleural effusion, right more than the left and some atelectasis and pneumonic process also. Patient also had multiple consultations. Urine culture showed Klebsiella pneumoniae which is poly sensitive. PAST MEDICAL HISTORY: Reviewed. REVIEW OF SYSTEMS: Could not be taken, the patient is still confused. CURRENT MEDICATIONS: Current medications are [place], Zithromax, folic acid, Lasix, Dilaudid, Keppra, Zestril, Ativan. Doses are reviewed. PHYSICAL EXAMINATION: The patient is conscious, confused. Pulse 86, blood pressure 110/76, respiration 17, temperature 97.4, 100% on 4 L. HEENT: Conjunctivae pale. Oral mucosa moist. NECK: No jugular venous distention. No carotid bruit. No lymph node enlargement. CARDIOVASCULAR: S1, S2 muffled. RESPIRATORY: Breath sounds diminished at the bases. A few scattered rhonchi and crackles. ABDOMEN: Soft, nontender. No mass palpable. LEGS: No edema. No swelling. NERVOUS SYSTEM: Diffusely weak. LABS: WBC 2.5, hemoglobin is 8.7, platelets 89. Sodium 137, potassium 2.8. ASSESSMENT: 1. Bilateral pneumonia, right more than the left with possibly aspiration, sepsis, present on admission. 2. Right pleural effusion possibly hemorrhagic, possibly parapneumonic, status post thoracocentesis. 3. Anemia. Rule out acute blood loss anemia, exact etiology undetermined. 4. Change in mental status, acute metabolic encephalopathy. 5. Congestive heart failure with chronic systolic dysfunction, ejection fraction 40% to 50%. 6. Severe hypokalemia. 7. Moderate mitral regurgitation, moderate to severe tricuspid regurgitation and severe pulmonary hypertension on the 2D echo. 8. Change in mental status, acute metabolic encephalopathy, multifactorial. 9. Possible acute alcoholic withdrawal syndrome, present on admission. 10.Acute delirium tremens, present on admission. 11.History of alcohol dependence. 12.Hyponatremia. 13.Klebsiella acute urinary tract infection, present on admission. 14.Hypovolemia. 15.Metabolic acidosis, elevated lactic acid with possible lactic acidosis, multifactorial, present on admission. 16.Respiratory alkalosis, currently. 17.Pancytopenia undetermined etiology. 18.History of essential thrombocythemia previously. 19.History of mild coagulopathy, possibly secondary to chronic liver disease. 20.History of cerebrovascular accident, transient ischemic attack. 21.Gastroesophageal reflux disease. 22.Hypertension. 23.Hyperlipidemia. 24.History of degenerative joint disease. 25.History of seizure disorder. 26.History of blood clot in the 27.History of compression fracture of T8-S1. 28.History of tonsillectomy. 29.History of anxiety. 30.FULL CODE. RECOMMENDATIONS AND DISCUSSION: Recommend to continue current medications, continue to monitor, continue symptomatic treatment. Otherwise at this time, repeat hemoglobin. Chest x-ray noted. Potassium supplementation for potassium correction. PT, OT evaluation, possible ECF rehab. Guarded prognosis because of multiple complex medical issues as mentioned early. The exact etiology of anemia is unknown at this time. I would hold off the anticoagulants and antiplatelet agents and continue to monitor. The prognosis is again extremely guarded. Further recommendations to follow. MMODL / IJN: [id number] / ISIAH
--- NOTE | 2020-02-26 15:28 | P.PN ---
Subjective Progress Note Date: 02/26/20 Principal diagnosis: Generalized weakness, fatigue, hyponatremia, altered mental status This is a 74-year-old female patient who follows with Dr. Todd as her primary care provider. She has a history of seizure disorder, chronic back pain due to compression fractures, hyperlipidemia, hypertension, CVA/TIA, anxiety. She also admits to drinking 6-7 beers a day for approximately 54 years. She is and has been drinking a bit more she states. Yesterday she denied having been drinking but was sitting in the bathroom and on oral to get herself up off the toilet. She is not sure as to how long she had been sitting there prior to activating her [facility] to call for EMS. Chest x-ray revealed chronic changes and cardiomegaly along with a new small to moderate-sized right pleural effusion. We are consulted for the same. She is seen today on the regular medical floor. She is presently resting in bed. Awake and alert in no acute distress. On room air and maintaining O2 saturation in the 90s. CT angiogram revealed no evidence of pulmonary embolism. There is pleural effusions with right lower lobe atelectasis and infiltrate. There is noted progression of the T5 compression fracture. She was found to be quite anemic today initial hemoglobin 9.5 currently 5.8. No active GI bleeding noted. White count 1.5. Platelet count 59,000. INR 1.5. D-dimer 0.82. Sodium 131. Potassium 3.9. BUN 6. Creatinine 0.56. Glucose 119. Troponins are negative. LDH 704. AST 21. ALT 9. ProBNP 5620. Urinalysis is cloudy with trace blood and large nuchal sites and many WBCs in clumps. Few bacteria. Gagnon virus not detected. Serum alcohol 35. She has been initiated on ceftriaxone and azithromycin. 0.9, satting at 100 ML's per hour. IV Protonix. Thiamine. CIWA protocol in place. The patient is seen today 02/22/2020 in follow-up on the regular medical floor. She is awake and alert. Her speech is still somewhat garbled. Slow to respond. He is maintaining good O2 saturations in the mid 90s on room air. She's afebrile. Hemodynamically stable. Chest x-ray continues to show chronic changes and cardiomegaly with fairly moderate right-sided neural effusion. Associated right basilar atelectasis. Basilar atelectasis/infiltrate is noted. She did receive 2 units of packed red blood cells yesterday. Today's hemoglobin is 10.1. Urine culture positive for gram-negative bacilli. Blood culture revealing no growth to date. White count 6.1. Platelet count 71,000. Sodium 136. Potassium 3.6. Creatinine 0.6. She is continued on ceftriaxone and azithromycin. See well protocol is in place. She did receive Ativan last evening. 0.9 normal saline at 100 ML's per hour. On 02/23/2020 patient seen in follow-up on medical floor, she is quite lethargic on today's exam, reportedly patient has received quite a few doses of Ativan through the night for possibility of acute alcohol withdrawal, however at the CIWA scale only reports a CIWA score of 9. With the vigorous tactile stimulation patient does open her eyes however she falls back asleep, she doesn't follow command, and she is restless at times. Her pulse ox currently is 85% on 4 L blood gas was obtained, however her fingers are cold, and possibly the pulse ox is not working very well on her. Patient breathing comfortably, her blood gas showed pO2 of 142, pCO2 of 30, pH of 7.51, this was done and FiO2 of 44%. Her urine culture was found to be positive for Klebsiella pneumonia, her blood cultures have shown no growth, her pro-calcitonin level is still elevated at 5.02, however is down from 17.5 on admission. She has been afebrile, and hemodynamically she is been stable. Patient's chest x-ray showed chronic changes cardiomegaly with fairly moderate size right pleural effusion which had increased in size from prior studies with associated right basilar atelectasis, and new left basilar atelectasis. Patient is on antibiotics leading azithromycin and Rocephin, he seemed a dose of IV Lasix yesterday." She appears to be dry and today's exam. Laboratory data showed a white blood cell count of 5.1, hemoglobin of 9.5, white count is 75, potassium is 3.4, the rest of electrolytes were within normal limits BUN of 5 and creatinine of 0.5. On February 24, 2020 patient seen in follow-up on medical floor, she is more awake today, she is currently on oxygen and her pulse ox is 91-96%, hemodynamically she is stable, she's been afebrile, breathing seems to be and nonlabored, repeat chest x-ray was completed today showing continue [id number] right pleural effusion with adjacent atelectasis and/or consolidation and additional patchy infiltrate at the left base as well, ultrasound of the chest was completed and showed creasing moderately sized right-sided pleural effusion, patient had recent history of falls at home and there is a possibility that patient may have a traumatic hemothorax as the patient has been treated with antibiotics and diuretics and the appearance of the right pleural effusion has not improved in response to treatment. Mentation was patient is doing better, she is much more awake, she is answering simple questions, she is cooperative, although still somewhat disoriented, no agitation, no tremors, no hallucinations. Bedside ri ght-sided thoracentesis was performed in 950 mL of bloody effusion was evacuated, and tolerated procedure well 02/25/2020, patient seen in follow-up on general medical floor. S/P right-sided thoracentesis yesterday with evacuation with just under a liter of bloody effusion, cytology of the fluid is pending, pleural fluid analysis showed transudative fluid although it was extremely bloody. Fluid cultures are pending. The FiO2 is down to 4 L and a pulse ox is 9200%, she is breathing comfortably, she remains on antibiotics. She is on azithromycin and Rocephin. Follow-up chest x-ray was completed and reviewed showing worsening right upper lobe and left lower lobe consolidation with additional scattered infiltrates and possible small effusions. Clinically patient is requiring FiO2, his labs have been reviewed showing white blood cell count of 4.5, platelet count of 100 On 02/26/2020 patient seen in follow-up on medical floor, she is very sleepy today, however she is breathing comfortably, appears to be in no acute distress. Follow-up chest x-ray was reviewed showing basilar infiltrates with adjacent small pleural effusions, and improvement in the appearance of a right upper lobe infiltrate. Is currently on 4 L of oxygen a pulse ox of 95%, she's been afebrile, hemodynamically she is stable, today's labs have been reviewed, showing white blood cell, 2.5, hemoglobin is 8.7, platelet count is 89, potassium is 2.8, CO2 was 35, BUN was 4 creatinine was 0.58. Pleural fluid cyto logy showed no cytologically malignant cells. Pleural fluid was exudative in nature with low LDH and low protein level, pleural fluid cultures are negative, viral cultures are negative. Patient was found to have a urinary tract infection related to Klebsiella pneumonia according to the urine culture, and she is on Zosyn. Objective - Vital Signs Vital signs: Vital Signs Temp 97.9 F 02/26/20 14:00 Pulse 50 L 02/26/20 14:00 Resp 17 02/26/20 14:00 BP 104/72 02/26/20 14:00 Pulse Ox 95 02/26/20 14:00 Intake & Output 02/25/20 02/26/20 02/26/20 18:59 06:59 18:59 Output Total 6219 608 7748 Balance -1000 -500 -1000 Output: Urine 0092 896 7347 Other: Voiding Method Indwelling Catheter Indwelling Catheter Indwelling Catheter # Bowel Movements 1 2 - Exam GENERAL EXAM: Drowsy on today's exam, 74-year-old white female on 4 L of oxygen, follows simple commands, giving basic answers, denies any acute distress, no tremors, no hallucinations, no headaches, with a pulse ox of 85%, pulse oximetry is 91 consistent reading, and a blood gas was obtained and reviewed comfortable in no apparent distress. HEAD: Normocephalic/atraumatic. EYES: Normal reaction of pupils, equal size. Conjunctiva pink, sclera white. NOSE: Clear with pink turbinates. THROAT: No erythema or exudates. NECK: No masses, no JVD, no thyroid enlargement, no adenopathy. CHEST: No chest wall deformity. Symmetrical expansion. LUNGS: Equal air entry with no crackles, wheeze, rhonchi or dullness. CVS: Regular rate and rhythm, normal S1 and S2, no gallops, no murmurs, no rubs ABDOMEN: Soft, nontender. No hepatosplenomegaly, normal bowel sounds, no guarding or rigidity. EXTREMITIES: No clubbing, no edema, no cyanosis, 2+ pulses and upper and lower extremities. MUSCULOSKELETAL: Muscle strength and tone normal. SPINE: No scoliosis or deformity SKIN: No rashes CENTRAL NERVOUS SYSTEM: Lethargic, arousable to touch, and vigorous stimulation No focal deficits, tone is normal in all 4 extremities. - Labs CBC & Chem 7: 02/26/20 06:08 02/26/20 06:08 Labs: Abnormal Lab Results - Last 24 Hours (Table) 02/26/20 02/26/20 02/26/20 Range/Units 06:08 06:08 12:02 WBC 2.5 L (3.8-10.6) k/uL RBC 2.37 L (3.80-5.40) m/uL Hgb 8.7 L D (11.4-16.0) gm/dL Hct 25.0 L (34.0-46.0) % MCV 105.5 H (80.0-100.0) fL MCH 36.7 H (25.0-35.0) pg RDW 20.4 H (11.5-15.5) % Plt Count 89 L (150-450) k/uL Lymphocytes # 0.6 L (1.0-4.8) k/uL Macrocytosis Marked A Potassium 2.8 L (3.5-5.1) mmol/L Carbon Dioxide 35 H (22-30) mmol/L BUN 4 L (7-17) mg/dL Calcium 7.7 L (8.4-10.2) mg/dL Lactate Dehydrogenase 756 H (313-618) U/L Total Protein 5.0 L (6.3-8.2) g/dL Albumin 2.3 L (3.5-5.0) g/dL Microbiology - Last 24 Hours (Table) 02/21/20 12:49 Blood Culture - Preliminary Blood No Growth after 120 hours 02/24/20 10:30 Anaerobic Culture - Preliminary Pleural Fluid 02/24/20 10:30 Gram Stain - Preliminary Pleural Fluid Body Fluid Culture - Preliminary 02/20/20 14:37 Blood Culture - Preliminary Blood No Growth after 120 hours Assessment and Plan Plan: Assessment: #1. [id number] right-sided pleural effusion, slightly enlarged from previous ultrasound, we will plan on thoracentesis tomorrow on 02/24/2020 for diagnostic purposes. Patient is status post right-sided thoracentesis today on 02/24/2020 with evacuation of 950 mL of bloody pleural effusion which was sent for analysis and cytology this is possibly related to recent history of falls and possibility of traumatic hemothorax. Total fluid cytology was negative, fluid was exudative in nature based on low LDH and low protein, but it was bloody, cytology was negative, pleural fluid cultures were negative #2. Acute urinary tract infection with urine cultures positive for Klebsiella pneumonia, on Zosyn #3. Altered mental status, with the possibility of acute alcohol withdrawal, and possibly related to underlying urinary tract infection and possibility of right lower lobe pneumonia is not completely excluded #4. Pancytopenia related to stress of alcoholism, and acute infection and sepsis, patient is status post 2 units of pack red blood cells #5. History of chronic alcoholism #6. Seizure disorder #7. Previous history of CVA/TIA #8. Chronic back pain due to compression fractures #9. Hyperlipidemia #10. Hypertension #11. Anxiety Plan: Weaning FiO2, encourage deep breathing and coughing, and vital stable, patient has been afebrile, all culture data remains negative, cytology of pleural fluid was negative. Recommend stopping the IV Lasix as the patient is becoming prerenal and developing volume contraction alkalosis. Maintain aspiration precaution, maintained safety precautions. I performed a history & physical examination of the patient and discussed their management with my nurse practitioner, Cherise Richardson. I reviewed the nurse practitioner's note and agree with the documented findings and plan of care. Lung sounds are positive for diminished breath sounds at the right lower base. The findings and the impression was discussed with the patient. I attest to the documentation by the nurse practitioner. Time with Patient: Less than 30
[2020-02-26] MEDS: SODIUM CHLORIDE 0.9% 1,000 ML IV SCH (16:06)
--- NOTE | 2020-02-26 17:44 | P.PN ---
Subjective Progress Note Date: 02/26/20 Principal diagnosis: Pancytopenia Hemoglobin dropped today to 8.4, additional work up has been ordered. Her initial work-up revealed a haptoglobin of 79, elevated LDH, which ultimately was stable. Her platelets remain in safe/stable range. I question Dilutional specimen as her potassium was abnormally low as well and have ordered a stat cbc redraw Objective - Vital Signs Vital signs: Vital Signs Temp 97.9 F 02/26/20 14:00 Pulse 50 L 02/26/20 14:00 Resp 17 02/26/20 14:00 BP 104/72 02/26/20 14:00 Pulse Ox 95 02/26/20 14:00 Intake & Output 02/25/20 02/26/20 02/26/20 18:59 06:59 18:59 Output Total 2569 507 4990 Balance -1000 -500 -1200 Output: Urine 5941 775 1922 Other: Voiding Method Indwelling Catheter Indwelling Catheter Indwelling Catheter # Bowel Movements 1 2 - Exam - Constitutional General appearance: cooperative, mild distress - EENT Eyes: EOMI ENT: NA/AT - Respiratory Respiratory: bilateral: diminished (increased effort (also anxious)) - Cardiovascular Abnormal Heart Sounds: click - Gastrointestinal General gastrointestinal: soft, tenderness - Integumentary Integumentary: pale - Neurologic non focal - Musculoskeletal Musculoskeletal: generalized weakness - Psychiatric Anxious Psychiatric: A&O x's 3 - Labs CBC & Chem 7: 02/26/20 06:08 02/26/20 06:08 Labs: Abnormal Lab Results - Last 24 Hours (Table) 02/26/20 02/26/20 02/26/20 Range/Units 06:08 06:08 12:02 WBC 2.5 L (3.8-10.6) k/uL RBC 2.37 L (3.80-5.40) m/uL Hgb 8.7 L D (11.4-16.0) gm/dL Hct 25.0 L (34.0-46.0) % MCV 105.5 H (80.0-100.0) fL MCH 36.7 H (25.0-35.0) pg RDW 20.4 H (11.5-15.5) % Plt Count 89 L (150-450) k/uL Lymphocytes # 0.6 L (1.0-4.8) k/uL Macrocytosis Marked A Potassium 2.8 L (3.5-5.1) mmol/L Carbon Dioxide 35 H (22-30) mmol/L BUN 4 L (7-17) mg/dL Calcium 7.7 L (8.4-10.2) mg/dL Lactate Dehydrogenase 756 H (313-618) U/L Total Protein 5.0 L (6.3-8.2) g/dL Albumin 2.3 L (3.5-5.0) g/dL Microbiology - Last 24 Hours (Table) 02/20/20 14:37 Blood Culture - Final Blood No Growth after 144 hours 02/21/20 12:49 Blood Culture - Preliminary Blood No Growth after 120 hours 02/24/20 10:30 Anaerobic Culture - Preliminary Pleural Fluid 02/24/20 10:30 Gram Stain - Preliminary Pleural Fluid Body Fluid Culture - Preliminary Assessment and Plan (1) Alcohol abuse Current Visit: Yes Status: Acute Code(s): F10.10 - ALCOHOL ABUSE, UNCOMPLICATED SNOMED Code(s): 19376942 (2) Pancytopenia Current Visit: Yes Status: Acute Code(s): D61.818 - OTHER PANCYTOPENIA SNOMED Code(s): 378076596 (3) Fall Current Visit: No Status: Acute Code(s): W19.XXXA - UNSPECIFIED FALL, INITIAL ENCOUNTER SNOMED Code(s): 2881931 Plan: Recheck CBC/CMP today for question dilutional sample. Recheck hemolysis work-uup Hydrea to remain on hold at this time as cbc is recovering although low. Transfuse Hemoglobin les than 7, platelet less than 10K. Hold NSAIDS, ASA, Anti-coagulation for platelet count less than 50K Pulm following.
[2020-02-26 18:12] LABS: ALT 17 U/L (4-34); AST 27 U/L (14-36); African American GFR (CKD) >90 (>60 ml/min/1.73 sqM); Albumin 2.7 g/dL (3.5-5.0); Albumin/Globulin Ratio 0.9; Alkaline Phosphatase 91 U/L (38-126); Anion Gap 3 mmol/L; Blood Urea Nitrogen 4 mg/dL (7-17); Calcium 7.9 mg/dL (8.4-10.2); Carbon Dioxide 33 mmol/L (22-30); Chloride 97 mmol/L (98-107); Glucose 99 mg/dL (74-99); Non-African American GFR(CKD) >90 (>60 ml/min/1.73 sqM); Potassium 2.8 mmol/L (3.5-5.1); Sodium 133 mmol/L (137-145); Total Bilirubin 0.7 mg/dL (0.2-1.3); Total Protein 5.7 g/dL (6.3-8.2)
[2020-02-26 18:33] LABS: Anisocytosis Moderate; HCT 30.9 % (34.0-46.0); HGB 10.3 gm/dL (11.4-16.0); MCH 35.4 pg (25.0-35.0); MCHC 33.3 g/dL (31.0-37.0); MCV 106.2 fL (80.0-100.0); Macrocytosis Marked; Mean Platelet Volume 8.5; Platelet Count 118 k/uL (150-450); RBC 2.91 m/uL (3.80-5.40); RDW 20.5 % (11.5-15.5)
[2020-02-26 18:52] LABS: Eosinophils # (M) 0.88 k/uL (0-0.7); Lymphocytes # (M) 4.18 k/uL (1.0-4.8); Neutrophils # (M) 12.54 k/uL (1.3-7.7); Neutrophils % (M) 57 %; Nucleated Red Blood Cells 0 /100 WBC (0-0); Total Cells Counted 100
[2020-02-26 18:55] LABS: Poikilocytosis (M) Present
[2020-02-26] MEDS: POTASSIUM CHLORIDE ER 20 MEQ TAB.ER PO SCH (21:57)
--- NOTE | 2020-02-26 23:02 | PN ---
PROGRESS NOTE DATE OF SERVICE: 02/26/2020 REASON FOR FOLLOWUP: UTI and aspiration pneumonia. INTERVAL HISTORY: The patient is currently afebrile. The patient remains to be lethargic, has been hypoxic on 4 L nasal cannula oxygen. No vomiting, diarrhea or any other changes reported by nursing staff. PHYSICAL EXAMINATION: Blood pressure is 95/63 with pulse of 63, temperature is 97.8. She is 91% on 4 L nasal cannula. General description is an elderly female lying in bed in no distress. Respiratory system: Unlabored breathing, decreased breath sounds at the base. No wheeze. HEART: S1, S2. Regular rate and rhythm. Abdomen soft, no tenderness. LABS: Hemoglobin is 10.1, white count 22,000, BUN of 4, creatinine 0.56. IMPRESSION/PLAN: Patient with Klebsiella pneumoniae urinary tract infection now with a component of pneumonia status post thoracocentesis. Those cultures currently pending. Patient is covered with Zosyn to continue and monitor clinical course closely. MMODL / IJN: [id number] /
[2020-02-27] MEDS: TEMAZEPAM 15 MG CAP PO PRN ×2 (02:15→20:05)
[2020-02-27] MEDS: PIPERACILLIN-TAZOBACTAM 3.375 GM in SODIUM CHLORIDE 0.9% 100 ML IVPB SCH ×3 (04:07→20:07)
[2020-02-27] MEDS: AZITHROMYCIN 500 MG TAB PO SCH (08:35)
[2020-02-27] MEDS: POTASSIUM CHLORIDE ER 20 MEQ TAB.ER PO SCH ×2 (08:35→20:06)
[2020-02-27] MEDS: THIAMINE 100 MG TAB PO SCH ×2 (08:35→17:11)
[2020-02-27] MEDS: levETIRAcetam 500 MG TAB PO SCH ×2 (08:35→20:05)
[2020-02-27] MEDS: FOLIC ACID 1 MG TAB PO SCH (08:35)
[2020-02-27] MEDS: PANTOPRAZOLE 40 MG TABLET PO SCH (08:35)
[2020-02-27] MEDS: lisinopriL 20 MG TAB PO SCH (08:35)
[2020-02-27] MEDS: MULTIVITAMINS, THERA 1 EACH TAB PO SCH (08:35)
[2020-02-27] MEDS: METOPROLOL SUCCINATE (ER) 50 MG TAB.ER.24H PO SCH ×2 (08:35→20:05)
[2020-02-27 10:51] LABS: ALT 19 U/L (4-34); AST 32 U/L (14-36); African American GFR (CKD) >90 (>60 ml/min/1.73 sqM); Albumin 2.9 g/dL (3.5-5.0); Albumin/Globulin Ratio 0.9; Alkaline Phosphatase 80 U/L (38-126); Anion Gap 1 mmol/L; Blood Urea Nitrogen 3 mg/dL (7-17); Calcium 8.2 mg/dL (8.4-10.2); Carbon Dioxide 34 mmol/L (22-30); Chloride 101 mmol/L (98-107); Globulin 3.2 g/dL; Glucose 107 mg/dL (74-99); Magnesium 1.3 mg/dL (1.6-2.3); Non-African American GFR(CKD) >90 (>60 ml/min/1.73 sqM); Sodium 136 mmol/L (137-145); Total Bilirubin 0.8 mg/dL (0.2-1.3); Total Protein 6.1 g/dL (6.3-8.2)
[2020-02-27] MEDS: SODIUM CHLORIDE 0.9% 1,000 ML IV SCH (11:50)
[2020-02-27 12:26] LABS: Anisocytosis Moderate; HCT 28.6 % (34.0-46.0); HGB 9.7 gm/dL (11.4-16.0); MCH 35.6 pg (25.0-35.0); MCHC 33.8 g/dL (31.0-37.0); MCV 105.1 fL (80.0-100.0); Macrocytosis Marked; Mean Platelet Volume 9.8; Platelet Count 152 k/uL (150-450); RBC 2.72 m/uL (3.80-5.40); RDW 21.2 % (11.5-15.5); WBC 3.9 k/uL (3.8-10.6)
[2020-02-27 12:46] LABS: Monocytes # (M) 0.51 k/uL (0-1.0); Neutrophils % (M) 64 %; Nucleated Red Blood Cells 0 /100 WBC (0-0); Poikilocytosis (M) Present; Total Cells Counted 100
[2020-02-27 13:47] VITALS: BMI 25.0
--- NOTE | 2020-02-27 14:29 | P.PN ---
Subjective Progress Note Date: 02/27/20 Principal diagnosis: Pancytopenia CBC and CMP redraws yesterday resulted in safe range without need of intervention. Objective - Vital Signs Vital signs: Vital Signs Temp 98.0 F 02/27/20 07:45 Pulse 88 02/27/20 07:45 Resp 16 02/27/20 07:45 BP 96/63 02/27/20 07:45 Pulse Ox 100 02/27/20 07:45 Intake & Output 02/26/20 02/27/20 02/27/20 18:59 06:59 18:59 Intake Total 100 Output Total 1200 200 Balance -1200 -100 Weight 68.039 kg Intake: Oral 100 Output: Urine 1200 200 Other: Voiding Method Indwelling Catheter Indwelling Catheter Indwelling Catheter # Bowel Movements 1 - Exam - Constitutional General appearance: cooperative, mild distress - EENT Eyes: EOMI ENT: NA/AT - Respiratory Respiratory: bilateral: diminished (increased effort (also anxious)) - Cardiovascular Abnormal Heart Sounds: click - Gastrointestinal General gastrointestinal: soft, tenderness - Integumentary Integumentary: pale - Neurologic non focal - Musculoskeletal Musculoskeletal: generalized weakness - Psychiatric Anxious Psychiatric: A&O x's 3 - Labs CBC & Chem 7: 02/27/20 11:23 02/27/20 10:03 Labs: Abnormal Lab Results - Last 24 Hours (Table) 02/26/20 02/26/20 02/27/20 Range/Units 17:48 17:48 10:03 WBC 22.0 H (3.8-10.6) k/uL RBC 2.91 L (3.80-5.40) m/uL Hgb 10.3 L (11.4-16.0) gm/dL Hct 30.9 L (34.0-46.0) % MCV 106.2 H (80.0-100.0) fL MCH 35.4 H (25.0-35.0) pg RDW 20.5 H (11.5-15.5) % Plt Count 118 L (150-450) k/uL Neutrophils # (Manual) 12.54 H (1.3-7.7) k/uL Lymphocytes # (Manual) (1.0-4.8) k/uL Monocytes # (Manual) 4.40 H (0-1.0) k/uL Eosinophils # (Manual) 0.88 H (0-0.7) k/uL Macrocytosis Marked A Sodium 133 L 136 L (137-145) mmol/L Potassium 2.8 L (3.5-5.1) mmol/L Chloride 97 L (98-107) mmol/L Carbon Dioxide 33 H 34 H (22-30) mmol/L BUN 4 L 3 L (7-17) mg/dL Creatinine 0.50 L (0.52-1.04) mg/dL Glucose 107 H (74-99) mg/dL Calcium 7.9 L 8.2 L (8.4-10.2) mg/dL Magnesium 1.3 L (1.6-2.3) mg/dL Total Protein 5.7 L 6.1 L (6.3-8.2) g/dL Albumin 2.7 L 2.9 L (3.5-5.0) g/dL 02/27/20 Range/Units 11:23 WBC (3.8-10.6) k/uL RBC 2.72 L (3.80-5.40) m/uL Hgb 9.7 L (11.4-16.0) gm/dL Hct 28.6 L (34.0-46.0) % MCV 105.1 H (80.0-100.0) fL MCH 35.6 H (25.0-35.0) pg RDW 21.2 H (11.5-15.5) % Plt Count (150-450) k/uL Neutrophils # (Manual) (1.3-7.7) k/uL Lymphocytes # (Manual) 0.90 L (1.0-4.8) k/uL Monocytes # (Manual) (0-1.0) k/uL Eosinophils # (Manual) (0-0.7) k/uL Macrocytosis Marked A Sodium (137-145) mmol/L Potassium (3.5-5.1) mmol/L Chloride (98-107) mmol/L Carbon Dioxide (22-30) mmol/L BUN (7-17) mg/dL Creatinine (0.52-1.04) mg/dL Glucose (74-99) mg/dL Calcium (8.4-10.2) mg/dL Magnesium (1.6-2.3) mg/dL Total Protein (6.3-8.2) g/dL Albumin (3.5-5.0) g/dL Microbiology - Last 24 Hours (Table) 02/24/20 10:30 Gram Stain - Preliminary Pleural Fluid Body Fluid Culture - Preliminary 02/20/20 14:37 Blood Culture - Final Blood No Growth after 144 hours 02/21/20 12:49 Blood Culture - Preliminary Blood No Growth after 120 hours 02/24/20 10:30 Anaerobic Culture - Preliminary Pleural Fluid Assessment and Plan (1) Alcohol abuse Current Visit: Yes Status: Acute Code(s): F10.10 - ALCOHOL ABUSE, UNCOMPLICATED SNOMED Code(s): 07051840 (2) Pancytopenia Current Visit: Yes Status: Acute Code(s): D61.818 - OTHER PANCYTOPENIA SNOMED Code(s): 806535029 (3) Fall Current Visit: No Status: Acute Code(s): W19.XXXA - UNSPECIFIED FALL, INITIAL ENCOUNTER SNOMED Code(s): 9908804 Plan: Rechecked yesterdays blood draws and resulted in more baseline to patients normal. no transfusion or supp appears to be needed. Hydrea to remain on hold at this time as cbc is recovering although low. Transfuse Hemoglobin les than 7, platelet less than 10K. Hold NSAIDS, ASA, Anti-coagulation for platelet count less than 50K Pulm following.
[2020-02-27] MEDS ORDERED: Magnesium Replacement Protocol 1 EACH MISC MISCELLANE PRN (15:51)
--- NOTE | 2020-02-27 15:58 | P.PN ---
Subjective Progress Note Date: 02/27/20 This is a 74-year-old female who was recently admitted with significant pleural effusion also had thoracentesis which showed hemothorax with continued shortness of breath and is being closely monitored. Multiple medical consultations following. Patient's mentation slightly improved although continues to be somewhat confused. Patient's urine culture had finalized showing Klebsiella pneumonia and fluid specimens were sent from thoracentesis and currently pending. Patient is maintained on IV antibiotics in the form of Zosyn and will continue at this time. Infectious disease is following. White blood count is 3.9 today, hemoglobin is 9.7. Further anemia workup is in progress. Hematology is following. Sodium slightly improved at 136. Potassium was replaced and current potassium is 4.0. Creatinine is 0.50. Magnesium is 1.3 and currently being replaced. Will repeat a.m. labs. Review of systems: Constitutional: reports of fatigue Cardiovascular: No reports of chest pain or palpitations Respiratory: Reports shortness of breath and cough GI: Reports some mild nausea, vomiting : No reports of dysuria or retention Neurovascular: Reports weakness All medications have been reviewed Active Medications Hydrocodone Bitart/Acetaminophen (Hydrocodone/Apap 5-325mg 1 Each Tab) 1 each PO Q6HR PRN PRN Reason: Pain Last Admin: 02/26/20 02:56 Dose: 1 each Documented by: Azithromycin (Azithromycin 500 Mg Tab) 500 mg PO DAILY ON LICENSE OF [facility] Last Admin: 02/27/20 08:35 Dose: 500 mg Documented by: Folic Acid (Folic Acid 1 Mg Tab) 1 mg PO DAILY@1200 ON LICENSE OF [facility] Last Admin: 02/27/20 08:35 Dose: 1 mg Documented by: Hydromorphone HCl (Hydromorphone 0.5 Mg/0.5 Ml Syringe) 0.5 mg IVP Q6HR PRN PRN Reason: Severe Pain Sodium Chloride (Saline 0.9%) 1,000 mls @ 20 mls/hr IV .Q24H ON LICENSE OF [facility] Last Admin: 02/27/20 11:50 Dose: Not Given Documented by: Piperacillin Sod/Tazobactam (Sod 3.375 gm/ Sodium Chloride) 100 mls @ 25 mls/hr IVPB Q8H ON LICENSE OF [facility] Last Admin: 02/27/20 11:50 Dose: 25 mls/hr Documented by: Levetiracetam (Levetiracetam 500 Mg Tab) 1,000 mg PO Q12HR ON LICENSE OF [facility] Last Admin: 02/27/20 08:35 Dose: 1,000 mg Documented by: Lisinopril (Lisinopril 20 Mg Tab) 40 mg PO DAILY ON LICENSE OF [facility] Last Admin: 02/27/20 08:35 Dose: 40 mg Documented by: Lorazepam (Lorazepam 2 Mg/Ml Inj) 1 mg IV Q2HR PRN PRN Reason: CIWA 8 or 9 Last Admin: 02/23/20 05:59 Dose: 1 mg Documented by: Lorazepam (Lorazepam 2 Mg/Ml Inj) 1 mg IV Q1HR PRN PRN Reason: CIWA 10 to 15 Lorazepam (Lorazepam 1 Mg Tab) 1 mg PO Q4HR PRN PRN Reason: Anxiety Last Admin: 02/25/20 13:46 Dose: 1 mg Documented by: Metoprolol Succinate (Metoprolol Succinate (Er) 50 Mg Tab.Er.24h) 50 mg PO BID ON LICENSE OF [facility] Last Admin: 02/27/20 08:35 Dose: 50 mg Documented by: Miscellaneous Information (Magnesium Replacement Protocol 1 Each Misc) 1 each MISCELLANE DAILY PRN; Protocol PRN Reason: Per Protocol Miscellaneous Information (Potassium Replacement Protocol 1 Each Misc) 1 each MISCELLANE DAILY PRN; Protocol PRN Reason: Per Protocol Multivitamins (Multivitamins, Thera 1 Each Tab) 1 each PO DAILY@1200 ON LICENSE OF [facility] Last Admin: 02/27/20 08:35 Dose: 1 each Documented by: Naloxone HCl (Naloxone 0.4 Mg/Ml 1 Ml Vial) 0.2 mg IV Q2M PRN PRN Reason: Opioid Reversal Pantoprazole Sodium (Pantoprazole 40 Mg Tablet) 40 mg PO AC-BRKFST ON LICENSE OF [facility] Last Admin: 02/27/20 08:35 Dose: 40 mg Documented by: Potassium Chloride (Potassium Chloride Er 20 Meq Tab.Er) 20 meq PO BID ON LICENSE OF [facility] Last Admin: 02/27/20 08:35 Dose: 20 meq Documented by: Temazepam (Temazepam 15 Mg Cap) 15 mg PO HS PRN PRN Reason: Insomnia Last Admin: 02/27/20 02:15 Dose: 15 mg Documented by: Thiamine HCl (Thiamine 100 Mg Tab) 100 mg PO BID-W/MEALS ON LICENSE OF [facility] Last Admin: 02/27/20 08:35 Dose: 100 mg Documented by: Objective - Vital Signs Vital signs: Vital Signs Temp 97.9 F 02/27/20 14:00 Pulse 88 02/27/20 14:00 Resp 18 02/27/20 14:00 BP 93/63 02/27/20 14:00 Pulse Ox 94 L 02/27/20 14:00 Intake & Output 02/26/20 02/27/20 02/27/20 18:59 06:59 18:59 Intake Total 100 Output Total 1200 200 Balance -1200 -100 Weight 68.039 kg Intake: Oral 100 Output: Urine 1200 200 Other: Voiding Method Indwelling Catheter Indwelling Catheter Indwelling Catheter # Bowel Movements 1 - Exam Gen: This is a 74-year-old female awake, alert and oriented 1, well-developed, well-nourished. Temp is 97.9F, pulse is 88, respirations are 18, blood pressure is 93/63, oxygen saturation is 94% on 4 L via nasal cannula. HEENT: Head is atraumatic, normocephalic. Pupils equal, round. Sclerae is anicteric. Oral mucosa is dry. NECK: Supple. No JVD. No lymphadenopathy. No thyromegaly. LUNGS: Manage breath sounds bilaterally with some scattered rhonchi noted. No intercostal retractions. HEART: S1, S2 are muffled. ABDOMEN: Soft. Bowel sounds are present. No masses. No tenderness. EXTREMITIES: No pedal edema. No calf tenderness. NEUROLOGICAL: Patient is awake, alert and oriented x1. Confused. Diffusely weak. - Labs CBC & Chem 7: 02/27/20 11:23 02/27/20 10:03 Labs: Abnormal Lab Results - Last 24 Hours (Table) 02/26/20 02/26/20 02/27/20 Range/Units 17:48 17:48 10:03 WBC 22.0 H (3.8-10.6) k/uL RBC 2.91 L (3.80-5.40) m/uL Hgb 10.3 L (11.4-16.0) gm/dL Hct 30.9 L (34.0-46.0) % MCV 106.2 H (80.0-100.0) fL MCH 35.4 H (25.0-35.0) pg RDW 20.5 H (11.5-15.5) % Plt Count 118 L (150-450) k/uL Neutrophils # (Manual) 12.54 H (1.3-7.7) k/uL Lymphocytes # (Manual) (1.0-4.8) k/uL Monocytes # (Manual) 4.40 H (0-1.0) k/uL Eosinophils # (Manual) 0.88 H (0-0.7) k/uL Macrocytosis Marked A Sodium 133 L 136 L (137-145) mmol/L Potassium 2.8 L (3.5-5.1) mmol/L Chloride 97 L (98-107) mmol/L Carbon Dioxide 33 H 34 H (22-30) mmol/L BUN 4 L 3 L (7-17) mg/dL Creatinine 0.50 L (0.52-1.04) mg/dL Glucose 107 H (74-99) mg/dL Calcium 7.9 L 8.2 L (8.4-10.2) mg/dL Magnesium 1.3 L (1.6-2.3) mg/dL Total Protein 5.7 L 6.1 L (6.3-8.2) g/dL Albumin 2.7 L 2.9 L (3.5-5.0) g/dL 02/27/20 Range/Units 11:23 WBC (3.8-10.6) k/uL RBC 2.72 L (3.80-5.40) m/uL Hgb 9.7 L (11.4-16.0) gm/dL Hct 28.6 L (34.0-46.0) % MCV 105.1 H (80.0-100.0) fL MCH 35.6 H (25.0-35.0) pg RDW 21.2 H (11.5-15.5) % Plt Count (150-450) k/uL Neutrophils # (Manual) (1.3-7.7) k/uL Lymphocytes # (Manual) 0.90 L (1.0-4.8) k/uL Monocytes # (Manual) (0-1.0) k/uL Eosinophils # (Manual) (0-0.7) k/uL Macrocytosis Marked A Sodium (137-145) mmol/L Potassium (3.5-5.1) mmol/L Chloride (98-107) mmol/L Carbon Dioxide (22-30) mmol/L BUN (7-17) mg/dL Creatinine (0.52-1.04) mg/dL Glucose (74-99) mg/dL Calcium (8.4-10.2) mg/dL Magnesium (1.6-2.3) mg/dL Total Protein (6.3-8.2) g/dL Albumin (3.5-5.0) g/dL Microbiology - Last 24 Hours (Table) 02/21/20 12:49 Blood Culture - Final Blood No Growth after 144 hours 02/24/20 10:30 Gram Stain - Preliminary Pleural Fluid Body Fluid Culture - Preliminary 02/20/20 14:37 Blood Culture - Final Blood No Growth after 144 hours 02/24/20 10:30 Anaerobic Culture - Preliminary Pleural Fluid Assessment and Plan Assessment: Bilateral pneumonia, right more than left with possible aspiration, sepsis, present on admission Right pleural effusion possibly hemorrhagic, possibly parapneumonic, status post thoracentesis Anemia. Rule out acute blood loss anemia, exact etiology undetermined Change in mental status, acute metabolic encephalopathy, multifactorial Congestive heart failure with chronic systolic dysfunction, ejection fraction 40-50% Severe hypokalemia Moderate mitral regurgitation, moderate to severe tricuspid regurgitation and severe pulmonary hypertension on the 2-D echo Possible acute alcoholic withdrawal syndrome, present on admission Acute delirium tremens, present on admission History of alcohol dependence Hyponatremia Klebsiella acute urinary tract infection, present on admission Hypovolemia metabolic acidosis, elevated lactic acid with possible lactic acidosis, multifactorial, present on admission Respiratory alkalosis, currently Pancytopenia undetermined etiology History of essential thrombocythemia previously History of mild coagulopathy, possibly secondary to chronic liver disease History of CVA, TIA Gastroesophageal reflux disease Hypertension Hyperlipidemia history of degenerative joint disease History of seizure disorder History of blood clot history of compression fracture of T8 to S1 History of tonsillectomy History of anxiety Full code Recommendations and discussion: Recommend to continue current medications, management, and symptomatic treatment. Will continue to monitor closely. Multiple medical consultations following including hematology and infectious disease. Patient is maintained on IV antibiotics and will continue at this time. Anemia workup in progress. Electrolyte replacement per protocol. Magnesium was found to be low and will need replacement. Will repeat a.m. labs. Mentation slightly improved although patient continues to be confused. Due to multiple complex medical issues, prognosis is guarded. Social work following and patient has been accepted at [facility] once stabilized and discharged. Further recommendations to follow. Possibility of discharge early next week.
[2020-02-27] MEDS: MAGNESIUM SULFATE-D5W PMX 1 GM in DEXTROSE/WATER 1 100ML.BAG IVPB SCH ×3 (16:36→20:06)
--- NOTE | 2020-02-27 17:51 | PN ---
PROGRESS NOTE DATE OF SERVICE: 02/27/2020 REASON FOR FOLLOWUP: Aspiration pneumonia and UTI. INTERVAL HISTORY: Patient is currently afebrile. She is noted to be slightly more awake and alert today. She is breathing comfortably. Denies having any chest pain. Occasional cough. No abdominal pain or diarrhea. PHYSICAL EXAMINATION: Blood pressure 93/63 with a pulse of 80. Temperature is 97.9. She is 94% on 4 L nasal cannula. General description: The patient is an elderly female up in the chair in no distress. Respiratory system: Unlabored breathing, decreased breath sounds at bases. No wheeze. HEART: S1, S2. Regular rate and rhythm. Abdomen soft, no tenderness. LABS: Hemoglobin 11.7. White count 3.9. BUN of 6, creatinine 0.50. DIAGNOSTIC IMPRESSION AND PLAN: Patient with Klebsiella pneumoniae urinary tract infection and aspiration pneumonia in this patient who seemed to have responded to Zosyn. We will try to get a mid line to continue on Zosyn for about a week to finish course of therapy in the outpatient setting. Continue supportive care. MMODL / IJN: [id number] /
[2020-02-28] MEDS: PIPERACILLIN-TAZOBACTAM 3.375 GM in SODIUM CHLORIDE 0.9% 100 ML IVPB SCH ×3 (04:08→20:12)
[2020-02-28 06:42] LABS: Anisocytosis Moderate; Basophils # (A) 0.1 k/uL (0-0.2); Basophils % (A) 1 %; Eosinophils # (A) 0.1 k/uL (0-0.7); Eosinophils % (A) 2 %; HCT 27.4 % (34.0-46.0); HGB 9.1 gm/dL (11.4-16.0); Hypochromasia Slight; Lymphocytes # (A) 0.9 k/uL (1.0-4.8); Lymphocytes % (A) 22 %; MCH 36.7 pg (25.0-35.0); MCHC 33.2 g/dL (31.0-37.0); Macrocytosis Marked; Monocytes # (A) 0.8 k/uL (0-1.0); Monocytes % (A) 20 %; Neutrophils # (A) 2.1 k/uL (1.3-7.7); Neutrophils % (A) 53 %; Platelet Count 144 k/uL (150-450); RBC 2.49 m/uL (3.80-5.40); RDW 20.4 % (11.5-15.5); WBC 3.9 k/uL (3.8-10.6)
[2020-02-28 06:56] LABS: MCV 110.3 fL (80.0-100.0)
[2020-02-28] MEDS: lisinopriL 20 MG TAB PO SCH (07:49)
[2020-02-28] MEDS: THIAMINE 100 MG TAB PO SCH ×2 (07:49→16:55)
[2020-02-28] MEDS: levETIRAcetam 500 MG TAB PO SCH ×2 (07:49→20:13)
[2020-02-28] MEDS: PANTOPRAZOLE 40 MG TABLET PO SCH (07:49)
[2020-02-28] MEDS: AZITHROMYCIN 500 MG TAB PO SCH (07:49)
[2020-02-28] MEDS: POTASSIUM CHLORIDE ER 20 MEQ TAB.ER PO SCH ×2 (07:49→20:13)
[2020-02-28] MEDS: METOPROLOL SUCCINATE (ER) 50 MG TAB.ER.24H PO SCH ×2 (07:50→20:16)
[2020-02-28 08:30] LABS: Poikilocytosis (M) Present
--- NOTE | 2020-02-28 10:18 | P.PN ---
Subjective Progress Note Date: 02/28/20 This is a 74-year-old female who was recently admitted with significant pleural effusion also had thoracentesis which showed hemothorax with continued shortness of breath and is being closely monitored. Multiple medical consultations following. Patient's mentation slightly improved although continues to be somewhat confused. Patient's urine culture had finalized showing Klebsiella pneumonia and fluid specimens were sent from thoracentesis and currently pending. Patient is maintained on IV antibiotics in the form of Zosyn and will continue at this time. Infectious disease is following. White blood count is 3.9 today, hemoglobin is 9.7. Further anemia workup is in progress. Hematology is following. Sodium slightly improved at 136. Potassium was replaced and current potassium is 4.0. Creatinine is 0.50. Magnesium is 1.3 and currently being replaced. Will repeat a.m. labs. 02/28/2020 Patient is seen and evaluated in follow-up currently sitting up feeding herself breakfast with standby assistance. Patient's appetite continues to be poor although patient is eating more of each meal. More awake and alert this morning. CBC this morning is stable and BMP is currently pending. Will continue to monitor vital signs and labs closely. Patient is maintained on IV antibiotic some the form of Zosyn and will continue. Infectious disease is following. Will attempt midline placement with the possibility of IV antibiotic therapy for an additional week at the [facility]. Social work is following as patient has been accepted at [facility] and will likely go there early this week. Fluid cultures from thoracentesis continue to show no growth. Magnesium was also replaced yesterday although morning labs are currently pending. Will follow-up. Review of systems: Constitutional: reports of fatigue Cardiovascular: No reports of chest pain or palpitations Respiratory: Reports shortness of breath or cough GI: No reports of nausea or vomiting : No reports of dysuria or retention Neurovascular: Reports weakness All medications have been reviewed Active Medications Hydrocodone Bitart/Acetaminophen (Hydrocodone/Apap 5-325mg 1 Each Tab) 1 each PO Q6HR PRN PRN Reason: Pain Last Admin: 02/26/20 02:56 Dose: 1 each Documented by: Azithromycin (Azithromycin 500 Mg Tab) 500 mg PO DAILY [facility] Last Admin: 02/28/20 07:49 Dose: 500 mg Documented by: Folic Acid (Folic Acid 1 Mg Tab) 1 mg PO DAILY@1200 [facility] Last Admin: 02/27/20 08:35 Dose: 1 mg Documented by: Hydromorphone HCl (Hydromorphone 0.5 Mg/0.5 Ml Syringe) 0.5 mg IVP Q6HR PRN PRN Reason: Severe Pain Sodium Chloride (Saline 0.9%) 1,000 mls @ 20 mls/hr IV .Q24H [facility] Last Admin: 02/27/20 11:50 Dose: Not Given Documented by: Piperacillin Sod/Tazobactam (Sod 3.375 gm/ Sodium Chloride) 100 mls @ 25 mls/hr IVPB Q8H [facility] Last Admin: 02/28/20 04:08 Dose: 25 mls/hr Documented by: Levetiracetam (Levetiracetam 500 Mg Tab) 1,000 mg PO Q12HR [facility] Last Admin: 02/28/20 07:49 Dose: 1,000 mg Documented by: Lisinopril (Lisinopril 20 Mg Tab) 40 mg PO DAILY [facility] Last Admin: 02/28/20 07:49 Dose: 40 mg Documented by: Lorazepam (Lorazepam 2 Mg/Ml Inj) 1 mg IV Q2HR PRN PRN Reason: CIWA 8 or 9 Last Admin: 02/23/20 05:59 Dose: 1 mg Documented by: Lorazepam (Lorazepam 2 Mg/Ml Inj) 1 mg IV Q1HR PRN PRN Reason: CIWA 10 to 15 Lorazepam (Lorazepam 1 Mg Tab) 1 mg PO Q4HR PRN PRN Reason: Anxiety Last Admin: 02/25/20 13:46 Dose: 1 mg Documented by: Metoprolol Succinate (Metoprolol Succinate (Er) 50 Mg Tab.Er.24h) 50 mg PO BID [facility] Last Admin: 02/28/20 07:50 Dose: Not Given Documented by: Miscellaneous Information (Magnesium Replacement Protocol 1 Each Misc) 1 each MISCELLANE DAILY PRN; Protocol PRN Reason: Per Protocol Miscellaneous Information (Potassium Replacement Protocol 1 Each Misc) 1 each MISCELLANE DAILY PRN; Protocol PRN Reason: Per Protocol Miscellaneous Information (Magnesium Replacement Protocol 1 Each Misc) 1 each MISCELLANE DAILY PRN; Protocol PRN Reason: Per Protocol Multivitamins (Multivitamins, Thera 1 Each Tab) 1 each PO DAILY@1200 [facility] Last Admin: 02/27/20 08:35 Dose: 1 each Documented by: Naloxone HCl (Naloxone 0.4 Mg/Ml 1 Ml Vial) 0.2 mg IV Q2M PRN PRN Reason: Opioid Reversal Pantoprazole Sodium (Pantoprazole 40 Mg Tablet) 40 mg PO AC-BRKFST [facility] Last Admin: 02/28/20 07:49 Dose: 40 mg Documented by: Potassium Chloride (Potassium Chloride Er 20 Meq Tab.Er) 20 meq PO BID [facility] Last Admin: 02/28/20 07:49 Dose: 20 meq Documented by: Temazepam (Temazepam 15 Mg Cap) 15 mg PO HS PRN PRN Reason: Insomnia Last Admin: 02/27/20 20:05 Dose: 15 mg Documented by: Thiamine HCl (Thiamine 100 Mg Tab) 100 mg PO BID-W/MEALS [facility] Last Admin: 02/28/20 07:49 Dose: 100 mg Documented by: Objective - Vital Signs Vital signs: Vital Signs Temp 97.6 F 02/28/20 02:04 Pulse 89 02/28/20 02:04 Resp 16 02/28/20 02:04 BP 97/62 02/28/20 02:04 Pulse Ox 100 02/28/20 02:04 Intake & Output 02/27/20 02/28/20 02/28/20 18:59 06:59 18:59 Output Total 550 Balance -550 Weight 68.039 kg Output: Urine 550 Other: Voiding Method Indwelling Catheter Indwelling Catheter # Voids 3 # Bowel Movements 5 2 - Exam Gen: This is a 74-year-old female awake, alert and oriented 1, well-developed, well-nourished. Temp is 97.7F, pulse is 95, respirations are 18, blood pressure is 106/68, oxygen saturation is 100 % on 4 L via nasal cannula. HEENT: Head is atraumatic, normocephalic. Pupils equal, round. Sclerae is anicteric. Oral mucosa is dry. NECK: Supple. No JVD. No lymphadenopathy. No thyromegaly. LUNGS: Manage breath sounds bilaterally with some scattered rhonchi noted. No intercostal retractions. HEART: S1, S2 are muffled. ABDOMEN: Soft. Bowel sounds are present. No masses. No tenderness. EXTREMITIES: No pedal edema. No calf tenderness. NEUROLOGICAL: Patient is awake, alert and oriented x1. Confused. Diffusely weak. - Labs CBC & Chem 7: 02/28/20 05:55 02/27/20 10:03 Labs: Abnormal Lab Results - Last 24 Hours (Table) 02/27/20 02/27/20 02/28/20 Range/Units 10:03 11:23 05:55 RBC 2.72 L 2.49 L (3.80-5.40) m/uL Hgb 9.7 L 9.1 L (11.4-16.0) gm/dL Hct 28.6 L 27.4 L (34.0-46.0) % MCV 105.1 H 110.3 H D (80.0-100.0) fL MCH 35.6 H 36.7 H (25.0-35.0) pg RDW 21.2 H 20.4 H (11.5-15.5) % Plt Count 144 L (150-450) k/uL Lymphocytes # (Manual) 0.90 L (1.0-4.8) k/uL Macrocytosis Marked A Marked A Sodium 136 L (137-145) mmol/L Carbon Dioxide 34 H (22-30) mmol/L BUN 3 L (7-17) mg/dL Creatinine 0.50 L (0.52-1.04) mg/dL Glucose 107 H (74-99) mg/dL Calcium 8.2 L (8.4-10.2) mg/dL Magnesium 1.3 L (1.6-2.3) mg/dL Total Protein 6.1 L (6.3-8.2) g/dL Albumin 2.9 L (3.5-5.0) g/dL Microbiology - Last 24 Hours (Table) 02/21/20 12:49 Blood Culture - Final Blood No Growth after 144 hours 02/24/20 10:30 Gram Stain - Preliminary Pleural Fluid Body Fluid Culture - Preliminary Assessment and Plan Assessment: Bilateral pneumonia, right more than left with possible aspiration, sepsis, present on admission Right pleural effusion possibly hemorrhagic, possibly parapneumonic, status post thoracentesis Anemia. Rule out acute blood loss anemia, exact etiology undetermined Change in mental status, acute metabolic encephalopathy, multifactorial Congestive heart failure with chronic systolic dysfunction, ejection fraction 40-50% Severe hypokalemia Hypomagnesemia Moderate mitral regurgitation, moderate to severe tricuspid regurgitation and severe pulmonary hypertension on the 2-D echo Possible acute alcoholic withdrawal syndrome, present on admission Acute delirium tremens, present on admission History of alcohol dependence Hyponatremia Klebsiella acute urinary tract infection, present on admission Hypovolemia metabolic acidosis, elevated lactic acid with possible lactic acidosis, multifactorial, present on admission Respiratory alkalosis, currently Pancytopenia undetermined etiology History of essential thrombocythemia previously History of mild coagulopathy, possibly secondary to chronic liver disease History of CVA, TIA Gastroesophageal reflux disease Hypertension Hyperlipidemia history of degenerative joint disease History of seizure disorder History of blood clot history of compression fracture of T8 to S1 History of tonsillectomy History of anxiety Full code Recommendations and discussion: Recommend to continue current medications, management, and symptomatic treatment. Will continue to monitor closely. Multiple medical consultations following including hematology and infectious disease. Patient is maintained on IV antibiotics and will continue at this time. Will obtain midline with the possibility of IV antibiotic therapy for 1 week outpatient. Infectious disease is following. Electrolyte replacement per protocol. Morning labs currently pending and will follow-up. Will repeat a.m. labs. Mentation slightly improved although patient continues to be confused. Due to multiple complex medical issues, prognosis is guarded. Social work following and patient has been accepted at [facility] once stabilized and discharged. Further recommendations to follow. Possibility of discharge Sunday.
[2020-02-28 10:20] LABS: ALT 13 U/L (8-44); AST 17 U/L (13-35); African American GFR (CKD) 110.5 (60.0-200.0); Albumin/Globulin Ratio 1.32 (1.60-3.17); Alkaline Phosphatase 79 U/L (41-126); Blood Urea Nitrogen <5.0 mg/dL (9.0-27.0); Calcium 7.5 mg/dL (8.7-10.3); Carbon Dioxide 31.3 mmol/L (21.6-31.8); Chloride 103 mmol/L (96-109); Globulin 1.9 g/dL (1.6-3.3); Glucose 89 mg/dL (70-110); Magnesium 1.9 mg/dL (1.5-2.4); Non-African American GFR(CKD) 95.3 (60.0-200.0); Potassium 3.5 mmol/L (3.5-5.5); Sodium 140 mmol/L (135-145); Total Bilirubin 0.5 mg/dL (0.3-1.2); Total Protein 4.4 g/dL (6.2-8.2)
[2020-02-28] MEDS: HYDROcodone/APAP 5-325MG 1 EACH TAB PO PRN (10:23)
[2020-02-28] MEDS: FOLIC ACID 1 MG TAB PO SCH (11:48)
[2020-02-28] MEDS: MULTIVITAMINS, THERA 1 EACH TAB PO SCH (11:48)
--- NOTE | 2020-02-28 17:03 | PN ---
PROGRESS NOTE DATE OF SERVICE: 02/28/2020 REASON FOR FOLLOWUP: Aspiration pneumonia and UTI. INTERVAL HISTORY: The patient is currently afebrile. The patient is more awake and alert. She is breathing comfortably. The patient denies having any chest pain or shortness of breath. She did have some cough; not bringing up any sputum. No abdominal pain or diarrhea. PHYSICAL EXAMINATION: Blood pressure 106/68 with a pulse of 95, temperature 97.7. She is 100% on 4 L nasal cannula. General description is an elderly female lying in bed in no distress. RESPIRATORY SYSTEM: Unlabored breathing. Clear to auscultation anteriorly. HEART: S1, S2. Regular rate and rhythm. ABDOMEN: Soft. No tenderness. LABS: Hemoglobin 9.8, white count 3.9. BUN of 5, creatinine 0.5. DIAGNOSTIC IMPRESSION AND PLAN: Patient with Klebsiella pneumoniae urinary tract infection as well as a component of pneumonia, possible aspiration in etiology. The patient seems to have clinically responded to Zosyn; to continue to finish her course of therapy. Continue supportive care. MMODL / IJN: [id number] /
[2020-02-28] MEDS: SODIUM CHLORIDE 0.9% 1,000 ML IV SCH (18:51)
[2020-02-28] MEDS: TEMAZEPAM 15 MG CAP PO PRN (20:13)
[2020-02-29] MEDS: HYDROcodone/APAP 5-325MG 1 EACH TAB PO PRN ×2 (02:40→22:24)
[2020-02-29] MEDS: PIPERACILLIN-TAZOBACTAM 3.375 GM in SODIUM CHLORIDE 0.9% 100 ML IVPB SCH ×3 (03:00→21:05)
[2020-02-29 08:08] LABS: African American GFR (CKD) >90 (>60 ml/min/1.73 sqM); Anion Gap 3 mmol/L; Blood Urea Nitrogen 4 mg/dL (7-17); Calcium 8.1 mg/dL (8.4-10.2); Carbon Dioxide 28 mmol/L (22-30); Chloride 107 mmol/L (98-107); Glucose 94 mg/dL (74-99); Magnesium 1.7 mg/dL (1.6-2.3); Non-African American GFR(CKD) >90 (>60 ml/min/1.73 sqM); Potassium 4.1 mmol/L (3.5-5.1); Sodium 138 mmol/L (137-145)
[2020-02-29] MEDS: AZITHROMYCIN 500 MG TAB PO SCH (08:21)
[2020-02-29] MEDS: levETIRAcetam 500 MG TAB PO SCH ×2 (08:21→21:05)
[2020-02-29] MEDS: THIAMINE 100 MG TAB PO SCH ×2 (08:21→16:21)
[2020-02-29] MEDS: MULTIVITAMINS, THERA 1 EACH TAB PO SCH (08:21)
[2020-02-29] MEDS: PANTOPRAZOLE 40 MG TABLET PO SCH (08:21)
[2020-02-29] MEDS: lisinopriL 20 MG TAB PO SCH (08:21)
[2020-02-29] MEDS: POTASSIUM CHLORIDE ER 20 MEQ TAB.ER PO SCH ×2 (08:21→21:04)
[2020-02-29] MEDS: FOLIC ACID 1 MG TAB PO SCH (08:21)
[2020-02-29] MEDS: METOPROLOL SUCCINATE (ER) 50 MG TAB.ER.24H PO SCH ×2 (08:21→21:04)
[2020-02-29] MEDS: MAGNESIUM OXIDE 400 MG TAB PO SCH (11:35)
--- NOTE | 2020-02-29 13:40 | P.PN ---
Subjective Progress Note Date: 02/29/20 This is a 74-year-old female who was recently admitted with significant pleural effusion also had thoracentesis which showed hemothorax with continued shortness of breath and is being closely monitored. Multiple medical consultations following. Patient's mentation slightly improved although continues to be somewhat confused. Patient's urine culture had finalized showing Klebsiella pneumonia and fluid specimens were sent from thoracentesis and currently pending. Patient is maintained on IV antibiotics in the form of Zosyn and will continue at this time. Infectious disease is following. White blood count is 3.9 today, hemoglobin is 9.7. Further anemia workup is in progress. Hematology is following. Sodium slightly improved at 136. Potassium was replaced and current potassium is 4.0. Creatinine is 0.50. Magnesium is 1.3 and currently being replaced. Will repeat a.m. labs. 02/28/2020 Patient is seen and evaluated in follow-up currently sitting up feeding herself breakfast with standby assistance. Patient's appetite continues to be poor although patient is eating more of each meal. More awake and alert this morning. CBC this morning is stable and BMP is currently pending. Will continue to monitor vital signs and labs closely. Patient is maintained on IV antibiotic some the form of Zosyn and will continue. Infectious disease is following. Will attempt midline placement with the possibility of IV antibiotic therapy for an additional week at the [facility]. Social work is following as patient has been accepted at [facility] and will likely go there early this week. Fluid cultures from thoracentesis continue to show no growth. Magnesium was also replaced yesterday although morning labs are currently pending. Will follow-up. 02/29/2020 Patient is seen this morning with no acute overnight issues. Patient is continued on IV antibiotics and will continue. Oral zithromax as well. To complete a one week course in the outpatient setting. Vitals have been stable a nd patient is afebrile. Patient is currently maintained on 4 L via NC and is 100%. Discussed with nursing staff about weaning FI02. Sodium is 138 with a potassium of 4.1. Magnesium is 1.7 and will add Mag oxide 400mg daily. Continue to encourage oral intake. Patient is slowly improving in mentation but continues to be confused. Review of systems: Constitutional: reports of fatigue Cardiovascular: No reports of chest pain or palpitations Respiratory: Reports shortness of breath or cough GI: No reports of nausea or vomiting : No reports of dysuria or retention Neurovascular: Reports weakness All medications have been reviewed Active Medications Hydrocodone Bitart/Acetaminophen (Hydrocodone/Apap 5-325mg 1 Each Tab) 1 each PO Q6HR PRN PRN Reason: Pain Last Admin: 02/29/20 02:40 Dose: 1 each Documented by: Azithromycin (Azithromycin 500 Mg Tab) 500 mg PO DAILY [facility] Last Admin: 02/29/20 08:21 Dose: 500 mg Documented by: Folic Acid (Folic Acid 1 Mg Tab) 1 mg PO DAILY@1200 [facility] Last Admin: 02/29/20 08:21 Dose: 1 mg Documented by: Hydromorphone HCl (Hydromorphone 0.5 Mg/0.5 Ml Syringe) 0.5 mg IVP Q6HR PRN PRN Reason: Severe Pain Piperacillin Sod/Tazobactam (Sod 3.375 gm/ Sodium Chloride) 100 mls @ 25 mls/hr IVPB Q8H [facility] Last Admin: 02/29/20 11:35 Dose: 25 mls/hr Documented by: Levetiracetam (Levetiracetam 500 Mg Tab) 1,000 mg PO Q12HR [facility] Last Admin: 02/29/20 08:21 Dose: 1,000 mg Documented by: Lisinopril (Lisinopril 20 Mg Tab) 40 mg PO DAILY [facility] Last Admin: 02/29/20 08:21 Dose: 40 mg Documented by: Lorazepam (Lorazepam 2 Mg/Ml Inj) 1 mg IV Q2HR PRN PRN Reason: CIWA 8 or 9 Last Admin: 02/23/20 05:59 Dose: 1 mg Documented by: Lorazepam (Lorazepam 2 Mg/Ml Inj) 1 mg IV Q1HR PRN PRN Reason: CIWA 10 to 15 Lorazepam (Lorazepam 1 Mg Tab) 1 mg PO Q4HR PRN PRN Reason: Anxiety Last Admin: 02/25/20 13:46 Dose: 1 mg Documented by: Magnesium Oxide (Magnesium Oxide 400 Mg Tab) 400 mg PO DAILY [facility] Last Admin: 02/29/20 11:35 Dose: 400 mg Documented by: Metoprolol Succinate (Metoprolol Succinate (Er) 50 Mg Tab.Er.24h) 50 mg PO BID [facility] Last Admin: 02/29/20 08:21 Dose: 50 mg Documented by: Miscellaneous Information (Magnesium Replacement Protocol 1 Each Misc) 1 each MISCELLANE DAILY PRN; Protocol PRN Reason: Per Protocol Miscellaneous Information (Potassium Replacement Protocol 1 Each Misc) 1 each MISCELLANE DAILY PRN; Protocol PRN Reason: Per Protocol Miscellaneous Information (Magnesium Replacement Protocol 1 Each Misc) 1 each MISCELLANE DAILY PRN; Protocol PRN Reason: Per Protocol Multivitamins (Multivitamins, Thera 1 Each Tab) 1 each PO DAILY@1200 [facility] Last Admin: 02/29/20 08:21 Dose: 1 each Documented by: Naloxone HCl (Naloxone 0.4 Mg/Ml 1 Ml Vial) 0.2 mg IV Q2M PRN PRN Reason: Opioid Reversal Pantoprazole Sodium (Pantoprazole 40 Mg Tablet) 40 mg PO AC-BRKFST [facility] Last Admin: 02/29/20 08:21 Dose: 40 mg Documented by: Potassium Chloride (Potassium Chloride Er 20 Meq Tab.Er) 20 meq PO BID [facility] Last Admin: 02/29/20 08:21 Dose: 20 meq Documented by: Temazepam (Temazepam 15 Mg Cap) 15 mg PO HS PRN PRN Reason: Insomnia Last Admin: 02/28/20 20:13 Dose: 15 mg Documented by: Thiamine HCl (Thiamine 100 Mg Tab) 100 mg PO BID-W/MEALS [facility] Last Admin: 02/29/20 08:21 Dose: 100 mg Documented by: Objective - Vital Signs Vital signs: Vital Signs Temp 97.8 F 02/29/20 01:10 Pulse 94 02/29/20 01:10 Resp 13 02/29/20 01:10 BP 94/60 02/29/20 01:10 Pulse Ox 100 02/29/20 01:10 Intake & Output 02/28/20 02/29/20 02/29/20 18:59 06:59 18:59 Intake Total 100 Output Total 350 Balance 100 -350 Intake: Intake, IV Titration 100 Amount Piperacillin-Tazobactam 3 100 .375 gm In Sodium Chloride 0.9% 100 ml @ 25 mls/hr IVPB Q8H [facility] Rx#: [id number] Output: Urine 350 Other: Voiding Method Indwelling Catheter Indwelling Catheter # Bowel Movements 1 - Exam Gen: This is a 74-year-old female awake, alert and oriented 1, well-developed, well-nourished. Temp is 97.7F, pulse is 89, respirations are 16, blood pressure is 104/65, oxygen saturation is 100 % on 4 L via nasal cannula. HEENT: Head is atraumatic, normocephalic. Pupils equal, round. Sclerae is anicteric. Oral mucosa is dry. NECK: Supple. No JVD. No lymphadenopathy. No thyromegaly. LUNGS: diminished breath sounds bilaterally with no wheezing or rhonchi noted. No intercostal retractions. HEART: S1, S2 are muffled. ABDOMEN: Soft. Bowel sounds are present. No masses. No tenderness. EXTREMITIES: No pedal edema. No calf tenderness. NEUROLOGICAL: Patient is awake, alert and oriented x1. Confused. Diffusely weak. - Labs CBC & Chem 7: 02/28/20 05:55 02/29/20 07:35 Labs: Abnormal Lab Results - Last 24 Hours (Table) 02/28/20 02/28/20 Range/Units 05:55 05:55 Lymphocytes # 0.9 L (1.0-4.8) k/uL BUN <5.0 L (9.0-27.0) mg/dL Creatinine 0.5 L (0.6-1.5) mg/dL Calcium 7.5 L (8.7-10.3) mg/dL Total Protein 4.4 L (6.2-8.2) g/dL Albumin 2.50 L (3.80-4.90) g/dL Albumin/Globulin Ratio 1.32 L (1.60-3.17) g/dL Microbiology - Last 24 Hours (Table) 02/24/20 10:30 Anaerobic Culture - Final Pleural Fluid 02/24/20 10:30 Gram Stain - Final Pleural Fluid Body Fluid Culture - Final Assessment and Plan Assessment: Bilateral pneumonia, right more than left with possible aspiration, sepsis, present on admission Right pleural effusion possibly hemorrhagic, possibly parapneumonic, status post thoracentesis Anemia. Rule out acute blood loss anemia, exact etiology undetermined Change in mental status, acute metabolic encephalopathy, multifactorial Congestive heart failure with chronic systolic dysfunction, ejection fraction 40-50% Severe hypokalemia, improved Hypomagnesemia Moderate mitral regurgitation, moderate to severe tricuspid regurgitation and severe pulmonary hypertension on the 2-D echo Possible acute alcoholic withdrawal syndrome, present on admission Acute delirium tremens, present on admission History of alcohol dependence Hyponatremia, improved Klebsiella acute urinary tract infection, present on admission Hypovolemia metabolic acidosis, elevated lactic acid with possible lactic acidosis, multifactorial, present on admission Respiratory alkalosis, currently Pancytopenia undetermined etiology History of essential thrombocythemia previously History of mild coagulopathy, possibly secondary to chronic liver disease History of CVA, TIA Gastroesophageal reflux disease Hypertension Hyperlipidemia history of degenerative joint disease History of seizure disorder History of blood clot history of compression fracture of T8 to S1 History of tonsillectomy History of anxiety Full code Recommendations and discussion: Recommend to continue current medications, management, and symptomatic treatment. Will continue to monitor closely. Multiple medical consultations following including hematology and infectious disease. Patient is maintained on IV antibiotics along with oral and will continue at this time. Will obtain midline with the possibility of IV antibiotic therapy for 1 week outpatient. Infectious disease is following. Electrolyte replacement per protocol. Mentation slightly improved although patient continues to be confused. Due to multiple complex medical issues, prognosis is guarded. Social work following and patient has been accepted at [facility] once stabilized and discharged. Further recommendations to follow. Possible discharge in 24 hours.
--- NOTE | 2020-02-29 20:36 | PN ---
PROGRESS NOTE DATE OF SERVICE: 02/29/2020 REASON FOR FOLLOWUP: Urinary tract infection and aspiration pneumonia. INTERVAL HISTORY: The patient is currently afebrile. The patient is more awake and alert. She is breathing comfortably. Denies having any chest pain. Occasional cough. No abdominal pain or diarrhea. PHYSICAL EXAMINATION: Blood pressure 107/67 with a pulse of 96, temperature 97.9. She is 97% on 2 L nasal cannula. General description is an elderly female up in the bed in no distress. RESPIRATORY SYSTEM: Unlabored breathing with decreased breath sounds at the base. No wheeze. HEART: S1, S2. Regular rate and rhythm. ABDOMEN: Soft. No tenderness. LABS: BUN of 4, creatinine 0.47. DIAGNOSTIC IMPRESSION AND PLAN: Patient with Klebsiella urinary tract infection and a question of aspiration pneumonia. Overall improvement on Zosyn; to continue for about a week with a midline to finish her course of therapy. Continue with supportive care. MMODL / IJN: [id number] /
[2020-02-29] MEDS: TEMAZEPAM 15 MG CAP PO PRN (21:04)
[2020-03-01] MEDS: PIPERACILLIN-TAZOBACTAM 3.375 GM in SODIUM CHLORIDE 0.9% 100 ML IVPB SCH ×2 (03:57→11:51)
[2020-03-01] MEDS: THIAMINE 100 MG TAB PO SCH (07:48)
[2020-03-01] MEDS: PANTOPRAZOLE 40 MG TABLET PO SCH (07:48)
[2020-03-01 08:08] VITALS: TEMP 97.8
[2020-03-01] MEDS: levETIRAcetam 500 MG TAB PO SCH (08:38)
[2020-03-01] MEDS: AZITHROMYCIN 500 MG TAB PO SCH (08:38)
[2020-03-01] MEDS: POTASSIUM CHLORIDE ER 20 MEQ TAB.ER PO SCH (08:39)
[2020-03-01] MEDS: MAGNESIUM OXIDE 400 MG TAB PO SCH (08:39)
[2020-03-01] MEDS: METOPROLOL SUCCINATE (ER) 50 MG TAB.ER.24H PO SCH (08:39)
[2020-03-01] MEDS: lisinopriL 20 MG TAB PO SCH (08:39)
[2020-03-01 10:31] VITALS: RESP 16
[2020-03-01] MEDS: MULTIVITAMINS, THERA 1 EACH TAB PO SCH (11:51)
[2020-03-01] MEDS: FOLIC ACID 1 MG TAB PO SCH (11:51)
--- NOTE | 2020-03-01 13:12 | P.DS ---
Providers Date of admission: 02/20/20 12:12 Expected date of discharge: 03/01/20 Attending physician: Jane Copeland Consults: 02/20/20 12:31 Consult Physician Urgent Consulting Provider: Floyd Arce Consult Reason/Comments: pancytopenia Do you want consulting provider notified?: Yes 02/20/20 14:44 Consult Physician Routine Consulting Provider: Jamaal Steinberg Consult Reason/Comments: pneumonia Do you want consulting provider notified?: Yes 02/20/20 14:45 Consult Physician Routine Consulting Provider: Chris Mcdaniel Consult Reason/Comments: sepsis Do you want consulting provider notified?: Yes Primary care physician: Cher Todd [facility] Course: Final diagnosis Bilateral pneumonia, right more than left with possible aspiration, sepsis, present on admission Right pleural effusion possibly hemorrhagic, possibly parapneumonic, status post thoracentesis Anemia. Rule out acute blood loss anemia, exact etiology undetermined Change in mental status, acute metabolic encephalopathy, multifactorial Congestive heart failure with chronic systolic dysfunction, ejection fraction 40-50% Severe hypokalemia, improved Hypomagnesemia Moderate mitral regurgitation, moderate to severe tricuspid regurgitation and severe pulmonary hypertension on the 2-D echo Possible acute alcoholic withdrawal syndrome, present on admission Acute delirium tremens, present on admission History of alcohol dependence Hyponatremia, improved Klebsiella acute urinary tract infection, present on admission Hypovolemia metabolic acidosis, elevated lactic acid with possible lactic acidosis, multifactorial, present on admission Respiratory alkalosis, currently Pancytopenia undetermined etiology History of essential thrombocythemia previously History of mild coagulopathy, possibly secondary to chronic liver disease History of CVA, TIA Gastroesophageal reflux disease Hypertension Hyperlipidemia history of degenerative joint disease History of seizure disorder History of blood clot history of compression fracture of T8 to S1 History of tonsillectomy History of anxiety Full code Discharge disposition Patient is being discharged in a stable condition with guarded prognosis to [facility] for continued PT/OT therapy. Patient will follow-up with Dr. Cher Todd in the outpatient setting upon discharge. Patient is to continue with oral antibiotics in the form of Zithromax for the next 4 days along with IV antibiotics in the form of Zosyn every 8 hours for the next 1 week and then may discontinue. Total time taken is greater than 35 minutes. Hospital course This is a 74-year-old female who was recently admitted with significant pleural effusion and underwent thoracentesis which showed hemothorax and patient continued to have shortness of breath and was being closely monitored. Fluid cultures from thoracentesis have been negative although patient was also being seen and evaluated by infectious disease and treated for possible pneumonia with urinary tract infection. Cultures finalized showing Klebsiella and patient has been maintained on IV Zosyn and clinically improving. Patient will continue with her midline and IV antibiotics in the form of Zosyn 3 times daily for the next 7 days and then may discontinue. Started on Zithromax oral and will continue for the next 4 days and then may discontinue to complete the course. Patient is continued on 1-2 L of oxygen and will continue at this time. Patient continues to be somewhat confused although mentation has slightly improved. Patient does have a history of extensive alcohol use in the past per family and was maintained on CIWA protocol although not requiring withdrawal medications. She continues to be weak and would benefit from continued PT/OT therapy for strengthening mobility. Currently no reports of chest pain, worsening shortness of breath, or palpitations. Patient is afebrile. No reports of nausea or vomiting and patient is tolerating diet. Patient is maintained on heart healthy diet with strict aspiration precautions and supervision with meals and keeping the head of bed elevated at least 30-45 at all times. Patient will be going to [facility] today. Prognosis is guarded. On exam vital signs are stable. Temp is 97.3F, pulse is 103, respirations are 20, blood pressure is 128/79, oxygen saturation is 98% on 1-2 L of oxygen via nasal cannula. Cardio S1, S2 are muffled. Respiratory system shows diminished breath sounds at the bases with no wheezing or rhonchi noted. Abdomen is soft and nontender. Nervous system shows diffuse weakness. Please refer to medication reconciliation sheet for a list of medications. Patient Condition at Discharge: Stable Plan - Discharge Summary Discharge Rx Participant: Yes New Discharge Prescriptions: New LORazepam [Ativan] 0.5 mg PO Q8H PRN #4 tab PRN Reason: Anxiety Folic Acid 1 mg PO DAILY@1200 tab Potassium Chloride ER [K-Dur 20] 10 meq PO BID tab.er.prt Magnesium Oxide [Mag-Ox] 400 mg PO DAILY tab Multivitamins, Thera [Multivitamin (formulary)] 1 each PO DAILY@1200 tab HYDROcodone/APAP 5-325MG [Madison 5-325] 1 each PO Q6HR PRN #6 tab PRN Reason: Pain Pantoprazole [Protonix] 40 mg PO AC-BRKFST tablet. Temazepam [Restoril] 15 mg PO HS PRN #4 cap PRN Reason: Insomnia Metoprolol Succinate (ER) [Toprol XL] 50 mg PO BID tab.er.24h Thiamine [Vitamin B-1] 100 mg PO BID-W/MEALS tab Azithromycin [Zithromax] 500 mg PO DAILY 4 Days #4 tab Piperacillin-Tazobactam [Zosyn] 3.375 gm IVPB Q8H #21 vial Continue Ergocalciferol [Vitamin D2 (DRISDOL)] 50,000 unit PO WE levETIRAcetam [Keppra] 1,000 mg PO Q12HR lisinopriL 40 mg PO DAILY Discontinued Hydroxyurea 500 mg PO MOTUWETH Cyclobenzaprine [Flexeril] 5 mg PO DAILY PRN PRN Reason: Muscle Spasm Metoprolol Succinate (ER) [Toprol Xl] 25 mg PO BID Atorvastatin [Lipitor] 40 mg PO DAILY Discharge Medication List Ergocalciferol [Vitamin D2 (DRISDOL)] 50,000 unit PO WE 01/26/18 [History] levETIRAcetam [Keppra] 1,000 mg PO Q12HR 02/20/20 [History] lisinopriL 40 mg PO DAILY 02/20/20 [History] Azithromycin [Zithromax] 500 mg PO DAILY 4 Days #4 tab 03/01/20 [Rx] Folic Acid 1 mg PO DAILY@1200 tab 03/01/20 [Rx] HYDROcodone/APAP 5-325MG [Madison 5-325] 1 each PO Q6HR PRN #6 tab 03/01/20 [Rx] LORazepam [Ativan] 0.5 mg PO Q8H PRN #4 tab 03/01/20 [Rx] Magnesium Oxide [Mag-Ox] 400 mg PO DAILY tab 03/01/20 [Rx] Metoprolol Succinate (ER) [Toprol XL] 50 mg PO BID tab.er.24h 03/01/20 [Rx] Multivitamins, Thera [Multivitamin (formulary)] 1 each PO DAILY@1200 tab 03/01/20 [Rx] Pantoprazole [Protonix] 40 mg PO AC-BRKFST tablet. 03/01/20 [Rx] Piperacillin-Tazobactam [Zosyn] 3.375 gm IVPB Q8H #21 vial 03/01/20 [Rx] Potassium Chloride ER [K-Dur 20] 10 meq PO BID tab.er.prt 03/01/20 [Rx] Temazepam [Restoril] 15 mg PO HS PRN #4 cap 03/01/20 [Rx] Thiamine [Vitamin B-1] 100 mg PO BID-W/MEALS tab 03/01/20 [Rx] Follow up Appointment(s)/Referral(s): Cher Todd MD [Primary Care Provider] - 1-2 days Activity/Diet/Wound Care/Special Instructions: PATIENTS MEDICATIONS BROUGHT FROM HOME ARE IN PHARMACY
[2020-03-01] MEDS: LORazepam 1 MG TAB PO PRN (13:16)
[2020-03-01 15:07] VITALS: BP 138/87; PULSE 111
--- NOTE | 2020-03-01 17:03 | P.PN ---
Subjective Progress Note Date: 03/01/20 Principal diagnosis: weakness Pt sitting up in bed on the phone, no acute c/o. Objective - Vital Signs Vital signs: Vital Signs Temp 97.8 F 03/01/20 14:00 Pulse 111 H 03/01/20 14:00 Resp 16 03/01/20 14:00 BP 138/87 03/01/20 14:00 Pulse Ox 97 03/01/20 14:00 Intake & Output 02/29/20 03/01/20 03/01/20 18:59 06:59 18:59 Intake Total 540 Output Total 600 400 Balance 540 -600 -400 Intake: Oral 540 Output: Urine 600 400 Other: Voiding Method Indwelling Catheter Indwelling Catheter # Voids 3 # Bowel Movements 10 - Constitutional General appearance: Present: average body habitus, no acute distress - EENT Eyes: Present: anicteric sclerae, EOMI - Neurologic Neurologic: Present: CNII-XII intact - Musculoskeletal Musculoskeletal: Present: generalized weakness - Psychiatric Psychiatric: Present: A&O x's 3, appropriate affect, intact judgment & insight - Labs CBC & Chem 7: 02/28/20 05:55 02/29/20 07:35 Assessment and Plan (1) Pancytopenia Narrative/Plan: 2/2 marrow suppressive drugs and ETOH. Stable and slowly improving with holding of hydra and ETOH cessation. Suggested abstinence to pt. Status: Acute Priority: Medium Code(s): D61.818 - OTHER PANCYTOPENIA SNOMED Code(s): 853978881 (2) Essential thrombocythemia Narrative/Plan: Hydrea held due to acute drop in counts. Acute drop felt to be 2/2 ETOH intoxication. CBC is stable at this time. Not to resume hydrea until seen in ofc Status: Chronic Priority: Medium Code(s): D47.3 - ESSENTIAL (HEMORRHAGIC) THROMBOCYTHEMIA SNOMED Code(s): 719847054
--- NOTE | 2020-03-01 17:41 | PN ---
PROGRESS NOTE DATE OF SERVICE: 03/01/2020 REASON FOR FOLLOWUP: Aspiration pneumonia and UTI. INTERVAL HISTORY: The patient was seen on rounds early this afternoon. The patient has been afebrile. She is breathing comfortably. Denies having any chest pain or cough. No abdominal pain or diarrhea. PHYSICAL EXAMINATION: Her blood pressure is 138/87, pulse of 111, temperature 97.8. She is 97% on room air. General description is an elderly female lying in bed in no distress. RESPIRATORY SYSTEM: Unlabored breathing with decreased breath sounds at the base. No wheeze. HEART: S1, S2. Regular rate and rhythm. ABDOMEN: Soft. No tenderness. LABS: Hemoglobin 9.1, white count 3.9, BUN of 4, creatinine 0.46. DIAGNOSTIC IMPRESSION AND PLAN: Patient with Klebsiella urinary tract infection and aspiration pneumonia. Overall improvement on Rocephin; to continue for about a week to finish her course of therapy. Continue with supportive care. MMODL / IJN: [id number] /
== END 2020-03-01 15:50 | DRG 871 ==
LOC: EC 10:25 → 4SSUR 12:12
PROVIDERS: ADMIT Hospitalist; ATTEND Hospitalist
PROC: 30233N1 Transfusion of Nonautologous Red Blood Cells into Peripheral Vein, Percutaneous Approach (ICD-10-PCS; 2020-02-21)
PROC: 0W993ZX Drainage of Right Pleural Cavity, Percutaneous Approach, Diagnostic (ICD-10-PCS; principal; 2020-02-24)
PROC: 05H933Z Insertion of Infusion Device into Right Brachial Vein, Percutaneous Approach (ICD-10-PCS; 2020-02-25 11:05)
PROC: 05HA33Z Insertion of Infusion Device into Left Brachial Vein, Percutaneous Approach (ICD-10-PCS; 2020-02-27)
DX: A41.9 Sepsis, unspecified organism (principal); J69.0 Pneumonitis due to inhalation of food and vomit; G93.41 Metabolic encephalopathy; S27.1XXA Traumatic hemothorax, initial encounter; F10.231 Alcohol dependence with withdrawal delirium; D61.818 Other pancytopenia; I47.2 Ventricular tachycardia; E87.2 Acidosis; I42.8 Other cardiomyopathies; D68.4 Acquired coagulation factor deficiency; E87.3 Alkalosis; E87.1 Hypo-osmolality and hyponatremia; I50.22 Chronic systolic (congestive) heart failure; N39.0 Urinary tract infection, site not specified; J98.11 Atelectasis; I27.20 Pulmonary hypertension, unspecified; I11.0 Hypertensive heart disease with heart failure; D47.3 Essential (hemorrhagic) thrombocythemia; F10.229 Alcohol dependence with intoxication, unspecified; G40.909 Epilepsy, unspecified, not intractable, without status epilepticus; Z20.822 Contact with and (suspected) exposure to COVID-19; B96.1 Klebsiella pneumoniae [K. pneumoniae] as the cause of diseases classified elsewhere; K76.9 Liver disease, unspecified; E87.6 Hypokalemia; E83.42 Hypomagnesemia; E86.1 Hypovolemia; I08.1 Rheumatic disorders of both mitral and tricuspid valves; E78.5 Hyperlipidemia, unspecified; K21.9 Gastro-esophageal reflux disease without esophagitis; G89.29 Other chronic pain; M48.50XS Collapsed vertebra, not elsewhere classified, site unspecified, sequela of fracture; M19.90 Unspecified osteoarthritis, unspecified site; R09.02 Hypoxemia; M79.606 Pain in leg, unspecified; F41.9 Anxiety disorder, unspecified; M54.9 Dorsalgia, unspecified; M25.512 Pain in left shoulder; Y90.1 Blood alcohol level of 20-39 mg/100 ml; M54.2 Cervicalgia; Z79.899 Other long term (current) drug therapy; Z91.81 History of falling; Z87.81 Personal history of (healed) traumatic fracture; Z86.73 Personal history of transient ischemic attack (TIA), and cerebral infarction without residual deficits; Z99.3 Dependence on wheelchair; Z90.89 Acquired absence of other organs; Z98.890 Other specified postprocedural states; Z82.49 Family history of ischemic heart disease and other diseases of the circulatory system
CPT/HCPCS: 36410; 36415; 36600; 71045; 71046; 71275; 74177; 76604; 76937; 80048; 80053; 80076; 80320; 81001; 82550; 82607; 82728; 82746; 82784; 82805; 82945; 83010; 83540; 83550; 83605; 83615; 83735; 83880; 83883; 84145; 84157; 84165; 84425; 84443; 84484; 85025; 85045; 85379; 85384; 85610; 85730; 86038; 86140; 86334; 86431; 86850; 86900; 86901; 86920; 87040; 87070; 87075; 87077; 87086; 87102; 87116; 87186; 87205; 87206; 87252; 87496; 87498; 87502; 87529; 87634; 87635; 87798; 88108; 88305; 89050; 93005; 93306; 94760; 96360; 99285

== ENCOUNTER → 2020-04-23 | Outpatient (CLI) | payer MEDICARE ==
--- NOTE | 2020-04-23 15:31 | US ---
EXAMINATION TYPE: US pelvic complete DATE OF EXAM: 04/23/2020 COMPARISON: CT 2020 CLINICAL HISTORY: Bilateral Ovarian cysts. Follow up ovarian cysts, 1, ectopic 1 TECHNIQUE: . Transabdominal sonographic images of the pelvis were acquired. Date of LMP: 20+ years ago EXAM MEASUREMENTS: Uterus: 7.1 x 4.1 x 5.7 cm Endometrial Stripe: 0.4 cm Right Ovary: 5.1 x 2.6 x 3.1 cm Left Ovary: 3.9 x 1.8 x 1.9 cm 1. Uterus: anteverted, heterogeneous, 3.2cm echogenic shadowing area - possible calcified fibroid 2. Endometrium: visualized portion appears wnl 3. Right Ovary: 2 cystic areas measuring 3.3cm and 1.3cm 4. Left Ovary: 2 cystic areas measuring 2.1cm and 1.3cm 5. Bilateral Adnexa: wnl 6. Posterior cul-de-sac: wnl IMPRESSION: 1. Suspected calcified fibroid. 2. Bilateral ovarian cysts. Follow-up is recommended
== END ==
LOC: RADUSWWP 12:10
PROVIDERS: ATTEND Family Medicine
DX: N83.201 Unspecified ovarian cyst, right side (principal); N83.202 Unspecified ovarian cyst, left side
CPT/HCPCS: 76856

== ENCOUNTER → 2020-04-23 | Outpatient (CLI) | payer MEDICARE ==
[2020-04-23 13:31] LABS: Albumin 4.2 g/dL (3.5-5.0); Albumin/Globulin Ratio 1.4; Bilirubin,Unconjugated 0.4 mg/dL (0.0-1.1); Globulin 3.1 g/dL; Total Bilirubin 0.4 mg/dL (0.2-1.3); Total Protein 7.3 g/dL (6.3-8.2)
[2020-04-23 20:11] LABS: Basophils # (A) 0.06 X 10*3/uL (0.00-0.10); Basophils % (A) 0.9 %; Eosinophils # (A) 0.18 X 10*3/uL (0.04-0.35); Eosinophils % (A) 2.6 %; HCT 37.2 % (37.2-46.3); HGB 12.1 g/dL (12.0-15.0); Lymphocytes # (A) 1.72 X 10*3/uL (0.90-5.00); Lymphocytes % (A) 24.9 %; MCH 32.1 pg (27.0-32.0); MCHC 32.5 g/dL (32.0-37.0); MCV 98.7 fL (80.0-97.0); Mean Platelet Volume 9.9 fL (9.5-12.2); Monocytes # (A) 0.73 X 10*3/uL (0.20-1.00); Monocytes % (A) 10.6 %; Neutrophils # (A) 4.19 X 10*3/uL (1.80-7.70); Neutrophils % (A) 60.7 %; Platelet Count 520 X 10*3/uL (140-440); RBC 3.77 X 10*6/uL (4.10-5.20); RDW 13.7 % (11.5-14.5)
[2020-04-23 23:07] LABS: INR 1.14 (0.90-1.11); Prothrombin Time 12.3 sec (9.9-11.9)
[2020-04-23 23:32] LABS: Alpha Fetoprotein, Tumor Mkr 5.1 ng/mL (0.0-7.9)
[2020-04-24 02:04] LABS: Hepatitis B Core IgM Non-Reactive (Non-Reactive); Hepatitis B Surface Antigen Non-Reactive (Non-Reactive); Hepatitis C IgG Antibody Non-Reactive (Non-Reactive)
[2020-04-24 05:04] LABS: Protein, Total 6.9 g/dL (6.2-8.2)
[2020-04-26 10:33] LABS: Ceruloplasmin 29.3 mg/dL (20.0-60.0)
[2020-04-26 14:42] LABS: Albumin 3.78 g/dL (3.80-4.90); Gamma Globulin 1.05 g/dL (0.70-1.50)
== END | disposition home or self-care (01) ==
LOC: LABWHC1 11:37
PROVIDERS: ATTEND Nurse Practitioner
DX: R93.5 Abnormal findings on diagnostic imaging of other abdominal regions, including retroperitoneum (principal)
CPT/HCPCS: 36415; 80076; 82103; 82105; 82390; 83516; 84165; 85025; 85610; 86038; 86704; 86705; 86803; 87340

== ENCOUNTER → 2020-04-28 | Outpatient (CLI) | payer MEDICARE ==
--- NOTE | 2020-04-28 10:35 | US ---
EXAMINATION TYPE: US liver DATE OF EXAM: 04/28/2020 COMPARISON: CT dated 02/21/2020 CLINICAL HISTORY: R93.5 ABN FINDINGS ON IMAGING OF ABD REGIONS; liver US for small liver noted on CT; patient stated takes meds for heart EXAM MEASUREMENTS: Liver Length: 10.4 cm Gallbladder Wall: 0.26 cm CBD: 0.4 cm Right Kidney: 9.4 x 5.2 x 5.5 cm US exam is technically limited by intercostal scanning/rib shadowing. Pancreas: hyperechoic; tail obscured by overlying bowel gas Liver: no masses seen; scanned intercostally due to barrel chest noted, liver shows a coarse echotex ture Gallbladder: Limited no echogenic focus noted near gallbladder neck in LLD position and minimally in upright position too Evidence for sonographic Garcia's sign: no CBD: wnl Right Kidney: No hydronephrosis, hyperechoic vessel mills noted mid pole suggest vascular wall calci fications IMPRESSION: Exam is limited. Correlate for hepatocellular disease, hepatic steatosis. Possible cholel ithiasis, tumefactive sludge.
== END ==
LOC: RADUSWWP 08:12
PROVIDERS: ATTEND Internal Medicine Gastroenterology
DX: K76.0 Fatty (change of) liver, not elsewhere classified (principal); K76.89 Other specified diseases of liver
CPT/HCPCS: 76705

== ENCOUNTER → 2020-11-22 | Outpatient (CLI) | payer MEDICARE ==
[2020-11-22 15:56] LABS: Chol/HDL Ratio 2.42 Ratio; HDL Cholesterol 64.4 mg/dL (40.00-60.00); LDL Cholesterol,Calculated 77.4 mg/dL (0.0-131.0); Triglycerides 71.1 mg/dL (0.00-149.00); VLDL Calculation 14.22 mg/dL (5.00-40.00)
== END | disposition home or self-care (01) ==
LOC: LABWHC1 10:05
PROVIDERS: ATTEND Internal Medicine Interventional Cardiology
DX: E78.2 Mixed hyperlipidemia (principal)
CPT/HCPCS: 36415; 80061; 84450; 84460

== ENCOUNTER → 2021-08-10 | Outpatient (CLI) | payer MEDICARE ==
[2021-08-10 14:15] LABS: Basophils # (A) 0.08 X 10*3/uL (0.00-0.10); Basophils % (A) 1.3 %; Eosinophils # (A) 0.21 X 10*3/uL (0.04-0.35); Eosinophils % (A) 3.4 %; HCT 39.5 % (37.2-46.3); HGB 12.9 g/dL (12.0-15.0); Immature Grans, Automated 0.7 %; Lymphocytes # (A) 1.01 X 10*3/uL (0.90-5.00); Lymphocytes % (A) 16.5 %; MCH 31.6 pg (27.0-32.0); MCHC 32.7 g/dL (32.0-37.0); MCV 96.8 fL (80.0-97.0); Mean Platelet Volume 9.6 fL (9.5-12.2); Monocytes # (A) 0.67 X 10*3/uL (0.20-1.00); Monocytes % (A) 10.9 %; NRBC Per 100 WBC 0 /100 WBCS (0.0-0.0); Neutrophils # (A) 4.11 X 10*3/uL (1.80-7.70); Neutrophils % (A) 67.2 %; Platelet Count 525 X 10*3/uL (140-440); RBC 4.08 X 10*6/uL (4.10-5.20); WBC 6.12 X 10*3/uL (4.50-10.00)
[2021-08-10 14:28] LABS: African American GFR (CKD) 63.4 (60.0-200.0); Albumin 4.6 g/dL (3.8-4.9); Albumin/Globulin Ratio 1.77 (1.60-3.17); Anion Gap 10.3 mmol/L (10.00-18.00); BUN/Creat Ratio 12.3 Ratio (12.00-20.00); Blood Urea Nitrogen 12.3 mg/dL (9.0-27.0); Calcium 9.6 mg/dL (8.7-10.3); Carbon Dioxide 25.7 mmol/L (20.0-27.5); Globulin 2.6 g/dL (1.6-3.3); Non-African American GFR(CKD) 54.7 (60.0-200.0); Potassium 4.8 mmol/L (3.5-5.5); Total Bilirubin 0.4 mg/dL (0.30-1.20); Total Protein 7.2 g/dL (6.2-8.2)
== END | disposition home or self-care (01) ==
LOC: LABWHC1 08:18
PROVIDERS: ATTEND Nurse Practitioner Acute Care
DX: I10 Essential (primary) hypertension (principal); G40.909 Epilepsy, unspecified, not intractable, without status epilepticus; K21.9 Gastro-esophageal reflux disease without esophagitis; R41.82 Altered mental status, unspecified
CPT/HCPCS: 36415; 80053; 80177; 85025

== ENCOUNTER → 2021-09-21 | Outpatient (CLI) | payer MEDICARE ==
--- NOTE | 2021-09-21 15:23 | US ---
EXAMINATION TYPE: US liver DATE OF EXAM: 09/21/2021 COMPARISON: 10/20/2020 CLINICAL HISTORY: 76-year-old female K74.60 Unspecified cirrhosis of liver. TECHNIQUE: Multiple sonographic images of the right upper quadrant are obtained. FINDINGS: EXAM MEASUREMENTS: Liver Length: 11.9 cm Gallbladder Wall: 0.26 cm CBD: Obscured. Right Kidney: 9.0 x 5.1 x 4.6 cm [employer] NOTES: Exam is limited due to gas. Pancreas: Tail not well seen. Remainder shows no gross abnormality. Liver: Only small portions of the liver are seen. Remainder is obscured. There is coarsened echotextu re. No focal lesion along the visualized portions. Gallbladder: Echogenic nodule seen within the gallbladder: 1.0 x 1.3 x 0.8 cm. Difficult to determin e if mobile. Previously measured 1.4 cm. Evidence for sonographic Garcia's sign: No CBD: Obscured Right Kidney: No hydronephrosis or masses seen. Appearance of possible column of [place]. IMPRESSION: 1. Limited assessment due to bowel gas. Only portions of the liver are seen. The parenchyma is coarse venice which may reflect underlying cirrhosis. No focal lesion seen within the visualized portions. 2. Redemonstrated 1.3 cm echogenic nodule within the lumen of the gallbladder versus 1.4 cm, previous ly. Suspect a focus of tumefactive sludge rather than a gallbladder wall polyp. Attention on follow-u p. 3. Bile duct obscured and not assessed.
== END | disposition home or self-care (01) ==
LOC: RADUSWWP 08:56
PROVIDERS: ATTEND Internal Medicine Gastroenterology
DX: K74.60 Unspecified cirrhosis of liver (principal)
CPT/HCPCS: 76705

== ENCOUNTER → 2021-11-14 | Outpatient (CLI) | payer MEDICARE ==
[2021-11-14 14:55] LABS: ALT 14 U/L (8-44); AST 25 U/L (13-35); Albumin 4.4 g/dL (3.8-4.9); Albumin/Globulin Ratio 1.75 (1.60-3.17); Alkaline Phosphatase 59 U/L (41-126); BUN/Creat Ratio 10.07 Ratio (12.00-20.00); Calcium 9.6 mg/dL (8.7-10.3); Chloride 98 mmol/L (96-109); Chol/HDL Ratio 1.97 Ratio; Globulin 2.5 g/dL (1.6-3.3); Glucose 109 mg/dL (70-110); LDL Cholesterol,Calculated 59.3 mg/dL (0.0-131.0); Non-African American GFR(CKD) 55.2 (60.0-200.0); Potassium 5.1 mmol/L (3.5-5.5); Sodium 133 mmol/L (135-145); Total Protein 6.9 g/dL (6.2-8.2); VLDL Calculation 11.06 mg/dL (5.00-40.00)
[2021-11-14 15:35] LABS: Basophils # (A) 0.08 X 10*3/uL (0.00-0.10); Basophils % (A) 1.4 %; Eosinophils % (A) 3.4 %; HCT 37.3 % (37.2-46.3); HGB 12.6 g/dL (12.0-15.0); Immature Grans, Automated 0.3 %; Lymphocytes # (A) 0.99 X 10*3/uL (0.90-5.00); MCH 32.7 pg (27.0-32.0); MCHC 33.8 g/dL (32.0-37.0); MCV 96.9 fL (80.0-97.0); Mean Platelet Volume 9.2 fL (9.5-12.2); Monocytes # (A) 0.59 X 10*3/uL (0.20-1.00); Monocytes % (A) 10.1 %; NRBC Per 100 WBC 0 /100 WBCS (0.0-0.0); Neutrophils # (A) 3.96 X 10*3/uL (1.80-7.70); Neutrophils % (A) 67.8 %; Platelet Count 593 X 10*3/uL (140-440); RBC 3.85 X 10*6/uL (4.10-5.20); RDW 13.8 % (11.5-14.5); WBC 5.84 X 10*3/uL (4.50-10.00)
== END | disposition home or self-care (01) ==
LOC: LABWHC1 10:42
PROVIDERS: ATTEND Nurse Practitioner Family
DX: E78.2 Mixed hyperlipidemia (principal); K74.60 Unspecified cirrhosis of liver
CPT/HCPCS: 36415; 80053; 80061; 82105; 85025

== ENCOUNTER → 2022-05-12 | Outpatient (CLI) | payer MEDICARE ==
[2022-05-12 18:46] LABS: Basophils % (A) 1.2 %; Eosinophils # (A) 0.25 X 10*3/uL (0.04-0.35); Eosinophils % (A) 3.1 %; HCT 39.9 % (37.2-46.3); HGB 12.6 g/dL (12.0-15.0); Immature Grans, Automated 0.9 %; Lymphocytes # (A) 1.01 X 10*3/uL (0.90-5.00); Lymphocytes % (A) 12.5 %; MCH 31.6 pg (27.0-32.0); MCHC 31.6 g/dL (32.0-37.0); Mean Platelet Volume 9.2 fL (9.5-12.2); Monocytes # (A) 0.74 X 10*3/uL (0.20-1.00); Monocytes % (A) 9.2 %; NRBC Per 100 WBC 0 /100 WBCS (0.0-0.0); Neutrophils % (A) 73.1 %; Platelet Count 561 X 10*3/uL (140-440); RBC 3.99 X 10*6/uL (4.10-5.20); RDW 15.1 % (11.5-14.5); WBC 8.07 X 10*3/uL (4.50-10.00)
[2022-05-12 18:53] LABS: ALT 23 U/L (8-44); AST 23 U/L (13-35); African American GFR (CKD) 59.1 (60.0-200.0); Albumin 4.4 g/dL (3.8-4.9); Alkaline Phosphatase 69 U/L (41-126); BUN/Creat Ratio 9.62 Ratio (12.00-20.00); Blood Urea Nitrogen 10.2 mg/dL (9.0-27.0); Calcium 9.9 mg/dL (8.7-10.3); Chloride 101 mmol/L (96-109); Chol/HDL Ratio 2.35 Ratio; Globulin 2.5 g/dL (1.6-3.3); Glucose 102 mg/dL (70-110); LDL Cholesterol,Calculated 72.8 mg/dL (0.0-131.0); Potassium 5.2 mmol/L (3.5-5.5); Sodium 137 mmol/L (135-145); Total Protein 6.9 g/dL (6.2-8.2); VLDL Calculation 14.02 mg/dL (5.00-40.00)
== END | disposition home or self-care (01) ==
LOC: LABWHC1 09:06
PROVIDERS: ATTEND Nurse Practitioner Family
DX: E78.2 Mixed hyperlipidemia (principal); K74.60 Unspecified cirrhosis of liver
CPT/HCPCS: 36415; 80053; 80061; 82105; 85025

== ENCOUNTER 2022-06-30 11:30 | Day surgery (SDC) | payer MEDICARE ==
[~2022-06-30 11:30] MED LIST changes: -ALPRAZolam 0.25 MG TAB PO PRN; -ALPRAZolam 0.25 MG TAB PO SCH; -ALPRAZolam 0.5 MG TAB PO PRN; -ASPIRIN 325 MG TAB PO STA; -ASPIRIN 81 MG PO SCH; -ATORVASTATIN 40 MG TAB PO SCH; -Acetaminophen-Codeine 300-30mg TAB PO PRN; -CYCLOBENZAPRINE 10 MG TAB PO SCH; -ERGOCALCIFEROL 50,000 UNIT CAP PO SCH; -FERROUS SULFATE 325 MG TAB PO SCH; -HEPARIN SODIUM 1,000 UN/ML (10ML VL) ONE; -HYDROXYUREA 500 MG CAP PO SCH; -IOPAMIDOL-370 125ML BTL INJ ONE; +LACTATED RINGERS 1,000 ML IV SCH; +LIDOCAINE 1% (10MG/ML) FOR IV START INTRADERMA PRN; -LIDOCAINE 1% INJ 10MG/ML (20 ML MDV) ONE; -LIDOCAINE 1% INJ 10MG/ML (20 ML MDV) SQ ONE; -LISINOPRIL 20 MG TAB PO SCH; -METOPROLOL SUCCINATE (ER) 25 MG TAB.ER.24H PO SCH; -NITROGLYCERIN SL TABS 0.4 MG TAB SUBLINGUAL PRN; -NON FORMULARY DRUG (Omeprazole [Omeprazole] 20 MG) PO SCH; -RX INFO: IV CONTRAST WAS GIVEN 1 EACH MISC MISCELLANE PRN; -SODIUM CHLORIDE 0.9% 1,000 ML IV SCH; -SODIUM CHLORIDE 0.9% 1,000 ML in EMPTY BAG 1 BAG IV ONE; -VERAPAMIL 2.5 MG/ML 2 ML AMP ONE; -VERAPAMIL SYRINGE (5 MG/10 ML) INTRAARTER ONE; -fentaNYL (PF) 50 MCG/ML 2 ML AMP IV ONE; -fentaNYL (PF) 50 MCG/ML 2 ML AMP ONE; -levETIRAcetam 500 MG TAB PO SCH
[2022-06-30 13:49] VITALS: TEMP 98
[2022-06-30] MEDS ORDERED: LIDOCAINE 2% INJ 20 MG/ML (2 ML VIAL) ONE (14:33)
[2022-06-30] MEDS ORDERED: PROPOFOL 10 MG/ML 20 ML VIAL IV ONE (14:33)
[2022-06-30] MEDS ORDERED: LACTATED RINGERS 1,000 ML IV ONE (14:33)
--- NOTE | 2022-06-30 14:56 | P.PCN ---
Date of Procedure: 06/30/22 Procedure(s) Performed: BRIEF HISTORY: Patient is a 77-year-old, pleasant, female scheduled for an upper endoscopy as a part of screening for esophageal varices for history of liver cirrhosis.. PROCEDURE PERFORMED: Esophagogastroduodenoscopy with biopsy. PREOPERATIVE DIAGNOSIS: History of liver cirrhosis/screening for esophageal varices. IV sedation per anesthesia. PROCEDURE: After informed consent was obtained, the patient was brought into the endoscopy unit. IV sedation was administered by Anesthesia under continuous monitoring. Initially the Olympus GIF-140 video endoscope was inserted into the mouth. Esophagus intubated without any difficulty. It was gradually advanced into the stomach and duodenum and carefully examined. The bulb and the second part of the duodenum appeared normal. The scope at this time was withdrawn to the stomach, adequately insufflated with air, and upon careful examination, mucosa of the antrum, body, cardia and the fundus appeared normal. All gastric polyps were seen which were biopsied. No evidence of gastric varices The scope was then withdrawn into the esophagus. The GE junction was located at 39 cm from the incisors. The esophagus appeared normal. There were no erosions or ulcerations seen. No evidence of esophageal varices and the patient tolerated the procedure well. IMPRESSION: 1. No evidence of gastric or esophageal varices. 2. Small gastric polyps. RECOMMENDATIONS: The findings of this examination were discussed with the patient as well as her family. She was advised to follow with the biopsy results. Recommend repeat upper endoscopy in 2-3 years to screen for esophageal.
[2022-06-30 15:04] VITALS: RESP 14
[2022-06-30 15:17] VITALS: BP 149/80; PULSE 87
== END 2022-06-30 15:40 | disposition home or self-care (01) ==
LOC: ORWHC2ENDO 11:30
PROVIDERS: ATTEND Internal Medicine Gastroenterology
DX: K74.60 Unspecified cirrhosis of liver (principal); K31.7 Polyp of stomach and duodenum; K21.9 Gastro-esophageal reflux disease without esophagitis; I49.9 Cardiac arrhythmia, unspecified; I10 Essential (primary) hypertension; E78.5 Hyperlipidemia, unspecified; Z86.73 Personal history of transient ischemic attack (TIA), and cerebral infarction without residual deficits; F41.9 Anxiety disorder, unspecified; Z79.899 Other long term (current) drug therapy
CPT/HCPCS: 88305; 43239; J2704; J2001

== ENCOUNTER → 2022-10-20 | Outpatient (CLI) | payer MEDICARE ==
[2022-10-20 16:39] LABS: ALT 22 U/L (8-44); AST 25 U/L (13-35); Albumin 4.9 d/dL (3.8-4.9); Albumin/Globulin Ratio 2.33 Ratio (1.60-3.17); Alkaline Phosphatase 65 U/L (41-126); BUN/Creat Ratio 13.62 Ratio (12.00-20.00); Blood Urea Nitrogen 10.9 mg/dL (9.0-27.0); Calcium 10.1 mg/dL (8.7-10.3); Carbon Dioxide 25.1 mmol/L (21.6-31.8); Chloride 98 mmol/L (96-109); Chol/HDL Ratio 2.29 Ratio; Globulin 2.1 d/dL (1.6-3.3); Glucose 90 mg/dL (70-110); LDL Cholesterol,Calculated 68.8 mg/dL (0.0-131.0); Potassium 5.5 mmol/L (3.5-5.5); Sodium 136 mmol/L (135-145); Total Bilirubin 0.3 mg/dL (0.3-1.2); VLDL Calculation 15.12 mg/dL (5.00-40.00)
[2022-10-20 17:50] LABS: Basophils # (A) 0.09 X 10*3/uL (0.00-0.10); Basophils % (A) 1.2 %; Eosinophils # (A) 0.15 X 10*3/uL (0.04-0.35); Eosinophils % (A) 2.1 %; HCT 43.3 % (37.2-46.3); Lymphocytes # (A) 1.22 X 10*3/uL (0.90-5.00); Lymphocytes % (A) 16.9 %; MCH 32.6 pg (27.0-32.0); MCHC 32.3 d/dL (32.0-37.0); MCV 100.7 FL (80.0-97.0); Monocytes # (A) 0.68 X 10*3/uL (0.20-1.00); Monocytes % (A) 9.4 %; NRBC Per 100 WBC 0 X 10*3/uL (0.00-0.01); Neutrophils # (A) 5.07 X 10*3/uL (1.80-7.70); Platelet Count 711 X 10*3/uL (140-440); RDW 13.6 % (11.5-14.5); WBC 7.24 X 10*3/uL (4.50-10.00)
== END ==
LOC: LABWHC1 08:51
PROVIDERS: ATTEND Internal Medicine Gastroenterology
DX: K74.60 Unspecified cirrhosis of liver (principal); E78.2 Mixed hyperlipidemia
CPT/HCPCS: 36415; 80053; 80061; 82105; 85025

== ENCOUNTER → 2022-10-20 | Outpatient (CLI) | payer MEDICARE ==
--- NOTE | 2022-10-20 09:30 | US ---
EXAMINATION TYPE: US liver DATE OF EXAM: 10/20/2022 COMPARISON: 04/24/2022 CLINICAL INDICATION: Female, 77 years old with history of K74.60 UNSPECIFIED CIRRHOSIS OF LIVER; cirr hosis TECHNIQUE: Multiple sonographic images of the right upper quadrant are obtained. FINDINGS: EXAM MEASUREMENTS: Liver Length: 13.9 cm Gallbladder Wall: 0.2 cm CBD: 0.5 cm Right Kidney: 8.9x5.1x4.5 cm BROTH SETTER NOTES: Pancreas: Tail obscured by overlying bowel gas Liver: wnl, partially obscured by bowel and rib shadows Gallbladder: echogenic area again demonstrated: 1.4x1.3x0.6cm Evidence for sonographic Garcia's sign: No CBD: wnl Right Kidney: wnl, cortical thinning The visualized portions of the pancreas unremarkable. The tail is askew by overlying bowel gas. The v isualized portions of liver heterogenous without focal lesion. No overt surface nodularity. Thinning of the right renal cortex are demonstrated. No hydronephrosis or nephrolithiasis. Redemonstration of echogenic nonshadowing lesion within the gallbladder measuring up to 1.4 cm. No wall thickening or pe richolecystic fluid. Per manager of exhibitions and collections, negative sonographic Garcia sign. Common bile duct is within no rmal limits. IMPRESSION: 1. Heterogenous liver echotexture without focal lesion or overt surface nodularity. 2. Redemonstration of echogenic nonshadowing lesion within the gallbladder which may represent a gall bladder polyp versus tumefactive sludge. Attention on follow-up exam.
== END | disposition home or self-care (01) ==
LOC: RADUSWWP 08:47
PROVIDERS: ATTEND Internal Medicine Gastroenterology
DX: K74.60 Unspecified cirrhosis of liver (principal); K82.8 Other specified diseases of gallbladder
CPT/HCPCS: 76705

== ENCOUNTER → 2023-04-20 | Outpatient (CLI) | payer MEDICARE ==
[2023-04-20 15:51] LABS: Basophils % (A) 1.1 %; Eosinophils # (A) 0.17 X 10*3/uL (0.04-0.35); Eosinophils % (A) 1.9 %; HCT 39.9 % (37.2-46.3); HGB 13.1 g/dL (12.0-15.0); Lymphocytes # (A) 0.96 X 10*3/uL (0.90-5.00); Lymphocytes % (A) 10.8 %; MCH 31.9 pg (27.0-32.0); MCHC 32.8 g/dL (32.0-37.0); MCV 97.1 FL (80.0-97.0); Mean Platelet Volume 9.7 FL (9.5-12.2); Monocytes # (A) 0.71 X 10*3/uL (0.20-1.00); NRBC Per 100 WBC 0 X 10*3/uL (0.00-0.01); Neutrophils # (A) 6.92 X 10*3/uL (1.80-7.70); Neutrophils % (A) 77.8 %; Platelet Count 732 X 10*3/uL (140-440); RBC 4.11 X 10*6/uL (4.10-5.20); RDW 14.2 % (11.5-14.5)
[2023-04-20 16:07] LABS: ALT 20 U/L (8-44); AST 17 U/L (13-35); Albumin 4.4 g/dL (3.8-4.9); Albumin/Globulin Ratio 1.91 Ratio (1.60-3.17); Alkaline Phosphatase 70 U/L (41-126); Blood Urea Nitrogen 16.4 mg/dL (9.0-27.0); Carbon Dioxide 26.7 mmol/L (21.6-31.8); Chloride 98 mmol/L (96-109); Chol/HDL Ratio 1.98 Ratio; Globulin 2.3 g/dL (1.6-3.3); Glucose 95 mg/dL (70-110); LDL Cholesterol,Calculated 55.6 mg/dL (0.0-131.0); Potassium 5.2 mmol/L (3.5-5.5); Sodium 135 mmol/L (135-145); Total Bilirubin 0.4 mg/dL (0.3-1.2); Total Protein 6.7 g/dL (6.2-8.2); VLDL Calculation 8.14 mg/dL (5.00-40.00)
--- NOTE | 2023-04-20 17:56 | US ---
EXAMINATION TYPE: US liver DATE OF EXAM: 04/20/2023 COMPARISON: NONE CLINICAL INDICATION: Female, 77 years old with history of K74.60 UNSPECIFIED CIRRHOSIS OF LIVER; abn liver labs TECHNIQUE: Multiple sonographic images of the right upper quadrant are obtained. FINDINGS: EXAM MEASUREMENTS: Liver Length: 14.6 cm Gallbladder Wall: 0.2 cm CBD: 0.6 cm Right Kidney: 9.2 x 4.4 x 5.0 cm Pancreas: wnl Liver: very limited imaging due to habitus and bowel gas Gallbladder: 1.5 x 1.2cm echogenic area noted likely a gallstone. Seen previously. There appears to be some thickening of the gallbladder wall adjacent to the liver measuring 1.0 cm x 1.1 cm. This appe ars to be an interval change from comparison . Evidence for sonographic Garcia's sign: no CBD: wnl Right Kidney: wnl IMPRESSION: 1. Cholelithiasis. 2. There may be some wall thickening of the gallbladder. Follow-up is recommended
== END | disposition home or self-care (01) ==
LOC: RADUSWWP 09:09
PROVIDERS: ATTEND Internal Medicine Gastroenterology
DX: K80.20 Calculus of gallbladder without cholecystitis without obstruction (principal); K74.60 Unspecified cirrhosis of liver; I10 Essential (primary) hypertension; E78.2 Mixed hyperlipidemia
CPT/HCPCS: 36415; 76705; 80053; 80061; 82105; 85025

== ENCOUNTER 2023-10-03 07:48 | Emergency (ER) | payer MEDICARE ==
[2023-10-03] MEDS ORDERED: KETOROLAC 15 MG/ML 1 ML VIAL ONE (09:37)
[2023-10-03] MEDS ORDERED: LIDOCAINE 4% PATCH TOPICAL ONE (12:05)
[2023-10-03] MEDS ORDERED: methylPREDNISolone SOD SUCCI 125 MG/2 ML VIAL ONE (12:05)
[2023-10-03] MEDS ORDERED: HYDROmorphone 0.5 MG/0.5 ML SYRINGE ONE (12:05)
--- NOTE | 2023-11-06 12:21 | XR ---
Site ID [facility] Patient Kellen Sousa ID [id number] Order # Procedure XR SPINE LUMBAR COMPLETE 4+ VW EXAMINATION TYPE: XR lumbar spine 2 or 3V DATE OF EXAM: 10/04/2023 9:14 AM CLINICAL INDICATION: Pain COMPARISON: THIS EXAM WAS READ DURING PACS DOWNTIME, NO PRIORS AVAILABLE. TECHNIQUE: XR lumbar spine 2 or 3V - Frontal, lateral and coned in L5-S1 lateral views of the spine. FINDINGS: No evidence of any acute osseous pathology. Vertebral height loss is seen scattered through out the spine including L1, L2 and L3 with greater than 70% height loss at L1.. Scattered disc space narrowing. Multilevel marginal osteophyte formation throughout the visualized spine. There is facet j oint arthropathy throughout the spine. Scattered at least mild neural foraminal stenosis. IMPRESSION: 1. Compression deformity of multiple levels of the spine consider MRI evaluation for acute/subacute b one edema.. 2. Moderate multilevel disc degeneration.
== END 2023-10-03 12:40 | disposition home or self-care (01) ==
LOC: EC 07:48
DX: M54.9 Dorsalgia, unspecified (principal)
CPT/HCPCS: 72110; 96374; 96375; 99283

== ENCOUNTER 2023-10-07 07:12 | Emergency (ER) | payer MEDICARE ==
[2023-10-07] MEDS ORDERED: traMADol 50 MG TAB ONE (07:51)
[2023-10-07] MEDS ORDERED: DEXAMETHASONE SOD PHOSPHATE 10 MG/ML 1 ML VIAL ONE (07:51)
== END 2023-10-07 10:00 | disposition home or self-care (01) ==
LOC: EC 07:12 → EDSTATUS 16:35
DX: M54.50 Low back pain, unspecified (principal)
CPT/HCPCS: 96372; 99283

== ENCOUNTER 2023-10-11 22:57 | Inpatient (IN) | payer MEDICARE ==
[~2023-10-11 22:57] MED LIST changes: -LACTATED RINGERS 1,000 ML IV SCH; -LIDOCAINE 1% (10MG/ML) FOR IV START INTRADERMA PRN; +SODIUM CHLORIDE 0.9% 1,000 ML BAG ONE
[2023-10-12] MEDS ORDERED: ACETAMINOPHEN TAB 325 MG TAB ONE (01:47)
[2023-10-12] MEDS ORDERED: levETIRAcetam 500 MG TAB ONE ×3 (03:00→21:29)
[2023-10-12] MEDS ORDERED: traMADol 50 MG TAB ONE ×3 (03:26→16:09)
[2023-10-12] MEDS ORDERED: ALPRAZolam 0.25 MG TAB ONE (03:26)
[2023-10-12] MEDS ORDERED: CYCLOBENZAPRINE 5 MG TAB ONE (05:09)
[2023-10-12] MEDS ORDERED: PANTOPRAZOLE 40 MG TABLET PO ONE (09:19)
[2023-10-12] MEDS ORDERED: ASPIRIN 81 MG ONE (09:19)
[2023-10-12] MEDS ORDERED: ATORVASTATIN 40 MG TAB ONE (09:19)
[2023-10-12] MEDS ORDERED: EZETIMIBE 10 MG TAB ONE (09:20)
[2023-10-12] MEDS ORDERED: METOPROLOL SUCCINATE (ER) 25 MG TAB.ER.24H PO ONE (09:20)
[2023-10-12] MEDS ORDERED: ENOXAPARIN 40 MG/0.4 ML SYRINGE SQ ONE (09:21)
[2023-10-12] MEDS ORDERED: lisinopriL 20 MG TAB ONE (09:21)
[2023-10-12] MEDS ORDERED: METOPROLOL TARTRATE 25 MG TAB ONE (21:29)
[2023-10-12] MEDS ORDERED: MELATONIN 3 MG TABLET ONE (21:50)
[2023-10-13] MEDS ORDERED: traMADol 50 MG TAB ONE ×2 (00:51→11:43)
[2023-10-13] MEDS ORDERED: CYCLOBENZAPRINE 5 MG TAB ONE (00:52)
[2023-10-13] MEDS ORDERED: SODIUM CHLORIDE 0.9% 1,000 ML BAG ONE (03:00)
[2023-10-13] MEDS ORDERED: ATORVASTATIN 40 MG TAB ONE (10:14)
[2023-10-13] MEDS ORDERED: ASPIRIN 81 MG ONE (10:14)
[2023-10-13] MEDS ORDERED: EZETIMIBE 10 MG TAB ONE (10:15)
[2023-10-13] MEDS ORDERED: ENOXAPARIN 40 MG/0.4 ML SYRINGE SQ ONE (10:15)
[2023-10-13] MEDS ORDERED: lisinopriL 20 MG TAB ONE ×2 (10:15→10:20)
[2023-10-13] MEDS ORDERED: PANTOPRAZOLE 40 MG TABLET PO ONE (10:15)
[2023-10-13] MEDS ORDERED: METOPROLOL TARTRATE 25 MG TAB ONE (10:15)
[2023-10-13] MEDS ORDERED: levETIRAcetam 500 MG TAB ONE (10:16)
[2023-10-13] MEDS ORDERED: ACETAMINOPHEN TAB 325 MG TAB ONE (15:46)
[2023-10-13] MEDS ORDERED: MAG HYDROX/AL HYDROX/SIMETH 30 ML CUP PO PRN (21:40)
[2023-10-13] MEDS ORDERED: bisacodyL 5 MG TABLET.DR PO PRN (21:41)
[2023-10-14 04:00] LABS: African American GFR (CKD) >90 (>60 ml/min/1.73 sqM); Anion Gap 5 mmol/L; Blood Urea Nitrogen 7 mg/dL (7-17); Carbon Dioxide 25 mmol/L (22-30); Chloride 97 mmol/L (98-107); Glucose 91 mg/dL (74-99); Non-African American GFR(CKD) 87 (>60 ml/min/1.73 sqM); Potassium 4.3 mmol/L (3.5-5.1); Sodium 127 mmol/L (137-145)
[2023-10-14] MEDS: traMADol 50 MG TAB PO PRN (06:25)
[2023-10-14] MEDS: PANTOPRAZOLE 40 MG TABLET PO SCH (06:26)
[2023-10-14] MEDS: ATORVASTATIN 40 MG TAB PO SCH (08:49)
[2023-10-14] MEDS: ACETAMINOPHEN TAB 325 MG TAB PO PRN (08:49)
[2023-10-14] MEDS: levETIRAcetam 500 MG TAB PO SCH (08:49)
[2023-10-14] MEDS: lisinopriL 20 MG TAB PO SCH (08:49)
[2023-10-14] MEDS: ENOXAPARIN 40 MG/0.4 ML SYRINGE SQ SCH (08:50)
[2023-10-14 09:41] LABS: African American GFR (CKD) >90 (>60 ml/min/1.73 sqM); Anion Gap 3 mmol/L; Blood Urea Nitrogen 6 mg/dL (7-17); Carbon Dioxide 26 mmol/L (22-30); Chloride 98 mmol/L (98-107); Glucose 105 mg/dL (74-99); Magnesium 1.5 mg/dL (1.6-2.3); Non-African American GFR(CKD) 87 (>60 ml/min/1.73 sqM); Potassium 4.2 mmol/L (3.5-5.1); Sodium 127 mmol/L (137-145)
[2023-10-14] MEDS: HYDROXYUREA 500 MG CAP PO SCH (10:15)
[2023-10-14] MEDS: METOPROLOL SUCCINATE (ER) 25 MG TAB.ER.24H PO SCH (10:15)
[2023-10-14] MEDS: EZETIMIBE 10 MG TAB PO SCH (10:15)
[2023-10-14] MEDS: ASPIRIN 81 MG PO SCH (10:15)
--- NOTE | 2023-10-14 11:30 | P.NPCON ---
History of Present Illness - Reason for Consult hyponatremia - History of Present Illness Reason for consultation: Hyponatremia History of present illness: Patient is a 78-year-old female seen in renal consultation for hyponatremia. Patient sodium level has been running low this admission in the mid 120s and was as low as 121 as of yesterday. It is improved to 127 this morning. Patient is now off all IV fluids. Patient has a history of seizures and is maintained on Keppra. Patient initially came to the hospital after she was sent by her PCP due to low sodium level. Patient admits to drinking about 6 glasses of water daily and 1 glass of chocolate milk daily. Patient states the last few days her oral intake has been poor. She denies vomiting or diarrhea. Denies chest pain or shortness of breath. No edema. Denies personal history of malignancy. No use of diuretics. Hemodynamically stable. No fever or chills. Vital signs are stable. General: No acute distress. HEENT: Head exam is unremarkable. LUNGS: No audible rhonchi or wheezes. HEART: Rate and Rhythm are regular. ABDOMEN: Nontender. EXTREMITITES: No edema. 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 History of Any Multi-Drug Resistant Organisms: None Reported Past Surgical History: Hysterectomy, Tonsillectomy Additional Past Surgical History / Comment(s): Colonoscopy, EGD WITH DILATION, SURGERY FOR BLOOD CLOT IN BRAIN. Past Anesthesia/Blood Transfusion Reactions: No Reported Reaction Past Alcohol Use History: Heavy Additional Past Alcohol Use History / Comment(s): States was a heavy drinker but has not had any alcohol in 13 months. - Past Family History Father Family Medical History: Myocardial Infarction ([place]) Additional Family Medical History / Comment(s): Father of a [place] at the age of 73 yrs. Mother History Unknown: Yes Additional Family Medical History / Comment(s): Mother at the age of 84 yrs. She had a murmur and her heart would "skip a beat". Brother(s) Family Medical History: Cancer Additional Family Medical History / Comment(s): Colon cancer. Medications and Allergies Home Medications Medication Instructions Recorded Confirmed Type Ergocalciferol [Vitamin D2 50,000 unit PO WE 01/26/18 06/27/22 History (DRISDOL)] levETIRAcetam [Keppra] 500 mg PO BID 02/20/20 06/27/22 History Magnesium Oxide [Mag-Ox] 400 mg PO DAILY tab 03/01/20 06/27/22 Rx Temazepam [Restoril] 15 mg PO HS PRN #4 cap 03/01/20 06/27/22 Rx Aspirin [Adult Low Dose Aspirin EC] 81 mg PO DAILY 03/30/21 06/27/22 History Atorvastatin [Lipitor] 40 mg PO DAILY 03/30/21 06/27/22 History Ezetimibe [Zetia] 10 mg PO DAILY 03/30/21 06/27/22 History Hydroxyurea 500 mg PO MOTUWETHFR 03/30/21 06/27/22 History Metoprolol Succinate (ER) [Toprol 25 mg PO BID 03/30/21 06/27/22 History XL] Pantoprazole [Protonix] 40 mg PO DAILY 03/30/21 06/27/22 History Vitamin B-12 (Unknown Dose) 1 tab PO DAILY 03/30/21 06/27/22 History Allergies Allergy/AdvReac Type Severity Reaction Status Date / Time No Known Allergies Allergy Verified 10/13/23 19:11 Physical Exam Vitals: Vital Signs Temp Pulse Resp BP Pulse Ox 10/14/23 07:17 98.7 F 85 18 138/72 92 L Intake and Output 10/13/23 10/14/23 10/14/23 22:59 06:59 14:59 Other: # Voids 4 1 # Bowel Movements 1 Weight 72.72 kg Results - Lab Results Most recent lab results Calcium 9.0 mg/dL (8.4-10.2) 10/14/23 09:20 Magnesium 1.5 mg/dL (1.6-2.3) L 10/14/23 09:20 10/14/23 09:20 Assessment and Plan Plan: Assessment: 1. 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 On Keppra. Sodium level 127 this morning. 2. Hypomagnesemia from poor intake. 3. History of seizures maintained on Keppra. 4. Benign hypertension. Controlled. Plan: Maintain off IV fluids. Encourage oral intake, particularly protein. Add 1200 cc fluid restriction. Replace magnesium. Check serum and urine osmolality and urine sodium level. Check TSH. Check PTH related peptide. Advised patient to follow-up with her primary care physician for maintenance feedings. Repeat labs in the morning. Thank you for the consultation. I will continue to follow the patient with you during her hospital stay.
[2023-10-14] MEDS: MAGNESIUM SULFATE-D5W PMX 1 GM in DEXTROSE/WATER 1 100ML.BAG IVPB SCH (12:34)
--- NOTE | 2023-10-14 13:14 | P.PN ---
Subjective Progress Note Date: 10/14/23 Principal diagnosis: abnormal labs sent by PCP Patient doing well, denies any shortness of breath or pain. No fevers or chills. No overnight events. Objective - Vital Signs Vital signs: Vital Signs Temp 98.7 F 10/14/23 07:17 Pulse 85 10/14/23 07:17 Resp 18 10/14/23 07:17 BP 138/72 10/14/23 07:17 Pulse Ox 92 L 10/14/23 07:17 FiO2 Intake & Output 10/13/23 10/14/23 10/14/23 18:59 06:59 18:59 Weight 72.72 kg Other: # Voids 4 1 # Bowel Movements 1 - Exam Constitutional: No acute distress, conversant, pleasant Eyes: Anicteric sclerae, moist conjunctiva, no lid-lag Pupils equal round reactive to light ENMT: NC/AT Oropharynx clear, no erythema, exudates Neck: Supple, FROM, no masses, or JVD No carotid bruits No thyromegaly Lungs: Clear to auscultation Clear to percussion Normal respiratory effort, no accessory muscle use Cardiovascular: Heart regular in rate and rhythm, No murmurs, gallops, or rubs No peripheral edema Abdominal: Soft Nontender, no guarding, rebound or rigidity Abdomen moving with respiration Normoactive bowel sounds No hepatomegaly, No splenomegaly No palpable mass No abdominal wall hernia noted Skin: Normal temperature, tone, texture, turgor No induration No subcutaneous nodules No rash, lesions No ulcers Extremities: No digital cyanosis No clubbing Pedal pulses intact and symmetrical Radial pulses intact and symmetrical No calf tenderness Psychiatric: Alert and oriented to person, place and time Appropriate affect fair judgement Neuro Muscles Strength 5/5 in all 4 extremities Sensation to light touch grossly present throughout Cranial nerves II-XII grossly intact No focal sensory deficits Lymphatics: no palpable cervical or supraclavicular , or inguinal lymph nodes - Labs CBC & Chem 7: 10/14/23 09:20 Labs: Abnormal Lab Results - Last 24 Hours (Table) 10/14/23 10/14/23 Range/Units 02:29 09:20 Sodium 127 L 127 L (137-145) mmol/L Chloride 97 L (98-107) mmol/L BUN 6 L (7-17) mg/dL Glucose 105 H (74-99) mg/dL Magnesium 1.5 L (1.6-2.3) mg/dL Assessment and Plan Plan: 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 On Keppra. Na worsened with IV fluids, this is likely caused by SIADH Add 1200 cc fluid restriction. Awaiting urine and plasma modalities, urine sodium. Nephrology consulted, discussed with silk folder Sodium level 127 this morning. Hypomagnesemia from poor intake. Patient will follow History of seizures maintained on Keppra. Benign hypertension. Controlled. Moderate protein calorie malnutrition Encourage oral intake, particularly protein. Anticipate discharge to rehab in 1 to 2 days.
[2023-10-14] MEDS: ALPRAZolam 0.25 MG TAB PO PRN (19:43)
[2023-10-14] MEDS: MELATONIN 3 MG TABLET PO PRN (21:34)
[2023-10-14] MEDS: CYCLOBENZAPRINE 5 MG TAB PO PRN (21:34)
[2023-10-15 09:26] LABS: BUN/Creat Ratio 10.14 Ratio (12.00-20.00); Blood Urea Nitrogen 7.1 mg/dL (9.0-27.0); Calcium 8.6 mg/dL (8.7-10.3); Carbon Dioxide 23.2 mmol/L (21.6-31.8); Chloride 96 mmol/L (96-109); Glucose 97 mg/dL (70-110); Magnesium 1.9 mg/dL (1.5-2.4); Potassium 4.7 mmol/L (3.5-5.5); Sodium 129 mmol/L (135-145)
--- NOTE | 2023-10-15 10:48 | P.PN ---
Subjective Patient is seen in follow-up for hyponatremia. Sodium level up to 129 this morning. Oral intake fair. No active complaints. Vital signs are stable. General: No acute distress. HEENT: Head exam is unremarkable. LUNGS: No audible rhonchi or wheezes. HEART: Rate and Rhythm are regular. ABDOMEN: Nontender. EXTREMITITES: No edema. Objective - Vital Signs Vital signs: Vital Signs Temp 97.3 F L 10/15/23 08:00 Pulse 81 10/15/23 08:00 Resp 18 10/15/23 08:00 BP 153/77 10/15/23 08:00 Pulse Ox 95 10/15/23 08:00 FiO2 Intake & Output 10/14/23 10/15/23 10/15/23 18:59 06:59 18:59 Intake Total 700 680 Balance 700 680 Intake: IV 200 Magnesium Sulfate-D5w Pmx 200 1 gm In Dextrose/Water 1 100ml.bag @ 100 mls/hr IVPB Q1H [facility] Rx#: [id number] Oral 500 680 Other: Voiding Method Bedside Commode Bedside Commode # Voids 3 # Bowel Movements 1 1 - Labs CBC & Chem 7: 10/15/23 05:27 Labs: Abnormal Lab Results - Last 24 Hours (Table) 10/15/23 Range/Units 05:27 Sodium 129 L (135-145) mmol/L BUN 7.1 L (9.0-27.0) mg/dL BUN/Creatinine Ratio 10.14 L (12.00-20.00) Ratio Calcium 8.6 L (8.7-10.3) mg/dL Assessment and Plan Plan: Assessment: 1. 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 On Keppra. Sodium level 129 this morning. Urine sodium 71. TSH normal. 2. Hypomagnesemia from poor intake. Replaced. Improved. 3. History of seizures maintained on Keppra. 4. Benign hypertension. Stable. Plan: Maintain off IV fluids. Encourage oral intake, particularly protein. Maintain 1200 cc fluid restriction. Follow-up urine osmolality. Follow-up PTH related peptide. Advised patient to follow-up with her primary care physician for maintenance feedings. Repeat BMP and magnesium level 2 to 3 days postdischarge. Follow-up outpatient in 1 week.
[2023-10-15] MEDS: ACETAMINOPHEN TAB 325 MG TAB ONE ×2 (11:50)
[2023-10-15] MEDS: ASPIRIN 81 MG ONE ×3 (11:50→11:51)
[2023-10-15] MEDS: PANTOPRAZOLE 40 MG TABLET PO ONE ×2 (11:50→11:51)
[2023-10-15] MEDS: traMADol 50 MG TAB ONE ×4 (11:50→12:48)
[2023-10-15] MEDS: ALPRAZolam 0.25 MG TAB ONE ×2 (11:51→12:48)
[2023-10-15] MEDS: METOPROLOL TARTRATE 25 MG TAB ONE (12:48)
--- NOTE | 2023-10-15 13:25 | P.PN ---
Subjective Progress Note Date: 10/15/23 Principal diagnosis: abnormal labs sent by PCP patient doing well today, no complaints. No fevers or chills. No other overnight events. Objective - Vital Signs Vital signs: Vital Signs Temp 97.3 F L 10/15/23 08:00 Pulse 81 10/15/23 08:00 Resp 18 10/15/23 08:00 BP 153/77 10/15/23 08:00 Pulse Ox 95 10/15/23 08:00 FiO2 Intake & Output 10/14/23 10/15/23 10/15/23 18:59 06:59 18:59 Intake Total 700 680 Balance 700 680 Intake: IV 200 Magnesium Sulfate-D5w Pmx 200 1 gm In Dextrose/Water 1 100ml.bag @ 100 mls/hr IVPB Q1H [facility] Rx#: [id number] Oral 500 680 Other: Voiding Method Bedside Commode Bedside Commode # Voids 3 # Bowel Movements 1 1 - Exam Constitutional: No acute distress, conversant, pleasant Eyes: Anicteric sclerae, moist conjunctiva, no lid-lag Pupils equal round reactive to light ENMT: NC/AT Oropharynx clear, no erythema, exudates Neck: Supple, FROM, no masses, or JVD No carotid bruits No thyromegaly Lungs: Clear to auscultation Clear to percussion Normal respiratory effort, no accessory muscle use Cardiovascular: Heart regular in rate and rhythm, No murmurs, gallops, or rubs No peripheral edema Abdominal: Soft Nontender, no guarding, rebound or rigidity Abdomen moving with respiration Normoactive bowel sounds No hepatomegaly, No splenomegaly No palpable mass No abdominal wall hernia noted Skin: Normal temperature, tone, texture, turgor No induration No subcutaneous nodules No rash, lesions No ulcers Extremities: No digital cyanosis No clubbing Pedal pulses intact and symmetrical Radial pulses intact and symmetrical No calf tenderness Psychiatric: Alert and oriented to person, place and time Appropriate affect fair judgement Neuro Muscles Strength 5/5 in all 4 extremities Sensation to light touch grossly present throughout Cranial nerves II-XII grossly intact No focal sensory deficits Lymphatics: no palpable cervical or supraclavicular , or inguinal lymph nodes - Labs CBC & Chem 7: 10/15/23 05:27 Labs: Abnormal Lab Results - Last 24 Hours (Table) 08/25/24 08/26/24 Range/Units 12:14 05:27 Sodium 129 L (135-145) mmol/L BUN 7.1 L (9.0-27.0) mg/dL BUN/Creatinine Ratio 10.14 L (12.00-20.00) Ratio Osmolality 268 L (275-295) mOsm/kg Calcium 8.6 L (8.7-10.3) mg/dL Assessment and Plan Plan: 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 On Keppra. Na worsened with IV fluids, this is likely caused by SIADH started on 1200 cc fluid restriction. Nephrology consulted, discussed with licensed master social worker Sodium level 129 this morning. urine osmolality 407 and plasma osmolality 268, SIADH most likely Need to hold keppra according to nephro, will consult neuro to find alternative. Hypomagnesemia from poor intake. Replaced. History of seizures maintained on Keppra. Consult neuro to find an alternative Benign hypertension. Controlled. Moderate protein calorie malnutrition Encourage oral intake, particularly protein. general weakness: seen again today 10/14 by physical therapy, does not qualify for rehabilitation, patient upset as she wanted to go to rehab, home care will be arranged by care management. D/w care management
--- NOTE | 2023-10-15 17:28 | P.CNNES ---
History of Present Illness Consult date: 10/15/23 Requesting physician: Roxie Bernal Reason for Consult: seizure History of Present Illness: This is a 78-year-old woman with a history of seizure presented emergency department because of hyponatremia. Patient is not a reliable historian. Stated that she was notified by her primary care physician that her sodium was low and needed to come to hospital for further evaluation. She stated that she had history of seizure and has been placed on Keppra and has not had been having any further seizure since 2019. She denies any headache, nausea vomiting, focal weakness that is new, visual disturbance or speech difficulty. Patient is on Keppra 500mg bid. It seems in the past in 2019 patient was evaluated by Dr. Yuen in which the patient had hyponatremia and was on Dilantin and her Dilantin level were very madrid btherapeutic even though the patient was compliant taking her the medication so Dr. Yuen weaned her off of Dilantin and placed her on Keppra. Nephrology felt the patient hyponatremia was secondary due to poor solute intake and SIADH. There is also concern that Keppra was a contributing factor for the hyponatremia. TSH is normal. Some of the workup during this hospital visit consisted of: Sodium was 129 and 2 days ago it was [address] of the head's in the past showed right parietal craniotomy. Review of Systems Limited but positive and negative as per HPI. 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 History of Any Multi-Drug Resistant Organisms: None Reported Past Surgical History: Hysterectomy, Tonsillectomy Additional Past Surgical History / Comment(s): Colonoscopy, EGD WITH DILATION, SURGERY FOR BLOOD CLOT IN BRAIN. Past Anesthesia/Blood Transfusion Reactions: No Reported Reaction Past Alcohol Use History: Heavy Additional Past Alcohol Use History / Comment(s): States was a heavy drinker but has not had any alcohol in 13 months. - Past Family History Father Family Medical History: Myocardial Infarction ([place]) Additional Family Medical History / Comment(s): Father of a [place] at the age of 73 yrs. Mother History Unknown: Yes Additional Family Medical History / Comment(s): Mother at the age of 84 yrs. She had a murmur and her heart would "skip a beat". Brother(s) Family Medical History: Cancer Additional Family Medical History / Comment(s): Colon cancer. Medications and Allergies Home Medications Medication Instructions Recorded Confirmed Type Ergocalciferol [Vitamin D2 50,000 unit PO WE 01/26/18 06/27/22 History (DRISDOL)] levETIRAcetam [Keppra] 500 mg PO BID 02/20/20 06/27/22 History Magnesium Oxide [Mag-Ox] 400 mg PO DAILY tab 03/01/20 06/27/22 Rx Temazepam [Restoril] 15 mg PO HS PRN #4 cap 03/01/20 06/27/22 Rx Aspirin [Adult Low Dose Aspirin EC] 81 mg PO DAILY 03/30/21 06/27/22 History Atorvastatin [Lipitor] 40 mg PO DAILY 03/30/21 06/27/22 History Ezetimibe [Zetia] 10 mg PO DAILY 03/30/21 06/27/22 History Hydroxyurea 500 mg PO MOTUWETHFR 03/30/21 06/27/22 History Metoprolol Succinate (ER) [Toprol 25 mg PO BID 03/30/21 06/27/22 History XL] Pantoprazole [Protonix] 40 mg PO DAILY 03/30/21 06/27/22 History Vitamin B-12 (Unknown Dose) 1 tab PO DAILY 03/30/21 06/27/22 History Allergies Allergy/AdvReac Type Severity Reaction Status Date / Time No Known Allergies Allergy Verified 10/13/23 19:11 Physical Examination - Vital Signs Vital Signs: Vital Signs Temp Pulse Resp BP Pulse Ox 10/15/23 08:00 97.3 F L 81 18 153/77 95 10/15/23 02:00 98.1 F 73 121/70 95 10/14/23 20:00 98.4 F 85 126/76 94 L Intake and Output 10/15/23 10/15/23 10/15/23 06:59 14:59 22:59 Other: Voiding Method Bedside Commode GENERAL: The patient is sitting in a recliner chair and is not in acute distress. NEUROLOGICAL: Higher mental function: The patient is awake, alert, oriented to self. She stated the year is 1923 and stated the current month after giving her some time to think about it. She is following few simple commands. No aphasia. Cranial nerves: The pupils are round, equal and reactive to light and accommodation. Visual mullen are full to confrontation throughout. Extraocular movement is intact no nystagmus is noted. Facial sensation is normal to touch throughout. The facial strength is normal throughout. Hearing is mildly decreased bilaterally to hand rub. Tongue is midline and moved [id number] without any difficulty. No dysarthria is noted. Shoulder shrug is normal bilaterally. Motor: The strength is left upper extremity weakness that is chronic per patient and is able to lift above gravity. Otherwise lifting all extremities above gravity without focality. Normal tone and bulk. Cerebellum: Normal finger to nose bilaterally. Sensation: Sensation is normal to touch throughout. Reflexes (right/left): 2+ throughout. Plantars are mute bilaterally. Results - Laboratory Findings CBC and BMP: 10/15/23 05:27 Abnormal Lab Findings: Abnormal Labs 10/14/23 10/14/23 10/14/23 02:29 09:20 12:14 Sodium 127 L 127 L Chloride 97 L BUN 6 L BUN/Creatinine Ratio Glucose 105 H Osmolality 268 L Calcium Magnesium 1.5 L 10/15/23 05:27 Sodium 129 L Chloride BUN 7.1 L BUN/Creatinine Ratio 10.14 L Glucose Osmolality Calcium 8.6 L Magnesium Assessment and Plan Assessment: This is a 78-year-old woman with history of seizure and is on Keppra and her last seizure was in 2019 who presents because of hyponatremia. [place] 19 patient was evaluated by my colleague and at that time she was on Dilantin and she was compliant taking the medication but had subtherapeutic level and as well as had hyponatremia. Acute on chronic Hyponatremia and it seems due to poor solute intake and SIADH. There is a concern by the seismology technical officer that Keppra can be contributing to hyponatremia. Keppra can cause SIADH but patient was having hyponatremia even before Keppra was started in the past she was on Dilantin prior to Keppra being started and she was hyponatremic. Hypomagnesemia Chronic history of hyponatremia History of seizure and she is on Keppra 500 mg twice daily last seizure was in 2019 History of Plan: Patient is on Keppra 500 mg twice daily. I will speak with the seismology technical officer tomorrow regarding her antiseizure medication of Keppra 500 mg twice daily. As mentioned earlier patient had hyponatremia al so in 2019 and at that time she was not on Keppra and Dilantin Seizure precautions seizure pads Nephrology is on board For the rest of the medical management the primary and other specialist Upon discharge recommend the patient to follow-up with a neurologist as an outpatient within 2 to 3 weeks. Thank you for the consultation Time with Patient: Greater than 30
[2023-10-16 08:31] VITALS: RESP 16
[2023-10-16 09:56] LABS: Blood Urea Nitrogen 8.4 mg/dL (9.0-27.0); Calcium 8.9 mg/dL (8.7-10.3); Carbon Dioxide 25.4 mmol/L (21.6-31.8); Chloride 95 mmol/L (96-109); Glucose 89 mg/dL (70-110); Magnesium 1.7 mg/dL (1.5-2.4); Potassium 4.5 mmol/L (3.5-5.5); Sodium 132 mmol/L (135-145)
--- NOTE | 2023-10-16 11:05 | P.PN ---
Subjective Patient is seen in follow-up for hyponatremia. Sodium level up to 132 this morning. Oral intake fair. No active complaints. Vital signs are stable. General: No acute distress. HEENT: Head exam is unremarkable. LUNGS: No audible rhonchi or wheezes. HEART: Rate and Rhythm are regular. ABDOMEN: Nontender. EXTREMITITES: No edema. Objective - Vital Signs Vital signs: Vital Signs Temp 97.9 F 10/16/23 06:54 Pulse 82 10/16/23 06:54 Resp 16 10/16/23 06:54 BP 166/89 10/16/23 06:54 Pulse Ox 95 10/16/23 06:54 FiO2 Intake & Output 10/15/23 10/16/23 10/16/23 18:59 06:59 18:59 Other: Voiding Method Bedside Commode Bedside Commode # Voids 4 1 - Labs CBC & Chem 7: 10/16/23 03:47 Labs: Abnormal Lab Results - Last 24 Hours (Table) 10/14/23 10/16/23 Range/Units 12:14 03:47 Sodium 132 L (135-145) mmol/L Chloride 95 L (96-109) mmol/L BUN 8.4 L (9.0-27.0) mg/dL Osmolality 268 L (275-295) mOsm/kg Assessment and Plan Plan: Assessment: 1. 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 On Keppra. Sodium level 132 this morning. Urine sodium 71. Urine osmolality 407. TSH normal. 2. Hypomagnesemia from poor intake. Replaced. Improved. 3. History of seizures maintained on Keppra. 4. Benign hypertension. Stable. Plan: Maintain off IV fluids. Encourage oral intake, particularly protein. Maintain 1200 cc fluid restriction. Follow-up PTH related peptide. Advised patient to follow-up with her primary care physician for maintenance feedings. Repeat BMP and magnesium level 2 to 3 days postdischarge. Follow-up outpatient in 1 week.
[2023-10-16 13:47] VITALS: BP 152/77; PULSE 90; TEMP 97.7
--- NOTE | 2023-10-16 14:02 | P.DS ---
Providers Date of admission: 10/11/23 22:57 Expected date of discharge: 10/16/23 Attending physician: Deepak Orellana MD Consults: 10/14/23 03:23 Consult Physician Routine Consulting Provider: Anthony Santamaria Consult Reason/Comments: sodium 121 Do you want consulting provider notified?: Yes, Notify in am 10/15/23 13:21 Consult Physician Routine Consulting Provider: Regan Steinberg Consult Reason/Comments: seizure Do you want consulting provider notified?: Yes Primary care physician: Stated None Hospital Course: 78 year old F with PMH of seizure disorder, thrombocythemia, HTN, HLD presented to the ED for abnormal lab work. She reported generalized weakness. In the ED she underwent extensive evaluation. BP 138/72, HR 85, T 98.7F, RR 18, 92% on RA. Her Na was noted to be as low as 121. TSH 0.656. Initially started on NS, her sodium worsened. Nephrology consulted, UOsm, Brit, SOsm collected consistent with SIADH and poor solute intake. Placed on fluid restriction, Na improved to 132 at the time of discharge. Concerns for Keppra causing her hypoNa, Neurology consulted, decision made to continue Keppra for now and outpatient follow up with her Neurologist. Patient requested SNF but did very well with PT and OT. 10/15 Patient was seen and examined. No complaints today. BMP Na 132, Cl 95, BUN 8.4. Mag is 1.7. Discussed with Dr. Santamaria, cleared for discharge. Patient advised 1.2L fluid restriction and increased protein diet. Plans to repeat BMP in 1 week to be followed up with her PCP. Patient verbalized understanding of the plan. General: non toxic, no distress, appears at stated age Derm: warm, dry Head: atraumatic, normocephalic, symmetric Eyes: EOMI, no lid lag, anicteric sclera Mouth: no lip lesion, mucus membranes moist Cardiovascular: S1S2 reg, no murmur Lungs: CTA bilateral, no rhonchi, no rales , no accessory muscle use Ext: no gross muscle atrophy, no edema, no contractures Neuro: no focal neuro deficits Psych: Alert, oriented, appropriate affect Discharge Diagnosis: Hyponatremia likely SIADH Hypomagnesemia Seizure disorder Thrombocythemia Hypertension Dyslipidemia GERD This complex discharge took 35 mintues to complete. Patient Condition at Discharge: Stable Plan - Discharge Summary New Discharge Prescriptions: Continue Ergocalciferol [Vitamin D2 (DRISDOL)] 50,000 unit PO WE levETIRAcetam [Keppra] 500 mg PO BID Magnesium Oxide [Mag-Ox] 400 mg PO DAILY tab Temazepam [Restoril] 15 mg PO HS PRN #4 cap PRN Reason: Insomnia Vitamin B-12 (Unknown Dose) 1 tab PO DAILY Aspirin [Adult Low Dose Aspirin EC] 81 mg PO DAILY Metoprolol Succinate (ER) [Toprol XL] 25 mg PO BID Ezetimibe [Zetia] 10 mg PO DAILY Hydroxyurea 500 mg PO MOTUWETHFR Pantoprazole [Protonix] 40 mg PO DAILY Atorvastatin [Lipitor] 40 mg PO DAILY Discharge Medication List Ergocalciferol [Vitamin D2 (DRISDOL)] 50,000 unit PO WE 01/26/18 [History] levETIRAcetam [Keppra] 500 mg PO BID 02/20/20 [History] Magnesium Oxide [Mag-Ox] 400 mg PO DAILY tab 03/01/20 [Rx] Temazepam [Restoril] 15 mg PO HS PRN #4 cap 03/01/20 [Rx] Aspirin [Adult Low Dose Aspirin EC] 81 mg PO DAILY 03/30/21 [History] Atorvastatin [Lipitor] 40 mg PO DAILY 03/30/21 [History] Ezetimibe [Zetia] 10 mg PO DAILY 03/30/21 [History] Hydroxyurea 500 mg PO MOTUWETHFR 03/30/21 [History] Metoprolol Succinate (ER) [Toprol XL] 25 mg PO BID 03/30/21 [History] Pantoprazole [Protonix] 40 mg PO DAILY 03/30/21 [History] Vitamin B-12 (Unknown Dose) 1 tab PO DAILY 03/30/21 [History] Follow up Appointment(s)/Referral(s): Nursing,[place] [NON-STAFF] - As Needed Jacqueline Hendrickson MD [Medical Doctor] - 1 Week (office not answering Please call to confirm your appointment ) Ambulatory/Diagnostic Orders: Basic Metabolic Panel [LAB.AMB] Time Frame: 1 Week, Location: None Selected Activity/Diet/Wound Care/Special Instructions: 1.5L Fluid restriction Discharge/Stand Alone Forms: Who Do I Call?, Adult Foster Halfway List, Assisted Living Facilities, Community Resources, Help In The Home Discharge Disposition: HOME SELF-CARE
--- NOTE | 2023-10-16 15:35 | P.PN ---
Subjective Progress Note Date: 10/16/23 I am following-up with patient. Patient states she is doing well. She stated that in 2019 she was notified to be on Keppra 500 mg 2 tablet twice daily but she has only been taking 500 mg 1 tablet twice daily and has not had any further seizure-like activity. She states that she follows up with a nurse practitioner over Dr. Hendrickson's office for her neurological care. She denies any headache, any focal deficit. She has chronic hearing loss and is able to read off of lips. Objective - Vital Signs Vital signs: Vital Signs Temp 97.7 F 10/16/23 12:41 Pulse 90 10/16/23 12:41 Resp 16 10/16/23 12:41 BP 152/77 10/16/23 12:41 Pulse Ox 96 10/16/23 12:41 FiO2 Intake & Output 10/15/23 10/16/23 10/16/23 18:59 06:59 18:59 Other: Voiding Method Bedside Commode Bedside Commode Bedside Commode # Voids 4 1 - Exam GENERAL: The patient is sitting in a recliner chair and is not in acute distress. NEUROLOGICAL: Higher mental function: The patient is awake, alert, oriented to self, place and time. She is following simple commands. No aphasia. Cranial nerves: The pupils are round, equal and reactive to light and accommodation. Visual mullen are full to confrontation throughout. Extraocular movement is intact no nystagmus is noted. Facial sensation is normal to touch throughout. The facial strength is normal throughout. Hearing is severely bila terally to hand rub. Tongue is midline and moved [id number] without any difficulty. No dysarthria is noted. Shoulder shrug is normal bilaterally. Motor: The strength is left upper extremity weakness that is chronic per patient and is able to lift above gravity. Otherwise lifting all extremities above gravity without focality. Normal tone and bulk. Cerebellum: Normal finger to nose bilaterally. Sensation: Sensation is normal to touch throughout. Reflexes (right/left): 2+ throughout. Plantars are mute bilaterally. Some of the workup during this hospital visit consisted of: Sodium was 129 and 2 days ago it was 127. Today is [address] of the head's in the past showed right parietal craniotomy. - Labs CBC & Chem 7: 10/16/23 03:47 Labs: Abnormal Lab Results - Last 24 Hours (Table) 10/16/23 Range/Units 03:47 Sodium 132 L (135-145) mmol/L Chloride 95 L (96-109) mmol/L BUN 8.4 L (9.0-27.0) mg/dL Assessment and Plan Assessment: This is a 78-year-old woman with history of seizure and is on Keppra and her last seizure was in 2019 who presents because of hyponatremia. [place] 19 patient was evaluated by my colleague and at that time she was on Dilantin and she was compliant taking the medication but had subtherapeutic level and as well as had hyponatremia. Acute on chronic Hyponatremia and it seems due to poor solute intake and SIADH. There is a concern by the director of revenue that Keppra can be contributing to hyponatremia. Keppra can cause SIADH but patient was having hyponatremia even before Keppra was started in the past she was on Dilantin prior to Keppra being started and she was hyponatremic. Hypomagnesemia Chronic history of hyponatremia History of seizure and she is on Keppra 500 mg twice daily last seizure was in 2 019 History of Plan: Patient is on Keppra 500 mg twice daily. As mentioned earlier patient had hyponatremia also in 2019 and at that time she was not on Keppra and Dilantin. Patient will follow-up with her neurology team (Dr. Hendrickson's N.P.) pending consideration of modification of her antiseizure medication. Her last seizure was at least 5 years ago or more. Seizure precautions seizure pads Nephrology is on board For the rest of the medical management the primary and other specialist Upon discharge recommend the patient to follow-up with a neurologist as an outpa tient within 2 to 3 weeks. Plan discussed with the patient and primary attending There is no further neurological workup. Time with Patient: Less than 30
--- NOTE | 2023-11-07 09:10 | XR ---
Patient: Kellen Sousa M Ordering Physician: Unknown, Unknown ID: [id number] Phone, Pager: Phone: N/A Pager: N/A : 1945 Age/Gender: 78Y, F Primary Location: N/A Procedure: CHEST-1V Study Date: 10/12/2023 6:31:06 AM EXAMINATION TYPE: XR chest 1V DATE OF EXAM: 10/12/2023 COMPARISON: 02/26/2020 HISTORY: 78-year-old female cough and shortness of breath TECHNIQUE: Single frontal view of the chest is obtained. FINDINGS: Heart mildly enlarged. There are new trace bilateral pleural effusions. Patchy bilateral l ower lung opacities are present. 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 IMPRESSION: 1. Correlate for mild CHF with pulmonary vascular congestion. There may be trace pleural effusions. P atchy bibasilar edema/infiltrates. 2. Chronic ununited fracture proximal left humerus possibly with ongoing movement at the fracture sit e.
== END 2023-10-16 14:27 | disposition home health service (06) | DRG 644 ==
LOC: DISRECOVER 22:57 → 4SSUR 10-13 17:23
PROVIDERS: ADMIT Internal Medicine; ATTEND Internal Medicine
DX: E22.2 Syndrome of inappropriate secretion of antidiuretic hormone (principal); E44.0 Moderate protein-calorie malnutrition; E78.5 Hyperlipidemia, unspecified; G40.909 Epilepsy, unspecified, not intractable, without status epilepticus; E83.42 Hypomagnesemia; I10 Essential (primary) hypertension; K21.9 Gastro-esophageal reflux disease without esophagitis; D75.839 Thrombocytosis, unspecified; R00.1 Bradycardia, unspecified; M19.90 Unspecified osteoarthritis, unspecified site; Z68.31 Body mass index [BMI] 31.0-31.9, adult; K76.9 Liver disease, unspecified; H91.90 Unspecified hearing loss, unspecified ear; Z79.899 Other long term (current) drug therapy; Z79.82 Long term (current) use of aspirin
CPT/HCPCS: 71045; 80048; 82310; 83735; 83930; 83935; 84300; 84443; 86850; 86900; 86901; 93005; 96360; 99285

== ENCOUNTER → 2023-10-23 | Outpatient (CLI) | payer MEDICARE ==
--- NOTE | 2023-10-23 09:33 | US ---
EXAMINATION TYPE: US liver DATE OF EXAM: 10/23/2023 COMPARISON: US CLINICAL INDICATION: Female, 78 years old with history of K74.60 CIRRHOSIS OF LIVER; Known cirrhosis, 6 month F/U TECHNIQUE: Multiple sonographic images of the right upper quadrant are obtained. FINDINGS: EXAM MEASUREMENTS: Liver Length: 11.6 cm Gallbladder Wall: 0.2 cm CBD: 0.4 cm Right Kidney: 9.5 x 5.1 x 4.7 cm MANAGER PHOTOGRAPHY NOTES: Pancreas: Obscured by bowel gas Liver: Coarse echotexture, heterogeneous Gallbladder: Similar findings to prior with possible gallstone vs. sludge ball Evidence for sonographic Garcia's sign: No CBD: wnl Right Kidney: No evidence of hydro, cortical thinning IMPRESSION: 1. Liver heterogenous echotexture of the liver parenchyma. No suspicious masses. 2. Cholelithiasis/biliary sludge.
[2023-10-23 16:53] LABS: Basophils # (A) 0.05 X 10*3/uL (0.00-0.10); Basophils % (A) 0.4 %; Eosinophils # (A) 0.05 X 10*3/uL (0.04-0.35); Eosinophils % (A) 0.4 %; HCT 41.2 % (37.2-46.3); HGB 13.5 g/dL (12.0-15.0); Lymphocytes # (A) 0.59 X 10*3/uL (0.90-5.00); Lymphocytes % (A) 5.1 %; MCH 32.7 pg (27.0-32.0); MCHC 32.8 g/dL (32.0-37.0); MCV 99.8 FL (80.0-97.0); Mean Platelet Volume 9.3 FL (9.5-12.2); Monocytes # (A) 0.94 X 10*3/uL (0.20-1.00); Monocytes % (A) 8.2 %; NRBC Per 100 WBC 0 X 10*3/uL (0.00-0.01); Neutrophils # (A) 9.77 X 10*3/uL (1.80-7.70); Platelet Count 702 X 10*3/uL (140-440); RBC 4.13 X 10*6/uL (4.10-5.20); RDW 14.8 % (11.5-14.5)
[2023-10-23 17:14] LABS: ALT 15 U/L (8-44); AST 14 U/L (13-35); Albumin 4.5 g/dL (3.8-4.9); Albumin/Globulin Ratio 1.96 Ratio (1.60-3.17); Alkaline Phosphatase 97 U/L (41-126); BUN/Creat Ratio 16.29 Ratio (12.00-20.00); Blood Urea Nitrogen 11.4 mg/dL (9.0-27.0); Calcium 10.2 mg/dL (8.7-10.3); Carbon Dioxide 22.8 mmol/L (21.6-31.8); Chloride 96 mmol/L (96-109); Chol/HDL Ratio 1.89 Ratio; Globulin 2.3 g/dL (1.6-3.3); Glucose 100 mg/dL (70-110); LDL Cholesterol,Calculated 55.8 mg/dL (0.0-131.0); Potassium 5.2 mmol/L (3.5-5.5); Sodium 130 mmol/L (135-145); Total Bilirubin 0.5 mg/dL (0.3-1.2); Total Protein 6.8 g/dL (6.2-8.2); VLDL Calculation 12.02 mg/dL (5.00-40.00)
== END | disposition home or self-care (01) ==
LOC: RADUSWWP 08:38
PROVIDERS: ATTEND Internal Medicine Gastroenterology
DX: K74.60 Unspecified cirrhosis of liver
CPT/HCPCS: 76705; 80053; 80061; 82105; 85025

== ENCOUNTER → 2024-05-02 | Outpatient (CLI) | payer MEDICARE ==
[2024-05-02 14:49] LABS: HGB 13.2 g/dL (12.0-15.0); MCH 35.6 pg (27.0-32.0); MCV 107.8 FL (80.0-97.0); Mean Platelet Volume 9.9 FL (9.5-12.2); NRBC Per 100 WBC 0 X 10*3/uL (0.00-0.01); Platelet Count 505 X 10*3/uL (140-440); RBC 3.71 X 10*6/uL (4.10-5.20); RDW 11.9 % (11.5-14.5); WBC 6.45 X 10*3/uL (4.50-10.00)
[2024-05-02 15:22] LABS: LDL Cholesterol,Calculated 64.9 mg/dL (0.0-131.0); VLDL Calculation 12.02 mg/dL (5.00-40.00)
[2024-05-02 15:30] LABS: ALT 15 U/L (8-44); AST 29 U/L (13-35); Albumin 4.3 g/dL (3.8-4.9); Albumin/Globulin Ratio 1.79 Ratio (1.60-3.17); Alkaline Phosphatase 62 U/L (41-126); BUN/Creat Ratio 9.78 Ratio (12.00-20.00); Blood Urea Nitrogen 8.8 mg/dL (9.0-27.0); Calcium 9.4 mg/dL (8.7-10.3); Carbon Dioxide 24.2 mmol/L (21.6-31.8); Chloride 102 mmol/L (96-109); Globulin 2.4 g/dL (1.6-3.3); Glucose 103 mg/dL (70-110); Sodium 138 mmol/L (135-145); Total Bilirubin 0.5 mg/dL (0.3-1.2); Total Protein 6.7 g/dL (6.2-8.2)
[2024-05-02 16:15] LABS: Basophils # (A) 0.08 X 10*3/uL (0.00-0.10); Basophils % (A) 1.2 %; Eosinophils # (A) 0.13 X 10*3/uL (0.04-0.35); Lymphocytes # (A) 1.07 X 10*3/uL (0.90-5.00); Lymphocytes % (A) 16.6 %; Macrocytosis (M) 2+ (None Seen); Monocytes # (A) 0.55 X 10*3/uL (0.20-1.00); Monocytes % (A) 8.5 %; Neutrophils # (A) 4.61 X 10*3/uL (1.80-7.70); Neutrophils % (A) 71.5 %
== END | disposition home or self-care (01) ==
LOC: LABWHC1 10:26
PROVIDERS: ATTEND Internal Medicine Interventional Cardiology
DX: K74.60 Unspecified cirrhosis of liver (principal); E78.2 Mixed hyperlipidemia
CPT/HCPCS: 36415; 80053; 80061; 82105; 85025

== ENCOUNTER → 2024-08-04 | Outpatient (CLI) | payer MEDICARE ==
--- NOTE | 2024-08-04 10:58 | US ---
EXAMINATION TYPE: US liver DATE OF EXAM: 08/04/2024 COMPARISON: Multiple ultrasound in prior CT 02/21/2020. CLINICAL INDICATION: Female, 79 years old with history of K74.60 CIRRHOSIS OF LIVER; Right sided back pain, new onset diarrhea TECHNIQUE: Grayscale and color Doppler imaging of the right upper quadrant was performed. FINDINGS: EXAM MEASUREMENTS: Liver Length: 11.8 cm Gallbladder Wall: 0.3 cm CBD: 0.3 cm Right Kidney: 8.9 x 4.8 x 3.3 cm IT SERVICE TECHNICIAN NOTES:Difficult exam due to overlying bowel gas and patients inability to lay flat Pancreas: Obscured by bowel gas Liver: Limited visualization due to overlying bowel gas Gallbladder: Limited visualization due to overlying bowel gas; ?Stone redemonstrated Evidence for sonographic Garcia's sign: No CBD: wnl as visualized ; Limited visualization due to overlying bowel gas Right Kidney: wnl as visualized ; Limited visualization due to overlying bowel gas Proximal upper abdomen fluid collection = 4.9 x 4.0 x 5.3 cm is indeterminate. IMPRESSION: 1. No evidence for acute process. 2. Indeterminate fluid collection in the proximal upper abdomen unclear if this is a aortic aneurysm or other fluid collection. CT abdomen pelvis with IV contrast recommended. [facility], , 08/04/2024 10:55 AM
== END | disposition home or self-care (01) ==
LOC: RADUSWWP 10:20
PROVIDERS: ATTEND Internal Medicine Gastroenterology
DX: K74.60 Unspecified cirrhosis of liver (principal)
CPT/HCPCS: 76705

== ENCOUNTER → 2024-08-27 | Outpatient (CLI) | payer MEDICARE ==
[2024-08-27 08:59] LABS: African American GFR (CKD) 90 (>60 ml/min/1.73 sqM); Albumin 4.9 g/dL (3.5-5.0); Anion Gap 10 mmol/L; Blood Urea Nitrogen 11 mg/dL (7-17); Calcium 9.4 mg/dL (8.4-10.2); Carbon Dioxide 27 mmol/L (22-30); Chloride 101 mmol/L (98-107); Glucose 91 mg/dL (74-99); Non-African American GFR(CKD) 78 (>60 ml/min/1.73 sqM); Sodium 138 mmol/L (137-145)
[2024-08-27 09:05] LABS: Potassium 4.9 mmol/L (3.5-5.1)
--- NOTE | 2024-08-27 10:41 | CT ---
EXAMINATION TYPE: CT abdomen pelvis wo/w con DATE OF EXAM: 08/27/2024 10:19 AM COMPARISON: Ultrasound. CLINICAL INDICATION: Female, 79 years old with history of R93.89 previous abnormal findings; abnormal finding on ultrasound of liver TECHNIQUE: Axial CT abdomen pelvis wo/w con;Sagittal and coronal reformats were created on a Water[employer] workstation. Contrast used:100 mL of Isovue 300 with IV Contrast, (none if empty) Oral contrast used: with Oral Contrast (none if empty) CT DLP: 2717 mGycm, Automated exposure control for dose reduction was used. FINDINGS: LOWER CHEST: Lipomatous hypertrophy of interatrial septum. Moderate severe coronary artery atheroscle rosis. Aortic valve calcifications are mild. ABDOMEN LIVER: Unremarkable GALLBLADDER AND BILE DUCTS: Layering increased densities within the lumen consistent with gallstones are present. PANCREAS: Unremarkable. SPLEEN: Unremarkable. ADRENAL GLANDS: Unremarkable. KIDNEYS AND URETERS: No evidence of hydronephrosis or obstructing renal calculus. The ureters are unr emarkable. PELVIS BLADDER: No evidence for wall thickening or mass given limitations of exam. REPRODUCTIVE: Unremarkable. ABDOMEN & PELVIS STOMACH AND BOWEL: Oral contrast extends into the transverse colon. No evidence of bowel obstruction. Scattered colonic diverticula. PERITONEUM/RETROPERITONEUM: No evidence of pneumoperitoneum or free fluid. VASCULATURE: No evidence of aortic aneurysm. MUSCULOSKELETAL: No acute osseous abnormalities. Severe disc degeneration changes are present through out the thoracolumbar spine. Compression deformities to T12 with complete height loss at L1 with 75% loss in L2 with 25% height loss. Additionally T8 vertebral body with complete height loss and T6 with 75% height loss. LYMPH NODES: No gross evidence for lymphadenopathy. SOFT TISSUE/ABDOMINAL WALL: Unremarkable IMPRESSION: 1. Finding on prior ultrasound is artifact. There is no organizing fluid collection aneurysm. 2. Lipomatous hypertrophy of interatrial septum. 3. Moderate severe coronary artery atherosclerosis. 4. Aortic valve calcifications are mild. 5. Cholelithiasis. 6. Scattered compression deformities throughout the spine correlate for the back pain. [facility], , 08/27/2024 10:38 AM
== END | disposition home or self-care (01) ==
LOC: RADCTMAIN 08:10
PROVIDERS: ATTEND Nurse Practitioner Family
DX: I25.10 Atherosclerotic heart disease of native coronary artery without angina pectoris (principal); R93.89 Abnormal findings on diagnostic imaging of other specified body structures; K80.20 Calculus of gallbladder without cholecystitis without obstruction
CPT/HCPCS: 80069; 74178; 36415; Q9967